=== PATIENT | male | born 1940 | race Caucasian/White ===

== ENCOUNTER → 2018-02-17 09:40 | Outpatient (CLI) | payer OTHER, SELFPAY ==
[2018-02-17 11:25] LABS: Add Manual Diff / Slide Review NO; Basophils Percent Auto 2.3 % (0-2); Eosinophils Percent Auto 3.1 % (2-4); Hematocrit 40.3 % (41-53); Hemoglobin 13.5 g/dL (13.5-17.5); Lymphocytes Percent Auto 21.7 % (25-40); Mean Corpuscular HGB Conc 33.6 % (30-36); Mean Corpuscular Hemoglobin 32.9 PG (26-34); Mean Corpuscular Volume 97.7 fL (80-100); Monocytes Percent Auto 9.9 % (3-14); Neutrophils Absolute Auto 2900 /uL (1500-7000); Platelet Count 160 X10^3/uL (150-400); Red Blood Cell Count 4.12 X10^6/uL (4.5-5.9); Red Cell Distribution Width 14.4 % (11.6-14.8); White Blood Cell Count 4.6 X10^3/uL (4.5-11.0)
[2018-02-17 11:39] LABS: Hemoglobin A1C% w Est Avg Glu 5.2 % (4.0-6.0)
[2018-02-17 11:42] LABS: Alanine Aminotransferase 30 IU/L (21-72); Albumin Globulin Ratio 1.9 (1.0-2.8); Alkaline Phosphatase 49 U/L (38-126); Aspartate Aminotransferase 31 IU/L (17-59); BUN Creatinine Ratio 23.3 (6-22); Bilirubin Total 0.4 mg/dL (0.2-1.3); Blood Urea Nitrogen 21 mg/dL (9-20); Calcium 9.3 mg/dL (8.4-10.2); Carbon Dioxide 28 mmol/L (22-32); Chloride 106 mmol/L (98-107); Cholesterol 151 mg/dL (140-199); Estimated Glomerular Filt Rate > 60.0 mL/min (>60); Globulin 2.1 g/dL (1.7-4.1); Glucose 87 mg/dL (80-110); HDL Cholesterol 72 mg/dL (40-60); HEMOLYSIS < 15 (0-50); LDL Cholesterol Calculated 65 mg/dL (<100); Potassium 4.4 mmol/L (3.4-5.1); Sodium 142 mmol/L (137-145); Total Protein 6.1 g/dL (6.3-8.2); Triglycerides 68 mg/dL (35-150)
[2018-02-17 12:42] LABS: Thyroid Stimulating Hormone 0.31 uIU/mL (0.47-4.68)
== END ==
PROVIDERS: Family Provider Family Medicine; PCP Family Medicine; Visit Provider Family Medicine
DX: E87.1 Hypo-osmolality and hyponatremia (principal); I10 Essential (primary) hypertension; I25.10 Atherosclerotic heart disease of native coronary artery without angina pectoris
CPT/HCPCS: 36415; 80053; 80061; 83036; 84443; 85025

== ENCOUNTER → 2018-02-24 12:45 | Outpatient (CLI) | payer OTHER, SELFPAY ==
--- NOTE | 2018-02-24 12:57 | DI.CT.S_ITS ---
PROCEDURE: CT HEAD/BRAIN WO/W CON INDICATIONS: memory loss TECHNIQUE: 4.5 mm thick angled axial sections acquired from the foramen magnum to the vertex both before and after the administration of intravenous contrast, with coronal and sagittal reformats. For radiation dose reduction, the following was used: automated exposure control, adjustment of mA and/or kV according to patient size. COMPARISON: [facility], CT, HEAD WITHOUT CONTRAST, 03/10/2017, 14:31. FINDINGS: Image quality: Excellent. CSF spaces: Basal cisterns are patent. No extra-axial fluid collections. Ventricles are symmetric in size and shape. Brain: No midline shift. No intracranial bleeds or masses. No abnormal intracranial enhancement. There is moderate cerebral volume loss for age. There is moderate periventricular white matter chronic small vessel ischemic change. There is intracranial internal carotid artery atherosclerosis. Skull and face: Calvarium and visualized facial bones appear intact, without suspicious lesions. Sinuses: Visualized sinuses and mastoids are clear. IMPRESSION: 1. No acute intracranial abnormalities. 2. Cerebral volume loss and chronic microvascular ischemic changes. Dictated by: Hai Cummings M.D. on 02/24/2018 at 13:40 Approved by: Hai Cummings M.D. on 02/24/2018 at 13:43
== END ==
PROVIDERS: PCP Family Medicine; Visit Provider Family Medicine
DX: R41.3 Other amnesia (principal); R09.89 Other specified symptoms and signs involving the circulatory and respiratory systems
CPT/HCPCS: 70470; Q9967

== ENCOUNTER → 2018-03-01 11:24 | Outpatient (CLI) | payer OTHER, SELFPAY ==
[2018-03-01 14:32] LABS: Folate > 20.0 ng/mL (2.76-20.0); Vitamin B12 525 pg/mL (239-931)
[2018-03-03 22:22] LABS: RPR Screen Nonreactive (Nonreactive)
== END ==
PROVIDERS: PCP Family Medicine; Visit Provider Family Medicine
DX: R41.3 Other amnesia (principal)
CPT/HCPCS: 36415; 82607; 82746; 86592

== ENCOUNTER → 2018-03-11 13:52 | Outpatient (CLI) | payer OTHER, SELFPAY ==
--- NOTE | 2018-03-11 13:54 | DI.US.S_ITS ---
PROCEDURE: US KIMBERLY LIMITED SINGLE LEVEL INDICATIONS: MEMORY LOSS TECHNIQUE: Ankle-brachial indices were obtained bilaterally and recorded. COMPARISONS: FINDINGS: Right ankle brachial index (KIMBERLY): 2.2 with leg pressure of 215 Left ankle brachial index (KIMBERLY): 3.3 with leg pressure of 264 IMPRESSION: Elevated pressures within the legs bilaterally which are greater than 200 mm of mercury suggesting medial wall calcification. Dictated by: Raf LESLIE Interpreted: Gt Juarez MD on 03/11/2018 at 15:57 Approved by: Gt Juarez M.D. on 03/11/2018 at 17:18
== END ==
PROVIDERS: PCP Family Medicine; Visit Provider Family Medicine
DX: R09.89 Other specified symptoms and signs involving the circulatory and respiratory systems (principal); R41.3 Other amnesia
CPT/HCPCS: 93922

== ENCOUNTER → 2018-04-13 12:40 | Outpatient (CLI) | payer OTHER, SELFPAY | PROVIDERS: PCP Family Medicine; Visit Provider Family Medicine | DX: M85.80 Other specified disorders of bone density and structure, unspecified site (principal) | CPT/HCPCS: 77080 ==

== ENCOUNTER → 2018-05-19 11:45 | Outpatient (CLI) | payer OTHER, SELFPAY | PROVIDERS: PCP Family Medicine; Visit Provider Family Medicine | DX: M21.372 Foot drop, left foot (principal) | CPT/HCPCS: 95885; 95886; 95909 ==

== ENCOUNTER → 2018-05-25 12:44 | Outpatient (CLI) | payer OTHER, SELFPAY ==
[2018-05-25 13:52] LABS: Add Manual Diff / Slide Review NO; Basophils Absolute Auto 100 /uL (0-100); Basophils Percent Auto 1.3 % (0-2); Eosinophils Absolute Auto 100 /uL (0-450); Hematocrit 37.6 % (41-53); Lymphocytes Absolute Auto 700 /uL (1100-4500); Mean Corpuscular HGB Conc 34.6 % (30-36); Mean Corpuscular Hemoglobin 33.3 PG (26-34); Mean Corpuscular Volume 96.1 fL (80-100); Monocytes Absolute Auto 400 /uL (0-900); Monocytes Percent Auto 9.3 % (3-14); Neutrophils Absolute Auto 3400 /uL (1500-7000); Neutrophils Percent Auto 72.4 % (50-75); Platelet Count 162 X10^3/uL (150-400); Red Blood Cell Count 3.91 X10^6/uL (4.5-5.9); White Blood Cell Count 4.7 X10^3/uL (4.5-11.0)
[2018-05-25 13:53] LABS: BUN Creatinine Ratio 34.3 (6-22); Blood Urea Nitrogen 24 mg/dL (9-20); Calcium 9.2 mg/dL (8.4-10.2); Carbon Dioxide 25 mmol/L (22-32); Chloride 96 mmol/L (98-107); Estimated Glomerular Filt Rate > 60.0 mL/min (>60); Glucose 88 mg/dL (80-110); HEMOLYSIS < 15 (0-50); Potassium 5.1 mmol/L (3.4-5.1); Sodium 130 mmol/L (137-145)
[2018-05-25 14:11] LABS: PTT Partial Thromboplastin Tim 29 SECONDS (26.4-36.2); Prothrombin Time 11.8 SECONDS (10.1-12.7)
== END ==
PROVIDERS: Family Provider Family Medicine; PCP Family Medicine; Visit Provider Dentist Oral and Maxillofacial Surgery
DX: D69.6 Thrombocytopenia, unspecified (principal)
CPT/HCPCS: 36415; 80048; 85025; 85610; 85730

== ENCOUNTER 2018-07-07 16:45 | Outpatient (RCR) | payer OTHER, SELFPAY ==
--- NOTE | 2018-04-07 17:10 | PT.OIE ---
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) Presence of cardiac pacemaker (Chronic 03/23/17) Anxiety (Chronic) Depression (Chronic) Herpes (Chronic) Urinary incontinence (Chronic 2001) Chicken pox (Resolved) Depression (Resolved 08/20/14) Kidney stones (Resolved 1991) Rheumatic fever (Resolved) Past Surgical History (Last Reviewed 10/26/17 @ 11:06 by Shira Carballo LPN) Anesthesia (Resolved) History of angioplasty (Resolved 1997) History of angioplasty (Resolved 2007) History of angioplasty (Resolved 2011) Status post hernia repair (Resolved 1979) Status post transurethral resection of prostate (Resolved 1999) Provider Visit Care Team Role Provider Type Yash Howe MD Attending Provider Physician Primary Care Provider Specialty: [facility] Practice Address: [address] [place] [address] Email: [email or web address] Physical Therapy Initial Evaluation PT-OP-A Visit Information Start: 04/07/18 16:00 Freq: Status: Active Protocol: Document 04/07/18 17:02 EA (Rec: 04/07/18 17:17 EA [id number]) Out-Patient Physical Therapy Visit Information Visit Information Visit Type Initial Evaluation Visit Start Time 13:45 Visit Stop Time 14:30 Total Visit Minutes 45 Visit Number 1 Evaluation Information Evaluation Date 04/07/18 Precautions Precautions Fall risk, Pacemaker. PT-OP-B Current Condition Start: 04/07/18 16:00 Freq: Status: Active Protocol: Document 04/07/18 17:02 EA (Rec: 04/07/18 17:17 EA [id number]) Current Condition History of Current Condition Onset Date 6 months ago Current Complaints Multiple joint pain and weakness to both LE's. History of Current Condition Present condition started 6 months ago when he noticed that both LE's are getting weak and decreased balance. He stated that multiple falls in the past 6 months with no severe injury or required hospitalization. He mentioned that pain to right hip and shoulder continued to bother him when place with pressure since the fall two weeks ago. Pt reports mobility decreased from more than 100 ft to now less than 50 ft since six months ago which also currently required four wheeled walker. Patient reports that he is still mourning for his daughter few years ago. Prior Treatments and Tests Patient had dementia medication removed few weeks ago Future Testing and Treatments Planned None identified Treatment Goals Patient/Caregiver Goals Patient wants to be able to walk more than 100 ft with the use of straight cane. Patient would like to improve his balance. Prior Functional Status Baseline Function- ADL's Independent Baseline Function- Mobility Independent Baseline Function- Gait Ambulates > 100 ft with straight cane/ across the street 6 months ago Baseline Function- Recreation/Hobbies Patient has none active lifestyle due to depression Baseline Function- Other Lives with his who does the driving due to early dementia. Live in a 2 story house with more than 10 stairs at home. Current Functional Impairments (Reported) Functional Limitations- ADL's Indep in all except with feeding due to recent mouth surgery, requires company in all outside mobility due to early onset dementia. 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 Patient Reported Progress Same Patient Questionnaires Lower Extremity Functional Scale LEFS Score 11 LEFS Impairment 80 to 99% Impaired (Score 1-16 ) OP-PT Pain Assessment Pain Assessment Grid Paper Pain Assessment Grid Completed Yes Location Right Upper Lateral Hip Intensity 6 Scale Used Numeric (1 - 10) Description Aching Tender Tightness Pain Alleviating Factors Medication Home Pain Medication Use Pain Medications Used Yes Pain Behaviors Pain Behaviors Wincing PT-OP-D Balance Start: 04/07/18 16:00 Freq: Status: Active Protocol: Document 04/07/18 17:02 MARC (Rec: 04/07/18 17:17 EA [id number]) OP-PT Balance Assessment Sitting Balance Static Sitting Balance Ability Good Dynamic Sitting Balance Ability Good Standing Balance Static Standing Balance Ability Good Dynamic Standing Balance Ability Fair Balance Tests Functional Reach Functional Reach Test < 2 inches Functional Reach Impairment Rating 80 to <100% Impaired (Score 1- 2) Romberg Romberg < 5 seconds Single Limb Standing Single Limb- Right unable Single Limb- Left unable Semi-Tandem Standing Semi-Tandem Standing Balance < 3 second to both L and R Knapp Balance Assessment Evaluation Sitting to Standing Ability Several Tries w/Hands Unsupported Stance Supervision- 2 minutes Sitting Unsupported, Feet on Floor Safely- 2 minutes Standing to Sitting Ability Assist, Control w/Hands Unsupported Stance- Eyes Closed Safely, With Eyes Open Unsupported Stance- Eyes Open Independent, 1 minute Reaching Forward Standing Supervision Needed Pick- Up Object From Floor Requires Supervision Look Behind Shoulder - Standing Turns Sideways Only Turning 360 Degrees Turns slowly, but safely Unsupported Stance, Alternating Feet on 4 Steps w/Supervision Stair Unsupported Tandem Stance Assist to Step-15 seconds Unilateral Leg Stance Unable,assist to not fall Total Score Knapp Total Score (out of 56 points) 26 Tinetti Balance Assessment Sitting Balance Sitting Balance Steady, safe Arising from Chair Ability to Arise Able, uses arms to help Standing Balance Immediate Standing Balance Steady with support Turning Step Pattern Turning 360 Degrees Continuous steps Sitting Down Sitting Down Uses arms or unsteady Gait and Step Initiation of Gait No hesitancy Right Foot Step Length Does pass stance foot Right Foot Step Height Does not clear floor Left Foot Step Length Does pass stance foot Left Foot Step Height Does not clear floor Step Description Step Symmetry Step length appears equal Gait Description Trunk Description Marked sway or uses aide Scoring and Interpretation Tinetti Composite Score (points) 9 Interpretation of Scores High risk for falls(< 19) Carty Fall Scale Copyright Permission Carloz BEGUM, Carloz RM, Arabella SJ. Development of a scale to identify the fall- prone patient. Can J Aging 1989;8;366-7. Esha Carty (2009). Preventing patient falls. (2nd ed). Kings: Abbott. PT-OP-E Functional Tests Start: 04/07/18 16:00 Freq: Status: Active Protocol: Document 04/07/18 17:05 EA (Rec: 04/11/18 09:42 EA [id number]) Functional Tests Timed Up and Go (TUG) Score > 15 secs TUG Impairment Rating 60 to <80% Impaired (Score 16- 17) PT-OP-F Manual Assessment Start: 04/07/18 16:00 Freq: Status: Active Protocol: Document 04/07/18 17:02 EA (Rec: 04/07/18 17:17 EA [id number]) Manual Assessments Soft Tissue Assessment Soft Tissue Mobility Assessment Tight both hamstrings, Quads, hip flexors, PF PT-OP-G Mobility & Gait Start: 04/07/18 16:00 Freq: Status: Active Protocol: Document 04/07/18 17:02 EA (Rec: 04/07/18 17:17 EA [id number]) OP Mobility Evaluation Bed Mobility Rolling Minimal difficulty, indep Supine to and from Sit Minimal difficulty, indep Transfers Sit to Stand Indep but requires hand for support Bed to Chair Transfers indep but requires support/AD OP Gait Assessment Gait Gait Assistance Required: Independent Distance (Feet) 50 Able to Maintain Weight Bearing Status Yes During Gait Assistive Devices Assistive Device 4 Wheeled Walker Gait Deviations General Gait Pattern Decreased Feet Clearance Flexed Trunk Comments Gait Comments Left foot dropped Stair Climbing Evaluation Evaluation Level of Assist On Stairs Standby Assistance Devices Stair Climbing Assistive Devices Straight Cane Technique/Endurance Stair Climbing Direction Ascend and Descend Stair Climbing Technique Step to Step Number of Steps Climbed 4 Comments Stair Climbing Comments With difficulty on stairs descent PT-OP-J Posture/Palpation/Skin Start: 04/07/18 16:00 Freq: Status: Active Protocol: Document 04/07/18 17:02 EA (Rec: 04/07/18 17:17 EA [id number]) Posture Evaluation Position Standing Evaluation View post/lat Head/C-Spine Posture Forward Head T-Spine Posture Increased Kyphosis L-Spine Posture Flattened Shoulder Posture (L) Forward (R) Forward Scapula Posture (L) Protracted (R) Protracted Arm Posture (L) Internally Rotated (R) Internally Rotated Pelvis Posture Posterior Tilted Hip Posture (R) Flexed Comments Posture Comments Supine position reveals no obvious hip deformity to right side Palpation Assessment Location One Palpation Location Right lateral hip, right shoulder Palpation Findings Soft Tissue Tightness Tenderness Palpation Details Grade 3/4 tender over lateral upper hip and right shoulder No noted any signs of crepitus in all hip direction PROM Skin Assessment Other Assessments Skin Assessment Comments Right lateral hip bruise/ discoloratrion ~ 4 square cm. PT-OP-M Strength Start: 04/07/18 16:00 Freq: Status: Active Protocol: Document 04/07/18 17:02 EA (Rec: 04/07/18 17:17 EA [id number]) Hip Strength Hip Manual Muscle Testing Right Flexion (L2) 3+ Fair+ Extension (S1) 4- Good- Abduction 3+ Fair+ Adduction 4- Good- External Rotation 3+ Fair+ Internal Rotation 4- Good- Left Flexion (L2) 3+ Fair+ Extension (S1) 4- Good- Abduction 3 Fair Adduction 4- Good- External Rotation 3+ Fair+ Internal Rotation 4- Good- Ankle/Foot Strength Ankle and Foot Manual Muscle Testing Left Dorsiflexion (L4) 2+ Poor+ Plantarflexion (S1) 4- Good- Inversion 4- Good- Eversion (S1) 4- Good- Right Reason Not Measured WFL PT-OP-T Assessment and Plan Start: 04/07/18 16:00 Freq: Status: Active Protocol: Document 04/07/18 16:01 EA (Rec: 04/07/18 16:02 EA [id number]) Physical Therapy Assessment Rehab Potential Rehabilitation Potential Fair Evaluation Complexity Number of Personal Factors/Comorbidities 3 or More Number of Body Systems Impaired 4 or More Clinical Presentation at Evaluation Unstable Impairments Impairments Activity Tolerance Balance Functional Activities Gait Pain Posture ROM Soft Tissue Mobility Strength Other Concerns Fall Risk Yes Barriers to Rehabilitation Depression, early onset dementia, ability to manage pain with mobility. Goals Four Impairment Impaired distance ambulation Saw Boss Goal (LTG) Patient will ambulate > 100 ft using FWW. LTG Duration 4 wks Three Impairment TINNETI BALANCE score of 9: Very high risk fall Saw Boss Goal (LTG) TINNETI BALANCE score of 19 ( moderately risk fall) LTG Duration 5 wks Two Impairment TUG > 15 seconds with FWW Nursing Home Goal (LTG) TUG of < 13 seconds w/ AD LTG Duration 4 wks One Impairment LEFS of 14/80 Nursing Home Goal (LTG) LEFS score of > 30/80 LTG Duration 4 wks Assessment Summary Assessment 78 y/o M patient with referring diagnosis of both LE 's weakness. Today patient exhibited with difficulty in bed mobility, transfers, and gait due to weakness and multiple joint pains. Functional balance tests reveals high risk of fall. LE' s functional scale reveals 20- 30% impaired. MMT to both LE's reveals weakness to both LE's with significant weakness to left DF muscles. ROM to both LE's reveals near to WFL except with tightness to both hip flexors, hamstrings and lumbar ROM. I was able to assess right hip and shoulder status which 2 weeks post fall with no hospitalization per patient, and noted right lateral hip bruise with no crepitus, extreme pain and hip deformity noted. I have recommended to patient and his to see his physician for further assessment due to last fall. Patient would greatly benefit with skilled PT to improve strength and balance and education about mobility safety. Physical Therapy Plan Frequency and Duration Frequency of Treatment 2x/Week Duration of Treatment 12 wks Plan of Care Start Date 04/07/18 Plan of Care End Date 06/30/18 Therapeutic Interventions Therapeutic Interventions Balance Training Coordination Training Gait Training Home Exercise Program Joint Mobilizations Manual Therapy Patient/Caregiver Education Self-Care/Home Management Soft Tissue Mobilization Therapeutic Exercises Modalities Cold Pack/Ice Massage Electric Stimulation Hot Packs Next Visit Focus/Plan Next Note Type Treatment Note Next Visit Plan Decrease pain; provide HEP, educate.
--- NOTE | 2018-04-07 17:10 | PT.OPPOC ---
Current Diagnoses Other symptoms and signs involving the musculoskeletal system (04/07/18) Provider Visit Care Team Role Provider Type Yash Howe MD Attending Provider Physician Primary Care Provider Specialty: Family Practice Address: [address] [place] [address], [id number] Email: [email or web address] Plan Of Care PT-OP-T Assessment and Plan Start: 04/07/18 16:00 Freq: Status: Active Protocol: Document 04/07/18 16:01 MARC (Rec: 04/07/18 16:02 MARC [id number]) Physical Therapy Assessment Rehab Potential Rehabilitation Potential Fair Evaluation Complexity Number of Personal Factors/Comorbidities 3 or More Number of Body Systems Impaired 4 or More Clinical Presentation at Evaluation Unstable Impairments Impairments Activity Tolerance Balance Functional Activities Gait Pain Posture ROM Soft Tissue Mobility Strength Other Concerns Fall Risk Yes Barriers to Rehabilitation Depression, early onset dementia, ability to manage pain with mobility. Goals Four Impairment Impaired distance ambulation [facility]dc Goal (LTG) Patient will ambulate > 100 ft using FWW. LTG Duration 4 wks Three Impairment TINNETI BALANCE score of 9: Very high risk fall [facility]dc Goal (LTG) TINNETI BALANCE score of 19 ( moderately risk fall) LTG Duration 5 wks Two Impairment TUG > 15 seconds with FWW [facility]dc Goal (LTG) TUG of < 13 seconds w/ AD LTG Duration 4 wks One Impairment LEFS of 14/80 Seed Yeast Operator Goal (LTG) LEFS score of > 30/80 LTG Duration 4 wks Assessment Summary Assessment 78 y/o M patient with referring diagnosis of both LE 's weakness. Today patient exhibited with difficulty in bed mobility, transfers, and gait due to weakness and multiple joint pains. Functional balance tests reveals high risk of fall. LE' s functional scale reveals 20- 30% impaired. MMT to both LE's reveals weakness to both LE's with significant weakness to left DF muscles. ROM to both LE's reveals near to WFL except with tightness to both hip flexors, hamstrings and lumbar ROM. I was able to assess right hip and shoulder status which 2 weeks post fall with no hospitalization per patient, and noted right lateral hip bruise with no crepitus, extreme pain and hip deformity noted. I have recommended to patient and his to see his physician for further assessment due to last fall. Patient would greatly benefit with skilled PT to improve strength and balance and education about mobility safety. Physical Therapy Plan Frequency and Duration Frequency of Treatment 2x/Week Duration of Treatment 12 wks Plan of Care Start Date 04/07/18 Plan of Care End Date 06/30/18 Therapeutic Interventions Therapeutic Interventions Balance Training Coordination Training Gait Training Home Exercise Program Joint Mobilizations Manual Therapy Patient/Caregiver Education Self-Care/Home Management Soft Tissue Mobilization Therapeutic Exercises Modalities Cold Pack/Ice Massage Electric Stimulation Hot Packs Next Visit Focus/Plan Next Note Type Treatment Note Next Visit Plan Decrease pain; provide HEP, educate. Plan of Care Dates Plan of Care Start Date 04/07/18 Plan of Care End Date 06/30/18 Please Sign and Return: I have reviewed this Plan of Care and certify that the skilled therapy services above are required to meet the patient?s needs. Physician Signature Date Printed Name and Credentials Clinical Instructor Signature Printed Name and Credentials
--- NOTE | 2018-04-11 14:51 | PT.OTN ---
Current Diagnoses Other symptoms and signs involving the musculoskeletal system (04/11/18) Physical Therapy Treatment Note PT-OP-A Visit Information Start: 04/07/18 16:00 Freq: Status: Active Protocol: Document 04/11/18 14:38 EA (Rec: 04/11/18 14:51 EA [id number]) Out-Patient Physical Therapy Visit Information Visit Information Visit Type Treatment Note Visit Start Time 13:45 Visit Stop Time 14:30 Total Visit Minutes 50 Visit Number 2 PT-OP-B Current Condition Start: 04/07/18 16:00 Freq: Status: Active Protocol: Document 04/07/18 17:02 EA (Rec: 04/07/18 17:17 EA [id number]) Current Condition History of Current Condition Onset Date 6 months ago Current Complaints Multiple joint pain and weakness to both LE's. History of Current Condition Present condition started 6 months ago when he noticed that both LE's are getting weak and decreased balance. He stated that multiple falls in the past 6 months with no severe injury or required hospitalization. He mentioned that pain to right hip and shoulder continued to bother him when place with pressure since the fall two weeks ago. Pt reports mobility decreased from more than 100 ft to now less than 50 ft since six months ago which also currently required four wheeled walker. Patient reports that he is still mourning for his daughter few years ago. Prior Treatments and Tests Patient had dementia medication removed few weeks ago Future Testing and Treatments Planned None identified Treatment Goals Patient/Caregiver Goals Patient wants to be able to walk more than 100 ft with the use of straight cane. Patient would like to improve his balance. Prior Functional Status Baseline Function- ADL's Independent Baseline Function- Mobility Independent Baseline Function- Gait Ambulates > 100 ft with straight cane/ accross the street 6 months ago Baseline Function- Recreation/Hobbies Patient has none active lifestyle due to deprssion Baseline Function- Other Lives with his who does the driving due to early dementia. Live in a 2 story house with more than 10 stairs at home. Current Functional Impairments (Reported) Functional Limitations- ADL's Indep in all except with feeding due to recent mouth surgery, requires company in all outside mobility due to early onset dementia. Functional Limitations- Mobility/Gait Unable to ambulate outside the house and [employer] pick[employer] the mail (> 100ft) due to fear of falling Functional Limitations- Work/School Retired Functional Limitations- Recreation/ None identified Hobbies Personal Factors Other Personal Factors That May Effect Early onset of dementia, Therapy/Recovery Depression, Pace maker, Anixiety, fear of falling PT-OP-C Subjective Start: 04/07/18 16:00 Freq: Status: Active Protocol: Document 04/11/18 14:38 EA (Rec: 04/11/18 14:51 EA [id number]) OP-PT Subjective Patient Comments Patient Comments Pt reports left ankle pain while sleeping at night and pain disappears when upon walking. Patient Reported Progress Same PT-OP-D Balance Start: 04/07/18 16:00 Freq: Status: Active Protocol: Document 04/07/18 17:02 EA (Rec: 04/07/18 17:17 EA [id number]) OP-PT Balance Assessment Sitting Balance Static Sitting Balance Ability Good Dynamic Sitting Balance Ability Good Standing Balance Static Standing Balance Ability Good Dynamic Standing Balance Ability Fair Balance Tests Functional Reach Functional Reach Test < 2 inches Functional Reach Impairment Rating 80 to <100% Impaired (Score 1- 2) Romberg Romberg < 5 seconds Single Limb Standing Single Limb- Right unable Single Limb- Left unable Semi-Tandem Standing Semi-Tandem Standing Balance < 3 second to both L and R Knapp Balance Assessment Evaluation Sitting to Standing Ability Several Tries w/Hands Unsupported Stance Supervision- 2 minutes Sitting Unsupported, Feet on Floor Safely- 2 minutes Standing to Sitting Ability Assist, Control w/Hands Unsupported Stance- Eyes Closed Safely, With Eyes Open Unsupported Stance- Eyes Open Independent, 1 minute Reaching Forward Standing Supervision Needed Pick- Up Object From Floor Requires Supervision Look Behind Shoulder - Standing Turns Sideways Only Turning 360 Degrees Turns slowly, but safely Unsupported Stance, Alternating Feet on 4 Steps w/Supervision Stair Unsupported Tandem Stance Assist to Step-15 seconds Unilateral Leg Stance Unable,assist to not fall Total Score Knapp Total Score (out of 56 points) 26 Tinetti Balance Assessment Sitting Balance Sitting Balance Steady, safe Arising from Chair Ability to Arise Able, uses arms to help Standing Balance Immediate Standing Balance Steady with support Turning Step Pattern Turning 360 Degrees Continuous steps Sitting Down Sitting Down Uses arms or unsteady Gait and Step Initiation of Gait No hesitancy Right Foot Step Length Does pass stance foot Right Foot Step Height Does not clear floor Left Foot Step Length Does pass stance foot Left Foot Step Height Does not clear floor Step Description Step Symmetry Step length appears equal Gait Description Trunk Description Marked sway or uses aide Scoring and Interpretation Tinetti Composite Score (points) 9 Interpretation of Scores High risk for falls(< 19) Carty Fall Scale Copyright Permission Carloz JM, Carloz RM, Arabella SJ. Development of a scale to identify the fall- prone patient. Can J Aging 1989;8;366-7. Esha Carty (2009). Preventing patient falls. (2nd ed). [place]: [employer]. PT-OP-E Functional Tests Start: 04/07/18 16:00 Freq: Status: Active Protocol: Document 04/07/18 17:05 EA (Rec: 04/11/18 09:42 EA [id number]) Functional Tests Timed Up and Go (TUG) Score > 15 secs TUG Impairment Rating 60 to <80% Impaired (Score 16- 17) PT-OP-F Manual Assessment Start: 04/07/18 16:00 Freq: Status: Active Protocol: Document 04/07/18 17:02 EA (Rec: 04/07/18 17:17 EA [id number]) Manual Assessments Soft Tissue Assessment Soft Tissue Mobility Assessment Tight both hamstrings, Quads, hip flexors, PF PT-OP-G Mobility & Gait Start: 04/07/18 16:00 Freq: Status: Active Protocol: Document 04/07/18 17:02 EA (Rec: 04/07/18 17:17 EA [id number]) OP Mobility Evaluation Bed Mobility Rolling Minimal difficulty, indep Supine to and from Sit Minimal difficulty, indep Transfers Sit to Stand Indep but requires hand for support Bed to Chair Transfers indep but requires support/AD OP Gait Assessment Gait Gait Assistance Required: Independent Distance (Feet) 50 Able to Maintain Weight Bearing Status Yes During Gait Assistive Devices Assistive Device 4 Wheeled Walker Gait Deviations General Gait Pattern Decreased Feet Clearance Flexed Trunk Comments Gait Comments Left foot dropped Stair Climbing Evaluation Evaluation Level of Assist On Stairs Standby Assistance Devices Stair Climbing Assistive Devices Straight Cane Technique/Endurance Stair Climbing Direction Ascend and Descend Stair Climbing Technique Step to Step Number of Steps Climbed 4 Comments Stair Climbing Comments With difficulty on stairs descent PT-OP-J Posture/Palpation/Skin Start: 04/07/18 16:00 Freq: Status: Active Protocol: Document 04/07/18 17:02 EA (Rec: 04/07/18 17:17 EA [id number]) Posture Evaluation Position Standing Evaluation View post/lat Head/C-Spine Posture Forward Head T-Spine Posture Increased Kyphosis L-Spine Posture Flattened Shoulder Posture (L) Forward (R) Forward Scapula Posture (L) Protracted (R) Protracted Arm Posture (L) Internally Rotated (R) Internally Rotated Pelvis Posture Posterior Tilted Hip Posture (R) Flexed Comments Posture Comments Supine position reveals no obvious hip deformity to right side Palpation Assessment Location One Palpation Location Right lateral hip, right shoulder Palpation Findings Soft Tissue Tightness Tenderness Palpation Details Grade 3/4 tender over lateral upper hip and right shoulder No noted any signs of crepitus in all hip direction PROM Skin Assessment Other Assessments Skin Assessment Comments Right lateral hip bruise/ discoloratrion ~ 4 square cm. PT-OP-M Strength Start: 04/07/18 16:00 Freq: Status: Active Protocol: Document 04/07/18 17:02 EA (Rec: 04/07/18 17:17 EA [id number]) Hip Strength Hip Manual Muscle Testing Right Flexion (L2) 3+ Fair+ Extension (S1) 4- Good- Abduction 3+ Fair+ Adduction 4- Good- External Rotation 3+ Fair+ Internal Rotation 4- Good- Left Flexion (L2) 3+ Fair+ Extension (S1) 4- Good- Abduction 3 Fair Adduction 4- Good- External Rotation 3+ Fair+ Internal Rotation 4- Good- Ankle/Foot Strength Ankle and Foot Manual Muscle Testing Left Dorsiflexion (L4) 2+ Poor+ Plantarflexion (S1) 4- Good- Inversion 4- Good- Eversion (S1) 4- Good- Right Reason Not Measured WFL PT-OP-Q Treatments Start: 04/07/18 16:00 Freq: Status: Active Protocol: Document 04/11/18 14:38 EA (Rec: 04/11/18 14:51 EA [id number]) Cardio Equipment Recumbent Stepper (Sci-Fit) Duration (Minutes) 5 Resistance 1 Seat Position 14 Gym Equipment Shuttle Recovery Bilateral Squats Resistance 37# Shuttle Recovery Platform Stable Unilateral Squats Details 25# Shuttle Recovery Platform Stable Reps/Time x 15 reps Therapeutic Exercises Supine Exercises 7 Supine Exercise Name Bridge Side bilateral Reps/Minutes x 10 reps 6 Supine Exercise Name SKTC Side bilateral 5 Supine Exercise Name Lower trunk rotation stretch Side bilateral 4 Supine Exercise Name Piriformis stretch 3 Supine Exercise Name bent ABD/ADD Side bilateral Reps/Minutes x 20 reps 2 Supine Exercise Name Clamshell Side bilateral Reps/Minutes x 15 reps 1 Supine Exercise Name SLR Side bilateral Equipment Used x 15 reps Manual Therapy Treatment Soft Tissue Mobilization 1 Body Location Left SI, gluteals and paralumbars Mobilization Type Myofascial Release Rolling Sustained Pressure Body Position Sidelying PT-OP-R Modalities Start: 04/07/18 16:00 Freq: Status: Active Protocol: Document 04/11/18 14:38 EA (Rec: 04/11/18 14:51 EA [id number]) Hot Pack/Cold Pack Treatment Hot Pack Location left gluteals Patient Position Hooklying Treatment Duration (minutes) 10 Patient Tolerance Good PT-OP-T Assessment and Plan Start: 04/07/18 16:00 Freq: Status: Active Protocol: Document 04/11/18 14:38 EA (Rec: 04/11/18 14:51 EA [id number]) Physical Therapy Assessment Assessment Summary Assessment Assess left ankle and reveals negative to any legamentous injury with no significant swelling noted. SLR to left elicit pain to SI joint at 45- 65 deg hip flexion. Patient requires constant cues during exercises execution as patient to speed it up. HEP was given and shows good understanding. Foot dropped and SI joint seems to be inter-related with possible nerve compression at lumbar level. Physical Therapy Plan Next Visit Focus/Plan Next Note Type Treatment Note Next Visit Plan Strengthen to both CAROLA's.
--- NOTE | 2018-04-14 14:58 | PT.OTN ---
Current Diagnoses Other symptoms and signs involving the musculoskeletal system (04/14/18) Physical Therapy Treatment Note PT-OP-A Visit Information Start: 04/07/18 16:00 Freq: Status: Active Protocol: Document 04/14/18 14:50 EA (Rec: 04/14/18 14:58 EA [id number]) Out-Patient Physical Therapy Visit Information Visit Information Visit Type Treatment Note Visit Start Time 13:45 Visit Stop Time 14:30 Total Visit Minutes 50 Visit Number 3 PT-OP-B Current Condition Start: 04/07/18 16:00 Freq: Status: Active Protocol: Document 04/07/18 17:02 EA (Rec: 04/07/18 17:17 EA [id number]) Current Condition History of Current Condition Onset Date 6 months ago Current Complaints Multiple joint pain and weakness to both LE's. History of Current Condition Present condition started 6 months ago when he noticed that both LE's are getting weak and decreased balance. He stated that multiple falls in the past 6 months with no severe injury or required hospitalization. He mentioned that pain to right hip and shoulder continued to bother him when place with pressure since the fall two weeks ago. Pt reports mobility decreased from more than 100 ft to now less than 50 ft since six months ago which also currently required four wheeled walker. Patient reports that he is still mourning for his daughter few years ago. Prior Treatments and Tests Patient had dementia medication removed few weeks ago Future Testing and Treatments Planned None identified Treatment Goals Patient/Caregiver Goals Patient wants to be able to walk more than 100 ft with the use of straight cane. Patient would like to improve his balance. Prior Functional Status Baseline Function- ADL's Independent Baseline Function- Mobility Independent Baseline Function- Gait Ambulates > 100 ft with straight cane/ accross the street 6 months ago Baseline Function- Recreation/Hobbies Patient has none active lifestyle due to deprssion Baseline Function- Other Lives with his who does the driving due to early dementia. Live in a 2 story house with more than 10 stairs at home. Current Functional Impairments (Reported) Functional Limitations- ADL's Indep in all except with feeding due to recent mouth surgery, requires company in all outside mobility due to early onset dementia. Functional Limitations- Mobility/Gait Unable to ambulate outside the house and picket [employer] the mail (> 100ft) due to fear of falling Functional Limitations- Work/School Retired Functional Limitations- Recreation/ None identified Hobbies Personal Factors Other Personal Factors That May Effect Early onset of dementia, Therapy/Recovery Depression, Pace maker, Anixiety, fear of falling PT-OP-C Subjective Start: 04/07/18 16:00 Freq: Status: Active Protocol: Document 04/14/18 14:50 EA (Rec: 04/14/18 14:58 EA [id number]) OP-PT Subjective Patient Comments Patient Comments Pt's reports patient able to peform most of the exercise except with bridge due to increase back pain. Patient Reported Progress Improving PT-OP-D Balance Start: 04/07/18 16:00 Freq: Status: Active Protocol: Document 04/07/18 17:02 EA (Rec: 04/07/18 17:17 EA [id number]) OP-PT Balance Assessment Sitting Balance Static Sitting Balance Ability Good Dynamic Sitting Balance Ability Good Standing Balance Static Standing Balance Ability Good Dynamic Standing Balance Ability Fair Balance Tests Functional Reach Functional Reach Test < 2 inches Functional Reach Impairment Rating 80 to <100% Impaired (Score 1- 2) Romberg Romberg < 5 seconds Single Limb Standing Single Limb- Right unable Single Limb- Left unable Semi-Tandem Standing Semi-Tandem Standing Balance < 3 second to both L and R Knapp Balance Assessment Evaluation Sitting to Standing Ability Several Tries w/Hands Unsupported Stance Supervision- 2 minutes Sitting Unsupported, Feet on Floor Safely- 2 minutes Standing to Sitting Ability Assist, Control w/Hands Unsupported Stance- Eyes Closed Safely, With Eyes Open Unsupported Stance- Eyes Open Independent, 1 minute Reaching Forward Standing Supervision Needed Pick- Up Object From Floor Requires Supervision Look Behind Shoulder - Standing Turns Sideways Only Turning 360 Degrees Turns slowly, but safely Unsupported Stance, Alternating Feet on 4 Steps w/Supervision Stair Unsupported Tandem Stance Assist to Step-15 seconds Unilateral Leg Stance Unable,assist to not fall Total Score Knapp Total Score (out of 56 points) 26 Tinetti Balance Assessment Sitting Balance Sitting Balance Steady, safe Arising from Chair Ability to Arise Able, uses arms to help Standing Balance Immediate Standing Balance Steady with support Turning Step Pattern Turning 360 Degrees Continuous steps Sitting Down Sitting Down Uses arms or unsteady Gait and Step Initiation of Gait No hesitancy Right Foot Step Length Does pass stance foot Right Foot Step Height Does not clear floor Left Foot Step Length Does pass stance foot Left Foot Step Height Does not clear floor Step Description Step Symmetry Step length appears equal Gait Description Trunk Description Marked sway or uses aide Scoring and Interpretation Tinetti Composite Score (points) 9 Interpretation of Scores High risk for falls(< 19) Carty Fall Scale Copyright Permission Carloz JM, Carloz RM, Arabella SJ. Development of a scale to identify the fall- prone patient. Can J Aging 1989;8;366-7. Esha Carty (2009). Preventing patient falls. (2nd ed). [place]: [employer]. PT-OP-E Functional Tests Start: 04/07/18 16:00 Freq: Status: Active Protocol: Document 04/07/18 17:05 EA (Rec: 04/11/18 09:42 EA [id number]) Functional Tests Timed Up and Go (TUG) Score > 15 secs TUG Impairment Rating 60 to <80% Impaired (Score 16- 17) PT-OP-F Manual Assessment Start: 04/07/18 16:00 Freq: Status: Active Protocol: Document 04/07/18 17:02 EA (Rec: 04/07/18 17:17 EA [id number]) Manual Assessments Soft Tissue Assessment Soft Tissue Mobility Assessment Tight both hamstrings, Quads, hip flexors, PF PT-OP-G Mobility & Gait Start: 04/07/18 16:00 Freq: Status: Active Protocol: Document 04/07/18 17:02 EA (Rec: 04/07/18 17:17 EA [id number]) OP Mobility Evaluation Bed Mobility Rolling Minimal difficulty, indep Supine to and from Sit Minimal difficulty, indep Transfers Sit to Stand Indep but requires hand for support Bed to Chair Transfers indep but requires support/AD OP Gait Assessment Gait Gait Assistance Required: Independent Distance (Feet) 50 Able to Maintain Weight Bearing Status Yes During Gait Assistive Devices Assistive Device 4 Wheeled Walker Gait Deviations General Gait Pattern Decreased Feet Clearance Flexed Trunk Comments Gait Comments Left foot dropped Stair Climbing Evaluation Evaluation Level of Assist On Stairs Standby Assistance Devices Stair Climbing Assistive Devices Straight Cane Technique/Endurance Stair Climbing Direction Ascend and Descend Stair Climbing Technique Step to Step Number of Steps Climbed 4 Comments Stair Climbing Comments With difficulty on stairs descent PT-OP-J Posture/Palpation/Skin Start: 04/07/18 16:00 Freq: Status: Active Protocol: Document 04/07/18 17:02 EA (Rec: 04/07/18 17:17 EA [id number]) Posture Evaluation Position Standing Evaluation View post/lat Head/C-Spine Posture Forward Head T-Spine Posture Increased Kyphosis L-Spine Posture Flattened Shoulder Posture (L) Forward (R) Forward Scapula Posture (L) Protracted (R) Protracted Arm Posture (L) Internally Rotated (R) Internally Rotated Pelvis Posture Posterior Tilted Hip Posture (R) Flexed Comments Posture Comments Supine position reveals no obvious hip deformity to right side Palpation Assessment Location One Palpation Location Right lateral hip, right shoulder Palpation Findings Soft Tissue Tightness Tenderness Palpation Details Grade 3/4 tender over lateral upper hip and right shoulder No noted any signs of crepitus in all hip direction PROM Skin Assessment Other Assessments Skin Assessment Comments Right lateral hip bruise/ discoloratrion ~ 4 square cm. PT-OP-M Strength Start: 04/07/18 16:00 Freq: Status: Active Protocol: Document 04/07/18 17:02 EA (Rec: 04/07/18 17:17 EA [id number]) Hip Strength Hip Manual Muscle Testing Right Flexion (L2) 3+ Fair+ Extension (S1) 4- Good- Abduction 3+ Fair+ Adduction 4- Good- External Rotation 3+ Fair+ Internal Rotation 4- Good- Left Flexion (L2) 3+ Fair+ Extension (S1) 4- Good- Abduction 3 Fair Adduction 4- Good- External Rotation 3+ Fair+ Internal Rotation 4- Good- Ankle/Foot Strength Ankle and Foot Manual Muscle Testing Left Dorsiflexion (L4) 2+ Poor+ Plantarflexion (S1) 4- Good- Inversion 4- Good- Eversion (S1) 4- Good- Right Reason Not Measured WFL PT-OP-Q Treatments Start: 04/07/18 16:00 Freq: Status: Active Protocol: Document 04/14/18 14:50 EA (Rec: 04/14/18 14:58 EA [id number]) Cardio Equipment Recumbent Stepper (Sci-Fit) Duration (Minutes) 7 Resistance 1.2 Seat Position 14 Gym Equipment Cable Column (Body Solid) Rows Resistance 20 lbs x 12 reps Shuttle Recovery Bilateral Squats Resistance 50# Shuttle Recovery Platform Stable Reps/Time 15 x 2 Unilateral Squats Details 25# Shuttle Recovery Platform Stable Reps/Time x 15 reps Therapeutic Exercises Supine Exercises 7 Supine Exercise Name Bridge Side bilateral Reps/Minutes x 10 reps 6 Supine Exercise Name SKTC Side bilateral 5 Supine Exercise Name Lower trunk rotation stretch Side bilateral 4 Supine Exercise Name Piriformis stretch 3 Supine Exercise Name bent ABD/ADD Side bilateral Reps/Minutes x 20 reps 2 Supine Exercise Name Clamshell Side bilateral Reps/Minutes x 15 reps 1 Supine Exercise Name SLR Side bilateral Reps/Minutes 15 reps Sitting Exercises 2 Sitting Exercise Name Hip flexion: arm fwd/balance challnge Reps/Minutes x 12 reps each. 1 Sitting Exercise Name edge of table: Hip ER/IR Side left Resistance YTB Reps/Minutes x 12 reps x 2 Manual Therapy Treatment Soft Tissue Mobilization 1 Body Location Left SI, gluteals and paralumbars Mobilization Type Myofascial Release Rolling Sustained Pressure Body Position Sidelying PT-OP-R Modalities Start: 04/07/18 16:00 Freq: Status: Active Protocol: Document 04/14/18 14:50 EA (Rec: 04/14/18 14:58 EA [id number]) Hot Pack/Cold Pack Treatment Hot Pack Location left gluteals Patient Position Hooklying Treatment Duration (minutes) 10 Patient Tolerance Good PT-OP-T Assessment and Plan Start: 04/07/18 16:00 Freq: Status: Active Protocol: Document 04/14/18 14:50 EA (Rec: 04/14/18 14:58 EA [id number]) Physical Therapy Assessment Assessment Summary Assessment Pt tolerated treatment well with minor discomfort with bridge exercises. Physical Therapy Plan Next Visit Focus/Plan Next Note Type Treatment Note Next Visit Plan Strengthen to hannah Escobedo
--- NOTE | 2018-04-18 16:23 | PT.OTN ---
Current Diagnoses Other symptoms and signs involving the musculoskeletal system (04/18/18) Physical Therapy Treatment Note PT-OP-A Visit Information Start: 04/07/18 16:00 Freq: Status: Active Protocol: Document 04/18/18 14:30 SAK (Rec: 04/18/18 15:16 SAK [id number]) Out-Patient Physical Therapy Visit Information Visit Information Visit Type Treatment Note Visit Start Time 14:30 Visit Stop Time 15:20 Total Visit Minutes 50 Visit Number 4 Precautions Precautions Fall risk, Pacemaker. PT-OP-B Current Condition Start: 04/07/18 16:00 Freq: Status: Active Protocol: Document 04/07/18 17:02 EA (Rec: 04/07/18 17:17 EA [id number]) Current Condition History of Current Condition Onset Date 6 months ago Current Complaints Multiple joint pain and weakness to both LE's. History of Current Condition Present condition started 6 months ago when he noticed that both LE's are getting weak and decreased balance. He stated that multiple falls in the past 6 months with no severe injury or required hospitalization. He mentioned that pain to right hip and shoulder continued to bother him when place with pressure since the fall two weeks ago. Pt reports mobility decreased from more than 100 ft to now less than 50 ft since six months ago which also currently required four wheeled walker. Patient reports that he is still mourning for his daughter few years ago. Prior Treatments and Tests Patient had dementia medication removed few weeks ago Future Testing and Treatments Planned None identified Treatment Goals Patient/Caregiver Goals Patient wants to be able to walk more than 100 ft with the use of straight cane. Patient would like to improve his balance. Prior Functional Status Baseline Function- ADL's Independent Baseline Function- Mobility Independent Baseline Function- Gait Ambulates > 100 ft with straight cane/ accross the street 6 months ago Baseline Function- Recreation/Hobbies Patient has none active lifestyle due to deprssion Baseline Function- Other Lives with his who does the driving due to early dementia. Live in a 2 story house with more than 10 stairs at home. Current Functional Impairments (Reported) Functional Limitations- ADL's Indep in all except with feeding due to recent mouth surgery, requires company in all outside mobility due to early onset dementia. 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 States he leans forward while walking because he is fearful of falling backward. Doesn't like to drink fluids much because it is too difficult to get out of his recliner. PT-OP-D Balance Start: 04/07/18 16:00 Freq: Status: Active Protocol: Document 04/07/18 17:02 EA (Rec: 04/07/18 17:17 EA [id number]) OP-PT Balance Assessment Sitting Balance Static Sitting Balance Ability Good Dynamic Sitting Balance Ability Good Standing Balance Static Standing Balance Ability Good Dynamic Standing Balance Ability Fair Balance Tests Functional Reach Functional Reach Test < 2 inches Functional Reach Impairment Rating 80 to <100% Impaired (Score 1- 2) Romberg Romberg < 5 seconds Single Limb Standing Single Limb- Right unable Single Limb- Left unable Semi-Tandem Standing Semi-Tandem Standing Balance < 3 second to both L and R Knapp Balance Assessment Evaluation Sitting to Standing Ability Several Tries w/Hands Unsupported Stance Supervision- 2 minutes Sitting Unsupported, Feet on Floor Safely- 2 minutes Standing to Sitting Ability Assist, Control w/Hands Unsupported Stance- Eyes Closed Safely, With Eyes Open Unsupported Stance- Eyes Open Independent, 1 minute Reaching Forward Standing Supervision Needed Pick- Up Object From Floor Requires Supervision Look Behind Shoulder - Standing Turns Sideways Only Turning 360 Degrees Turns slowly, but safely Unsupported Stance, Alternating Feet on 4 Steps w/Supervision Stair Unsupported Tandem Stance Assist to Step-15 seconds Unilateral Leg Stance Unable,assist to not fall Total Score Knapp Total Score (out of 56 points) 26 Tinetti Balance Assessment Sitting Balance Sitting Balance Steady, safe Arising from Chair Ability to Arise Able, uses arms to help Standing Balance Immediate Standing Balance Steady with support Turning Step Pattern Turning 360 Degrees Continuous steps Sitting Down Sitting Down Uses arms or unsteady Gait and Step Initiation of Gait No hesitancy Right Foot Step Length Does pass stance foot Right Foot Step Height Does not clear floor Left Foot Step Length Does pass stance foot Left Foot Step Height Does not clear floor Step Description Step Symmetry Step length appears equal Gait Description Trunk Description Marked sway or uses aide Scoring and Interpretation Tinetti Composite Score (points) 9 Interpretation of Scores High risk for falls(< 19) Carty Fall Scale Copyright Permission Carloz JM, Carloz RM, Arabella SJ. Development of a scale to identify the fall- prone patient. Can J Aging 1989;8;366-7. Esha Carty (2009). Preventing patient falls. (2nd ed). [place]: [employer]. PT-OP-E Functional Tests Start: 04/07/18 16:00 Freq: Status: Active Protocol: Document 04/07/18 17:05 EA (Rec: 04/11/18 09:42 EA [id number]) Functional Tests Timed Up and Go (TUG) Score > 15 secs TUG Impairment Rating 60 to <80% Impaired (Score 16- 17) PT-OP-F Manual Assessment Start: 04/07/18 16:00 Freq: Status: Active Protocol: Document 04/07/18 17:02 EA (Rec: 04/07/18 17:17 EA [id number]) Manual Assessments Soft Tissue Assessment Soft Tissue Mobility Assessment Tight both hamstrings, Quads, hip flexors, PF PT-OP-G Mobility & Gait Start: 04/07/18 16:00 Freq: Status: Active Protocol: Document 04/07/18 17:02 EA (Rec: 04/07/18 17:17 EA [id number]) OP Mobility Evaluation Bed Mobility Rolling Minimal difficulty, indep Supine to and from Sit Minimal difficulty, indep Transfers Sit to Stand Indep but requires hand for support Bed to Chair Transfers indep but requires support/AD OP Gait Assessment Gait Gait Assistance Required: Independent Distance (Feet) 50 Able to Maintain Weight Bearing Status Yes During Gait Assistive Devices Assistive Device 4 Wheeled Walker Gait Deviations General Gait Pattern Decreased Feet Clearance Flexed Trunk Comments Gait Comments Left foot dropped Stair Climbing Evaluation Evaluation Level of Assist On Stairs Standby Assistance Devices Stair Climbing Assistive Devices Straight Cane Technique/Endurance Stair Climbing Direction Ascend and Descend Stair Climbing Technique Step to Step Number of Steps Climbed 4 Comments Stair Climbing Comments With difficulty on stairs descent PT-OP-J Posture/Palpation/Skin Start: 04/07/18 16:00 Freq: Status: Active Protocol: Document 04/07/18 17:02 EA (Rec: 04/07/18 17:17 EA [id number]) Posture Evaluation Position Standing Evaluation View post/lat Head/C-Spine Posture Forward Head T-Spine Posture Increased Kyphosis L-Spine Posture Flattened Shoulder Posture (L) Forward (R) Forward Scapula Posture (L) Protracted (R) Protracted Arm Posture (L) Internally Rotated (R) Internally Rotated Pelvis Posture Posterior Tilted Hip Posture (R) Flexed Comments Posture Comments Supine position reveals no obvious hip deformity to right side Palpation Assessment Location One Palpation Location Right lateral hip, right shoulder Palpation Findings Soft Tissue Tightness Tenderness Palpation Details Grade 3/4 tender over lateral upper hip and right shoulder No noted any signs of crepitus in all hip direction PROM Skin Assessment Other Assessments Skin Assessment Comments Right lateral hip bruise/ discoloratrion ~ 4 square cm. PT-OP-M Strength Start: 04/07/18 16:00 Freq: Status: Active Protocol: Document 04/07/18 17:02 EA (Rec: 04/07/18 17:17 EA [id number]) Hip Strength Hip Manual Muscle Testing Right Flexion (L2) 3+ Fair+ Extension (S1) 4- Good- Abduction 3+ Fair+ Adduction 4- Good- External Rotation 3+ Fair+ Internal Rotation 4- Good- Left Flexion (L2) 3+ Fair+ Extension (S1) 4- Good- Abduction 3 Fair Adduction 4- Good- External Rotation 3+ Fair+ Internal Rotation 4- Good- Ankle/Foot Strength Ankle and Foot Manual Muscle Testing Left Dorsiflexion (L4) 2+ Poor+ Plantarflexion (S1) 4- Good- Inversion 4- Good- Eversion (S1) 4- Good- Right Reason Not Measured WFL PT-OP-Q Treatments Start: 04/07/18 16:00 Freq: Status: Active Protocol: Document 04/18/18 14:30 SAK (Rec: 04/18/18 15:16 SAK [id number]) Cardio Equipment Recumbent Stepper (Sci-Fit) Duration (Minutes) 8 Resistance 1.2 Seat Position 15 Gym Equipment Cable Column (Body Solid) Rows Resistance 20 lbs x 15 reps Shuttle Recovery Bilateral Squats Resistance 37# Shuttle Recovery Platform Stable Reps/Time 15 x 2 Unilateral Squats Details 25# Shuttle Recovery Platform Stable Reps/Time x 15 reps Therapeutic Exercises Sitting Exercises sit to stand Reps/Minutes 5x Standing Exercises sidestepping Reps/Minutes min Comments parallel bars walk with min UE support Reps/Minutes 2 min Comments parallel bars tiltboard bal Reps/Minutes 2 min Comments parallel bars toe raise Reps/Minutes 10x right, unable left Comments parallel bars heel raise Reps/Minutes 10x Comments parallel bars standing bal Comments parallel bars, min UE support Manual Therapy Treatment Soft Tissue Mobilization 1 Body Location Left SI, gluteals and paralumbars Mobilization Type Myofascial Release Rolling Sustained Pressure Body Position Sidelying Self-Care/Home Management Treatment Education Patient Education Home Exercise Program Caregiver Education modify bridge at home to gluteal isometric if bridge too painful Other Education use pillow(s) or cushion under patient in his recliner to improve ease of getting out of recliner. PT-OP-R Modalities Start: 04/07/18 16:00 Freq: Status: Active Protocol: Document 04/18/18 14:30 [facility] (Rec: 04/18/18 15:16 [facility] [id number]) Hot Pack/Cold Pack Treatment Hot Pack Location left gluteals Patient Position Hooklying Treatment Duration (minutes) 10 Patient Tolerance Good PT-OP-T Assessment and Plan Start: 04/07/18 16:00 Freq: Status: Active Protocol: Document 04/18/18 14:30 [facility] (Rec: 04/18/18 16:22 [facility] [id number]) Physical Therapy Assessment Goals Four Impairment Impaired distance ambulation Nurse Liaison Goal (LTG) Patient will ambulate > 100 ft using FWW. LTG Duration 4 wks Three Impairment TINNETI BALANCE score of 9: Very high risk fall Nurse Liaison Goal (LTG) TINNETI BALANCE score of 19 ( moderately risk fall) LTG Duration 5 wks Two Impairment TUG > 15 seconds with FWW Correction Goal (LTG) TUG of < 13 seconds w/ AD LTG Duration 4 wks One Impairment LEFS of 14/80 Nurse Liaison Goal (LTG) LEFS score of > 30/80 LTG Duration 4 wks Assessment Summary Assessment Patient activity level very low at home, fearful of falling. Encouraged increased compliance, modification as necessary, and increased time out of recliner. Physical Therapy Plan Frequency and Duration Frequency of Treatment 2x/Week Duration of Treatment 12 wks Plan of Care Start Date 04/07/18 Plan of Care End Date 06/30/18 Therapeutic Interventions Therapeutic Interventions Balance Training Coordination Training Gait Training Home Exercise Program Joint Mobilizations Manual Therapy Patient/Caregiver Education Self-Care/Home Management Soft Tissue Mobilization Therapeutic Exercises Modalities Cold Pack/Ice Massage Electric Stimulation Hot Packs Next Visit Focus/Plan Next Note Type Treatment Note Next Visit Plan Strengthening, balance training. Patient to make appointment with physician to discuss foot drop.
--- NOTE | 2018-04-22 15:54 | PT.OTN ---
Current Diagnoses Other symptoms and signs involving the musculoskeletal system (04/22/18) Physical Therapy Treatment Note PT-OP-A Visit Information Start: 04/07/18 16:00 Freq: Status: Active Protocol: Document 04/22/18 15:41 SA (Rec: 04/22/18 15:54 SA [email or web address]) Out-Patient Physical Therapy Visit Information Visit Information Visit Type Treatment Note Visit Start Time 13:45 Visit Stop Time 14:35 Visit Number 5 Number of SUPERVISOR POULTRY [employer]ATCH[employer] Visits 1 PT-OP-B Current Condition Start: 04/07/18 16:00 Freq: Status: Active Protocol: Document 04/07/18 17:02 EA (Rec: 04/07/18 17:17 EA [id number]) Current Condition History of Current Condition Onset Date 6 months ago Current Complaints Multiple joint pain and weakness to both LE's. History of Current Condition Present condition started 6 months ago when he noticed that both LE's are getting weak and decreased balance. He stated that multiple falls in the past 6 months with no severe injury or required hospitalization. He mentioned that pain to right hip and shoulder continued to bother him when place with pressure since the fall two weeks ago. Pt reports mobility decreased from more than 100 ft to now less than 50 ft since six months ago which also currently required four wheeled walker. Patient reports that he is still mourning for his daughter few years ago. Prior Treatments and Tests Patient had dementia medication removed few weeks ago Future Testing and Treatments Planned None identified Treatment Goals Patient/Caregiver Goals Patient wants to be able to walk more than 100 ft with the use of straight cane. Patient would like to improve his balance. Prior Functional Status Baseline Function- ADL's Independent Baseline Function- Mobility Independent Baseline Function- Gait Ambulates > 100 ft with straight cane/ accross the street 6 months ago Baseline Function- Recreation/Hobbies Patient has none active lifestyle due to deprssion Baseline Function- Other Lives with his who does the driving due to early dementia. Live in a 2 story house with more than 10 stairs at home. Current Functional Impairments (Reported) Functional Limitations- ADL's Indep in all except with feeding due to recent mouth surgery, requires company in all outside mobility due to early onset dementia. 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 Pt notes hip is feeling better tody but does say he has his normal amount of arthritic pain. PT-OP-D Balance Start: 04/07/18 16:00 Freq: Status: Active Protocol: Document 04/07/18 17:02 EA (Rec: 04/07/18 17:17 EA [id number]) OP-PT Balance Assessment Sitting Balance Static Sitting Balance Ability Good Dynamic Sitting Balance Ability Good Standing Balance Static Standing Balance Ability Good Dynamic Standing Balance Ability Fair Balance Tests Functional Reach Functional Reach Test < 2 inches Functional Reach Impairment Rating 80 to <100% Impaired (Score 1- 2) Romberg Romberg < 5 seconds Single Limb Standing Single Limb- Right unable Single Limb- Left unable Semi-Tandem Standing Semi-Tandem Standing Balance < 3 second to both L and R Knapp Balance Assessment Evaluation Sitting to Standing Ability Several Tries w/Hands Unsupported Stance Supervision- 2 minutes Sitting Unsupported, Feet on Floor Safely- 2 minutes Standing to Sitting Ability Assist, Control w/Hands Unsupported Stance- Eyes Closed Safely, With Eyes Open Unsupported Stance- Eyes Open Independent, 1 minute Reaching Forward Standing Supervision Needed Pick- Up Object From Floor Requires Supervision Look Behind Shoulder - Standing Turns Sideways Only Turning 360 Degrees Turns slowly, but safely Unsupported Stance, Alternating Feet on 4 Steps w/Supervision Stair Unsupported Tandem Stance Assist to Step-15 seconds Unilateral Leg Stance Unable,assist to not fall Total Score Knapp Total Score (out of 56 points) 26 Tinetti Balance Assessment Sitting Balance Sitting Balance Steady, safe Arising from Chair Ability to Arise Able, uses arms to help Standing Balance Immediate Standing Balance Steady with support Turning Step Pattern Turning 360 Degrees Continuous steps Sitting Down Sitting Down Uses arms or unsteady Gait and Step Initiation of Gait No hesitancy Right Foot Step Length Does pass stance foot Right Foot Step Height Does not clear floor Left Foot Step Length Does pass stance foot Left Foot Step Height Does not clear floor Step Description Step Symmetry Step length appears equal Gait Description Trunk Description Marked sway or uses aide Scoring and Interpretation Tinetti Composite Score (points) 9 Interpretation of Scores High risk for falls(< 19) Carty Fall Scale Copyright Permission Carloz JM, Carloz RM, Arabella SJ. Development of a scale to identify the fall- prone patient. Can J Aging 1989;8;366-7. Esha Carty (2009). Preventing patient falls. (2nd ed). [place]: [employer]. PT-OP-E Functional Tests Start: 04/07/18 16:00 Freq: Status: Active Protocol: Document 04/07/18 17:05 EA (Rec: 04/11/18 09:42 EA [id number]) Functional Tests Timed Up and Go (TUG) Score > 15 secs TUG Impairment Rating 60 to <80% Impaired (Score 16- 17) PT-OP-F Manual Assessment Start: 04/07/18 16:00 Freq: Status: Active Protocol: Document 04/07/18 17:02 EA (Rec: 04/07/18 17:17 EA [id number]) Manual Assessments Soft Tissue Assessment Soft Tissue Mobility Assessment Tight both hamstrings, Quads, hip flexors, PF PT-OP-G Mobility & Gait Start: 04/07/18 16:00 Freq: Status: Active Protocol: Document 04/07/18 17:02 EA (Rec: 04/07/18 17:17 EA [id number]) OP Mobility Evaluation Bed Mobility Rolling Minimal difficulty, indep Supine to and from Sit Minimal difficulty, indep Transfers Sit to Stand Indep but requires hand for support Bed to Chair Transfers indep but requires support/AD OP Gait Assessment Gait Gait Assistance Required: Independent Distance (Feet) 50 Able to Maintain Weight Bearing Status Yes During Gait Assistive Devices Assistive Device 4 Wheeled Walker Gait Deviations General Gait Pattern Decreased Feet Clearance Flexed Trunk Comments Gait Comments Left foot dropped Stair Climbing Evaluation Evaluation Level of Assist On Stairs Standby Assistance Devices Stair Climbing Assistive Devices Straight Cane Technique/Endurance Stair Climbing Direction Ascend and Descend Stair Climbing Technique Step to Step Number of Steps Climbed 4 Comments Stair Climbing Comments With difficulty on stairs descent PT-OP-J Posture/Palpation/Skin Start: 04/07/18 16:00 Freq: Status: Active Protocol: Document 04/07/18 17:02 EA (Rec: 04/07/18 17:17 EA [id number]) Posture Evaluation Position Standing Evaluation View post/lat Head/C-Spine Posture Forward Head T-Spine Posture Increased Kyphosis L-Spine Posture Flattened Shoulder Posture (L) Forward (R) Forward Scapula Posture (L) Protracted (R) Protracted Arm Posture (L) Internally Rotated (R) Internally Rotated Pelvis Posture Posterior Tilted Hip Posture (R) Flexed Comments Posture Comments Supine position reveals no obvious hip deformity to right side Palpation Assessment Location One Palpation Location Right lateral hip, right shoulder Palpation Findings Soft Tissue Tightness Tenderness Palpation Details Grade 3/4 tender over lateral upper hip and right shoulder No noted any signs of crepitus in all hip direction PROM Skin Assessment Other Assessments Skin Assessment Comments Right lateral hip bruise/ discoloratrion ~ 4 square cm. PT-OP-M Strength Start: 04/07/18 16:00 Freq: Status: Active Protocol: Document 04/07/18 17:02 EA (Rec: 04/07/18 17:17 EA [id number]) Hip Strength Hip Manual Muscle Testing Right Flexion (L2) 3+ Fair+ Extension (S1) 4- Good- Abduction 3+ Fair+ Adduction 4- Good- External Rotation 3+ Fair+ Internal Rotation 4- Good- Left Flexion (L2) 3+ Fair+ Extension (S1) 4- Good- Abduction 3 Fair Adduction 4- Good- External Rotation 3+ Fair+ Internal Rotation 4- Good- Ankle/Foot Strength Ankle and Foot Manual Muscle Testing Left Dorsiflexion (L4) 2+ Poor+ Plantarflexion (S1) 4- Good- Inversion 4- Good- Eversion (S1) 4- Good- Right Reason Not Measured WFL PT-OP-Q Treatments Start: 04/07/18 16:00 Freq: Status: Active Protocol: Document 04/22/18 15:41 SA (Rec: 04/22/18 15:54 SA [email or web address]) Cardio Equipment Recumbent Stepper (Sci-Fit) Duration (Minutes) 8 Resistance 1.3 Seat Position 15 Gym Equipment Shuttle Recovery Bilateral Squats Resistance 37# Shuttle Recovery Platform Stable Reps/Time 15 x 2 Unilateral Squats Details 25# Shuttle Recovery Platform Stable Reps/Time x 15 reps Shuttle Rebound static/dynamic balance Exercise Details NBOS, tandem, attempted limited UE support Reps/Duration 2-3 min Comments Pt found this challenging Therapeutic Exercises Standing Exercises lunge walk Side bilateral Reps/Minutes 6 lengths of bar Comments cues for form/pacing squats Standing Exercise Name cues for form Reps/Minutes 12x Comments at bar sidestepping Side bilateral Comments 4 lengths of bar walk with min UE support Reps/Minutes 2 min Comments at bar tiltboard bal Reps/Minutes 2 min Comments at bar toe raise Reps/Minutes limited ROM/tried in seated Comments at bar heel raise Reps/Minutes 20x Comments parallel bars Neuro Re-Education Treatment Balance Activities tandem stance Reps/Duration 3 min Comments at bar SLS Reps/Duration 5-10 x 4 Comments at bar PT-OP-R Modalities Start: 04/07/18 16:00 Freq: Status: Active Protocol: Document 04/22/18 15:41 SA (Rec: 04/22/18 15:54 SA [email or web address]) Hot Pack/Cold Pack Treatment Hot Pack Location left gluteals Patient Position Hooklying Treatment Duration (minutes) 10 Patient Tolerance Good PT-OP-T Assessment and Plan Start: 04/07/18 16:00 Freq: Status: Active Protocol: Document 04/22/18 15:41 SA (Rec: 04/22/18 15:54 SA [email or web address]) Physical Therapy Assessment Assessment Summary Assessment Encouarged pateint to do HEP with , reviewed ther ex and modified for safety at home. Pt progressing slowly d /t limited activity outside of clinic. Physical Therapy Plan Next Visit Focus/Plan Next Note Type Treatment Note Next Visit Plan Pt still needs to make appointment with physician angela L foot drop. Cont with strengthening and balance training.
--- NOTE | 2018-04-25 15:44 | PT.OTN ---
Current Diagnoses Other symptoms and signs involving the musculoskeletal system (04/25/18) Physical Therapy Treatment Note PT-OP-A Visit Information Start: 04/07/18 16:00 Freq: Status: Active Protocol: Document 04/25/18 15:32 SAK (Rec: 04/25/18 15:42 SAK [id number]) Out-Patient Physical Therapy Visit Information Visit Information Visit Type Treatment Note Visit Start Time 13:45 Visit Stop Time 14:35 Total Visit Minutes 55 Visit Number 6 Number of KNOT TYING OPERATOR Visits 0 Precautions Precautions Fall risk, Pacemaker. PT-OP-B Current Condition Start: 04/07/18 16:00 Freq: Status: Active Protocol: Document 04/07/18 17:02 EA (Rec: 04/07/18 17:17 EA [id number]) Current Condition History of Current Condition Onset Date 6 months ago Current Complaints Multiple joint pain and weakness to both LE's. History of Current Condition Present condition started 6 months ago when he noticed that both LE's are getting weak and decreased balance. He stated that multiple falls in the past 6 months with no severe injury or required hospitalization. He mentioned that pain to right hip and shoulder continued to bother him when place with pressure since the fall two weeks ago. Pt reports mobility decreased from more than 100 ft to now less than 50 ft since six months ago which also currently required four wheeled walker. Patient reports that he is still mourning for his daughter few years ago. Prior Treatments and Tests Patient had dementia medication removed few weeks ago Future Testing and Treatments Planned None identified Treatment Goals Patient/Caregiver Goals Patient wants to be able to walk more than 100 ft with the use of straight cane. Patient would like to improve his balance. Prior Functional Status Baseline Function- ADL's Independent Baseline Function- Mobility Independent Baseline Function- Gait Ambulates > 100 ft with straight cane/ accross the street 6 months ago Baseline Function- Recreation/Hobbies Patient has none active lifestyle due to deprssion Baseline Function- Other Lives with his who does the driving due to early dementia. Live in a 2 story house with more than 10 stairs at home. Current Functional Impairments (Reported) Functional Limitations- ADL's Indep in all except with feeding due to recent mouth surgery, requires company in all outside mobility due to early onset dementia. 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 Reports doesn't like doing exercises on his soft bed. Will be moving to [facility] whenever there is an opening. PT-OP-D Balance Start: 04/07/18 16:00 Freq: Status: Active Protocol: Document 04/07/18 17:02 EA (Rec: 04/07/18 17:17 EA [id number]) OP-PT Balance Assessment Sitting Balance Static Sitting Balance Ability Good Dynamic Sitting Balance Ability Good Standing Balance Static Standing Balance Ability Good Dynamic Standing Balance Ability Fair Balance Tests Functional Reach Functional Reach Test < 2 inches Functional Reach Impairment Rating 80 to <100% Impaired (Score 1- 2) Romberg Romberg < 5 seconds Single Limb Standing Single Limb- Right unable Single Limb- Left unable Semi-Tandem Standing Semi-Tandem Standing Balance < 3 second to both L and R Knapp Balance Assessment Evaluation Sitting to Standing Ability Several Tries w/Hands Unsupported Stance Supervision- 2 minutes Sitting Unsupported, Feet on Floor Safely- 2 minutes Standing to Sitting Ability Assist, Control w/Hands Unsupported Stance- Eyes Closed Safely, With Eyes Open Unsupported Stance- Eyes Open Independent, 1 minute Reaching Forward Standing Supervision Needed Pick- Up Object From Floor Requires Supervision Look Behind Shoulder - Standing Turns Sideways Only Turning 360 Degrees Turns slowly, but safely Unsupported Stance, Alternating Feet on 4 Steps w/Supervision Stair Unsupported Tandem Stance Assist to Step-15 seconds Unilateral Leg Stance Unable,assist to not fall Total Score Knapp Total Score (out of 56 points) 26 Tinetti Balance Assessment Sitting Balance Sitting Balance Steady, safe Arising from Chair Ability to Arise Able, uses arms to help Standing Balance Immediate Standing Balance Steady with support Turning Step Pattern Turning 360 Degrees Continuous steps Sitting Down Sitting Down Uses arms or unsteady Gait and Step Initiation of Gait No hesitancy Right Foot Step Length Does pass stance foot Right Foot Step Height Does not clear floor Left Foot Step Length Does pass stance foot Left Foot Step Height Does not clear floor Step Description Step Symmetry Step length appears equal Gait Description Trunk Description Marked sway or uses aide Scoring and Interpretation Tinetti Composite Score (points) 9 Interpretation of Scores High risk for falls(< 19) Carty Fall Scale Copyright Permission Carloz JM, Carloz RM, Arabella SJ. Development of a scale to identify the fall- prone patient. Can J Aging 1989;8;366-7. Esha Carty (2009). Preventing patient falls. (2nd ed). [place]: [employer]. PT-OP-E Functional Tests Start: 04/07/18 16:00 Freq: Status: Active Protocol: Document 04/07/18 17:05 EA (Rec: 04/11/18 09:42 EA [id number]) Functional Tests Timed Up and Go (TUG) Score > 15 secs TUG Impairment Rating 60 to <80% Impaired (Score 16- 17) PT-OP-F Manual Assessment Start: 04/07/18 16:00 Freq: Status: Active Protocol: Document 04/07/18 17:02 EA (Rec: 04/07/18 17:17 EA [id number]) Manual Assessments Soft Tissue Assessment Soft Tissue Mobility Assessment Tight both hamstrings, Quads, hip flexors, PF PT-OP-G Mobility & Gait Start: 04/07/18 16:00 Freq: Status: Active Protocol: Document 04/07/18 17:02 EA (Rec: 04/07/18 17:17 EA [id number]) OP Mobility Evaluation Bed Mobility Rolling Minimal difficulty, indep Supine to and from Sit Minimal difficulty, indep Transfers Sit to Stand Indep but requires hand for support Bed to Chair Transfers indep but requires support/AD OP Gait Assessment Gait Gait Assistance Required: Independent Distance (Feet) 50 Able to Maintain Weight Bearing Status Yes During Gait Assistive Devices Assistive Device 4 Wheeled Walker Gait Deviations General Gait Pattern Decreased Feet Clearance Flexed Trunk Comments Gait Comments Left foot dropped Stair Climbing Evaluation Evaluation Level of Assist On Stairs Standby Assistance Devices Stair Climbing Assistive Devices Straight Cane Technique/Endurance Stair Climbing Direction Ascend and Descend Stair Climbing Technique Step to Step Number of Steps Climbed 4 Comments Stair Climbing Comments With difficulty on stairs descent PT-OP-J Posture/Palpation/Skin Start: 04/07/18 16:00 Freq: Status: Active Protocol: Document 04/07/18 17:02 EA (Rec: 04/07/18 17:17 EA [id number]) Posture Evaluation Position Standing Evaluation View post/lat Head/C-Spine Posture Forward Head T-Spine Posture Increased Kyphosis L-Spine Posture Flattened Shoulder Posture (L) Forward (R) Forward Scapula Posture (L) Protracted (R) Protracted Arm Posture (L) Internally Rotated (R) Internally Rotated Pelvis Posture Posterior Tilted Hip Posture (R) Flexed Comments Posture Comments Supine position reveals no obvious hip deformity to right side Palpation Assessment Location One Palpation Location Right lateral hip, right shoulder Palpation Findings Soft Tissue Tightness Tenderness Palpation Details Grade 3/4 tender over lateral upper hip and right shoulder No noted any signs of crepitus in all hip direction PROM Skin Assessment Other Assessments Skin Assessment Comments Right lateral hip bruise/ discoloratrion ~ 4 square cm. PT-OP-M Strength Start: 04/07/18 16:00 Freq: Status: Active Protocol: Document 04/07/18 17:02 EA (Rec: 04/07/18 17:17 EA [id number]) Hip Strength Hip Manual Muscle Testing Right Flexion (L2) 3+ Fair+ Extension (S1) 4- Good- Abduction 3+ Fair+ Adduction 4- Good- External Rotation 3+ Fair+ Internal Rotation 4- Good- Left Flexion (L2) 3+ Fair+ Extension (S1) 4- Good- Abduction 3 Fair Adduction 4- Good- External Rotation 3+ Fair+ Internal Rotation 4- Good- Ankle/Foot Strength Ankle and Foot Manual Muscle Testing Left Dorsiflexion (L4) 2+ Poor+ Plantarflexion (S1) 4- Good- Inversion 4- Good- Eversion (S1) 4- Good- Right Reason Not Measured WFL PT-OP-Q Treatments Start: 04/07/18 16:00 Freq: Status: Active Protocol: Document 04/25/18 15:32 SAK (Rec: 04/25/18 15:42 SAK [id number]) Cardio Equipment Recumbent Stepper (Sci-Fit) Duration (Minutes) 5 Resistance 2.0 Seat Position 14 Gym Equipment Sport Cord 1 Exercise Details fwd,bck,side Cord/Resistance green Reps/Duration 5,3,3 ea side Comments CG to min assist for balance Therapeutic Exercises Sitting Exercises sit to stand Reps/Minutes 5x2 Comments no UE's Standing Exercises march Reps/Minutes 10x hip ext Reps/Minutes 10x hip ab Reps/Minutes 10x squats Standing Exercise Name cues for form Reps/Minutes 5x Comments at bar toe raise Reps/Minutes 10x right, unable left heel raise Reps/Minutes 10x Comments parallel bars Gait Training Gait Activity gait with cane Device Used SPC Level of Assistance CGA Distance/Duration 200' Treatment Focus cues for safety, upright posture Comments Plus gait throughout gym transitioning between activities. Neuro Re-Education Treatment Balance Activities tandem stance Reps/Duration 3 min Comments at bar SLS Reps/Duration 5-10 x 4 Comments at bar Self-Care/Home Management Treatment Education Patient Education Home Exercise Program Other Education updated written HEP PT-OP-R Modalities Start: 04/07/18 16:00 Freq: Status: Active Protocol: Document 04/25/18 15:32 SAK (Rec: 04/25/18 15:44 [facility] [id number]) Hot Pack/Cold Pack Treatment Hot Pack Location christina hips Patient Position Hooklying Treatment Duration (minutes) 10 Patient Tolerance Good Comments 2 small; strap to hold PT-OP-T Assessment and Plan Start: 04/07/18 16:00 Freq: Status: Active Protocol: Document 04/25/18 15:32 SAK (Rec: 04/25/18 15:42 [facility] [id number]) Physical Therapy Assessment Goals Four Impairment Impaired distance ambulation Fpc Goal (LTG) Patient will ambulate > 100 ft using FWW. LTG Duration 4 wks Three Impairment TINNETI BALANCE score of 9: Very high risk fall Fpc Goal (LTG) TINNETI BALANCE score of 19 ( moderately risk fall) LTG Duration 5 wks Two Impairment TUG > 15 seconds with FWW Hand I Cutter Goal (LTG) TUG of < 13 seconds w/ AD LTG Duration 4 wks One Impairment LEFS of 14/80 Fpc Goal (LTG) LEFS score of > 30/80 LTG Duration 4 wks Physical Therapy Plan Frequency and Duration Frequency of Treatment 2x/Week Duration of Treatment 12 wks Plan of Care Start Date 04/07/18 Plan of Care End Date 06/30/18 Therapeutic Interventions Therapeutic Interventions Balance Training Coordination Training Gait Training Home Exercise Program Joint Mobilizations Manual Therapy Patient/Caregiver Education Self-Care/Home Management Soft Tissue Mobilization Therapeutic Exercises Modalities Cold Pack/Ice Massage Electric Stimulation Hot Packs Next Visit Focus/Plan Next Note Type Treatment Note Next Visit Plan Continue strengthening, balance , gait training. Encourage HEP compliance
--- NOTE | 2018-04-29 15:20 | PT.OTN ---
Current Diagnoses Other symptoms and signs involving the musculoskeletal system (04/29/18) Physical Therapy Treatment Note PT-OP-A Visit Information Start: 04/07/18 16:00 Freq: Status: Active Protocol: Document 04/29/18 15:09 SA (Rec: 04/29/18 15:20 SA [email or web address]) Out-Patient Physical Therapy Visit Information Visit Information Visit Type Treatment Note Visit Start Time 13:45 Visit Stop Time 14:33 Total Visit Minutes 48 Visit Number 7 Number of SEGREGATOR Visits 1 PT-OP-B Current Condition Start: 04/07/18 16:00 Freq: Status: Active Protocol: Document 04/07/18 17:02 EA (Rec: 04/07/18 17:17 EA [id number]) Current Condition History of Current Condition Onset Date 6 months ago Current Complaints Multiple joint pain and weakness to both LE's. History of Current Condition Present condition started 6 months ago when he noticed that both LE's are getting weak and decreased balance. He stated that multiple falls in the past 6 months with no severe injury or required hospitalization. He mentioned that pain to right hip and shoulder continued to bother him when place with pressure since the fall two weeks ago. Pt reports mobility decreased from more than 100 ft to now less than 50 ft since six months ago which also currently required four wheeled walker. Patient reports that he is still mourning for his daughter few years ago. Prior Treatments and Tests Patient had dementia medication removed few weeks ago Future Testing and Treatments Planned None identified Treatment Goals Patient/Caregiver Goals Patient wants to be able to walk more than 100 ft with the use of straight cane. Patient would like to improve his balance. Prior Functional Status Baseline Function- ADL's Independent Baseline Function- Mobility Independent Baseline Function- Gait Ambulates > 100 ft with straight cane/ accross the street 6 months ago Baseline Function- Recreation/Hobbies Patient has none active lifestyle due to deprssion Baseline Function- Other Lives with his who does the driving due to early dementia. Live in a 2 story house with more than 10 stairs at home. Current Functional Impairments (Reported) Functional Limitations- ADL's Indep in all except with feeding due to recent mouth surgery, requires company in all outside mobility due to early onset dementia. 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 PT-OP-D Balance Start: 04/07/18 16:00 Freq: Status: Active Protocol: Document 04/07/18 17:02 EA (Rec: 04/07/18 17:17 EA [id number]) OP-PT Balance Assessment Sitting Balance Static Sitting Balance Ability Good Dynamic Sitting Balance Ability Good Standing Balance Static Standing Balance Ability Good Dynamic Standing Balance Ability Fair Balance Tests Functional Reach Functional Reach Test < 2 inches Functional Reach Impairment Rating 80 to <100% Impaired (Score 1- 2) Romberg Romberg < 5 seconds Single Limb Standing Single Limb- Right unable Single Limb- Left unable Semi-Tandem Standing Semi-Tandem Standing Balance < 3 second to both L and R Knapp Balance Assessment Evaluation Sitting to Standing Ability Several Tries w/Hands Unsupported Stance Supervision- 2 minutes Sitting Unsupported, Feet on Floor Safely- 2 minutes Standing to Sitting Ability Assist, Control w/Hands Unsupported Stance- Eyes Closed Safely, With Eyes Open Unsupported Stance- Eyes Open Independent, 1 minute Reaching Forward Standing Supervision Needed Pick- Up Object From Floor Requires Supervision Look Behind Shoulder - Standing Turns Sideways Only Turning 360 Degrees Turns slowly, but safely Unsupported Stance, Alternating Feet on 4 Steps w/Supervision Stair Unsupported Tandem Stance Assist to Step-15 seconds Unilateral Leg Stance Unable,assist to not fall Total Score Knapp Total Score (out of 56 points) 26 Tinetti Balance Assessment Sitting Balance Sitting Balance Steady, safe Arising from Chair Ability to Arise Able, uses arms to help Standing Balance Immediate Standing Balance Steady with support Turning Step Pattern Turning 360 Degrees Continuous steps Sitting Down Sitting Down Uses arms or unsteady Gait and Step Initiation of Gait No hesitancy Right Foot Step Length Does pass stance foot Right Foot Step Height Does not clear floor Left Foot Step Length Does pass stance foot Left Foot Step Height Does not clear floor Step Description Step Symmetry Step length appears equal Gait Description Trunk Description Marked sway or uses aide Scoring and Interpretation Tinetti Composite Score (points) 9 Interpretation of Scores High risk for falls(< 19) Carty Fall Scale Copyright Permission Carloz JM, Carloz RM, Arabella SJ. Development of a scale to identify the fall- prone patient. Can J Aging 1989;8;366-7. Esha Carty (2009). Preventing patient falls. (2nd ed). [place]: [employer]. PT-OP-E Functional Tests Start: 04/07/18 16:00 Freq: Status: Active Protocol: Document 04/07/18 17:05 EA (Rec: 04/11/18 09:42 EA [id number]) Functional Tests Timed Up and Go (TUG) Score > 15 secs TUG Impairment Rating 60 to <80% Impaired (Score 16- 17) PT-OP-F Manual Assessment Start: 04/07/18 16:00 Freq: Status: Active Protocol: Document 04/07/18 17:02 EA (Rec: 04/07/18 17:17 EA [id number]) Manual Assessments Soft Tissue Assessment Soft Tissue Mobility Assessment Tight both hamstrings, Quads, hip flexors, PF PT-OP-G Mobility & Gait Start: 04/07/18 16:00 Freq: Status: Active Protocol: Document 04/07/18 17:02 EA (Rec: 04/07/18 17:17 EA [id number]) OP Mobility Evaluation Bed Mobility Rolling Minimal difficulty, indep Supine to and from Sit Minimal difficulty, indep Transfers Sit to Stand Indep but requires hand for support Bed to Chair Transfers indep but requires support/AD OP Gait Assessment Gait Gait Assistance Required: Independent Distance (Feet) 50 Able to Maintain Weight Bearing Status Yes During Gait Assistive Devices Assistive Device 4 Wheeled Walker Gait Deviations General Gait Pattern Decreased Feet Clearance Flexed Trunk Comments Gait Comments Left foot dropped Stair Climbing Evaluation Evaluation Level of Assist On Stairs Standby Assistance Devices Stair Climbing Assistive Devices Straight Cane Technique/Endurance Stair Climbing Direction Ascend and Descend Stair Climbing Technique Step to Step Number of Steps Climbed 4 Comments Stair Climbing Comments With difficulty on stairs descent PT-OP-J Posture/Palpation/Skin Start: 04/07/18 16:00 Freq: Status: Active Protocol: Document 04/07/18 17:02 EA (Rec: 04/07/18 17:17 EA [id number]) Posture Evaluation Position Standing Evaluation View post/lat Head/C-Spine Posture Forward Head T-Spine Posture Increased Kyphosis L-Spine Posture Flattened Shoulder Posture (L) Forward (R) Forward Scapula Posture (L) Protracted (R) Protracted Arm Posture (L) Internally Rotated (R) Internally Rotated Pelvis Posture Posterior Tilted Hip Posture (R) Flexed Comments Posture Comments Supine position reveals no obvious hip deformity to right side Palpation Assessment Location One Palpation Location Right lateral hip, right shoulder Palpation Findings Soft Tissue Tightness Tenderness Palpation Details Grade 3/4 tender over lateral upper hip and right shoulder No noted any signs of crepitus in all hip direction PROM Skin Assessment Other Assessments Skin Assessment Comments Right lateral hip bruise/ discoloratrion ~ 4 square cm. PT-OP-M Strength Start: 04/07/18 16:00 Freq: Status: Active Protocol: Document 04/07/18 17:02 EA (Rec: 04/07/18 17:17 EA [id number]) Hip Strength Hip Manual Muscle Testing Right Flexion (L2) 3+ Fair+ Extension (S1) 4- Good- Abduction 3+ Fair+ Adduction 4- Good- External Rotation 3+ Fair+ Internal Rotation 4- Good- Left Flexion (L2) 3+ Fair+ Extension (S1) 4- Good- Abduction 3 Fair Adduction 4- Good- External Rotation 3+ Fair+ Internal Rotation 4- Good- Ankle/Foot Strength Ankle and Foot Manual Muscle Testing Left Dorsiflexion (L4) 2+ Poor+ Plantarflexion (S1) 4- Good- Inversion 4- Good- Eversion (S1) 4- Good- Right Reason Not Measured WFL PT-OP-Q Treatments Start: 04/07/18 16:00 Freq: Status: Active Protocol: Document 04/29/18 15:09 SA (Rec: 04/29/18 15:20 SA [email or web address]) Cardio Equipment Recumbent Stepper (Sci-Fit) Duration (Minutes) 7 Resistance 2.0 Seat Position 14 Gym Equipment Shuttle Recovery Bilateral Squats Resistance 50# Shuttle Recovery Platform Stable Reps/Time 15 x 2 Unilateral Squats Details 25# Shuttle Recovery Platform Stable Reps/Time x 15 reps Shuttle Rebound static/dynamic balance Exercise Details NBOS, tandem, attempted limited UE support Reps/Duration 3 min Comments Pt found this challenging Therapeutic Exercises Sitting Exercises sit to stand Reps/Minutes 10x Comments no UE's Standing Exercises march Reps/Minutes 15x hip ext Side bilateral Equipment Used yellow TB Reps/Minutes 15x each hip ab Side bilateral Equipment Used Yellow TB Reps/Minutes 15 x each lunge walk Side bilateral Reps/Minutes 6 lengths of bar Comments cues for form/pacing toe raise Reps/Minutes 10x right, unable left Comments at bar heel raise Reps/Minutes 20x Comments at bar Neuro Re-Education Treatment Balance Activities lateral stepping Equipment yellow TB Reps/Duration 4 lenths of bar Comments cues for posture tandem stance Details tandem walk Reps/Duration 3 min Comments at bar SLS Reps/Duration 5-10 x 4 Comments at bar PT-OP-R Modalities Start: 04/07/18 16:00 Freq: Status: Active Protocol: Document 04/29/18 15:09 SA (Rec: 04/29/18 15:20 SA [email or web address]) Hot Pack/Cold Pack Treatment Hot Pack Location christina hips Patient Position Hooklying Treatment Duration (minutes) 10 Patient Tolerance Good Comments 2 small; strap to hold PT-OP-T Assessment and Plan Start: 04/07/18 16:00 Freq: Status: Active Protocol: Document 04/29/18 15:09 SA (Rec: 04/29/18 15:20 SA [email or web address]) Physical Therapy Assessment Assessment Summary Assessment Printed HEP for pt and encouraged to do daily. Pt still demonstrates LE weakness L>R. Needs cues for use of 4WW safely. Physical Therapy Plan Next Visit Focus/Plan Next Note Type Treatment Note Next Visit Plan Continue strengthening, balance , gait training. Encourage HEP compliance
--- NOTE | 2018-05-03 16:00 | PT.OTN ---
Current Diagnoses Other symptoms and signs involving the musculoskeletal system (05/03/18) Physical Therapy Treatment Note PT-OP-A Visit Information Start: 04/07/18 16:00 Freq: Status: Active Protocol: Document 05/03/18 15:49 EA (Rec: 05/03/18 16:00 EA [id number]) Out-Patient Physical Therapy Visit Information Visit Information Visit Type Treatment Note Visit Start Time 13:45 Visit Stop Time 14:33 Total Visit Minutes 50 Visit Number 8 Number of HOT TAR ROOFER Visits 1 PT-OP-B Current Condition Start: 04/07/18 16:00 Freq: Status: Active Protocol: Document 04/07/18 17:02 EA (Rec: 04/07/18 17:17 EA [id number]) Current Condition History of Current Condition Onset Date 6 months ago Current Complaints Multiple joint pain and weakness to both LE's. History of Current Condition Present condition started 6 months ago when he noticed that both LE's are getting weak and decreased balance. He stated that multiple falls in the past 6 months with no severe injury or required hospitalization. He mentioned that pain to right hip and shoulder continued to bother him when place with pressure since the fall two weeks ago. Pt reports mobility decreased from more than 100 ft to now less than 50 ft since six months ago which also currently required four wheeled walker. Patient reports that he is still mourning for his daughter few years ago. Prior Treatments and Tests Patient had dementia medication removed few weeks ago Future Testing and Treatments Planned None identified Treatment Goals Patient/Caregiver Goals Patient wants to be able to walk more than 100 ft with the use of straight cane. Patient would like to improve his balance. Prior Functional Status Baseline Function- ADL's Independent Baseline Function- Mobility Independent Baseline Function- Gait Ambulates > 100 ft with straight cane/ accross the street 6 months ago Baseline Function- Recreation/Hobbies Patient has none active lifestyle due to deprssion Baseline Function- Other Lives with his who does the driving due to early dementia. Live in a 2 story house with more than 10 stairs at home. Current Functional Impairments (Reported) Functional Limitations- ADL's Indep in all except with feeding due to recent mouth surgery, requires company in all outside mobility due to early onset dementia. 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 PT-OP-D Balance Start: 04/07/18 16:00 Freq: Status: Active Protocol: Document 04/07/18 17:02 EA (Rec: 04/07/18 17:17 EA [id number]) OP-PT Balance Assessment Sitting Balance Static Sitting Balance Ability Good Dynamic Sitting Balance Ability Good Standing Balance Static Standing Balance Ability Good Dynamic Standing Balance Ability Fair Balance Tests Functional Reach Functional Reach Test < 2 inches Functional Reach Impairment Rating 80 to <100% Impaired (Score 1- 2) Romberg Romberg < 5 seconds Single Limb Standing Single Limb- Right unable Single Limb- Left unable Semi-Tandem Standing Semi-Tandem Standing Balance < 3 second to both L and R Knapp Balance Assessment Evaluation Sitting to Standing Ability Several Tries w/Hands Unsupported Stance Supervision- 2 minutes Sitting Unsupported, Feet on Floor Safely- 2 minutes Standing to Sitting Ability Assist, Control w/Hands Unsupported Stance- Eyes Closed Safely, With Eyes Open Unsupported Stance- Eyes Open Independent, 1 minute Reaching Forward Standing Supervision Needed Pick- Up Object From Floor Requires Supervision Look Behind Shoulder - Standing Turns Sideways Only Turning 360 Degrees Turns slowly, but safely Unsupported Stance, Alternating Feet on 4 Steps w/Supervision Stair Unsupported Tandem Stance Assist to Step-15 seconds Unilateral Leg Stance Unable,assist to not fall Total Score Knapp Total Score (out of 56 points) 26 Tinetti Balance Assessment Sitting Balance Sitting Balance Steady, safe Arising from Chair Ability to Arise Able, uses arms to help Standing Balance Immediate Standing Balance Steady with support Turning Step Pattern Turning 360 Degrees Continuous steps Sitting Down Sitting Down Uses arms or unsteady Gait and Step Initiation of Gait No hesitancy Right Foot Step Length Does pass stance foot Right Foot Step Height Does not clear floor Left Foot Step Length Does pass stance foot Left Foot Step Height Does not clear floor Step Description Step Symmetry Step length appears equal Gait Description Trunk Description Marked sway or uses aide Scoring and Interpretation Tinetti Composite Score (points) 9 Interpretation of Scores High risk for falls(< 19) Carty Fall Scale Copyright Permission Carloz JM, Carloz RM, Arabella SJ. Development of a scale to identify the fall- prone patient. Can J Aging 1989;8;366-7. Esha Carty (2009). Preventing patient falls. (2nd ed). [place]: [employer]. PT-OP-E Functional Tests Start: 04/07/18 16:00 Freq: Status: Active Protocol: Document 04/07/18 17:05 EA (Rec: 04/11/18 09:42 EA [id number]) Functional Tests Timed Up and Go (TUG) Score > 15 secs TUG Impairment Rating 60 to <80% Impaired (Score 16- 17) PT-OP-F Manual Assessment Start: 04/07/18 16:00 Freq: Status: Active Protocol: Document 04/07/18 17:02 EA (Rec: 04/07/18 17:17 EA [id number]) Manual Assessments Soft Tissue Assessment Soft Tissue Mobility Assessment Tight both hamstrings, Quads, hip flexors, PF PT-OP-G Mobility & Gait Start: 04/07/18 16:00 Freq: Status: Active Protocol: Document 04/07/18 17:02 EA (Rec: 04/07/18 17:17 EA [id number]) OP Mobility Evaluation Bed Mobility Rolling Minimal difficulty, indep Supine to and from Sit Minimal difficulty, indep Transfers Sit to Stand Indep but requires hand for support Bed to Chair Transfers indep but requires support/AD OP Gait Assessment Gait Gait Assistance Required: Independent Distance (Feet) 50 Able to Maintain Weight Bearing Status Yes During Gait Assistive Devices Assistive Device 4 Wheeled Walker Gait Deviations General Gait Pattern Decreased Feet Clearance Flexed Trunk Comments Gait Comments Left foot dropped Stair Climbing Evaluation Evaluation Level of Assist On Stairs Standby Assistance Devices Stair Climbing Assistive Devices Straight Cane Technique/Endurance Stair Climbing Direction Ascend and Descend Stair Climbing Technique Step to Step Number of Steps Climbed 4 Comments Stair Climbing Comments With difficulty on stairs descent PT-OP-J Posture/Palpation/Skin Start: 04/07/18 16:00 Freq: Status: Active Protocol: Document 04/07/18 17:02 EA (Rec: 04/07/18 17:17 EA [id number]) Posture Evaluation Position Standing Evaluation View post/lat Head/C-Spine Posture Forward Head T-Spine Posture Increased Kyphosis L-Spine Posture Flattened Shoulder Posture (L) Forward (R) Forward Scapula Posture (L) Protracted (R) Protracted Arm Posture (L) Internally Rotated (R) Internally Rotated Pelvis Posture Posterior Tilted Hip Posture (R) Flexed Comments Posture Comments Supine position reveals no obvious hip deformity to right side Palpation Assessment Location One Palpation Location Right lateral hip, right shoulder Palpation Findings Soft Tissue Tightness Tenderness Palpation Details Grade 3/4 tender over lateral upper hip and right shoulder No noted any signs of crepitus in all hip direction PROM Skin Assessment Other Assessments Skin Assessment Comments Right lateral hip bruise/ discoloratrion ~ 4 square cm. PT-OP-M Strength Start: 04/07/18 16:00 Freq: Status: Active Protocol: Document 04/07/18 17:02 EA (Rec: 04/07/18 17:17 EA [id number]) Hip Strength Hip Manual Muscle Testing Right Flexion (L2) 3+ Fair+ Extension (S1) 4- Good- Abduction 3+ Fair+ Adduction 4- Good- External Rotation 3+ Fair+ Internal Rotation 4- Good- Left Flexion (L2) 3+ Fair+ Extension (S1) 4- Good- Abduction 3 Fair Adduction 4- Good- External Rotation 3+ Fair+ Internal Rotation 4- Good- Ankle/Foot Strength Ankle and Foot Manual Muscle Testing Left Dorsiflexion (L4) 2+ Poor+ Plantarflexion (S1) 4- Good- Inversion 4- Good- Eversion (S1) 4- Good- Right Reason Not Measured WFL PT-OP-Q Treatments Start: 04/07/18 16:00 Freq: Status: Active Protocol: Document 05/03/18 15:49 EA (Rec: 05/03/18 16:00 EA [id number]) Cardio Equipment Recumbent Stepper (Sci-Fit) Duration (Minutes) 7 Resistance 2.0 Seat Position 14 Gym Equipment Shuttle Recovery Bilateral Squats Resistance 50# Shuttle Recovery Platform Stable Reps/Time 15 x 2 Unilateral Squats Details 25# Shuttle Recovery Platform Stable Reps/Time x 15 reps Therapeutic Exercises Supine Exercises 1 Supine Exercise Name Bridge Reps/Minutes x 5reps x 5SH Sitting Exercises sit to stand Sitting Exercise Name with head turning Reps/Minutes 10x Comments no UE's Standing Exercises 1 Standing Exercise Name Wall posture Reps/Minutes x 3 mins Comments hip/glutes, back and shoulder on the wall march Reps/Minutes 15x hip ext Side bilateral Equipment Used yellow TB Reps/Minutes 15x each hip ab Side bilateral Equipment Used Yellow TB Reps/Minutes 15 x each sidestepping Side bilateral Resistance YTB Comments 4 lengths of bar tiltboard bal Reps/Minutes 2 min Comments at bar Neuro Re-Education Treatment Balance Activities lateral stepping Equipment yellow TB Reps/Duration 4 lenths of bar Comments cues for posture tandem stance Details tandem walk Reps/Duration 3 min Comments at bar SLS Reps/Duration 5-10 x 4 Comments at bar PT-OP-R Modalities Start: 04/07/18 16:00 Freq: Status: Active Protocol: Document 05/03/18 15:49 EA (Rec: 05/03/18 16:00 EA [id number]) Hot Pack/Cold Pack Treatment Hot Pack Location christina hips Patient Position Hooklying Treatment Duration (minutes) 10 Patient Tolerance Good Comments 2 small; strap to hold PT-OP-T Assessment and Plan Start: 04/07/18 16:00 Freq: Status: Active Protocol: Document 05/03/18 15:49 EA (Rec: 05/03/18 16:00 EA [id number]) Physical Therapy Assessment Assessment Summary Assessment Pt tolerated treatment. I have encouraged patient to perform daily regular HEP. Physical Therapy Plan Next Visit Focus/Plan Next Note Type Treatment Note Next Visit Plan Continue strengthening, balance , gait training. Encourage HEP compliance
--- NOTE | 2018-05-06 15:46 | PT.OTN ---
Current Diagnoses Other symptoms and signs involving the musculoskeletal system (05/06/18) Physical Therapy Treatment Note PT-OP-A Visit Information Start: 04/07/18 16:00 Freq: Status: Active Protocol: Document 05/06/18 15:37 SA (Rec: 05/06/18 15:46 SA [email or web address]) Out-Patient Physical Therapy Visit Information Visit Information Visit Type Treatment Note Visit Start Time 13:45 Visit Stop Time 14:35 Total Visit Minutes 50 Visit Number 9 Number of BUILDING MAINTENANCE SUPERVISOR Visits 1 PT-OP-B Current Condition Start: 04/07/18 16:00 Freq: Status: Active Protocol: Document 04/07/18 17:02 EA (Rec: 04/07/18 17:17 EA [id number]) Current Condition History of Current Condition Onset Date 6 months ago Current Complaints Multiple joint pain and weakness to both LE's. History of Current Condition Present condition started 6 months ago when he noticed that both LE's are getting weak and decreased balance. He stated that multiple falls in the past 6 months with no severe injury or required hospitalization. He mentioned that pain to right hip and shoulder continued to bother him when place with pressure since the fall two weeks ago. Pt reports mobility decreased from more than 100 ft to now less than 50 ft since six months ago which also currently required four wheeled walker. Patient reports that he is still mourning for his daughter few years ago. Prior Treatments and Tests Patient had dementia medication removed few weeks ago Future Testing and Treatments Planned None identified Treatment Goals Patient/Caregiver Goals Patient wants to be able to walk more than 100 ft with the use of straight cane. Patient would like to improve his balance. Prior Functional Status Baseline Function- ADL's Independent Baseline Function- Mobility Independent Baseline Function- Gait Ambulates > 100 ft with straight cane/ accross the street 6 months ago Baseline Function- Recreation/Hobbies Patient has none active lifestyle due to deprssion Baseline Function- Other Lives with his who does the driving due to early dementia. Live in a 2 story house with more than 10 stairs at home. Current Functional Impairments (Reported) Functional Limitations- ADL's Indep in all except with feeding due to recent mouth surgery, requires company in all outside mobility due to early onset dementia. 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 Feeling ablout the same PT-OP-D Balance Start: 04/07/18 16:00 Freq: Status: Active Protocol: Document 04/07/18 17:02 EA (Rec: 04/07/18 17:17 EA [id number]) OP-PT Balance Assessment Sitting Balance Static Sitting Balance Ability Good Dynamic Sitting Balance Ability Good Standing Balance Static Standing Balance Ability Good Dynamic Standing Balance Ability Fair Balance Tests Functional Reach Functional Reach Test < 2 inches Functional Reach Impairment Rating 80 to <100% Impaired (Score 1- 2) Romberg Romberg < 5 seconds Single Limb Standing Single Limb- Right unable Single Limb- Left unable Semi-Tandem Standing Semi-Tandem Standing Balance < 3 second to both L and R Knapp Balance Assessment Evaluation Sitting to Standing Ability Several Tries w/Hands Unsupported Stance Supervision- 2 minutes Sitting Unsupported, Feet on Floor Safely- 2 minutes Standing to Sitting Ability Assist, Control w/Hands Unsupported Stance- Eyes Closed Safely, With Eyes Open Unsupported Stance- Eyes Open Independent, 1 minute Reaching Forward Standing Supervision Needed Pick- Up Object From Floor Requires Supervision Look Behind Shoulder - Standing Turns Sideways Only Turning 360 Degrees Turns slowly, but safely Unsupported Stance, Alternating Feet on 4 Steps w/Supervision Stair Unsupported Tandem Stance Assist to Step-15 seconds Unilateral Leg Stance Unable,assist to not fall Total Score Knapp Total Score (out of 56 points) 26 Tinetti Balance Assessment Sitting Balance Sitting Balance Steady, safe Arising from Chair Ability to Arise Able, uses arms to help Standing Balance Immediate Standing Balance Steady with support Turning Step Pattern Turning 360 Degrees Continuous steps Sitting Down Sitting Down Uses arms or unsteady Gait and Step Initiation of Gait No hesitancy Right Foot Step Length Does pass stance foot Right Foot Step Height Does not clear floor Left Foot Step Length Does pass stance foot Left Foot Step Height Does not clear floor Step Description Step Symmetry Step length appears equal Gait Description Trunk Description Marked sway or uses aide Scoring and Interpretation Tinetti Composite Score (points) 9 Interpretation of Scores High risk for falls(< 19) Carty Fall Scale Copyright Permission Carloz JM, Carloz RM, Arabella SJ. Development of a scale to identify the fall- prone patient. Can J Aging 1989;8;366-7. Esha Carty (2009). Preventing patient falls. (2nd ed). [place]: [employer]. PT-OP-E Functional Tests Start: 04/07/18 16:00 Freq: Status: Active Protocol: Document 04/07/18 17:05 EA (Rec: 04/11/18 09:42 EA [id number]) Functional Tests Timed Up and Go (TUG) Score > 15 secs TUG Impairment Rating 60 to <80% Impaired (Score 16- 17) PT-OP-F Manual Assessment Start: 04/07/18 16:00 Freq: Status: Active Protocol: Document 04/07/18 17:02 EA (Rec: 04/07/18 17:17 EA [id number]) Manual Assessments Soft Tissue Assessment Soft Tissue Mobility Assessment Tight both hamstrings, Quads, hip flexors, PF PT-OP-G Mobility & Gait Start: 04/07/18 16:00 Freq: Status: Active Protocol: Document 04/07/18 17:02 EA (Rec: 04/07/18 17:17 EA [id number]) OP Mobility Evaluation Bed Mobility Rolling Minimal difficulty, indep Supine to and from Sit Minimal difficulty, indep Transfers Sit to Stand Indep but requires hand for support Bed to Chair Transfers indep but requires support/AD OP Gait Assessment Gait Gait Assistance Required: Independent Distance (Feet) 50 Able to Maintain Weight Bearing Status Yes During Gait Assistive Devices Assistive Device 4 Wheeled Walker Gait Deviations General Gait Pattern Decreased Feet Clearance Flexed Trunk Comments Gait Comments Left foot dropped Stair Climbing Evaluation Evaluation Level of Assist On Stairs Standby Assistance Devices Stair Climbing Assistive Devices Straight Cane Technique/Endurance Stair Climbing Direction Ascend and Descend Stair Climbing Technique Step to Step Number of Steps Climbed 4 Comments Stair Climbing Comments With difficulty on stairs descent PT-OP-J Posture/Palpation/Skin Start: 04/07/18 16:00 Freq: Status: Active Protocol: Document 04/07/18 17:02 EA (Rec: 04/07/18 17:17 EA [id number]) Posture Evaluation Position Standing Evaluation View post/lat Head/C-Spine Posture Forward Head T-Spine Posture Increased Kyphosis L-Spine Posture Flattened Shoulder Posture (L) Forward (R) Forward Scapula Posture (L) Protracted (R) Protracted Arm Posture (L) Internally Rotated (R) Internally Rotated Pelvis Posture Posterior Tilted Hip Posture (R) Flexed Comments Posture Comments Supine position reveals no obvious hip deformity to right side Palpation Assessment Location One Palpation Location Right lateral hip, right shoulder Palpation Findings Soft Tissue Tightness Tenderness Palpation Details Grade 3/4 tender over lateral upper hip and right shoulder No noted any signs of crepitus in all hip direction PROM Skin Assessment Other Assessments Skin Assessment Comments Right lateral hip bruise/ discoloratrion ~ 4 square cm. PT-OP-M Strength Start: 04/07/18 16:00 Freq: Status: Active Protocol: Document 04/07/18 17:02 EA (Rec: 04/07/18 17:17 EA [id number]) Hip Strength Hip Manual Muscle Testing Right Flexion (L2) 3+ Fair+ Extension (S1) 4- Good- Abduction 3+ Fair+ Adduction 4- Good- External Rotation 3+ Fair+ Internal Rotation 4- Good- Left Flexion (L2) 3+ Fair+ Extension (S1) 4- Good- Abduction 3 Fair Adduction 4- Good- External Rotation 3+ Fair+ Internal Rotation 4- Good- Ankle/Foot Strength Ankle and Foot Manual Muscle Testing Left Dorsiflexion (L4) 2+ Poor+ Plantarflexion (S1) 4- Good- Inversion 4- Good- Eversion (S1) 4- Good- Right Reason Not Measured WFL PT-OP-Q Treatments Start: 04/07/18 16:00 Freq: Status: Active Protocol: Document 05/06/18 15:37 SA (Rec: 05/06/18 15:46 SA [email or web address]) Cardio Equipment Recumbent Stepper (Sci-Fit) Duration (Minutes) 7 Resistance 2.4 Seat Position 14 Gym Equipment Shuttle Recovery Bilateral Squats Resistance 50# Shuttle Recovery Platform Stable Reps/Time 15 x 2 Unilateral Squats Details 25# Shuttle Recovery Platform Stable Reps/Time x 15 reps Shuttle Rebound static/dynamic balance Exercise Details NBOS, tandem, attempted limited UE support Reps/Duration 4 min Comments Pt found this challenging Therapeutic Exercises Standing Exercises hip ext Side bilateral Equipment Used yellow TB Reps/Minutes 15x each hip ab Side bilateral Equipment Used Yellow TB Reps/Minutes 15 x each lunge walk Side bilateral Reps/Minutes 6 lengths of bar Comments cues for form/pacing squats Standing Exercise Name cues for form Reps/Minutes 5x Comments at bar heel raise Reps/Minutes 20x Comments at bar Neuro Re-Education Treatment Balance Activities Lissett step overs Reps/Duration 2 lengths Comments Focus on hip/knee flexion, avoiding cicumduction lateral stepping Equipment yellow TB Reps/Duration 4 lenths of bar Comments cues for posture tandem stance Details tandem walk Reps/Duration 3 min Comments at bar SLS Reps/Duration 5-10 x 4 Comments at bar PT-OP-R Modalities Start: 04/07/18 16:00 Freq: Status: Active Protocol: Document 05/06/18 15:37 SA (Rec: 05/06/18 15:46 SA [email or web address]) Hot Pack/Cold Pack Treatment Hot Pack Location christina hips Patient Position Hooklying Treatment Duration (minutes) 10 Patient Tolerance Good Comments 2 small; strap to hold PT-OP-T Assessment and Plan Start: 04/07/18 16:00 Freq: Status: Active Protocol: Document 05/06/18 15:37 SA (Rec: 05/06/18 15:46 SA [email or web address]) Physical Therapy Assessment Assessment Summary Assessment Pt tolerated balance/LE strengthening well, cont encouragement to walk daily and perform HEP. Pt still needs several seated rest breaks during session and fatigues quickly. Physical Therapy Plan Next Visit Focus/Plan Next Note Type Treatment Note Next Visit Plan Continue strengthening, balance , gait training. Encourage HEP compliance
--- NOTE | 2018-05-10 16:53 | PT.OTN ---
Current Diagnoses Other symptoms and signs involving the musculoskeletal system (05/10/18) Physical Therapy Treatment Note PT-OP-A Visit Information Start: 04/07/18 16:00 Freq: Status: Active Protocol: Document 05/10/18 15:15 GGD (Rec: 05/10/18 16:52 GGD [id number]) Out-Patient Physical Therapy Visit Information Visit Information Visit Type Treatment Note Visit Start Time 15:15 Visit Stop Time 16:10 Total Visit Minutes 50 Visit Number 10 Number of PHOTOLITHOGRAPHIC STRIPPER Visits 2 PT-OP-B Current Condition Start: 04/07/18 16:00 Freq: Status: Active Protocol: Document 04/07/18 17:02 EA (Rec: 04/07/18 17:17 EA [id number]) Current Condition History of Current Condition Onset Date 6 months ago Current Complaints Multiple joint pain and weakness to both LE's. History of Current Condition Present condition started 6 months ago when he noticed that both LE's are getting weak and decreased balance. He stated that multiple falls in the past 6 months with no severe injury or required hospitalization. He mentioned that pain to right hip and shoulder continued to bother him when place with pressure since the fall two weeks ago. Pt reports mobility decreased from more than 100 ft to now less than 50 ft since six months ago which also currently required four wheeled walker. Patient reports that he is still mourning for his daughter few years ago. Prior Treatments and Tests Patient had dementia medication removed few weeks ago Future Testing and Treatments Planned None identified Treatment Goals Patient/Caregiver Goals Patient wants to be able to walk more than 100 ft with the use of straight cane. Patient would like to improve his balance. Prior Functional Status Baseline Function- ADL's Independent Baseline Function- Mobility Independent Baseline Function- Gait Ambulates > 100 ft with straight cane/ accross the street 6 months ago Baseline Function- Recreation/Hobbies Patient has none active lifestyle due to deprssion Baseline Function- Other Lives with his who does the driving due to early dementia. Live in a 2 story house with more than 10 stairs at home. Current Functional Impairments (Reported) Functional Limitations- ADL's Indep in all except with feeding due to recent mouth surgery, requires company in all outside mobility due to early onset dementia. Functional Limitations- Mobility/Gait Unable to ambulate outside the house and picket [employer] the mail (> 100ft) due to fear of falling Functional Limitations- Work/School Retired Functional Limitations- Recreation/ None identified Hobbies Personal Factors Other Personal Factors That May Effect Early onset of dementia, Therapy/Recovery Depression, Pace maker, Anixiety, fear of falling PT-OP-C Subjective Start: 04/07/18 16:00 Freq: Status: Active Protocol: Document 05/10/18 15:15 GGD (Rec: 05/10/18 16:52 GGD [id number]) OP-PT Subjective Patient Comments Patient Comments Pt states he not doing much at home, but his balance is improving. PT-OP-D Balance Start: 04/07/18 16:00 Freq: Status: Active Protocol: Document 04/07/18 17:02 EA (Rec: 04/07/18 17:17 EA [id number]) OP-PT Balance Assessment Sitting Balance Static Sitting Balance Ability Good Dynamic Sitting Balance Ability Good Standing Balance Static Standing Balance Ability Good Dynamic Standing Balance Ability Fair Balance Tests Functional Reach Functional Reach Test < 2 inches Functional Reach Impairment Rating 80 to <100% Impaired (Score 1- 2) Romberg Romberg < 5 seconds Single Limb Standing Single Limb- Right unable Single Limb- Left unable Semi-Tandem Standing Semi-Tandem Standing Balance < 3 second to both L and R Knapp Balance Assessment Evaluation Sitting to Standing Ability Several Tries w/Hands Unsupported Stance Supervision- 2 minutes Sitting Unsupported, Feet on Floor Safely- 2 minutes Standing to Sitting Ability Assist, Control w/Hands Unsupported Stance- Eyes Closed Safely, With Eyes Open Unsupported Stance- Eyes Open Independent, 1 minute Reaching Forward Standing Supervision Needed Pick- Up Object From Floor Requires Supervision Look Behind Shoulder - Standing Turns Sideways Only Turning 360 Degrees Turns slowly, but safely Unsupported Stance, Alternating Feet on 4 Steps w/Supervision Stair Unsupported Tandem Stance Assist to Step-15 seconds Unilateral Leg Stance Unable,assist to not fall Total Score Knapp Total Score (out of 56 points) 26 Tinetti Balance Assessment Sitting Balance Sitting Balance Steady, safe Arising from Chair Ability to Arise Able, uses arms to help Standing Balance Immediate Standing Balance Steady with support Turning Step Pattern Turning 360 Degrees Continuous steps Sitting Down Sitting Down Uses arms or unsteady Gait and Step Initiation of Gait No hesitancy Right Foot Step Length Does pass stance foot Right Foot Step Height Does not clear floor Left Foot Step Length Does pass stance foot Left Foot Step Height Does not clear floor Step Description Step Symmetry Step length appears equal Gait Description Trunk Description Marked sway or uses aide Scoring and Interpretation Tinetti Composite Score (points) 9 Interpretation of Scores High risk for falls(< 19) Carty Fall Scale Copyright Permission Carloz JM, Carloz RM, Arabella SJ. Development of a scale to identify the fall- prone patient. Can J Aging 1989;8;366-7. Esha Carty (2009). Preventing patient falls. (2nd ed). [place]: [employer]. PT-OP-E Functional Tests Start: 04/07/18 16:00 Freq: Status: Active Protocol: Document 04/07/18 17:05 EA (Rec: 04/11/18 09:42 EA [id number]) Functional Tests Timed Up and Go (TUG) Score > 15 secs TUG Impairment Rating 60 to <80% Impaired (Score 16- 17) PT-OP-F Manual Assessment Start: 04/07/18 16:00 Freq: Status: Active Protocol: Document 04/07/18 17:02 EA (Rec: 04/07/18 17:17 EA [id number]) Manual Assessments Soft Tissue Assessment Soft Tissue Mobility Assessment Tight both hamstrings, Quads, hip flexors, PF PT-OP-G Mobility & Gait Start: 04/07/18 16:00 Freq: Status: Active Protocol: Document 04/07/18 17:02 EA (Rec: 04/07/18 17:17 EA [id number]) OP Mobility Evaluation Bed Mobility Rolling Minimal difficulty, indep Supine to and from Sit Minimal difficulty, indep Transfers Sit to Stand Indep but requires hand for support Bed to Chair Transfers indep but requires support/AD OP Gait Assessment Gait Gait Assistance Required: Independent Distance (Feet) 50 Able to Maintain Weight Bearing Status Yes During Gait Assistive Devices Assistive Device 4 Wheeled Walker Gait Deviations General Gait Pattern Decreased Feet Clearance Flexed Trunk Comments Gait Comments Left foot dropped Stair Climbing Evaluation Evaluation Level of Assist On Stairs Standby Assistance Devices Stair Climbing Assistive Devices Straight Cane Technique/Endurance Stair Climbing Direction Ascend and Descend Stair Climbing Technique Step to Step Number of Steps Climbed 4 Comments Stair Climbing Comments With difficulty on stairs descent PT-OP-J Posture/Palpation/Skin Start: 04/07/18 16:00 Freq: Status: Active Protocol: Document 04/07/18 17:02 EA (Rec: 04/07/18 17:17 EA [id number]) Posture Evaluation Position Standing Evaluation View post/lat Head/C-Spine Posture Forward Head T-Spine Posture Increased Kyphosis L-Spine Posture Flattened Shoulder Posture (L) Forward (R) Forward Scapula Posture (L) Protracted (R) Protracted Arm Posture (L) Internally Rotated (R) Internally Rotated Pelvis Posture Posterior Tilted Hip Posture (R) Flexed Comments Posture Comments Supine position reveals no obvious hip deformity to right side Palpation Assessment Location One Palpation Location Right lateral hip, right shoulder Palpation Findings Soft Tissue Tightness Tenderness Palpation Details Grade 3/4 tender over lateral upper hip and right shoulder No noted any signs of crepitus in all hip direction PROM Skin Assessment Other Assessments Skin Assessment Comments Right lateral hip bruise/ discoloratrion ~ 4 square cm. PT-OP-M Strength Start: 04/07/18 16:00 Freq: Status: Active Protocol: Document 04/07/18 17:02 EA (Rec: 04/07/18 17:17 EA [id number]) Hip Strength Hip Manual Muscle Testing Right Flexion (L2) 3+ Fair+ Extension (S1) 4- Good- Abduction 3+ Fair+ Adduction 4- Good- External Rotation 3+ Fair+ Internal Rotation 4- Good- Left Flexion (L2) 3+ Fair+ Extension (S1) 4- Good- Abduction 3 Fair Adduction 4- Good- External Rotation 3+ Fair+ Internal Rotation 4- Good- Ankle/Foot Strength Ankle and Foot Manual Muscle Testing Left Dorsiflexion (L4) 2+ Poor+ Plantarflexion (S1) 4- Good- Inversion 4- Good- Eversion (S1) 4- Good- Right Reason Not Measured WFL PT-OP-Q Treatments Start: 04/07/18 16:00 Freq: Status: Active Protocol: Document 05/10/18 15:15 GGD (Rec: 05/10/18 16:52 GGD [email or web address]) Cardio Equipment Recumbent Stepper (Sci-Fit) Duration (Minutes) 7 Resistance 2.4 Seat Position 14 Gym Equipment Shuttle Recovery Bilateral Squats Resistance 50# Shuttle Recovery Platform Stable Reps/Time 15 x 2 Unilateral Squats Details 25# Shuttle Recovery Platform Stable Reps/Time x 15 reps Therapeutic Exercises Supine Exercises 1 Supine Exercise Name Bridge Reps/Minutes x 5reps x 5SH Sitting Exercises sit to stand Reps/Minutes 10x Comments no UE's Standing Exercises hip ext Side bilateral Equipment Used yellow TB Reps/Minutes 15x each hip ab Side bilateral Equipment Used Yellow TB Reps/Minutes 15 x each squats Standing Exercise Name cues for form Reps/Minutes 5x Comments at bar sidestepping Side bilateral Resistance YTB Comments 4 lengths of bar heel raise Reps/Minutes 20x Comments at bar Neuro Re-Education Treatment Balance Activities lateral stepping Equipment yellow TB Reps/Duration 4 lenths of bar Comments cues for posture tandem stance Details tandem walk Reps/Duration 3 min Comments at bar SLS Reps/Duration 5-10 x 4 Comments at bar PT-OP-R Modalities Start: 04/07/18 16:00 Freq: Status: Active Protocol: Document 05/10/18 15:15 GGD (Rec: 05/10/18 16:52 GGD [id number]) Hot Pack/Cold Pack Treatment Hot Pack Location christina hips Patient Position Hooklying Treatment Duration (minutes) 10 Patient Tolerance Good Comments 2 small; strap to hold PT-OP-T Assessment and Plan Start: 04/07/18 16:00 Freq: Status: Active Protocol: Document 05/10/18 15:15 GGD (Rec: 05/10/18 16:52 GGD [email or web address]) Physical Therapy Assessment Goals Four Impairment Impaired distance ambulation Residential Goal (LTG) Patient will ambulate > 100 ft using FWW. LTG Duration 4 wks Three Impairment TINNETI BALANCE score of 9: Very high risk fall Residential Goal (LTG) TINNETI BALANCE score of 19 ( moderately risk fall) LTG Duration 5 wks Two Impairment TUG > 15 seconds with FWW [employer] Developer Goal (LTG) TUG of < 13 seconds w/ AD LTG Duration 4 wks One Impairment LEFS of 14/80 Residential Goal (LTG) LEFS score of > 30/80 LTG Duration 4 wks Assessment Summary Assessment Pt needs multiple rest breaks during treatment. He needs encouragement for strengthening and HEP. Physical Therapy Plan Frequency and Duration Frequency of Treatment 2x/Week Duration of Treatment 12 wks Plan of Care Start Date 04/07/18 Plan of Care End Date 06/30/18 Next Visit Focus/Plan Next Note Type Treatment Note Next Visit Plan Continue strengthening, balance , gait training. Encourage HEP compliance
--- NOTE | 2018-05-12 16:51 | PT.OTN ---
Current Diagnoses Other symptoms and signs involving the musculoskeletal system (05/12/18) Physical Therapy Treatment Note PT-OP-A Visit Information Start: 04/07/18 16:00 Freq: Status: Active Protocol: Document 05/12/18 14:34 SAK (Rec: 05/12/18 15:16 SAK [id number]) Out-Patient Physical Therapy Visit Information Visit Information Visit Type Treatment Note Visit Start Time 14:30 Visit Stop Time 15:24 Total Visit Minutes 54 Visit Number 11 Number of ACROBATIC RIGGER Visits 2 PT-OP-B Current Condition Start: 04/07/18 16:00 Freq: Status: Active Protocol: Document 04/07/18 17:02 EA (Rec: 04/07/18 17:17 EA [id number]) Current Condition History of Current Condition Onset Date 6 months ago Current Complaints Multiple joint pain and weakness to both LE's. History of Current Condition Present condition started 6 months ago when he noticed that both LE's are getting weak and decreased balance. He stated that multiple falls in the past 6 months with no severe injury or required hospitalization. He mentioned that pain to right hip and shoulder continued to bother him when place with pressure since the fall two weeks ago. Pt reports mobility decreased from more than 100 ft to now less than 50 ft since six months ago which also currently required four wheeled walker. Patient reports that he is still mourning for his daughter few years ago. Prior Treatments and Tests Patient had dementia medication removed few weeks ago Future Testing and Treatments Planned None identified Treatment Goals Patient/Caregiver Goals Patient wants to be able to walk more than 100 ft with the use of straight cane. Patient would like to improve his balance. Prior Functional Status Baseline Function- ADL's Independent Baseline Function- Mobility Independent Baseline Function- Gait Ambulates > 100 ft with straight cane/ accross the street 6 months ago Baseline Function- Recreation/Hobbies Patient has none active lifestyle due to deprssion Baseline Function- Other Lives with his who does the driving due to early dementia. Live in a 2 story house with more than 10 stairs at home. Current Functional Impairments (Reported) Functional Limitations- ADL's Indep in all except with feeding due to recent mouth surgery, requires company in all outside mobility due to early onset dementia. Functional Limitations- Mobility/Gait Unable to ambulate outside the house and fruit picker the mail (> 100ft) due to fear of falling Functional Limitations- Work/School Retired Functional Limitations- Recreation/ None identified Hobbies Personal Factors Other Personal Factors That May Effect Early onset of dementia, Therapy/Recovery Depression, Pace maker, Anixiety, fear of falling PT-OP-C Subjective Start: 04/07/18 16:00 Freq: Status: Active Protocol: Document 05/12/18 14:34 SAK (Rec: 05/12/18 15:16 SAK [id number]) OP-PT Subjective Patient Comments Patient Comments reports she feels like her 's cognition improving, patient and report patient's balance a little better. Patient continues to be resistant to performing HEP: I like my recliner and my cat. PT-OP-D Balance Start: 04/07/18 16:00 Freq: Status: Active Protocol: Document 04/07/18 17:02 EA (Rec: 04/07/18 17:17 EA [id number]) OP-PT Balance Assessment Sitting Balance Static Sitting Balance Ability Good Dynamic Sitting Balance Ability Good Standing Balance Static Standing Balance Ability Good Dynamic Standing Balance Ability Fair Balance Tests Functional Reach Functional Reach Test < 2 inches Functional Reach Impairment Rating 80 to <100% Impaired (Score 1- 2) Romberg Romberg < 5 seconds Single Limb Standing Single Limb- Right unable Single Limb- Left unable Semi-Tandem Standing Semi-Tandem Standing Balance < 3 second to both L and R Knapp Balance Assessment Evaluation Sitting to Standing Ability Several Tries w/Hands Unsupported Stance Supervision- 2 minutes Sitting Unsupported, Feet on Floor Safely- 2 minutes Standing to Sitting Ability Assist, Control w/Hands Unsupported Stance- Eyes Closed Safely, With Eyes Open Unsupported Stance- Eyes Open Independent, 1 minute Reaching Forward Standing Supervision Needed Pick- Up Object From Floor Requires Supervision Look Behind Shoulder - Standing Turns Sideways Only Turning 360 Degrees Turns slowly, but safely Unsupported Stance, Alternating Feet on 4 Steps w/Supervision Stair Unsupported Tandem Stance Assist to Step-15 seconds Unilateral Leg Stance Unable,assist to not fall Total Score Knapp Total Score (out of 56 points) 26 Tinetti Balance Assessment Sitting Balance Sitting Balance Steady, safe Arising from Chair Ability to Arise Able, uses arms to help Standing Balance Immediate Standing Balance Steady with support Turning Step Pattern Turning 360 Degrees Continuous steps Sitting Down Sitting Down Uses arms or unsteady Gait and Step Initiation of Gait No hesitancy Right Foot Step Length Does pass stance foot Right Foot Step Height Does not clear floor Left Foot Step Length Does pass stance foot Left Foot Step Height Does not clear floor Step Description Step Symmetry Step length appears equal Gait Description Trunk Description Marked sway or uses aide Scoring and Interpretation Tinetti Composite Score (points) 9 Interpretation of Scores High risk for falls(< 19) Carty Fall Scale Copyright Permission Carloz JM, Carloz RM, Arabella SJ. Development of a scale to identify the fall- prone patient. Can J Aging 1989;8;366-7. Esha Carty (2009). Preventing patient falls. (2nd ed). [place]: [employer]. PT-OP-E Functional Tests Start: 04/07/18 16:00 Freq: Status: Active Protocol: Document 04/07/18 17:05 EA (Rec: 04/11/18 09:42 EA [id number]) Functional Tests Timed Up and Go (TUG) Score > 15 secs TUG Impairment Rating 60 to <80% Impaired (Score 16- 17) PT-OP-F Manual Assessment Start: 04/07/18 16:00 Freq: Status: Active Protocol: Document 04/07/18 17:02 EA (Rec: 04/07/18 17:17 EA [id number]) Manual Assessments Soft Tissue Assessment Soft Tissue Mobility Assessment Tight both hamstrings, Quads, hip flexors, PF PT-OP-G Mobility & Gait Start: 04/07/18 16:00 Freq: Status: Active Protocol: Document 04/07/18 17:02 EA (Rec: 04/07/18 17:17 EA [id number]) OP Mobility Evaluation Bed Mobility Rolling Minimal difficulty, indep Supine to and from Sit Minimal difficulty, indep Transfers Sit to Stand Indep but requires hand for support Bed to Chair Transfers indep but requires support/AD OP Gait Assessment Gait Gait Assistance Required: Independent Distance (Feet) 50 Able to Maintain Weight Bearing Status Yes During Gait Assistive Devices Assistive Device 4 Wheeled Walker Gait Deviations General Gait Pattern Decreased Feet Clearance Flexed Trunk Comments Gait Comments Left foot dropped Stair Climbing Evaluation Evaluation Level of Assist On Stairs Standby Assistance Devices Stair Climbing Assistive Devices Straight Cane Technique/Endurance Stair Climbing Direction Ascend and Descend Stair Climbing Technique Step to Step Number of Steps Climbed 4 Comments Stair Climbing Comments With difficulty on stairs descent PT-OP-J Posture/Palpation/Skin Start: 04/07/18 16:00 Freq: Status: Active Protocol: Document 04/07/18 17:02 EA (Rec: 04/07/18 17:17 EA [id number]) Posture Evaluation Position Standing Evaluation View post/lat Head/C-Spine Posture Forward Head T-Spine Posture Increased Kyphosis L-Spine Posture Flattened Shoulder Posture (L) Forward (R) Forward Scapula Posture (L) Protracted (R) Protracted Arm Posture (L) Internally Rotated (R) Internally Rotated Pelvis Posture Posterior Tilted Hip Posture (R) Flexed Comments Posture Comments Supine position reveals no obvious hip deformity to right side Palpation Assessment Location One Palpation Location Right lateral hip, right shoulder Palpation Findings Soft Tissue Tightness Tenderness Palpation Details Grade 3/4 tender over lateral upper hip and right shoulder No noted any signs of crepitus in all hip direction PROM Skin Assessment Other Assessments Skin Assessment Comments Right lateral hip bruise/ discoloratrion ~ 4 square cm. PT-OP-M Strength Start: 04/07/18 16:00 Freq: Status: Active Protocol: Document 04/07/18 17:02 EA (Rec: 04/07/18 17:17 EA [id number]) Hip Strength Hip Manual Muscle Testing Right Flexion (L2) 3+ Fair+ Extension (S1) 4- Good- Abduction 3+ Fair+ Adduction 4- Good- External Rotation 3+ Fair+ Internal Rotation 4- Good- Left Flexion (L2) 3+ Fair+ Extension (S1) 4- Good- Abduction 3 Fair Adduction 4- Good- External Rotation 3+ Fair+ Internal Rotation 4- Good- Ankle/Foot Strength Ankle and Foot Manual Muscle Testing Left Dorsiflexion (L4) 2+ Poor+ Plantarflexion (S1) 4- Good- Inversion 4- Good- Eversion (S1) 4- Good- Right Reason Not Measured WFL PT-OP-Q Treatments Start: 04/07/18 16:00 Freq: Status: Active Protocol: Document 05/12/18 14:34 SAK (Rec: 05/12/18 15:16 SAK [id number]) Cardio Equipment Recumbent Stepper (Sci-Fit) Duration (Minutes) 9 Resistance 2.5 Seat Position 14 Other last 2 min with legs only Gym Equipment Shuttle Recovery Bilateral Squats Resistance 62# Shuttle Recovery Platform Stable Reps/Time 10, 17 Unilateral Squats Details 37# Shuttle Recovery Platform Stable Reps/Time x 15 reps Shuttle Balance chains green Details WBOS bal, head turns, UE elevation, trunk rotation, mini-squats, balloon vb Comments chains green, cords loose Therapeutic Exercises Sitting Exercises sit to stand Reps/Minutes 10x Comments no UE's Standing Exercises resisted walk Standing Exercise Name forward, backward Equipment Used yellow TB Reps/Minutes 2 lengths of bar sidestepping Side bilateral Resistance YTB Comments 4 lengths of bar Gait Training Gait Activity gait with cane Device Used SPC Level of Assistance CGA Distance/Duration 400' Treatment Focus cues for safety, upright posture Comments Plus gait throughout gym transitioning between activities. PT-OP-R Modalities Start: 04/07/18 16:00 Freq: Status: Active Protocol: Document 05/12/18 14:34 [facility] (Rec: 05/12/18 16:51 [facility] [id number]) Hot Pack/Cold Pack Treatment Hot Pack Location [facility] Patient Position Hooklying Treatment Duration (minutes) 10 Patient Tolerance Good Comments 2 small; strap to hold PT-OP-T Assessment and Plan Start: 04/07/18 16:00 Freq: Status: Active Protocol: Document 05/12/18 14:34 [facility] (Rec: 05/12/18 16:51 [facility] [id number]) Physical Therapy Assessment Goals Four Impairment Impaired distance ambulation Shelter Goal (LTG) Patient will ambulate > 100 ft using FWW. LTG Duration 4 wks Three Impairment TINNETI BALANCE score of 9: Very high risk fall Research Kennel Supervisor Goal (LTG) TINNETI BALANCE score of 19 ( moderately risk fall) LTG Duration 5 wks Two Impairment TUG > 15 seconds with FWW Shelter Goal (LTG) TUG of < 13 seconds w/ AD LTG Duration 4 wks One Impairment LEFS of 14/80 Research Kennel Supervisor Goal (LTG) LEFS score of > 30/80 LTG Duration 4 wks Assessment Summary Assessment Patient was able to tolerate increased resistance on shuttle leg press, and increased his tolerance for gait training; needs much encouragement to exercise but is noticing improvements. Physical Therapy Plan Frequency and Duration Frequency of Treatment 2x/Week Duration of Treatment 12 wks Plan of Care Start Date 04/07/18 Plan of Care End Date 06/30/18 Therapeutic Interventions Therapeutic Interventions Balance Training Coordination Training Gait Training Home Exercise Program Joint Mobilizations Manual Therapy Patient/Caregiver Education Self-Care/Home Management Soft Tissue Mobilization Therapeutic Exercises Modalities Cold Pack/Ice Massage Electric Stimulation Hot Packs Next Visit Focus/Plan Next Note Type Treatment Note Next Visit Plan Further gait training with cane, progression of ther ex for balance and strengthening. Consider outdoor gait training.
--- NOTE | 2018-05-16 16:49 | PT.OTN ---
Current Diagnoses Other symptoms and signs involving the musculoskeletal system (05/16/18) Physical Therapy Treatment Note PT-OP-A Visit Information Start: 04/07/18 16:00 Freq: Status: Active Protocol: Document 05/16/18 16:48 EA (Rec: 05/16/18 16:48 EA [id number]) Out-Patient Physical Therapy Visit Information Visit Information Visit Type Treatment Note Visit Start Time 15:15 Visit Stop Time 16:00 Total Visit Minutes 45 Visit Number 12 PT-OP-B Current Condition Start: 04/07/18 16:00 Freq: Status: Active Protocol: Document 04/07/18 17:02 EA (Rec: 04/07/18 17:17 EA [id number]) Current Condition History of Current Condition Onset Date 6 months ago Current Complaints Multiple joint pain and weakness to both LE's. History of Current Condition Present condition started 6 months ago when he noticed that both LE's are getting weak and decreased balance. He stated that multiple falls in the past 6 months with no severe injury or required hospitalization. He mentioned that pain to right hip and shoulder continued to bother him when place with pressure since the fall two weeks ago. Pt reports mobility decreased from more than 100 ft to now less than 50 ft since six months ago which also currently required four wheeled walker. Patient reports that he is still mourning for his daughter few years ago. Prior Treatments and Tests Patient had dementia medication removed few weeks ago Future Testing and Treatments Planned None identified Treatment Goals Patient/Caregiver Goals Patient wants to be able to walk more than 100 ft with the use of straight cane. Patient would like to improve his balance. Prior Functional Status Baseline Function- ADL's Independent Baseline Function- Mobility Independent Baseline Function- Gait Ambulates > 100 ft with straight cane/ accross the street 6 months ago Baseline Function- Recreation/Hobbies Patient has none active lifestyle due to deprssion Baseline Function- Other Lives with his who does the driving due to early dementia. Live in a 2 story house with more than 10 stairs at home. Current Functional Impairments (Reported) Functional Limitations- ADL's Indep in all except with feeding due to recent mouth surgery, requires company in all outside mobility due to early onset dementia. 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 Pt also reports unable to practice cane as he forgot cane at home. PT-OP-D Balance Start: 04/07/18 16:00 Freq: Status: Active Protocol: Document 04/07/18 17:02 EA (Rec: 04/07/18 17:17 EA [id number]) OP-PT Balance Assessment Sitting Balance Static Sitting Balance Ability Good Dynamic Sitting Balance Ability Good Standing Balance Static Standing Balance Ability Good Dynamic Standing Balance Ability Fair Balance Tests Functional Reach Functional Reach Test < 2 inches Functional Reach Impairment Rating 80 to <100% Impaired (Score 1- 2) Romberg Romberg < 5 seconds Single Limb Standing Single Limb- Right unable Single Limb- Left unable Semi-Tandem Standing Semi-Tandem Standing Balance < 3 second to both L and R Knapp Balance Assessment Evaluation Sitting to Standing Ability Several Tries w/Hands Unsupported Stance Supervision- 2 minutes Sitting Unsupported, Feet on Floor Safely- 2 minutes Standing to Sitting Ability Assist, Control w/Hands Unsupported Stance- Eyes Closed Safely, With Eyes Open Unsupported Stance- Eyes Open Independent, 1 minute Reaching Forward Standing Supervision Needed Pick- Up Object From Floor Requires Supervision Look Behind Shoulder - Standing Turns Sideways Only Turning 360 Degrees Turns slowly, but safely Unsupported Stance, Alternating Feet on 4 Steps w/Supervision Stair Unsupported Tandem Stance Assist to Step-15 seconds Unilateral Leg Stance Unable,assist to not fall Total Score Knapp Total Score (out of 56 points) 26 Tinetti Balance Assessment Sitting Balance Sitting Balance Steady, safe Arising from Chair Ability to Arise Able, uses arms to help Standing Balance Immediate Standing Balance Steady with support Turning Step Pattern Turning 360 Degrees Continuous steps Sitting Down Sitting Down Uses arms or unsteady Gait and Step Initiation of Gait No hesitancy Right Foot Step Length Does pass stance foot Right Foot Step Height Does not clear floor Left Foot Step Length Does pass stance foot Left Foot Step Height Does not clear floor Step Description Step Symmetry Step length appears equal Gait Description Trunk Description Marked sway or uses aide Scoring and Interpretation Tinetti Composite Score (points) 9 Interpretation of Scores High risk for falls(< 19) Carty Fall Scale Copyright Permission Carloz JM, Carloz RM, Arabella SJ. Development of a scale to identify the fall- prone patient. Can J Aging 1989;8;366-7. Esha Carty (2009). Preventing patient falls. (2nd ed). [place]: [employer]. PT-OP-E Functional Tests Start: 04/07/18 16:00 Freq: Status: Active Protocol: Document 04/07/18 17:05 EA (Rec: 04/11/18 09:42 EA [id number]) Functional Tests Timed Up and Go (TUG) Score > 15 secs TUG Impairment Rating 60 to <80% Impaired (Score 16- 17) PT-OP-F Manual Assessment Start: 04/07/18 16:00 Freq: Status: Active Protocol: Document 04/07/18 17:02 EA (Rec: 04/07/18 17:17 EA [id number]) Manual Assessments Soft Tissue Assessment Soft Tissue Mobility Assessment Tight both hamstrings, Quads, hip flexors, PF PT-OP-G Mobility & Gait Start: 04/07/18 16:00 Freq: Status: Active Protocol: Document 04/07/18 17:02 EA (Rec: 04/07/18 17:17 EA [id number]) OP Mobility Evaluation Bed Mobility Rolling Minimal difficulty, indep Supine to and from Sit Minimal difficulty, indep Transfers Sit to Stand Indep but requires hand for support Bed to Chair Transfers indep but requires support/AD OP Gait Assessment Gait Gait Assistance Required: Independent Distance (Feet) 50 Able to Maintain Weight Bearing Status Yes During Gait Assistive Devices Assistive Device 4 Wheeled Walker Gait Deviations General Gait Pattern Decreased Feet Clearance Flexed Trunk Comments Gait Comments Left foot dropped Stair Climbing Evaluation Evaluation Level of Assist On Stairs Standby Assistance Devices Stair Climbing Assistive Devices Straight Cane Technique/Endurance Stair Climbing Direction Ascend and Descend Stair Climbing Technique Step to Step Number of Steps Climbed 4 Comments Stair Climbing Comments With difficulty on stairs descent PT-OP-J Posture/Palpation/Skin Start: 04/07/18 16:00 Freq: Status: Active Protocol: Document 04/07/18 17:02 EA (Rec: 04/07/18 17:17 EA [id number]) Posture Evaluation Position Standing Evaluation View post/lat Head/C-Spine Posture Forward Head T-Spine Posture Increased Kyphosis L-Spine Posture Flattened Shoulder Posture (L) Forward (R) Forward Scapula Posture (L) Protracted (R) Protracted Arm Posture (L) Internally Rotated (R) Internally Rotated Pelvis Posture Posterior Tilted Hip Posture (R) Flexed Comments Posture Comments Supine position reveals no obvious hip deformity to right side Palpation Assessment Location One Palpation Location Right lateral hip, right shoulder Palpation Findings Soft Tissue Tightness Tenderness Palpation Details Grade 3/4 tender over lateral upper hip and right shoulder No noted any signs of crepitus in all hip direction PROM Skin Assessment Other Assessments Skin Assessment Comments Right lateral hip bruise/ discoloratrion ~ 4 square cm. PT-OP-M Strength Start: 04/07/18 16:00 Freq: Status: Active Protocol: Document 04/07/18 17:02 EA (Rec: 04/07/18 17:17 EA [id number]) Hip Strength Hip Manual Muscle Testing Right Flexion (L2) 3+ Fair+ Extension (S1) 4- Good- Abduction 3+ Fair+ Adduction 4- Good- External Rotation 3+ Fair+ Internal Rotation 4- Good- Left Flexion (L2) 3+ Fair+ Extension (S1) 4- Good- Abduction 3 Fair Adduction 4- Good- External Rotation 3+ Fair+ Internal Rotation 4- Good- Ankle/Foot Strength Ankle and Foot Manual Muscle Testing Left Dorsiflexion (L4) 2+ Poor+ Plantarflexion (S1) 4- Good- Inversion 4- Good- Eversion (S1) 4- Good- Right Reason Not Measured WFL PT-OP-Q Treatments Start: 04/07/18 16:00 Freq: Status: Active Protocol: Document 05/16/18 15:58 EA (Rec: 05/16/18 16:47 EA [id number]) Gym Equipment Shuttle Recovery Bilateral Squats Resistance 75# Shuttle Recovery Platform Stable Reps/Time 10, 17 Unilateral Squats Details 37# Shuttle Recovery Platform Stable Reps/Time x 15 reps Shuttle Balance chains green Details WBOS bal, head turns, UE elevation, trunk rotation, mini-squats, balloon vb Comments chains green, cords loose Therapeutic Exercises Supine Exercises 1 Supine Exercise Name Bridge Reps/Minutes x 5reps x 5SH Sitting Exercises sit to stand Reps/Minutes 10x Comments no UE's Standing Exercises resisted walk Standing Exercise Name forward, backward Equipment Used yellow TB Reps/Minutes 2 lengths of bar 1 Standing Exercise Name Wall posture Reps/Minutes x 3 mins Comments hip/glutes, back and shoulder on the wall hip ext Side bilateral Equipment Used yellow TB Reps/Minutes 15x each sidestepping Side bilateral Resistance YTB Comments 4 lengths of bar PT-OP-R Modalities Start: 04/07/18 16:00 Freq: Status: Active Protocol: Document 05/16/18 16:47 EA (Rec: 05/16/18 16:47 EA [id number]) Hot Pack/Cold Pack Treatment Hot Pack Location christina hips Patient Position Hooklying Treatment Duration (minutes) 10 Patient Tolerance Good Comments 2 small; strap to hold PT-OP-T Assessment and Plan Start: 04/07/18 16:00 Freq: Status: Active Protocol: Document 05/16/18 15:58 EA (Rec: 05/16/18 16:47 EA [id number]) Physical Therapy Assessment Assessment Summary Assessment Tolerated treatment well; patient exhibit high energy with few rests during therex. Physical Therapy Plan Next Visit Focus/Plan Next Note Type Treatment Note Next Visit Plan Further gait training with cane, progression of therex for balance and strengthening. Consider outdoor gait training.
--- NOTE | 2018-05-19 15:54 | PT.OTN ---
Current Diagnoses Other symptoms and signs involving the musculoskeletal system (05/19/18) Physical Therapy Treatment Note PT-OP-A Visit Information Start: 04/07/18 16:00 Freq: Status: Active Protocol: Document 05/19/18 15:44 EA (Rec: 05/19/18 15:54 EA [id number]) Out-Patient Physical Therapy Visit Information Visit Information Visit Type Treatment Note Visit Start Time 14:30 Visit Stop Time 15:18 Total Visit Minutes 48 Visit Number 13 PT-OP-B Current Condition Start: 04/07/18 16:00 Freq: Status: Active Protocol: Document 04/07/18 17:02 EA (Rec: 04/07/18 17:17 EA [id number]) Current Condition History of Current Condition Onset Date 6 months ago Current Complaints Multiple joint pain and weakness to both LE's. History of Current Condition Present condition started 6 months ago when he noticed that both LE's are getting weak and decreased balance. He stated that multiple falls in the past 6 months with no severe injury or required hospitalization. He mentioned that pain to right hip and shoulder continued to bother him when place with pressure since the fall two weeks ago. Pt reports mobility decreased from more than 100 ft to now less than 50 ft since six months ago which also currently required four wheeled walker. Patient reports that he is still mourning for his daughter few years ago. Prior Treatments and Tests Patient had dementia medication removed few weeks ago Future Testing and Treatments Planned None identified Treatment Goals Patient/Caregiver Goals Patient wants to be able to walk more than 100 ft with the use of straight cane. Patient would like to improve his balance. Prior Functional Status Baseline Function- ADL's Independent Baseline Function- Mobility Independent Baseline Function- Gait Ambulates > 100 ft with straight cane/ accross the street 6 months ago Baseline Function- Recreation/Hobbies Patient has none active lifestyle due to deprssion Baseline Function- Other Lives with his who does the driving due to early dementia. Live in a 2 story house with more than 10 stairs at home. Current Functional Impairments (Reported) Functional Limitations- ADL's Indep in all except with feeding due to recent mouth surgery, requires company in all outside mobility due to early onset dementia. 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 Pt reports also that there is no cure for his nerve problem as per specialist. Pt admitted he is not doing his HEP and states I just dont like it. PT-OP-D Balance Start: 04/07/18 16:00 Freq: Status: Active Protocol: Document 04/07/18 17:02 EA (Rec: 04/07/18 17:17 EA [id number]) OP-PT Balance Assessment Sitting Balance Static Sitting Balance Ability Good Dynamic Sitting Balance Ability Good Standing Balance Static Standing Balance Ability Good Dynamic Standing Balance Ability Fair Balance Tests Functional Reach Functional Reach Test < 2 inches Functional Reach Impairment Rating 80 to <100% Impaired (Score 1- 2) Romberg Romberg < 5 seconds Single Limb Standing Single Limb- Right unable Single Limb- Left unable Semi-Tandem Standing Semi-Tandem Standing Balance < 3 second to both L and R Knapp Balance Assessment Evaluation Sitting to Standing Ability Several Tries w/Hands Unsupported Stance Supervision- 2 minutes Sitting Unsupported, Feet on Floor Safely- 2 minutes Standing to Sitting Ability Assist, Control w/Hands Unsupported Stance- Eyes Closed Safely, With Eyes Open Unsupported Stance- Eyes Open Independent, 1 minute Reaching Forward Standing Supervision Needed Pick- Up Object From Floor Requires Supervision Look Behind Shoulder - Standing Turns Sideways Only Turning 360 Degrees Turns slowly, but safely Unsupported Stance, Alternating Feet on 4 Steps w/Supervision Stair Unsupported Tandem Stance Assist to Step-15 seconds Unilateral Leg Stance Unable,assist to not fall Total Score Knapp Total Score (out of 56 points) 26 Tinetti Balance Assessment Sitting Balance Sitting Balance Steady, safe Arising from Chair Ability to Arise Able, uses arms to help Standing Balance Immediate Standing Balance Steady with support Turning Step Pattern Turning 360 Degrees Continuous steps Sitting Down Sitting Down Uses arms or unsteady Gait and Step Initiation of Gait No hesitancy Right Foot Step Length Does pass stance foot Right Foot Step Height Does not clear floor Left Foot Step Length Does pass stance foot Left Foot Step Height Does not clear floor Step Description Step Symmetry Step length appears equal Gait Description Trunk Description Marked sway or uses aide Scoring and Interpretation Tinetti Composite Score (points) 9 Interpretation of Scores High risk for falls(< 19) Carty Fall Scale Copyright Permission Carloz JM, Carloz RM, Arabella SJ. Development of a scale to identify the fall- prone patient. Can J Aging 1989;8;366-7. Esha Carty (2009). Preventing patient falls. (2nd ed). [place]: [employer]. PT-OP-E Functional Tests Start: 04/07/18 16:00 Freq: Status: Active Protocol: Document 04/07/18 17:05 EA (Rec: 04/11/18 09:42 EA [id number]) Functional Tests Timed Up and Go (TUG) Score > 15 secs TUG Impairment Rating 60 to <80% Impaired (Score 16- 17) PT-OP-F Manual Assessment Start: 04/07/18 16:00 Freq: Status: Active Protocol: Document 04/07/18 17:02 EA (Rec: 04/07/18 17:17 EA [id number]) Manual Assessments Soft Tissue Assessment Soft Tissue Mobility Assessment Tight both hamstrings, Quads, hip flexors, PF PT-OP-G Mobility & Gait Start: 04/07/18 16:00 Freq: Status: Active Protocol: Document 04/07/18 17:02 EA (Rec: 04/07/18 17:17 EA [id number]) OP Mobility Evaluation Bed Mobility Rolling Minimal difficulty, indep Supine to and from Sit Minimal difficulty, indep Transfers Sit to Stand Indep but requires hand for support Bed to Chair Transfers indep but requires support/AD OP Gait Assessment Gait Gait Assistance Required: Independent Distance (Feet) 50 Able to Maintain Weight Bearing Status Yes During Gait Assistive Devices Assistive Device 4 Wheeled Walker Gait Deviations General Gait Pattern Decreased Feet Clearance Flexed Trunk Comments Gait Comments Left foot dropped Stair Climbing Evaluation Evaluation Level of Assist On Stairs Standby Assistance Devices Stair Climbing Assistive Devices Straight Cane Technique/Endurance Stair Climbing Direction Ascend and Descend Stair Climbing Technique Step to Step Number of Steps Climbed 4 Comments Stair Climbing Comments With difficulty on stairs descent PT-OP-J Posture/Palpation/Skin Start: 04/07/18 16:00 Freq: Status: Active Protocol: Document 04/07/18 17:02 EA (Rec: 04/07/18 17:17 EA [id number]) Posture Evaluation Position Standing Evaluation View post/lat Head/C-Spine Posture Forward Head T-Spine Posture Increased Kyphosis L-Spine Posture Flattened Shoulder Posture (L) Forward (R) Forward Scapula Posture (L) Protracted (R) Protracted Arm Posture (L) Internally Rotated (R) Internally Rotated Pelvis Posture Posterior Tilted Hip Posture (R) Flexed Comments Posture Comments Supine position reveals no obvious hip deformity to right side Palpation Assessment Location One Palpation Location Right lateral hip, right shoulder Palpation Findings Soft Tissue Tightness Tenderness Palpation Details Grade 3/4 tender over lateral upper hip and right shoulder No noted any signs of crepitus in all hip direction PROM Skin Assessment Other Assessments Skin Assessment Comments Right lateral hip bruise/ discoloratrion ~ 4 square cm. PT-OP-M Strength Start: 04/07/18 16:00 Freq: Status: Active Protocol: Document 04/07/18 17:02 EA (Rec: 04/07/18 17:17 EA [id number]) Hip Strength Hip Manual Muscle Testing Right Flexion (L2) 3+ Fair+ Extension (S1) 4- Good- Abduction 3+ Fair+ Adduction 4- Good- External Rotation 3+ Fair+ Internal Rotation 4- Good- Left Flexion (L2) 3+ Fair+ Extension (S1) 4- Good- Abduction 3 Fair Adduction 4- Good- External Rotation 3+ Fair+ Internal Rotation 4- Good- Ankle/Foot Strength Ankle and Foot Manual Muscle Testing Left Dorsiflexion (L4) 2+ Poor+ Plantarflexion (S1) 4- Good- Inversion 4- Good- Eversion (S1) 4- Good- Right Reason Not Measured WFL PT-OP-Q Treatments Start: 04/07/18 16:00 Freq: Status: Active Protocol: Document 05/19/18 15:44 EA (Rec: 05/19/18 15:54 EA [id number]) Cardio Equipment Recumbent Elliptical (Biodex) Duration (Minutes) 5 Resistance 3 Gym Equipment Shuttle Recovery Bilateral Squats Resistance 75# Shuttle Recovery Platform Stable Reps/Time 10, 17 Unilateral Squats Details 37# Shuttle Recovery Platform Stable Reps/Time x 15 reps Shuttle Balance chains green Details WBOS bal, head turns, UE elevation, trunk rotation, mini-squats, balloon vb Comments chains green, cords loose Sport Cord 1 Exercise Details Ba boyd only Cord/Resistance green Reps/Duration 5,3,3 ea side Comments CG to min assist for balance; refused other direction Therapeutic Exercises Supine Exercises 7 Supine Exercise Name Bridge Side bilateral Reps/Minutes x 10 reps Comments not tolerated 6 Supine Exercise Name SKTC Side bilateral 5 Supine Exercise Name Lower trunk rotation stretch Side bilateral 4 Supine Exercise Name Piriformis stretch 3 Supine Exercise Name bent ABD/ADD Side bilateral Reps/Minutes x 20 reps Standing Exercises 1 Standing Exercise Name Wall posture Reps/Minutes x 3 mins Comments hip/glutes, back and shoulder on the wall sidestepping Side bilateral Resistance YTB Comments 4 lengths of bar PT-OP-R Modalities Start: 04/07/18 16:00 Freq: Status: Active Protocol: Document 05/19/18 15:44 EA (Rec: 05/19/18 15:54 EA [id number]) Hot Pack/Cold Pack Treatment Hot Pack Location christina hips Patient Position Hooklying Treatment Duration (minutes) 10 Patient Tolerance Good Comments 2 small; strap to hold PT-OP-T Assessment and Plan Start: 04/07/18 16:00 Freq: Status: Active Protocol: Document 05/19/18 15:44 EA (Rec: 05/19/18 15:54 EA [id number]) Physical Therapy Assessment Progress Towards Goals Progress Towards Goals Slow Progress due to Activity Tolerance Slow Progress due to Noncompliance Assessment Summary Assessment Pt is no showing good progress at this time due to lack motivation/cooperation with HEP and refusal with other exercises. Explained the benefit but lost of refusal. I recommended to see his physician for AFO's referral. Physical Therapy Plan Next Visit Focus/Plan Next Note Type Treatment Note Next Visit Plan Cont current plan or progress as tolerated.
--- NOTE | 2018-05-23 16:44 | PT.OTN ---
Current Diagnoses Other symptoms and signs involving the musculoskeletal system (05/23/18) Physical Therapy Treatment Note PT-OP-A Visit Information Start: 04/07/18 16:00 Freq: Status: Active Protocol: Document 05/23/18 16:37 EA (Rec: 05/23/18 16:44 EA [id number]) Out-Patient Physical Therapy Visit Information Visit Information Visit Type Treatment Note Visit Start Time 15:15 Visit Stop Time 15:53 Total Visit Minutes 38 Visit Number 14 PT-OP-B Current Condition Start: 04/07/18 16:00 Freq: Status: Active Protocol: Document 04/07/18 17:02 EA (Rec: 04/07/18 17:17 EA [id number]) Current Condition History of Current Condition Onset Date 6 months ago Current Complaints Multiple joint pain and weakness to both LE's. History of Current Condition Present condition started 6 months ago when he noticed that both LE's are getting weak and decreased balance. He stated that multiple falls in the past 6 months with no severe injury or required hospitalization. He mentioned that pain to right hip and shoulder continued to bother him when place with pressure since the fall two weeks ago. Pt reports mobility decreased from more than 100 ft to now less than 50 ft since six months ago which also currently required four wheeled walker. Patient reports that he is still mourning for his daughter few years ago. Prior Treatments and Tests Patient had dementia medication removed few weeks ago Future Testing and Treatments Planned None identified Treatment Goals Patient/Caregiver Goals Patient wants to be able to walk more than 100 ft with the use of straight cane. Patient would like to improve his balance. Prior Functional Status Baseline Function- ADL's Independent Baseline Function- Mobility Independent Baseline Function- Gait Ambulates > 100 ft with straight cane/ accross the street 6 months ago Baseline Function- Recreation/Hobbies Patient has none active lifestyle due to deprssion Baseline Function- Other Lives with his who does the driving due to early dementia. Live in a 2 story house with more than 10 stairs at home. Current Functional Impairments (Reported) Functional Limitations- ADL's Indep in all except with feeding due to recent mouth surgery, requires company in all outside mobility due to early onset dementia. 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 he also states toady that he does not like beeing lecture today. PT-OP-D Balance Start: 04/07/18 16:00 Freq: Status: Active Protocol: Document 04/07/18 17:02 EA (Rec: 04/07/18 17:17 EA [id number]) OP-PT Balance Assessment Sitting Balance Static Sitting Balance Ability Good Dynamic Sitting Balance Ability Good Standing Balance Static Standing Balance Ability Good Dynamic Standing Balance Ability Fair Balance Tests Functional Reach Functional Reach Test < 2 inches Functional Reach Impairment Rating 80 to <100% Impaired (Score 1- 2) Romberg Romberg < 5 seconds Single Limb Standing Single Limb- Right unable Single Limb- Left unable Semi-Tandem Standing Semi-Tandem Standing Balance < 3 second to both L and R Knapp Balance Assessment Evaluation Sitting to Standing Ability Several Tries w/Hands Unsupported Stance Supervision- 2 minutes Sitting Unsupported, Feet on Floor Safely- 2 minutes Standing to Sitting Ability Assist, Control w/Hands Unsupported Stance- Eyes Closed Safely, With Eyes Open Unsupported Stance- Eyes Open Independent, 1 minute Reaching Forward Standing Supervision Needed Pick- Up Object From Floor Requires Supervision Look Behind Shoulder - Standing Turns Sideways Only Turning 360 Degrees Turns slowly, but safely Unsupported Stance, Alternating Feet on 4 Steps w/Supervision Stair Unsupported Tandem Stance Assist to Step-15 seconds Unilateral Leg Stance Unable,assist to not fall Total Score Knapp Total Score (out of 56 points) 26 Tinetti Balance Assessment Sitting Balance Sitting Balance Steady, safe Arising from Chair Ability to Arise Able, uses arms to help Standing Balance Immediate Standing Balance Steady with support Turning Step Pattern Turning 360 Degrees Continuous steps Sitting Down Sitting Down Uses arms or unsteady Gait and Step Initiation of Gait No hesitancy Right Foot Step Length Does pass stance foot Right Foot Step Height Does not clear floor Left Foot Step Length Does pass stance foot Left Foot Step Height Does not clear floor Step Description Step Symmetry Step length appears equal Gait Description Trunk Description Marked sway or uses aide Scoring and Interpretation Tinetti Composite Score (points) 9 Interpretation of Scores High risk for falls(< 19) Carty Fall Scale Copyright Permission Carloz BEGUM, Carloz RM, Arabella SJ. Development of a scale to identify the fall- prone patient. Can J Aging 1989;8;366-7. Esha Carty (2009). Preventing patient falls. (2nd ed). [place]: [employer]. PT-OP-E Functional Tests Start: 04/07/18 16:00 Freq: Status: Active Protocol: Document 04/07/18 17:05 EA (Rec: 04/11/18 09:42 EA [id number]) Functional Tests Timed Up and Go (TUG) Score > 15 secs TUG Impairment Rating 60 to <80% Impaired (Score 16- 17) PT-OP-F Manual Assessment Start: 04/07/18 16:00 Freq: Status: Active Protocol: Document 04/07/18 17:02 EA (Rec: 04/07/18 17:17 EA [id number]) Manual Assessments Soft Tissue Assessment Soft Tissue Mobility Assessment Tight both hamstrings, Quads, hip flexors, PF PT-OP-G Mobility & Gait Start: 04/07/18 16:00 Freq: Status: Active Protocol: Document 04/07/18 17:02 EA (Rec: 04/07/18 17:17 EA [id number]) OP Mobility Evaluation Bed Mobility Rolling Minimal difficulty, indep Supine to and from Sit Minimal difficulty, indep Transfers Sit to Stand Indep but requires hand for support Bed to Chair Transfers indep but requires support/AD OP Gait Assessment Gait Gait Assistance Required: Independent Distance (Feet) 50 Able to Maintain Weight Bearing Status Yes During Gait Assistive Devices Assistive Device 4 Wheeled Walker Gait Deviations General Gait Pattern Decreased Feet Clearance Flexed Trunk Comments Gait Comments Left foot dropped Stair Climbing Evaluation Evaluation Level of Assist On Stairs Standby Assistance Devices Stair Climbing Assistive Devices Straight Cane Technique/Endurance Stair Climbing Direction Ascend and Descend Stair Climbing Technique Step to Step Number of Steps Climbed 4 Comments Stair Climbing Comments With difficulty on stairs descent PT-OP-J Posture/Palpation/Skin Start: 04/07/18 16:00 Freq: Status: Active Protocol: Document 04/07/18 17:02 EA (Rec: 04/07/18 17:17 EA [id number]) Posture Evaluation Position Standing Evaluation View post/lat Head/C-Spine Posture Forward Head T-Spine Posture Increased Kyphosis L-Spine Posture Flattened Shoulder Posture (L) Forward (R) Forward Scapula Posture (L) Protracted (R) Protracted Arm Posture (L) Internally Rotated (R) Internally Rotated Pelvis Posture Posterior Tilted Hip Posture (R) Flexed Comments Posture Comments Supine position reveals no obvious hip deformity to right side Palpation Assessment Location One Palpation Location Right lateral hip, right shoulder Palpation Findings Soft Tissue Tightness Tenderness Palpation Details Grade 3/4 tender over lateral upper hip and right shoulder No noted any signs of crepitus in all hip direction PROM Skin Assessment Other Assessments Skin Assessment Comments Right lateral hip bruise/ discoloratrion ~ 4 square cm. PT-OP-M Strength Start: 04/07/18 16:00 Freq: Status: Active Protocol: Document 04/07/18 17:02 EA (Rec: 04/07/18 17:17 EA [id number]) Hip Strength Hip Manual Muscle Testing Right Flexion (L2) 3+ Fair+ Extension (S1) 4- Good- Abduction 3+ Fair+ Adduction 4- Good- External Rotation 3+ Fair+ Internal Rotation 4- Good- Left Flexion (L2) 3+ Fair+ Extension (S1) 4- Good- Abduction 3 Fair Adduction 4- Good- External Rotation 3+ Fair+ Internal Rotation 4- Good- Ankle/Foot Strength Ankle and Foot Manual Muscle Testing Left Dorsiflexion (L4) 2+ Poor+ Plantarflexion (S1) 4- Good- Inversion 4- Good- Eversion (S1) 4- Good- Right Reason Not Measured WFL PT-OP-Q Treatments Start: 04/07/18 16:00 Freq: Status: Active Protocol: Document 05/23/18 16:37 EA (Rec: 05/23/18 16:44 EA [id number]) Cardio Equipment Recumbent Elliptical (Biodex) Duration (Minutes) 7 Resistance 3 Gym Equipment Shuttle Recovery Bilateral Squats Resistance 75# Shuttle Recovery Platform Stable Reps/Time 10, 17 Unilateral Squats Details 37# Shuttle Recovery Platform Stable Reps/Time x 15 repsx 2 Therapeutic Exercises Supine Exercises 7 Supine Exercise Name Bridge Side bilateral Reps/Minutes x 10 reps 6 Supine Exercise Name SKTC Side bilateral 5 Supine Exercise Name Lower trunk rotation stretch Side bilateral 4 Supine Exercise Name Piriformis stretch 3 Supine Exercise Name bent ABD/ADD Side bilateral Reps/Minutes x 20 reps 1 Supine Exercise Name Left ankle DF Reps/Minutes x 15 reps x2 Comments manual resistance Sitting Exercises sit to stand Reps/Minutes 10x Comments no UE's 2 Sitting Exercise Name Hip flexion: arm fwd/balance challnge Reps/Minutes x 12 reps each. 1 Sitting Exercise Name edge of table: Hip ER/IR Side left Resistance YTB Reps/Minutes x 12 reps x 2 Standing Exercises 1 Standing Exercise Name Wall posture Reps/Minutes x 3 mins Comments hip/glutes, back and shoulder on the wall hip ext Side bilateral Equipment Used yellow TB Reps/Minutes 15x each hip ab Side bilateral Equipment Used Yellow TB Reps/Minutes 15 x each standing bal Standing Exercise Name Foam tandem balance Comments arm challenge PT-OP-R Modalities Start: 04/07/18 16:00 Freq: Status: Active Protocol: Document 05/19/18 15:44 EA (Rec: 05/19/18 15:54 EA [id number]) Hot Pack/Cold Pack Treatment Hot Pack Location christina hips Patient Position Hooklying Treatment Duration (minutes) 10 Patient Tolerance Good Comments 2 small; strap to hold PT-OP-T Assessment and Plan Start: 04/07/18 16:00 Freq: Status: Active Protocol: Document 05/23/18 16:37 EA (Rec: 05/23/18 16:44 EA [id number]) Physical Therapy Assessment Assessment Summary Assessment Pt tolerated treatment but requires few rest due to low energy. Physical Therapy Plan Next Visit Focus/Plan Next Note Type Treatment Note Next Visit Plan Continue current plan or progress as tolerated.
--- NOTE | 2018-06-10 15:43 | PT.OTN ---
Current Diagnoses Other symptoms and signs involving the musculoskeletal system (06/10/18) Physical Therapy Treatment Note PT-OP-A Visit Information Start: 04/07/18 16:00 Freq: Status: Active Protocol: Document 06/10/18 14:30 BS (Rec: 06/10/18 15:34 BS [email or web address]) Out-Patient Physical Therapy Visit Information Visit Information Visit Type Treatment Note Visit Start Time 13:50 Visit Stop Time 14:30 Total Visit Minutes 45 Visit Number 15 PT-OP-B Current Condition Start: 04/07/18 16:00 Freq: Status: Active Protocol: Document 04/07/18 17:02 EA (Rec: 04/07/18 17:17 EA [id number]) Current Condition History of Current Condition Onset Date 6 months ago Current Complaints Multiple joint pain and weakness to both LE's. History of Current Condition Present condition started 6 months ago when he noticed that both LE's are getting weak and decreased balance. He stated that multiple falls in the past 6 months with no severe injury or required hospitalization. He mentioned that pain to right hip and shoulder continued to bother him when place with pressure since the fall two weeks ago. Pt reports mobility decreased from more than 100 ft to now less than 50 ft since six months ago which also currently required four wheeled walker. Patient reports that he is still mourning for his daughter few years ago. Prior Treatments and Tests Patient had dementia medication removed few weeks ago Future Testing and Treatments Planned None identified Treatment Goals Patient/Caregiver Goals Patient wants to be able to walk more than 100 ft with the use of straight cane. Patient would like to improve his balance. Prior Functional Status Baseline Function- ADL's Independent Baseline Function- Mobility Independent Baseline Function- Gait Ambulates > 100 ft with straight cane/ accross the street 6 months ago Baseline Function- Recreation/Hobbies Patient has none active lifestyle due to deprssion Baseline Function- Other Lives with his who does the driving due to early dementia. Live in a 2 story house with more than 10 stairs at home. Current Functional Impairments (Reported) Functional Limitations- ADL's Indep in all except with feeding due to recent mouth surgery, requires company in all outside mobility due to early onset dementia. 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 Admits he is not doing HEP. PT-OP-D Balance Start: 04/07/18 16:00 Freq: Status: Active Protocol: Document 04/07/18 17:02 EA (Rec: 04/07/18 17:17 EA [id number]) OP-PT Balance Assessment Sitting Balance Static Sitting Balance Ability Good Dynamic Sitting Balance Ability Good Standing Balance Static Standing Balance Ability Good Dynamic Standing Balance Ability Fair Balance Tests Functional Reach Functional Reach Test < 2 inches Functional Reach Impairment Rating 80 to <100% Impaired (Score 1- 2) Romberg Romberg < 5 seconds Single Limb Standing Single Limb- Right unable Single Limb- Left unable Semi-Tandem Standing Semi-Tandem Standing Balance < 3 second to both L and R Knapp Balance Assessment Evaluation Sitting to Standing Ability Several Tries w/Hands Unsupported Stance Supervision- 2 minutes Sitting Unsupported, Feet on Floor Safely- 2 minutes Standing to Sitting Ability Assist, Control w/Hands Unsupported Stance- Eyes Closed Safely, With Eyes Open Unsupported Stance- Eyes Open Independent, 1 minute Reaching Forward Standing Supervision Needed Pick- Up Object From Floor Requires Supervision Look Behind Shoulder - Standing Turns Sideways Only Turning 360 Degrees Turns slowly, but safely Unsupported Stance, Alternating Feet on 4 Steps w/Supervision Stair Unsupported Tandem Stance Assist to Step-15 seconds Unilateral Leg Stance Unable,assist to not fall Total Score Knapp Total Score (out of 56 points) 26 Tinetti Balance Assessment Sitting Balance Sitting Balance Steady, safe Arising from Chair Ability to Arise Able, uses arms to help Standing Balance Immediate Standing Balance Steady with support Turning Step Pattern Turning 360 Degrees Continuous steps Sitting Down Sitting Down Uses arms or unsteady Gait and Step Initiation of Gait No hesitancy Right Foot Step Length Does pass stance foot Right Foot Step Height Does not clear floor Left Foot Step Length Does pass stance foot Left Foot Step Height Does not clear floor Step Description Step Symmetry Step length appears equal Gait Description Trunk Description Marked sway or uses aide Scoring and Interpretation Tinetti Composite Score (points) 9 Interpretation of Scores High risk for falls(< 19) Carty Fall Scale Copyright Permission Carloz JM, Carloz RM, Arabella SJ. Development of a scale to identify the fall- prone patient. Can J Aging 1989;8;366-7. Esha Carty (2009). Preventing patient falls. (2nd ed). [place]: [employer]. PT-OP-E Functional Tests Start: 04/07/18 16:00 Freq: Status: Active Protocol: Document 04/07/18 17:05 EA (Rec: 04/11/18 09:42 EA [id number]) Functional Tests Timed Up and Go (TUG) Score > 15 secs TUG Impairment Rating 60 to <80% Impaired (Score 16- 17) PT-OP-F Manual Assessment Start: 04/07/18 16:00 Freq: Status: Active Protocol: Document 04/07/18 17:02 EA (Rec: 04/07/18 17:17 EA [id number]) Manual Assessments Soft Tissue Assessment Soft Tissue Mobility Assessment Tight both hamstrings, Quads, hip flexors, PF PT-OP-G Mobility & Gait Start: 04/07/18 16:00 Freq: Status: Active Protocol: Document 04/07/18 17:02 EA (Rec: 04/07/18 17:17 EA [id number]) OP Mobility Evaluation Bed Mobility Rolling Minimal difficulty, indep Supine to and from Sit Minimal difficulty, indep Transfers Sit to Stand Indep but requires hand for support Bed to Chair Transfers indep but requires support/AD OP Gait Assessment Gait Gait Assistance Required: Independent Distance (Feet) 50 Able to Maintain Weight Bearing Status Yes During Gait Assistive Devices Assistive Device 4 Wheeled Walker Gait Deviations General Gait Pattern Decreased Feet Clearance Flexed Trunk Comments Gait Comments Left foot dropped Stair Climbing Evaluation Evaluation Level of Assist On Stairs Standby Assistance Devices Stair Climbing Assistive Devices Straight Cane Technique/Endurance Stair Climbing Direction Ascend and Descend Stair Climbing Technique Step to Step Number of Steps Climbed 4 Comments Stair Climbing Comments With difficulty on stairs descent PT-OP-J Posture/Palpation/Skin Start: 04/07/18 16:00 Freq: Status: Active Protocol: Document 04/07/18 17:02 EA (Rec: 04/07/18 17:17 EA [id number]) Posture Evaluation Position Standing Evaluation View post/lat Head/C-Spine Posture Forward Head T-Spine Posture Increased Kyphosis L-Spine Posture Flattened Shoulder Posture (L) Forward (R) Forward Scapula Posture (L) Protracted (R) Protracted Arm Posture (L) Internally Rotated (R) Internally Rotated Pelvis Posture Posterior Tilted Hip Posture (R) Flexed Comments Posture Comments Supine position reveals no obvious hip deformity to right side Palpation Assessment Location One Palpation Location Right lateral hip, right shoulder Palpation Findings Soft Tissue Tightness Tenderness Palpation Details Grade 3/4 tender over lateral upper hip and right shoulder No noted any signs of crepitus in all hip direction PROM Skin Assessment Other Assessments Skin Assessment Comments Right lateral hip bruise/ discoloratrion ~ 4 square cm. PT-OP-M Strength Start: 04/07/18 16:00 Freq: Status: Active Protocol: Document 04/07/18 17:02 EA (Rec: 04/07/18 17:17 EA [id number]) Hip Strength Hip Manual Muscle Testing Right Flexion (L2) 3+ Fair+ Extension (S1) 4- Good- Abduction 3+ Fair+ Adduction 4- Good- External Rotation 3+ Fair+ Internal Rotation 4- Good- Left Flexion (L2) 3+ Fair+ Extension (S1) 4- Good- Abduction 3 Fair Adduction 4- Good- External Rotation 3+ Fair+ Internal Rotation 4- Good- Ankle/Foot Strength Ankle and Foot Manual Muscle Testing Left Dorsiflexion (L4) 2+ Poor+ Plantarflexion (S1) 4- Good- Inversion 4- Good- Eversion (S1) 4- Good- Right Reason Not Measured WFL PT-OP-Q Treatments Start: 04/07/18 16:00 Freq: Status: Active Protocol: Document 06/10/18 14:30 BS (Rec: 06/10/18 15:34 BS [email or web address]) Cardio Equipment Recumbent Elliptical (Biodex) Duration (Minutes) 6 Resistance 3 Gym Equipment Shuttle Recovery Bilateral Squats Resistance 75# Shuttle Recovery Platform Stable Reps/Time 2x20 Unilateral Squats Details 37# Shuttle Recovery Platform Stable Reps/Time 2x15 Therapeutic Exercises Supine Exercises 7 Supine Exercise Name Bridge Side bilateral Reps/Minutes x 10 reps Comments difficult for pt 5 Supine Exercise Name Lower trunk rotation stretch Side bilateral Comments pain-free range Prone Exercises 1 Prone Exercise Name quadruped wt shifts Comments ant/post/lat in prep for floor transfer Sitting Exercises sit to stand Reps/Minutes 10x Comments No UEs, VCs for trunk flexion Standing Exercises hip ab Equipment Used no resistance Reps/Minutes x15 each Comments VCs for upright posture Therapeutic Activity Therapeutic Activity 2 Name Floor Transfer Comments quadruped to high kneeling, use of 4WW to push into standing. Min A with gait belt . VCs for weightshifting. 1 Name Stairs, 6 Reps/Minutes 4 cycles Comments with L AFO. VCs for ascent/ descent pattern. Pt prefers to ascend leading with LLE and descend with RLE. Gait belt, CGA. PT-OP-R Modalities Start: 04/07/18 16:00 Freq: Status: Active Protocol: Document 05/19/18 15:44 EA (Rec: 05/19/18 15:54 EA [id number]) Hot Pack/Cold Pack Treatment Hot Pack Location [facility] Patient Position Hooklying Treatment Duration (minutes) 10 Patient Tolerance Good Comments 2 small; strap to hold PT-OP-T Assessment and Plan Start: 04/07/18 16:00 Freq: Status: Active Protocol: Document 06/10/18 14:30 BS (Rec: 06/10/18 15:34 BS [email or web address]) Physical Therapy Assessment Assessment Summary Assessment Pt to PT today with and new L AFO. They report that it seems to be helping with his gait and that it is rubbing on his skin like the previous one they trialed. Performed stair training and floor transfer today per request. Physical Therapy Plan Next Visit Focus/Plan Next Note Type Treatment Note Next Visit Plan Continue with B LE strengthening and balance. Next visit is the last one scheduled.
--- NOTE | 2018-06-13 16:45 | PT.OTN ---
Current Diagnoses Other symptoms and signs involving the musculoskeletal system (06/13/18) Physical Therapy Treatment Note PT-OP-A Visit Information Start: 04/07/18 16:00 Freq: Status: Active Protocol: Document 06/13/18 16:37 EA (Rec: 06/13/18 16:45 EA [id number]) Out-Patient Physical Therapy Visit Information Visit Information Visit Type Treatment Note Visit Start Time 15:15 Visit Stop Time 15:53 Total Visit Minutes 38 Visit Number 16 PT-OP-B Current Condition Start: 04/07/18 16:00 Freq: Status: Active Protocol: Document 04/07/18 17:02 EA (Rec: 04/07/18 17:17 EA [id number]) Current Condition History of Current Condition Onset Date 6 months ago Current Complaints Multiple joint pain and weakness to both LE's. History of Current Condition Present condition started 6 months ago when he noticed that both LE's are getting weak and decreased balance. He stated that multiple falls in the past 6 months with no severe injury or required hospitalization. He mentioned that pain to right hip and shoulder continued to bother him when place with pressure since the fall two weeks ago. Pt reports mobility decreased from more than 100 ft to now less than 50 ft since six months ago which also currently required four wheeled walker. Patient reports that he is still mourning for his daughter few years ago. Prior Treatments and Tests Patient had dementia medication removed few weeks ago Future Testing and Treatments Planned None identified Treatment Goals Patient/Caregiver Goals Patient wants to be able to walk more than 100 ft with the use of straight cane. Patient would like to improve his balance. Prior Functional Status Baseline Function- ADL's Independent Baseline Function- Mobility Independent Baseline Function- Gait Ambulates > 100 ft with straight cane/ accross the street 6 months ago Baseline Function- Recreation/Hobbies Patient has none active lifestyle due to deprssion Baseline Function- Other Lives with his who does the driving due to early dementia. Live in a 2 story house with more than 10 stairs at home. Current Functional Impairments (Reported) Functional Limitations- ADL's Indep in all except with feeding due to recent mouth surgery, requires company in all outside mobility due to early onset dementia. 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 He also reports that he likes his foot drop support. PT-OP-D Balance Start: 04/07/18 16:00 Freq: Status: Active Protocol: Document 04/07/18 17:02 EA (Rec: 04/07/18 17:17 EA [id number]) OP-PT Balance Assessment Sitting Balance Static Sitting Balance Ability Good Dynamic Sitting Balance Ability Good Standing Balance Static Standing Balance Ability Good Dynamic Standing Balance Ability Fair Balance Tests Functional Reach Functional Reach Test < 2 inches Functional Reach Impairment Rating 80 to <100% Impaired (Score 1- 2) Romberg Romberg < 5 seconds Single Limb Standing Single Limb- Right unable Single Limb- Left unable Semi-Tandem Standing Semi-Tandem Standing Balance < 3 second to both L and R Knapp Balance Assessment Evaluation Sitting to Standing Ability Several Tries w/Hands Unsupported Stance Supervision- 2 minutes Sitting Unsupported, Feet on Floor Safely- 2 minutes Standing to Sitting Ability Assist, Control w/Hands Unsupported Stance- Eyes Closed Safely, With Eyes Open Unsupported Stance- Eyes Open Independent, 1 minute Reaching Forward Standing Supervision Needed Pick- Up Object From Floor Requires Supervision Look Behind Shoulder - Standing Turns Sideways Only Turning 360 Degrees Turns slowly, but safely Unsupported Stance, Alternating Feet on 4 Steps w/Supervision Stair Unsupported Tandem Stance Assist to Step-15 seconds Unilateral Leg Stance Unable,assist to not fall Total Score Knapp Total Score (out of 56 points) 26 Tinetti Balance Assessment Sitting Balance Sitting Balance Steady, safe Arising from Chair Ability to Arise Able, uses arms to help Standing Balance Immediate Standing Balance Steady with support Turning Step Pattern Turning 360 Degrees Continuous steps Sitting Down Sitting Down Uses arms or unsteady Gait and Step Initiation of Gait No hesitancy Right Foot Step Length Does pass stance foot Right Foot Step Height Does not clear floor Left Foot Step Length Does pass stance foot Left Foot Step Height Does not clear floor Step Description Step Symmetry Step length appears equal Gait Description Trunk Description Marked sway or uses aide Scoring and Interpretation Tinetti Composite Score (points) 9 Interpretation of Scores High risk for falls(< 19) Carty Fall Scale Copyright Permission Carloz JM, Carloz RM, Arabella SJ. Development of a scale to identify the fall- prone patient. Can J Aging 1989;8;366-7. Esha Carty (2009). Preventing patient falls. (2nd ed). [place]: [employer]. PT-OP-E Functional Tests Start: 04/07/18 16:00 Freq: Status: Active Protocol: Document 04/07/18 17:05 EA (Rec: 04/11/18 09:42 EA [id number]) Functional Tests Timed Up and Go (TUG) Score > 15 secs TUG Impairment Rating 60 to <80% Impaired (Score 16- 17) PT-OP-F Manual Assessment Start: 04/07/18 16:00 Freq: Status: Active Protocol: Document 04/07/18 17:02 EA (Rec: 04/07/18 17:17 EA [id number]) Manual Assessments Soft Tissue Assessment Soft Tissue Mobility Assessment Tight both hamstrings, Quads, hip flexors, PF PT-OP-G Mobility & Gait Start: 04/07/18 16:00 Freq: Status: Active Protocol: Document 04/07/18 17:02 EA (Rec: 04/07/18 17:17 EA [id number]) OP Mobility Evaluation Bed Mobility Rolling Minimal difficulty, indep Supine to and from Sit Minimal difficulty, indep Transfers Sit to Stand Indep but requires hand for support Bed to Chair Transfers indep but requires support/AD OP Gait Assessment Gait Gait Assistance Required: Independent Distance (Feet) 50 Able to Maintain Weight Bearing Status Yes During Gait Assistive Devices Assistive Device 4 Wheeled Walker Gait Deviations General Gait Pattern Decreased Feet Clearance Flexed Trunk Comments Gait Comments Left foot dropped Stair Climbing Evaluation Evaluation Level of Assist On Stairs Standby Assistance Devices Stair Climbing Assistive Devices Straight Cane Technique/Endurance Stair Climbing Direction Ascend and Descend Stair Climbing Technique Step to Step Number of Steps Climbed 4 Comments Stair Climbing Comments With difficulty on stairs descent PT-OP-J Posture/Palpation/Skin Start: 04/07/18 16:00 Freq: Status: Active Protocol: Document 04/07/18 17:02 EA (Rec: 04/07/18 17:17 EA [id number]) Posture Evaluation Position Standing Evaluation View post/lat Head/C-Spine Posture Forward Head T-Spine Posture Increased Kyphosis L-Spine Posture Flattened Shoulder Posture (L) Forward (R) Forward Scapula Posture (L) Protracted (R) Protracted Arm Posture (L) Internally Rotated (R) Internally Rotated Pelvis Posture Posterior Tilted Hip Posture (R) Flexed Comments Posture Comments Supine position reveals no obvious hip deformity to right side Palpation Assessment Location One Palpation Location Right lateral hip, right shoulder Palpation Findings Soft Tissue Tightness Tenderness Palpation Details Grade 3/4 tender over lateral upper hip and right shoulder No noted any signs of crepitus in all hip direction PROM Skin Assessment Other Assessments Skin Assessment Comments Right lateral hip bruise/ discoloratrion ~ 4 square cm. PT-OP-M Strength Start: 04/07/18 16:00 Freq: Status: Active Protocol: Document 04/07/18 17:02 EA (Rec: 04/07/18 17:17 EA [id number]) Hip Strength Hip Manual Muscle Testing Right Flexion (L2) 3+ Fair+ Extension (S1) 4- Good- Abduction 3+ Fair+ Adduction 4- Good- External Rotation 3+ Fair+ Internal Rotation 4- Good- Left Flexion (L2) 3+ Fair+ Extension (S1) 4- Good- Abduction 3 Fair Adduction 4- Good- External Rotation 3+ Fair+ Internal Rotation 4- Good- Ankle/Foot Strength Ankle and Foot Manual Muscle Testing Left Dorsiflexion (L4) 2+ Poor+ Plantarflexion (S1) 4- Good- Inversion 4- Good- Eversion (S1) 4- Good- Right Reason Not Measured WFL PT-OP-Q Treatments Start: 04/07/18 16:00 Freq: Status: Active Protocol: Document 06/13/18 16:37 EA (Rec: 06/13/18 16:45 EA [id number]) Cardio Equipment Recumbent Stepper (Sci-Fit) Duration (Minutes) 10 Resistance 2.5 Seat Position 14 Gym Equipment Shuttle Recovery Bilateral Squats Resistance 75# Shuttle Recovery Platform Stable Reps/Time 2x20 Unilateral Squats Details 37# Shuttle Recovery Platform Stable Reps/Time 2x15 Therapeutic Exercises Supine Exercises 7 Supine Exercise Name Bridge Side bilateral Reps/Minutes x 10 reps x 2 Comments tolerated with the use bolster on both feet 5 Supine Exercise Name Lower trunk rotation stretch Side bilateral Comments pain-free range 3 Supine Exercise Name bent ABD/ADD Side bilateral Reps/Minutes x 20 reps Sitting Exercises 1 Sitting Exercise Name edge of table: Hip ER/IR Side left Resistance YTB Reps/Minutes x 12 reps x 2 Standing Exercises resisted walk Standing Exercise Name Backward Equipment Used yellow TB Reps/Minutes 2 lengths of bar hip ext Side bilateral hip ab Equipment Used 2# AW Reps/Minutes 10 reps Comments VCs for upright posture sidestepping Side bilateral Resistance YTB Comments 4 lengths of bar standing bal Standing Exercise Name Foam tandem balance Comments arm challenge PT-OP-R Modalities Start: 04/07/18 16:00 Freq: Status: Active Protocol: Document 05/19/18 15:44 EA (Rec: 05/19/18 15:54 EA [id number]) Hot Pack/Cold Pack Treatment Hot Pack Location christina hips Patient Position Hooklying Treatment Duration (minutes) 10 Patient Tolerance Good Comments 2 small; strap to hold PT-OP-T Assessment and Plan Start: 04/07/18 16:00 Freq: Status: Active Protocol: Document 06/13/18 16:37 EA (Rec: 06/13/18 16:45 EA [id number]) Physical Therapy Assessment Assessment Summary Assessment Tolerated treatment with no discomfort noted during therex ; improved tolerance to exercises noted at this time; however still requires cues for upright posture in standing exercises. Physical Therapy Plan Next Visit Focus/Plan Next Note Type Treatment Note Next Visit Plan Continue with B LE strengthening and balance. Next visit is the last one scheduled.
--- NOTE | 2018-06-16 17:20 | PT.OTN ---
Current Diagnoses Other symptoms and signs involving the musculoskeletal system (06/16/18) Physical Therapy Treatment Note PT-OP-A Visit Information Start: 04/07/18 16:00 Freq: Status: Active Protocol: Document 06/16/18 14:00 GGD (Rec: 06/16/18 17:18 GGD [id number]) Out-Patient Physical Therapy Visit Information Visit Information Visit Type Treatment Note Visit Start Time 16:00 Visit Stop Time 16:40 Total Visit Minutes 40 Visit Number 17 Number of FLYER REPAIRER Visits 1 PT-OP-B Current Condition Start: 04/07/18 16:00 Freq: Status: Active Protocol: Document 04/07/18 17:02 EA (Rec: 04/07/18 17:17 EA [id number]) Current Condition History of Current Condition Onset Date 6 months ago Current Complaints Multiple joint pain and weakness to both LE's. History of Current Condition Present condition started 6 months ago when he noticed that both LE's are getting weak and decreased balance. He stated that multiple falls in the past 6 months with no severe injury or required hospitalization. He mentioned that pain to right hip and shoulder continued to bother him when place with pressure since the fall two weeks ago. Pt reports mobility decreased from more than 100 ft to now less than 50 ft since six months ago which also currently required four wheeled walker. Patient reports that he is still mourning for his daughter few years ago. Prior Treatments and Tests Patient had dementia medication removed few weeks ago Future Testing and Treatments Planned None identified Treatment Goals Patient/Caregiver Goals Patient wants to be able to walk more than 100 ft with the use of straight cane. Patient would like to improve his balance. Prior Functional Status Baseline Function- ADL's Independent Baseline Function- Mobility Independent Baseline Function- Gait Ambulates > 100 ft with straight cane/ accross the street 6 months ago Baseline Function- Recreation/Hobbies Patient has none active lifestyle due to deprssion Baseline Function- Other Lives with his who does the driving due to early dementia. Live in a 2 story house with more than 10 stairs at home. Current Functional Impairments (Reported) Functional Limitations- ADL's Indep in all except with feeding due to recent mouth surgery, requires company in all outside mobility due to early onset dementia. 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 PT-OP-D Balance Start: 04/07/18 16:00 Freq: Status: Active Protocol: Document 04/07/18 17:02 EA (Rec: 04/07/18 17:17 EA [id number]) OP-PT Balance Assessment Sitting Balance Static Sitting Balance Ability Good Dynamic Sitting Balance Ability Good Standing Balance Static Standing Balance Ability Good Dynamic Standing Balance Ability Fair Balance Tests Functional Reach Functional Reach Test < 2 inches Functional Reach Impairment Rating 80 to <100% Impaired (Score 1- 2) Romberg Romberg < 5 seconds Single Limb Standing Single Limb- Right unable Single Limb- Left unable Semi-Tandem Standing Semi-Tandem Standing Balance < 3 second to both L and R Knapp Balance Assessment Evaluation Sitting to Standing Ability Several Tries w/Hands Unsupported Stance Supervision- 2 minutes Sitting Unsupported, Feet on Floor Safely- 2 minutes Standing to Sitting Ability Assist, Control w/Hands Unsupported Stance- Eyes Closed Safely, With Eyes Open Unsupported Stance- Eyes Open Independent, 1 minute Reaching Forward Standing Supervision Needed Pick- Up Object From Floor Requires Supervision Look Behind Shoulder - Standing Turns Sideways Only Turning 360 Degrees Turns slowly, but safely Unsupported Stance, Alternating Feet on 4 Steps w/Supervision Stair Unsupported Tandem Stance Assist to Step-15 seconds Unilateral Leg Stance Unable,assist to not fall Total Score Knapp Total Score (out of 56 points) 26 Tinetti Balance Assessment Sitting Balance Sitting Balance Steady, safe Arising from Chair Ability to Arise Able, uses arms to help Standing Balance Immediate Standing Balance Steady with support Turning Step Pattern Turning 360 Degrees Continuous steps Sitting Down Sitting Down Uses arms or unsteady Gait and Step Initiation of Gait No hesitancy Right Foot Step Length Does pass stance foot Right Foot Step Height Does not clear floor Left Foot Step Length Does pass stance foot Left Foot Step Height Does not clear floor Step Description Step Symmetry Step length appears equal Gait Description Trunk Description Marked sway or uses aide Scoring and Interpretation Tinetti Composite Score (points) 9 Interpretation of Scores High risk for falls(< 19) Carty Fall Scale Copyright Permission Carloz JM, Carloz RM, Arabella SJ. Development of a scale to identify the fall- prone patient. Can J Aging 1989;8;366-7. Esha Carty (2009). Preventing patient falls. (2nd ed). [place]: [employer]. PT-OP-E Functional Tests Start: 04/07/18 16:00 Freq: Status: Active Protocol: Document 04/07/18 17:05 EA (Rec: 04/11/18 09:42 EA [id number]) Functional Tests Timed Up and Go (TUG) Score > 15 secs TUG Impairment Rating 60 to <80% Impaired (Score 16- 17) PT-OP-F Manual Assessment Start: 04/07/18 16:00 Freq: Status: Active Protocol: Document 04/07/18 17:02 EA (Rec: 04/07/18 17:17 EA [id number]) Manual Assessments Soft Tissue Assessment Soft Tissue Mobility Assessment Tight both hamstrings, Quads, hip flexors, PF PT-OP-G Mobility & Gait Start: 04/07/18 16:00 Freq: Status: Active Protocol: Document 04/07/18 17:02 EA (Rec: 04/07/18 17:17 EA [id number]) OP Mobility Evaluation Bed Mobility Rolling Minimal difficulty, indep Supine to and from Sit Minimal difficulty, indep Transfers Sit to Stand Indep but requires hand for support Bed to Chair Transfers indep but requires support/AD OP Gait Assessment Gait Gait Assistance Required: Independent Distance (Feet) 50 Able to Maintain Weight Bearing Status Yes During Gait Assistive Devices Assistive Device 4 Wheeled Walker Gait Deviations General Gait Pattern Decreased Feet Clearance Flexed Trunk Comments Gait Comments Left foot dropped Stair Climbing Evaluation Evaluation Level of Assist On Stairs Standby Assistance Devices Stair Climbing Assistive Devices Straight Cane Technique/Endurance Stair Climbing Direction Ascend and Descend Stair Climbing Technique Step to Step Number of Steps Climbed 4 Comments Stair Climbing Comments With difficulty on stairs descent PT-OP-J Posture/Palpation/Skin Start: 04/07/18 16:00 Freq: Status: Active Protocol: Document 04/07/18 17:02 EA (Rec: 04/07/18 17:17 EA [id number]) Posture Evaluation Position Standing Evaluation View post/lat Head/C-Spine Posture Forward Head T-Spine Posture Increased Kyphosis L-Spine Posture Flattened Shoulder Posture (L) Forward (R) Forward Scapula Posture (L) Protracted (R) Protracted Arm Posture (L) Internally Rotated (R) Internally Rotated Pelvis Posture Posterior Tilted Hip Posture (R) Flexed Comments Posture Comments Supine position reveals no obvious hip deformity to right side Palpation Assessment Location One Palpation Location Right lateral hip, right shoulder Palpation Findings Soft Tissue Tightness Tenderness Palpation Details Grade 3/4 tender over lateral upper hip and right shoulder No noted any signs of crepitus in all hip direction PROM Skin Assessment Other Assessments Skin Assessment Comments Right lateral hip bruise/ discoloratrion ~ 4 square cm. PT-OP-M Strength Start: 04/07/18 16:00 Freq: Status: Active Protocol: Document 04/07/18 17:02 EA (Rec: 04/07/18 17:17 EA [id number]) Hip Strength Hip Manual Muscle Testing Right Flexion (L2) 3+ Fair+ Extension (S1) 4- Good- Abduction 3+ Fair+ Adduction 4- Good- External Rotation 3+ Fair+ Internal Rotation 4- Good- Left Flexion (L2) 3+ Fair+ Extension (S1) 4- Good- Abduction 3 Fair Adduction 4- Good- External Rotation 3+ Fair+ Internal Rotation 4- Good- Ankle/Foot Strength Ankle and Foot Manual Muscle Testing Left Dorsiflexion (L4) 2+ Poor+ Plantarflexion (S1) 4- Good- Inversion 4- Good- Eversion (S1) 4- Good- Right Reason Not Measured WFL PT-OP-Q Treatments Start: 04/07/18 16:00 Freq: Status: Active Protocol: Document 06/16/18 14:00 GGD (Rec: 06/16/18 17:18 GGD [email or web address]) Cardio Equipment Recumbent Elliptical (Biodex) Duration (Minutes) 6 Resistance 3 Gym Equipment Shuttle Balance chains green Details WBOS bal, head turns, UE elevation, trunk rotation Comments chains green, cords loose Therapeutic Exercises Supine Exercises 7 Supine Exercise Name Bridge Side bilateral Reps/Minutes x 10 reps x 2 Comments tolerated with small ROM 6 Supine Exercise Name SKTC Side bilateral 5 Supine Exercise Name Lower trunk rotation stretch Side bilateral Comments pain-free range 3 Supine Exercise Name bent ABD/ADD Side bilateral Reps/Minutes x 20 reps Standing Exercises hurdles Standing Exercise Name Hurdles with rail Reps/Minutes 4 laps resisted walk Standing Exercise Name Backward Equipment Used yellow TB Reps/Minutes 2 lengths of bar sidestepping Side bilateral Resistance YTB Comments 4 lengths of bar tiltboard bal Reps/Minutes 2 min Comments at bar standing bal Standing Exercise Name Foam tandem balance Comments arm challenge Neuro Re-Education Treatment Balance Activities NBOS Details balance with NBOS Surface blue foam Lissett step overs Reps/Duration 2 lengths Comments Focus on hip/knee flexion, avoiding cicumduction PT-OP-R Modalities Start: 04/07/18 16:00 Freq: Status: Active Protocol: Document 05/19/18 15:44 EA (Rec: 05/19/18 15:54 EA [id number]) Hot Pack/Cold Pack Treatment Hot Pack Location christina hips Patient Position Hooklying Treatment Duration (minutes) 10 Patient Tolerance Good Comments 2 small; strap to hold PT-OP-T Assessment and Plan Start: 04/07/18 16:00 Freq: Status: Active Protocol: Document 06/16/18 14:00 GGD (Rec: 06/16/18 17:18 GGD [email or web address]) Physical Therapy Assessment Assessment Summary Assessment Pt need rest breaks during treatment. He need UE support with shuttle balance due to fear of falling, but no LOB. Physical Therapy Plan Frequency and Duration Frequency of Treatment 2x/Week Duration of Treatment 12 wks Plan of Care Start Date 04/07/18 Plan of Care End Date 06/30/18 Next Visit Focus/Plan Next Note Type Treatment Note Next Visit Plan Continue with B LE strengthening and balance.
--- NOTE | 2018-06-21 15:33 | PT.OTN ---
Current Diagnoses Other symptoms and signs involving the musculoskeletal system (06/21/18) Physical Therapy Treatment Note PT-OP-A Visit Information Start: 04/07/18 16:00 Freq: Status: Active Protocol: Document 06/21/18 15:25 SA (Rec: 06/21/18 15:33 SA [email or web address]) Out-Patient Physical Therapy Visit Information Visit Information Visit Type Treatment Note Visit Start Time 13:45 Visit Stop Time 14:15 Total Visit Minutes 45 Visit Number 18 Number of TINNER AUTOMATIC Visits 2 PT-OP-B Current Condition Start: 04/07/18 16:00 Freq: Status: Active Protocol: Document 04/07/18 17:02 EA (Rec: 04/07/18 17:17 EA [id number]) Current Condition History of Current Condition Onset Date 6 months ago Current Complaints Multiple joint pain and weakness to both LE's. History of Current Condition Present condition started 6 months ago when he noticed that both LE's are getting weak and decreased balance. He stated that multiple falls in the past 6 months with no severe injury or required hospitalization. He mentioned that pain to right hip and shoulder continued to bother him when place with pressure since the fall two weeks ago. Pt reports mobility decreased from more than 100 ft to now less than 50 ft since six months ago which also currently required four wheeled walker. Patient reports that he is still mourning for his daughter few years ago. Prior Treatments and Tests Patient had dementia medication removed few weeks ago Future Testing and Treatments Planned None identified Treatment Goals Patient/Caregiver Goals Patient wants to be able to walk more than 100 ft with the use of straight cane. Patient would like to improve his balance. Prior Functional Status Baseline Function- ADL's Independent Baseline Function- Mobility Independent Baseline Function- Gait Ambulates > 100 ft with straight cane/ accross the street 6 months ago Baseline Function- Recreation/Hobbies Patient has none active lifestyle due to deprssion Baseline Function- Other Lives with his who does the driving due to early dementia. Live in a 2 story house with more than 10 stairs at home. Current Functional Impairments (Reported) Functional Limitations- ADL's Indep in all except with feeding due to recent mouth surgery, requires company in all outside mobility due to early onset dementia. 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 PT-OP-D Balance Start: 04/07/18 16:00 Freq: Status: Active Protocol: Document 04/07/18 17:02 EA (Rec: 04/07/18 17:17 EA [id number]) OP-PT Balance Assessment Sitting Balance Static Sitting Balance Ability Good Dynamic Sitting Balance Ability Good Standing Balance Static Standing Balance Ability Good Dynamic Standing Balance Ability Fair Balance Tests Functional Reach Functional Reach Test < 2 inches Functional Reach Impairment Rating 80 to <100% Impaired (Score 1- 2) Romberg Romberg < 5 seconds Single Limb Standing Single Limb- Right unable Single Limb- Left unable Semi-Tandem Standing Semi-Tandem Standing Balance < 3 second to both L and R Knapp Balance Assessment Evaluation Sitting to Standing Ability Several Tries w/Hands Unsupported Stance Supervision- 2 minutes Sitting Unsupported, Feet on Floor Safely- 2 minutes Standing to Sitting Ability Assist, Control w/Hands Unsupported Stance- Eyes Closed Safely, With Eyes Open Unsupported Stance- Eyes Open Independent, 1 minute Reaching Forward Standing Supervision Needed Pick- Up Object From Floor Requires Supervision Look Behind Shoulder - Standing Turns Sideways Only Turning 360 Degrees Turns slowly, but safely Unsupported Stance, Alternating Feet on 4 Steps w/Supervision Stair Unsupported Tandem Stance Assist to Step-15 seconds Unilateral Leg Stance Unable,assist to not fall Total Score Knapp Total Score (out of 56 points) 26 Tinetti Balance Assessment Sitting Balance Sitting Balance Steady, safe Arising from Chair Ability to Arise Able, uses arms to help Standing Balance Immediate Standing Balance Steady with support Turning Step Pattern Turning 360 Degrees Continuous steps Sitting Down Sitting Down Uses arms or unsteady Gait and Step Initiation of Gait No hesitancy Right Foot Step Length Does pass stance foot Right Foot Step Height Does not clear floor Left Foot Step Length Does pass stance foot Left Foot Step Height Does not clear floor Step Description Step Symmetry Step length appears equal Gait Description Trunk Description Marked sway or uses aide Scoring and Interpretation Tinetti Composite Score (points) 9 Interpretation of Scores High risk for falls(< 19) Carty Fall Scale Copyright Permission Carloz JM, Carloz RM, Arabella SJ. Development of a scale to identify the fall- prone patient. Can J Aging 1989;8;366-7. Esha Carty (2009). Preventing patient falls. (2nd ed). [place]: [employer]. PT-OP-E Functional Tests Start: 04/07/18 16:00 Freq: Status: Active Protocol: Document 04/07/18 17:05 EA (Rec: 04/11/18 09:42 EA [id number]) Functional Tests Timed Up and Go (TUG) Score > 15 secs TUG Impairment Rating 60 to <80% Impaired (Score 16- 17) PT-OP-F Manual Assessment Start: 04/07/18 16:00 Freq: Status: Active Protocol: Document 04/07/18 17:02 EA (Rec: 04/07/18 17:17 EA [id number]) Manual Assessments Soft Tissue Assessment Soft Tissue Mobility Assessment Tight both hamstrings, Quads, hip flexors, PF PT-OP-G Mobility & Gait Start: 04/07/18 16:00 Freq: Status: Active Protocol: Document 04/07/18 17:02 EA (Rec: 04/07/18 17:17 EA [id number]) OP Mobility Evaluation Bed Mobility Rolling Minimal difficulty, indep Supine to and from Sit Minimal difficulty, indep Transfers Sit to Stand Indep but requires hand for support Bed to Chair Transfers indep but requires support/AD OP Gait Assessment Gait Gait Assistance Required: Independent Distance (Feet) 50 Able to Maintain Weight Bearing Status Yes During Gait Assistive Devices Assistive Device 4 Wheeled Walker Gait Deviations General Gait Pattern Decreased Feet Clearance Flexed Trunk Comments Gait Comments Left foot dropped Stair Climbing Evaluation Evaluation Level of Assist On Stairs Standby Assistance Devices Stair Climbing Assistive Devices Straight Cane Technique/Endurance Stair Climbing Direction Ascend and Descend Stair Climbing Technique Step to Step Number of Steps Climbed 4 Comments Stair Climbing Comments With difficulty on stairs descent PT-OP-J Posture/Palpation/Skin Start: 04/07/18 16:00 Freq: Status: Active Protocol: Document 04/07/18 17:02 EA (Rec: 04/07/18 17:17 EA [id number]) Posture Evaluation Position Standing Evaluation View post/lat Head/C-Spine Posture Forward Head T-Spine Posture Increased Kyphosis L-Spine Posture Flattened Shoulder Posture (L) Forward (R) Forward Scapula Posture (L) Protracted (R) Protracted Arm Posture (L) Internally Rotated (R) Internally Rotated Pelvis Posture Posterior Tilted Hip Posture (R) Flexed Comments Posture Comments Supine position reveals no obvious hip deformity to right side Palpation Assessment Location One Palpation Location Right lateral hip, right shoulder Palpation Findings Soft Tissue Tightness Tenderness Palpation Details Grade 3/4 tender over lateral upper hip and right shoulder No noted any signs of crepitus in all hip direction PROM Skin Assessment Other Assessments Skin Assessment Comments Right lateral hip bruise/ discoloratrion ~ 4 square cm. PT-OP-M Strength Start: 04/07/18 16:00 Freq: Status: Active Protocol: Document 04/07/18 17:02 MARC (Rec: 04/07/18 17:17 EA [id number]) Hip Strength Hip Manual Muscle Testing Right Flexion (L2) 3+ Fair+ Extension (S1) 4- Good- Abduction 3+ Fair+ Adduction 4- Good- External Rotation 3+ Fair+ Internal Rotation 4- Good- Left Flexion (L2) 3+ Fair+ Extension (S1) 4- Good- Abduction 3 Fair Adduction 4- Good- External Rotation 3+ Fair+ Internal Rotation 4- Good- Ankle/Foot Strength Ankle and Foot Manual Muscle Testing Left Dorsiflexion (L4) 2+ Poor+ Plantarflexion (S1) 4- Good- Inversion 4- Good- Eversion (S1) 4- Good- Right Reason Not Measured WFL PT-OP-Q Treatments Start: 04/07/18 16:00 Freq: Status: Active Protocol: Document 06/21/18 15:25 SA (Rec: 06/21/18 15:33 SA [email or web address]) Cardio Equipment Recumbent Stepper (Sci-Fit) Duration (Minutes) 10 Resistance 2.2 Seat Position 14 Gym Equipment Shuttle Recovery Bilateral Squats Resistance 75# Reps/Time 2x20 Unilateral Squats Details 37# Shuttle Recovery Platform Stable Reps/Time 2x15 Shuttle Balance chains green Details WBOS bal, head turns, UE elevation, trunk rotation Comments chains green, cords loose Therapeutic Exercises Supine Exercises 7 Supine Exercise Name Bridge Side bilateral Reps/Minutes x 10 reps x 2 Comments tolerated with small ROM 6 Supine Exercise Name SKTC Side bilateral 5 Supine Exercise Name Lower trunk rotation stretch Side bilateral Comments pain-free range Sitting Exercises sit to stand Reps/Minutes 10x Comments No UEs, VCs for trunk flexion Standing Exercises hurdles Standing Exercise Name Hurdles with rail Reps/Minutes 4 laps resisted walk Standing Exercise Name Backward Equipment Used yellow TB Reps/Minutes 2 lengths of bar hip ab Equipment Used 2# AW Reps/Minutes 10 reps Comments VCs for upright posture sidestepping Side bilateral Reps/Minutes with squats Comments 4 lengths of bar Neuro Re-Education Treatment Balance Activities NBOS Details balance with NBOS Surface blue foam Lissett step overs Reps/Duration 2 lengths Comments Focus on hip/knee flexion, avoiding cicumduction tandem stance Details tandem walk Surface level Reps/Duration 4 lengths of bar PT-OP-R Modalities Start: 04/07/18 16:00 Freq: Status: Active Protocol: Document 05/19/18 15:44 EA (Rec: 05/19/18 15:54 EA [id number]) Hot Pack/Cold Pack Treatment Hot Pack Location christina hips Patient Position Hooklying Treatment Duration (minutes) 10 Patient Tolerance Good Comments 2 small; strap to hold PT-OP-T Assessment and Plan Start: 04/07/18 16:00 Freq: Status: Active Protocol: Document 06/21/18 15:25 SA (Rec: 06/21/18 15:33 SA [email or web address]) Physical Therapy Assessment Assessment Summary Assessment Pt with gradual strength and endurance improvements requiring less seated rest breaks, improved gait/foot clearance with gait using AFO. Physical Therapy Plan Next Visit Focus/Plan Next Note Type Treatment Note Next Visit Plan Continue with B LE strengthening and balance.
--- NOTE | 2018-06-28 12:46 | PT.OTN ---
Current Diagnoses Other symptoms and signs involving the musculoskeletal system (06/28/18) Physical Therapy Treatment Note PT-OP-A Visit Information Start: 04/07/18 16:00 Freq: Status: Active Protocol: Document 06/28/18 12:00 DCW (Rec: 06/28/18 12:45 DCW [id number]) Out-Patient Physical Therapy Visit Information Visit Information Visit Type Treatment Note Visit Start Time 12:00 Visit Stop Time 12:45 Total Visit Minutes 45 Visit Number 19 Number of HAM TRIMMER Visits 0 PT-OP-B Current Condition Start: 04/07/18 16:00 Freq: Status: Active Protocol: Document 04/07/18 17:02 EA (Rec: 04/07/18 17:17 EA [id number]) Current Condition History of Current Condition Onset Date 6 months ago Current Complaints Multiple joint pain and weakness to both LE's. History of Current Condition Present condition started 6 months ago when he noticed that both LE's are getting weak and decreased balance. He stated that multiple falls in the past 6 months with no severe injury or required hospitalization. He mentioned that pain to right hip and shoulder continued to bother him when place with pressure since the fall two weeks ago. Pt reports mobility decreased from more than 100 ft to now less than 50 ft since six months ago which also currently required four wheeled walker. Patient reports that he is still mourning for his daughter few years ago. Prior Treatments and Tests Patient had dementia medication removed few weeks ago Future Testing and Treatments Planned None identified Treatment Goals Patient/Caregiver Goals Patient wants to be able to walk more than 100 ft with the use of straight cane. Patient would like to improve his balance. Prior Functional Status Baseline Function- ADL's Independent Baseline Function- Mobility Independent Baseline Function- Gait Ambulates > 100 ft with straight cane/ accross the street 6 months ago Baseline Function- Recreation/Hobbies Patient has none active lifestyle due to deprssion Baseline Function- Other Lives with his who does the driving due to early dementia. Live in a 2 story house with more than 10 stairs at home. Current Functional Impairments (Reported) Functional Limitations- ADL's Indep in all except with feeding due to recent mouth surgery, requires company in all outside mobility due to early onset dementia. 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 PT-OP-D Balance Start: 04/07/18 16:00 Freq: Status: Active Protocol: Document 04/07/18 17:02 EA (Rec: 04/07/18 17:17 EA [id number]) OP-PT Balance Assessment Sitting Balance Static Sitting Balance Ability Good Dynamic Sitting Balance Ability Good Standing Balance Static Standing Balance Ability Good Dynamic Standing Balance Ability Fair Balance Tests Functional Reach Functional Reach Test < 2 inches Functional Reach Impairment Rating 80 to <100% Impaired (Score 1- 2) Romberg Romberg < 5 seconds Single Limb Standing Single Limb- Right unable Single Limb- Left unable Semi-Tandem Standing Semi-Tandem Standing Balance < 3 second to both L and R Knapp Balance Assessment Evaluation Sitting to Standing Ability Several Tries w/Hands Unsupported Stance Supervision- 2 minutes Sitting Unsupported, Feet on Floor Safely- 2 minutes Standing to Sitting Ability Assist, Control w/Hands Unsupported Stance- Eyes Closed Safely, With Eyes Open Unsupported Stance- Eyes Open Independent, 1 minute Reaching Forward Standing Supervision Needed Pick- Up Object From Floor Requires Supervision Look Behind Shoulder - Standing Turns Sideways Only Turning 360 Degrees Turns slowly, but safely Unsupported Stance, Alternating Feet on 4 Steps w/Supervision Stair Unsupported Tandem Stance Assist to Step-15 seconds Unilateral Leg Stance Unable,assist to not fall Total Score Knapp Total Score (out of 56 points) 26 Tinetti Balance Assessment Sitting Balance Sitting Balance Steady, safe Arising from Chair Ability to Arise Able, uses arms to help Standing Balance Immediate Standing Balance Steady with support Turning Step Pattern Turning 360 Degrees Continuous steps Sitting Down Sitting Down Uses arms or unsteady Gait and Step Initiation of Gait No hesitancy Right Foot Step Length Does pass stance foot Right Foot Step Height Does not clear floor Left Foot Step Length Does pass stance foot Left Foot Step Height Does not clear floor Step Description Step Symmetry Step length appears equal Gait Description Trunk Description Marked sway or uses aide Scoring and Interpretation Tinetti Composite Score (points) 9 Interpretation of Scores High risk for falls(< 19) Carty Fall Scale Copyright Permission Carloz JM, Carloz RM, Arabella SJ. Development of a scale to identify the fall- prone patient. Can J Aging 1989;8;366-7. Esha Carty (2009). Preventing patient falls. (2nd ed). [place]: [employer]. PT-OP-E Functional Tests Start: 04/07/18 16:00 Freq: Status: Active Protocol: Document 04/07/18 17:05 EA (Rec: 04/11/18 09:42 EA [id number]) Functional Tests Timed Up and Go (TUG) Score > 15 secs TUG Impairment Rating 60 to <80% Impaired (Score 16- 17) PT-OP-F Manual Assessment Start: 04/07/18 16:00 Freq: Status: Active Protocol: Document 04/07/18 17:02 EA (Rec: 04/07/18 17:17 EA [id number]) Manual Assessments Soft Tissue Assessment Soft Tissue Mobility Assessment Tight both hamstrings, Quads, hip flexors, PF PT-OP-G Mobility & Gait Start: 04/07/18 16:00 Freq: Status: Active Protocol: Document 04/07/18 17:02 EA (Rec: 04/07/18 17:17 EA [id number]) OP Mobility Evaluation Bed Mobility Rolling Minimal difficulty, indep Supine to and from Sit Minimal difficulty, indep Transfers Sit to Stand Indep but requires hand for support Bed to Chair Transfers indep but requires support/AD OP Gait Assessment Gait Gait Assistance Required: Independent Distance (Feet) 50 Able to Maintain Weight Bearing Status Yes During Gait Assistive Devices Assistive Device 4 Wheeled Walker Gait Deviations General Gait Pattern Decreased Feet Clearance Flexed Trunk Comments Gait Comments Left foot dropped Stair Climbing Evaluation Evaluation Level of Assist On Stairs Standby Assistance Devices Stair Climbing Assistive Devices Straight Cane Technique/Endurance Stair Climbing Direction Ascend and Descend Stair Climbing Technique Step to Step Number of Steps Climbed 4 Comments Stair Climbing Comments With difficulty on stairs descent PT-OP-J Posture/Palpation/Skin Start: 04/07/18 16:00 Freq: Status: Active Protocol: Document 04/07/18 17:02 EA (Rec: 04/07/18 17:17 EA [id number]) Posture Evaluation Position Standing Evaluation View post/lat Head/C-Spine Posture Forward Head T-Spine Posture Increased Kyphosis L-Spine Posture Flattened Shoulder Posture (L) Forward (R) Forward Scapula Posture (L) Protracted (R) Protracted Arm Posture (L) Internally Rotated (R) Internally Rotated Pelvis Posture Posterior Tilted Hip Posture (R) Flexed Comments Posture Comments Supine position reveals no obvious hip deformity to right side Palpation Assessment Location One Palpation Location Right lateral hip, right shoulder Palpation Findings Soft Tissue Tightness Tenderness Palpation Details Grade 3/4 tender over lateral upper hip and right shoulder No noted any signs of crepitus in all hip direction PROM Skin Assessment Other Assessments Skin Assessment Comments Right lateral hip bruise/ discoloratrion ~ 4 square cm. PT-OP-M Strength Start: 04/07/18 16:00 Freq: Status: Active Protocol: Document 04/07/18 17:02 EA (Rec: 04/07/18 17:17 EA [id number]) Hip Strength Hip Manual Muscle Testing Right Flexion (L2) 3+ Fair+ Extension (S1) 4- Good- Abduction 3+ Fair+ Adduction 4- Good- External Rotation 3+ Fair+ Internal Rotation 4- Good- Left Flexion (L2) 3+ Fair+ Extension (S1) 4- Good- Abduction 3 Fair Adduction 4- Good- External Rotation 3+ Fair+ Internal Rotation 4- Good- Ankle/Foot Strength Ankle and Foot Manual Muscle Testing Left Dorsiflexion (L4) 2+ Poor+ Plantarflexion (S1) 4- Good- Inversion 4- Good- Eversion (S1) 4- Good- Right Reason Not Measured WFL PT-OP-Q Treatments Start: 04/07/18 16:00 Freq: Status: Active Protocol: Document 06/28/18 12:00 DCW (Rec: 06/28/18 12:45 DCW [id number]) Cardio Equipment Recumbent Stepper (Sci-Fit) Duration (Minutes) 7 Resistance 3 Seat Position 14 Gym Equipment Shuttle Recovery Bilateral Squats Resistance 75# Reps/Time 2x20 Unilateral Squats Details 37# Shuttle Recovery Platform Stable Reps/Time 2x15 Shuttle Balance chains green Details WBOS bal, head turns, UE elevation, trunk rotation, eyes closed Comments chains green, cords loose Therapeutic Exercises Supine Exercises 7 Supine Exercise Name Bridge Side bilateral Reps/Minutes x 10 reps x 2 Comments tolerated with small ROM 6 Supine Exercise Name SKTC Side bilateral 5 Supine Exercise Name Lower trunk rotation stretch Side bilateral Comments pain-free range 4 Supine Exercise Name Hamstring Stretch Side bilateral Comments manual 3 Supine Exercise Name bent ABD/ADD Side bilateral Reps/Minutes x 20 reps 2 Supine Exercise Name Adductor Ball Squeeze Resistance small ball Reps/Minutes 5 hold x10 Standing Exercises hurdles Standing Exercise Name Hurdles with // bars Reps/Minutes 4 laps Comments Fwd/Side-stepping resisted walk Standing Exercise Name Backward/Forward Equipment Used yellow TB Reps/Minutes 2 lengths of bar sidestepping Side bilateral Resistance Yellow T-band Reps/Minutes with squats Comments 4 lengths of bar PT-OP-R Modalities Start: 04/07/18 16:00 Freq: Status: Active Protocol: Document 05/19/18 15:44 EA (Rec: 05/19/18 15:54 EA [id number]) Hot Pack/Cold Pack Treatment Hot Pack Location christina hips Patient Position Hooklying Treatment Duration (minutes) 10 Patient Tolerance Good Comments 2 small; strap to hold PT-OP-T Assessment and Plan Start: 04/07/18 16:00 Freq: Status: Active Protocol: Document 06/28/18 12:00 DCW (Rec: 06/28/18 12:45 DCW [id number]) Physical Therapy Assessment Assessment Summary Assessment Pt occasionally decided he was done with an exercise, stating that's enough, and then took a break, however he appears to be tolerating more exercises during his PT sessions. Physical Therapy Plan Frequency and Duration Frequency of Treatment 2x/Week Duration of Treatment 12 wks Plan of Care Start Date 04/07/18 Plan of Care End Date 06/30/18 Next Visit Focus/Plan Next Note Type Treatment Note Next Visit Plan Continue with B LE strengthening and balance.
--- NOTE | 2018-06-30 11:27 | PT.OTN ---
Current Diagnoses Other symptoms and signs involving the musculoskeletal system (06/30/18) Physical Therapy Treatment Note PT-OP-A Visit Information Start: 04/07/18 16:00 Freq: Status: Active Protocol: Document 06/30/18 10:37 LR (Rec: 06/30/18 11:27 [facility] [id number]) Out-Patient Physical Therapy Visit Information Visit Information Visit Type Treatment Note Visit Start Time 10:30 Visit Stop Time 11:15 Total Visit Minutes 45 Visit Number 20 Number of VENDER Visits 0 PT-OP-B Current Condition Start: 04/07/18 16:00 Freq: Status: Active Protocol: Document 04/07/18 17:02 EA (Rec: 04/07/18 17:17 EA [id number]) Current Condition History of Current Condition Onset Date 6 months ago Current Complaints Multiple joint pain and weakness to both LE's. History of Current Condition Present condition started 6 months ago when he noticed that both LE's are getting weak and decreased balance. He stated that multiple falls in the past 6 months with no severe injury or required hospitalization. He mentioned that pain to right hip and shoulder continued to bother him when place with pressure since the fall two weeks ago. Pt reports mobility decreased from more than 100 ft to now less than 50 ft since six months ago which also currently required four wheeled walker. Patient reports that he is still mourning for his daughter few years ago. Prior Treatments and Tests Patient had dementia medication removed few weeks ago Future Testing and Treatments Planned None identified Treatment Goals Patient/Caregiver Goals Patient wants to be able to walk more than 100 ft with the use of straight cane. Patient would like to improve his balance. Prior Functional Status Baseline Function- ADL's Independent Baseline Function- Mobility Independent Baseline Function- Gait Ambulates > 100 ft with straight cane/ accross the street 6 months ago Baseline Function- Recreation/Hobbies Patient has none active lifestyle due to deprssion Baseline Function- Other Lives with his who does the driving due to early dementia. Live in a 2 story house with more than 10 stairs at home. Current Functional Impairments (Reported) Functional Limitations- ADL's Indep in all except with feeding due to recent mouth surgery, requires company in all outside mobility due to early onset dementia. Functional Limitations- Mobility/Gait Unable to ambulate outside the house and vegetable picker the mail (> 100ft) due to fear of falling Functional Limitations- Work/School Retired Functional Limitations- Recreation/ None identified Hobbies Personal Factors Other Personal Factors That May Effect Early onset of dementia, Therapy/Recovery Depression, Pace maker, Anixiety, fear of falling PT-OP-C Subjective Start: 04/07/18 16:00 Freq: Status: Active Protocol: Document 06/30/18 10:37 [facility] (Rec: 06/30/18 11:27 [facility] [id number]) OP-PT Subjective Patient Comments Patient Comments Pt reports he still feels limited with activity, but he feels like he has improved a lot with therapy. Pt reports he is scared of falling backwards & reports he feels unsteady on stairs. Patient Reported Progress Improving PT-OP-D Balance Start: 04/07/18 16:00 Freq: Status: Active Protocol: Document 06/30/18 10:37 [facility] (Rec: 06/30/18 11:27 [facility] [id number]) Balance Tests Sparks Balance Test Sparks Balance Test Score 34 Sparks Impairment Rating 20 to 39% Impaired (Score 34- 44) Other Other Balance Tests Performed Tinneti: PT-OP-E Functional Tests Start: 04/07/18 16:00 Freq: Status: Active Protocol: Document 04/07/18 17:05 EA (Rec: 04/11/18 09:42 EA [id number]) Functional Tests Timed Up and Go (TUG) Score > 15 secs TUG Impairment Rating 60 to <80% Impaired (Score 16- 17) PT-OP-F Manual Assessment Start: 04/07/18 16:00 Freq: Status: Active Protocol: Document 04/07/18 17:02 EA (Rec: 04/07/18 17:17 EA [id number]) Manual Assessments Soft Tissue Assessment Soft Tissue Mobility Assessment Tight both hamstrings, Quads, hip flexors, PF PT-OP-G Mobility & Gait Start: 04/07/18 16:00 Freq: Status: Active Protocol: Document 06/30/18 10:37 [facility] (Rec: 06/30/18 11:27 [facility] [id number]) OP Gait Assessment Comments Gait Comments Amb 260 ft without LOB without fatigue PT-OP-J Posture/Palpation/Skin Start: 04/07/18 16:00 Freq: Status: Active Protocol: Document 04/07/18 17:02 EA (Rec: 04/07/18 17:17 EA [id number]) Posture Evaluation Position Standing Evaluation View post/lat Head/C-Spine Posture Forward Head T-Spine Posture Increased Kyphosis L-Spine Posture Flattened Shoulder Posture (L) Forward (R) Forward Scapula Posture (L) Protracted (R) Protracted Arm Posture (L) Internally Rotated (R) Internally Rotated Pelvis Posture Posterior Tilted Hip Posture (R) Flexed Comments Posture Comments Supine position reveals no obvious hip deformity to right side Palpation Assessment Location One Palpation Location Right lateral hip, right shoulder Palpation Findings Soft Tissue Tightness Tenderness Palpation Details Grade 3/4 tender over lateral upper hip and right shoulder No noted any signs of crepitus in all hip direction PROM Skin Assessment Other Assessments Skin Assessment Comments Right lateral hip bruise/ discoloratrion ~ 4 square cm. PT-OP-M Strength Start: 04/07/18 16:00 Freq: Status: Active Protocol: Document 06/30/18 10:37 [facility] (Rec: 06/30/18 11:27 [facility] [id number]) Hip Strength Hip Manual Muscle Testing Right Flexion (L2) 4 Good External Rotation 4 Good Internal Rotation 4- Good- Left Flexion (L2) 4 Good External Rotation 4- Good- Internal Rotation 4- Good- Knee Strength Knee Manual Muscle Testing Left Flexion (S2) 4- Good- Extension (L3) 4- Good- Right Flexion (S2) 4 Good Extension (L3) 4 Good Ankle/Foot Strength Ankle and Foot Manual Muscle Testing Right Dorsiflexion (L4) 5 Normal Plantarflexion (S1) 5 Normal Comments seated testing PT-OP-Q Treatments Start: 04/07/18 16:00 Freq: Status: Active Protocol: Document 06/30/18 10:37 [facility] (Rec: 06/30/18 11:27 [facility] [id number]) Cardio Equipment Recumbent Stepper (Sci-Fit) Duration (Minutes) 7 Resistance 3 Seat Position 14 Gym Equipment Shuttle Recovery Bilateral Squats Resistance 75# Reps/Time 2x20 Unilateral Squats Details 50# Shuttle Recovery Platform Stable Reps/Time 2x15 PT-OP-R Modalities Start: 04/07/18 16:00 Freq: Status: Active Protocol: Document 05/19/18 15:44 EA (Rec: 05/19/18 15:54 EA [id number]) Hot Pack/Cold Pack Treatment Hot Pack Location christina hips Patient Position Hooklying Treatment Duration (minutes) 10 Patient Tolerance Good Comments 2 small; strap to hold PT-OP-T Assessment and Plan Start: 04/07/18 16:00 Freq: Status: Active Protocol: Document 06/30/18 10:37 [facility] (Rec: 06/30/18 11:27 [facility] [id number]) Physical Therapy Assessment Goals balance Impairment balance [facility] Goal (LTG) SPARKS to 40 dec fall risk LTG Duration 8 weeks Four Impairment Impaired distance ambulation Restaurant Maintenance Technician Goal (LTG) Patient will ambulate > 100 ft using FWW. LTG Duration achieved Three Impairment TINNETI BALANCE score of 9: Very high risk fall [facility] Goal (LTG) TINNETI BALANCE score of 19 ( moderately risk fall) LTG Duration achieved 23/28 Two Impairment TUG > 15 seconds with FWW Restaurant Maintenance Technician Goal (LTG) TUG of < 13 seconds w/ AD 5/16-17 sec LTG Duration 4 wks One Impairment LEFS of 14/80 Restaurant Maintenance Technician Goal (LTG) LEFS score of > 30/80 LTG Duration 4 wks Assessment Summary Assessment Pt has made good strength and balance improvements. He is ambulating further safer and has sginificantly dec risk for falls. Physical Therapy Plan Frequency and Duration Frequency of Treatment 2x/Week Duration of Treatment 2 months Plan of Care Start Date 06/30/18 Plan of Care End Date 08/30/18 Therapeutic Interventions Therapeutic Interventions Aquatic Therapy Balance Training Coordination Training Gait Training Home Exercise Program Neuromuscular Re-education Patient/Caregiver Education Self-Care/Home Management Taping Therapeutic Activities Therapeutic Exercises Modalities Cold Pack/Ice Massage Electric Stimulation Hot Packs Next Visit Focus/Plan Next Note Type Treatment Note Next Visit Plan Continue with B LE strengthening and balance.
--- NOTE | 2018-06-30 11:27 | PT.OPPOC ---
Current Diagnoses Other symptoms and signs involving the musculoskeletal system (06/30/18) Provider Visit Care Team Role Provider Type Yash Howe MD Attending Provider Physician Primary Care Provider Specialty: Family Practice Address: [address] [place] [address], [id number] Email: [email or web address] Plan Of Care PT-OP-T Assessment and Plan Start: 04/07/18 16:00 Freq: Status: Active Protocol: Document 06/30/18 10:37 [facility] (Rec: 06/30/18 11:27 [facility] [id number]) Physical Therapy Assessment Goals balance Impairment balance Nursing Home Goal (LTG) SPARKS to 40 dec fall risk LTG Duration 8 weeks Four Impairment Impaired distance ambulation Transportation Program Director Goal (LTG) Patient will ambulate > 100 ft using FWW. LTG Duration achieved Three Impairment TINNETI BALANCE score of 9: Very high risk fall Transportation Program Director Goal (LTG) TINNETI BALANCE score of 19 ( moderately risk fall) LTG Duration achieved 23/28 Two Impairment TUG > 15 seconds with FWW Nursing Home Goal (LTG) TUG of < 13 seconds w/ AD 5/16-17 sec LTG Duration 4 wks One Impairment LEFS of 14/80 Nursing Home Goal (LTG) LEFS score of > 30/80 LTG Duration 4 wks Assessment Summary Assessment Pt has made good strength and balance improvements. He is ambulating further safer and has sginificantly dec risk for falls. Physical Therapy Plan Frequency and Duration Frequency of Treatment 2x/Week Duration of Treatment 2 months Plan of Care Start Date 06/30/18 Plan of Care End Date 08/30/18 Therapeutic Interventions Therapeutic Interventions Aquatic Therapy Balance Training Coordination Training Gait Training Home Exercise Program Neuromuscular Re-education Patient/Caregiver Education Self-Care/Home Management Taping Therapeutic Activities Therapeutic Exercises Modalities Cold Pack/Ice Massage Electric Stimulation Hot Packs Next Visit Focus/Plan Next Note Type Treatment Note Next Visit Plan Continue with Octavio SRIVASTAVA strengthening and balance. Plan of Care Dates Plan of Care Start Date 06/30/18 Plan of Care End Date 08/30/18 Please Sign and Return: I have reviewed this Plan of Care and certify that the skilled therapy services above are required to meet the patient?s needs. Physician Signature Date Printed Name and Credentials Clinical Instructor Signature Printed Name and Credentials
--- NOTE | 2018-07-07 17:34 | PT.OTN ---
Current Diagnoses Other symptoms and signs involving the musculoskeletal system (07/07/18) Physical Therapy Treatment Note PT-OP-A Visit Information Start: 04/07/18 16:00 Freq: Status: Active Protocol: Document 07/07/18 16:45 [facility] (Rec: 07/07/18 17:34 [facility] [id number]) Out-Patient Physical Therapy Visit Information Visit Information Visit Type Treatment Note Visit Start Time 16:45 Visit Stop Time 17:30 Total Visit Minutes 45 Visit Number 21 Number of DECK SUPERVISOR Visits 0 PT-OP-B Current Condition Start: 04/07/18 16:00 Freq: Status: Active Protocol: Document 04/07/18 17:02 EA (Rec: 04/07/18 17:17 EA [id number]) Current Condition History of Current Condition Onset Date 6 months ago Current Complaints Multiple joint pain and weakness to both LE's. History of Current Condition Present condition started 6 months ago when he noticed that both LE's are getting weak and decreased balance. He stated that multiple falls in the past 6 months with no severe injury or required hospitalization. He mentioned that pain to right hip and shoulder continued to bother him when place with pressure since the fall two weeks ago. Pt reports mobility decreased from more than 100 ft to now less than 50 ft since six months ago which also currently required four wheeled walker. Patient reports that he is still mourning for his daughter few years ago. Prior Treatments and Tests Patient had dementia medication removed few weeks ago Future Testing and Treatments Planned None identified Treatment Goals Patient/Caregiver Goals Patient wants to be able to walk more than 100 ft with the use of straight cane. Patient would like to improve his balance. Prior Functional Status Baseline Function- ADL's Independent Baseline Function- Mobility Independent Baseline Function- Gait Ambulates > 100 ft with straight cane/ accross the street 6 months ago Baseline Function- Recreation/Hobbies Patient has none active lifestyle due to deprssion Baseline Function- Other Lives with his who does the driving due to early dementia. Live in a 2 story house with more than 10 stairs at home. Current Functional Impairments (Reported) Functional Limitations- ADL's Indep in all except with feeding due to recent mouth surgery, requires company in all outside mobility due to early onset dementia. Functional Limitations- Mobility/Gait Unable to ambulate outside the house and case picker the mail (> 100ft) due to fear of falling Functional Limitations- Work/School Retired Functional Limitations- Recreation/ None identified Hobbies Personal Factors Other Personal Factors That May Effect Early onset of dementia, Therapy/Recovery Depression, Pace maker, Anixiety, fear of falling PT-OP-C Subjective Start: 04/07/18 16:00 Freq: Status: Active Protocol: Document 07/07/18 16:45 [facility] (Rec: 07/07/18 17:34 [facility] [id number]) OP-PT Subjective Patient Comments Patient Comments Pt reports that he was working on his HEP earlier in the week. PT-OP-D Balance Start: 04/07/18 16:00 Freq: Status: Active Protocol: Document 06/30/18 10:37 LR (Rec: 06/30/18 11:27 LR [id number]) Balance Tests Sparks Balance Test Sparks Balance Test Score 34 Sparks Impairment Rating 20 to 39% Impaired (Score 34- 44) Other Other Balance Tests Performed Tinneti: PT-OP-E Functional Tests Start: 04/07/18 16:00 Freq: Status: Active Protocol: Document 04/07/18 17:05 EA (Rec: 04/11/18 09:42 EA [id number]) Functional Tests Timed Up and Go (TUG) Score > 15 secs TUG Impairment Rating 60 to <80% Impaired (Score 16- 17) PT-OP-F Manual Assessment Start: 04/07/18 16:00 Freq: Status: Active Protocol: Document 04/07/18 17:02 EA (Rec: 04/07/18 17:17 EA [id number]) Manual Assessments Soft Tissue Assessment Soft Tissue Mobility Assessment Tight both hamstrings, Quads, hip flexors, PF PT-OP-G Mobility & Gait Start: 04/07/18 16:00 Freq: Status: Active Protocol: Document 06/30/18 10:37 LR (Rec: 06/30/18 11:27 LR [id number]) OP Gait Assessment Comments Gait Comments Amb 260 ft without LOB without fatigue PT-OP-J Posture/Palpation/Skin Start: 04/07/18 16:00 Freq: Status: Active Protocol: Document 04/07/18 17:02 EA (Rec: 04/07/18 17:17 EA [id number]) Posture Evaluation Position Standing Evaluation View post/lat Head/C-Spine Posture Forward Head T-Spine Posture Increased Kyphosis L-Spine Posture Flattened Shoulder Posture (L) Forward (R) Forward Scapula Posture (L) Protracted (R) Protracted Arm Posture (L) Internally Rotated (R) Internally Rotated Pelvis Posture Posterior Tilted Hip Posture (R) Flexed Comments Posture Comments Supine position reveals no obvious hip deformity to right side Palpation Assessment Location One Palpation Location Right lateral hip, right shoulder Palpation Findings Soft Tissue Tightness Tenderness Palpation Details Grade 3/4 tender over lateral upper hip and right shoulder No noted any signs of crepitus in all hip direction PROM Skin Assessment Other Assessments Skin Assessment Comments Right lateral hip bruise/ discoloratrion ~ 4 square cm. PT-OP-M Strength Start: 04/07/18 16:00 Freq: Status: Active Protocol: Document 06/30/18 10:37 [facility] (Rec: 06/30/18 11:27 [facility] [id number]) Hip Strength Hip Manual Muscle Testing Right Flexion (L2) 4 Good External Rotation 4 Good Internal Rotation 4- Good- Left Flexion (L2) 4 Good External Rotation 4- Good- Internal Rotation 4- Good- Knee Strength Knee Manual Muscle Testing Left Flexion (S2) 4- Good- Extension (L3) 4- Good- Right Flexion (S2) 4 Good Extension (L3) 4 Good Ankle/Foot Strength Ankle and Foot Manual Muscle Testing Right Dorsiflexion (L4) 5 Normal Plantarflexion (S1) 5 Normal Comments seated testing PT-OP-Q Treatments Start: 04/07/18 16:00 Freq: Status: Active Protocol: Document 07/07/18 16:45 [facility] (Rec: 07/07/18 17:34 [facility] [id number]) Cardio Equipment Recumbent Stepper (Sci-Fit) Duration (Minutes) 7 Resistance 3 Seat Position 13 Gym Equipment Shuttle Recovery Bilateral Squats Resistance 75# Reps/Time 2x20 Unilateral Squats Details 50# Shuttle Recovery Platform Stable Reps/Time 2x15 Shuttle Balance chains green Details WBOS bal, head turns, UE elevation, trunk rotation, eyes closed, ball toss Comments chains green, cords loose Therapeutic Exercises Supine Exercises 7 Supine Exercise Name Bridge Side bilateral Reps/Minutes x 10 reps x 2 Comments tolerated with small ROM 6 Supine Exercise Name SKTC Side bilateral 5 Supine Exercise Name Lower trunk rotation stretch Side bilateral Comments pain-free range 4 Supine Exercise Name Hamstring Stretch Side bilateral Comments manual 2 Supine Exercise Name Adductor Ball Squeeze Resistance small ball Reps/Minutes 5 hold x10 Sidelying Exercises Reverse Clamshell Sidelying Exercise Name Reverse Clamshell Side bilateral Clamshell Sidelying Exercise Name Clamshell Side bilateral Standing Exercises hurdles Standing Exercise Name Hurdles with // bars Reps/Minutes 4 laps Comments Fwd/Side-stepping resisted walk Standing Exercise Name Backward/Forward Equipment Used Green TB Reps/Minutes 2 lengths of bar sidestepping Side bilateral Resistance Green T-band Comments 4 lengths of bar PT-OP-R Modalities Start: 04/07/18 16:00 Freq: Status: Active Protocol: Document 05/19/18 15:44 EA (Rec: 05/19/18 15:54 EA [id number]) Hot Pack/Cold Pack Treatment Hot Pack Location christina hips Patient Position Hooklying Treatment Duration (minutes) 10 Patient Tolerance Good Comments 2 small; strap to hold PT-OP-T Assessment and Plan Start: 04/07/18 16:00 Freq: Status: Active Protocol: Document 07/07/18 16:45 [facility] (Rec: 07/07/18 17:34 [facility] [id number]) Physical Therapy Assessment Goals balance Impairment balance Acupuncturist Goal (LTG) SPARKS to 40 dec fall risk LTG Duration 8 weeks Four Impairment Impaired distance ambulation Acupuncturist Goal (LTG) Patient will ambulate > 100 ft using FWW. LTG Duration achieved Three Impairment TINNETI BALANCE score of 9: Very high risk fall [facility] Goal (LTG) TINNETI BALANCE score of 19 ( moderately risk fall) LTG Duration achieved 23/28 Two Impairment TUG > 15 seconds with FWW [facility] Goal (LTG) TUG of < 13 seconds w/ AD 5/16-17 sec LTG Duration 4 wks One Impairment LEFS of 14/80 [facility] Goal (LTG) LEFS score of > 30/80 LTG Duration 4 wks Assessment Summary Assessment Pt did well today tolerating more activity, willing to work harder during his TherEx, showing improved technique with many of his exercises. Physical Therapy Plan Frequency and Duration Frequency of Treatment 2x/Week Duration of Treatment 2 months Plan of Care Start Date 06/30/18 Plan of Care End Date 08/30/18 Therapeutic Interventions Therapeutic Interventions Aquatic Therapy Balance Training Coordination Training Gait Training Home Exercise Program Neuromuscular Re-education Patient/Caregiver Education Self-Care/Home Management Taping Therapeutic Activities Therapeutic Exercises Modalities Cold Pack/Ice Massage Electric Stimulation Hot Packs Next Visit Focus/Plan Next Note Type Treatment Note Next Visit Plan Continue with B LE strengthening and balance.
--- NOTE | 2018-09-06 12:37 | PT.OPDS ---
Current Diagnoses Other symptoms and signs involving the musculoskeletal system (07/07/18) Provider Visit Care Team Role Provider Type Yash Howe MD Attending Provider Physician Primary Care Provider Specialty: Family Practice Address: [address] [place] [address], [facility] Email: [email or web address] Visit Number Visit Number 21 Discharge Summary PT-OP-B Current Condition Start: 04/07/18 16:00 Freq: Status: Active Protocol: Document 04/07/18 17:02 EA (Rec: 04/07/18 17:17 EA [id number]) Current Condition History of Current Condition Onset Date 6 months ago Current Complaints Multiple joint pain and weakness to both LE's. History of Current Condition Present condition started 6 months ago when he noticed that both LE's are getting weak and decreased balance. He stated that multiple falls in the past 6 months with no severe injury or required hospitalization. He mentioned that pain to right hip and shoulder continued to bother him when place with pressure since the fall two weeks ago. Pt reports mobility decreased from more than 100 ft to now less than 50 ft since six months ago which also currently required four wheeled walker. Patient reports that he is still mourning for his daughter few years ago. Prior Treatments and Tests Patient had dementia medication removed few weeks ago Future Testing and Treatments Planned None identified Treatment Goals Patient/Caregiver Goals Patient wants to be able to walk more than 100 ft with the use of straight cane. Patient would like to improve his balance. Prior Functional Status Baseline Function- ADL's Independent Baseline Function- Mobility Independent Baseline Function- Gait Ambulates > 100 ft with straight cane/ accross the street 6 months ago Baseline Function- Recreation/Hobbies Patient has none active lifestyle due to deprssion Baseline Function- Other Lives with his who does the driving due to early dementia. Live in a 2 story house with more than 10 stairs at home. Current Functional Impairments (Reported) Functional Limitations- ADL's Indep in all except with feeding due to recent mouth surgery, requires company in all outside mobility due to early onset dementia. 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 (> 100ft) due to fear of falling Functional Limitations- Work/School Retired Functional Limitations- Recreation/ None identified Hobbies Personal Factors Other Personal Factors That May Effect Early onset of dementia, Therapy/Recovery Depression, Pace maker, Anixiety, fear of falling PT-OP-C Subjective Start: 04/07/18 16:00 Freq: Status: Active Protocol: Document 09/06/18 12:36 EA (Rec: 09/06/18 12:37 EA [id number]) OP-PT Subjective Patient Comments Patient Comments I spoke to patient today by phone and reports that he is not willing to comback to PT as her is continuing his HEP and feels he is doing pretty well. Patient Reported Progress Improving PT-OP-D Balance Start: 04/07/18 16:00 Freq: Status: Active Protocol: Document 06/30/18 10:37 LR (Rec: 06/30/18 11:27 [facility] [id number]) Balance Tests Knapp Balance Test Knapp Balance Test Score 34 Knapp Impairment Rating 20 to 39% Impaired (Score 34- 44) Other Other Balance Tests Performed Tinneti: PT-OP-E Functional Tests Start: 04/07/18 16:00 Freq: Status: Active Protocol: Document 04/07/18 17:05 EA (Rec: 04/11/18 09:42 EA [id number]) Functional Tests Timed Up and Go (TUG) Score > 15 secs TUG Impairment Rating 60 to <80% Impaired (Score 16- 17) PT-OP-F Manual Assessment Start: 04/07/18 16:00 Freq: Status: Active Protocol: Document 04/07/18 17:02 EA (Rec: 04/07/18 17:17 EA [id number]) Manual Assessments Soft Tissue Assessment Soft Tissue Mobility Assessment Tight both hamstrings, Quads, hip flexors, PF PT-OP-G Mobility & Gait Start: 04/07/18 16:00 Freq: Status: Active Protocol: Document 06/30/18 10:37 LR (Rec: 06/30/18 11:27 [facility] [id number]) OP Gait Assessment Comments Gait Comments Amb 260 ft without LOB without fatigue PT-OP-J Posture/Palpation/Skin Start: 04/07/18 16:00 Freq: Status: Active Protocol: Document 04/07/18 17:02 EA (Rec: 04/07/18 17:17 EA [id number]) Posture Evaluation Position Standing Evaluation View post/lat Head/C-Spine Posture Forward Head T-Spine Posture Increased Kyphosis L-Spine Posture Flattened Shoulder Posture (L) Forward (R) Forward Scapula Posture (L) Protracted (R) Protracted Arm Posture (L) Internally Rotated (R) Internally Rotated Pelvis Posture Posterior Tilted Hip Posture (R) Flexed Comments Posture Comments Supine position reveals no obvious hip deformity to right side Palpation Assessment Location One Palpation Location Right lateral hip, right shoulder Palpation Findings Soft Tissue Tightness Tenderness Palpation Details Grade 3/4 tender over lateral upper hip and right shoulder No noted any signs of crepitus in all hip direction PROM Skin Assessment Other Assessments Skin Assessment Comments Right lateral hip bruise/ discoloratrion ~ 4 square cm. PT-OP-M Strength Start: 04/07/18 16:00 Freq: Status: Active Protocol: Document 06/30/18 10:37 [facility] (Rec: 06/30/18 11:27 [facility] [id number]) Hip Strength Hip Manual Muscle Testing Right Flexion (L2) 4 Good External Rotation 4 Good Internal Rotation 4- Good- Left Flexion (L2) 4 Good External Rotation 4- Good- Internal Rotation 4- Good- Knee Strength Knee Manual Muscle Testing Left Flexion (S2) 4- Good- Extension (L3) 4- Good- Right Flexion (S2) 4 Good Extension (L3) 4 Good Ankle/Foot Strength Ankle and Foot Manual Muscle Testing Right Dorsiflexion (L4) 5 Normal Plantarflexion (S1) 5 Normal Comments seated testing PT-OP-T Assessment and Plan Start: 04/07/18 16:00 Freq: Status: Active Protocol: Document 09/06/18 12:36 EA (Rec: 09/06/18 12:37 EA [id number]) Physical Therapy Assessment Assessment Summary Assessment Discharge to PT as agreed during conversation today. Physical Therapy Plan Discharge Physical Therapy Discharge Reasons Patient Request Discharge Comments Patient is continuing his HEP with 's help
== END 2018-09-08 13:39 | disposition home or self-care (01) ==
LOC: PHYS 16:45
PROVIDERS: PCP Family Medicine; Visit Provider Family Medicine
DX: R29.898 Other symptoms and signs involving the musculoskeletal system (principal)
CPT/HCPCS: 97110; 97112; 97116; 97140; 97163; 97530; 97535

== ENCOUNTER → 2018-07-12 15:28 | Outpatient (CLI) | payer OTHER, SELFPAY ==
[2018-07-12 17:06] LABS: BUN Creatinine Ratio 45.7 (6-22); Blood Urea Nitrogen 32 mg/dL (9-20); Calcium 9.5 mg/dL (8.4-10.2); Carbon Dioxide 27 mmol/L (22-32); Chloride 99 mmol/L (98-107); Estimated Glomerular Filt Rate > 60.0 mL/min (>60); Glucose 100 mg/dL (80-110); HEMOLYSIS < 15 (0-50); Potassium 4.6 mmol/L (3.4-5.1); Sodium 133 mmol/L (137-145)
[2018-07-12 17:38] LABS: TSH w/ Reflex to FT4 0.39 uIU/mL (0.47-4.68)
[2018-07-12 18:05] LABS: Free T4, Direct Thyroxine 0.99 ng/dL (0.78-2.19)
== END ==
PROVIDERS: Family Provider Family Medicine; PCP Family Medicine; Visit Provider Family Medicine
DX: E87.1 Hypo-osmolality and hyponatremia (principal)
CPT/HCPCS: 36415; 80048; 84439; 84443

== ENCOUNTER → 2018-08-25 13:32 | Outpatient (CLI) | payer OTHER, SELFPAY ==
[2018-08-25 15:04] LABS: Add Manual Diff / Slide Review NO; Basophils Absolute Auto 100 /uL (0-100); Basophils Percent Auto 1.2 % (0-2); Eosinophils Absolute Auto 100 /uL (0-450); Eosinophils Percent Auto 1.5 % (2-4); Hematocrit 35.8 % (41-53); Hemoglobin 12.3 g/dL (13.5-17.5); Lymphocytes Absolute Auto 800 /uL (1100-4500); Lymphocytes Percent Auto 18.4 % (25-40); Mean Corpuscular HGB Conc 34.4 % (30-36); Mean Corpuscular Hemoglobin 32.1 PG (26-34); Mean Corpuscular Volume 93.2 fL (80-100); Monocytes Absolute Auto 400 /uL (0-900); Monocytes Percent Auto 8.7 % (3-14); Neutrophils Absolute Auto 3200 /uL (1500-7000); Neutrophils Percent Auto 70.2 % (50-75); Platelet Count 174 X10^3/uL (150-400); Red Blood Cell Count 3.83 X10^6/uL (4.5-5.9); Red Cell Distribution Width 14.3 % (11.6-14.8); White Blood Cell Count 4.5 X10^3/uL (4.5-11.0)
[2018-08-25 15:12] LABS: Alanine Aminotransferase 15 IU/L (21-72); Albumin 3.8 g/dL (3.5-5.0); Albumin Globulin Ratio 1.6 (1.0-2.8); Alkaline Phosphatase 50 U/L (38-126); Aspartate Aminotransferase 25 IU/L (17-59); BUN Creatinine Ratio 41.4 (6-22); Bilirubin Total 0.4 mg/dL (0.2-1.3); Blood Urea Nitrogen 29 mg/dL (9-20); Calcium 9.2 mg/dL (8.4-10.2); Carbon Dioxide 26 mmol/L (22-32); Chloride 99 mmol/L (98-107); Cholesterol 147 mg/dL (140-199); Estimated Glomerular Filt Rate > 60.0 mL/min (>60); Globulin 2.4 g/dL (1.7-4.1); Glucose 93 mg/dL (80-110); HDL Cholesterol 71 mg/dL (40-60); HEMOLYSIS 20 (0-50); LDL Cholesterol Calculated 63 mg/dL (<100); Magnesium 1.9 mg/dL (1.6-2.3); Potassium 4.8 mmol/L (3.4-5.1); Sodium 133 mmol/L (137-145); Total Protein 6.2 g/dL (6.3-8.2); Triglycerides 64 mg/dL (35-150)
[2018-08-25 15:24] LABS: T4 Total Thyroxine 5.23 ug/dL (5.5-11.0)
[2018-08-25 15:27] LABS: Free T4, Direct Thyroxine 0.87 ng/dL (0.78-2.19)
[2018-08-25 15:37] LABS: Thyroid Stimulating Hormone 0.23 uIU/mL (0.47-4.68)
[2018-08-29 13:34] LABS: Triiodothyronine T3 Reverse 17 ng/dL (8-25)
== END ==
PROVIDERS: PCP Family Medicine; Visit Provider Internal Medicine Cardiovascular Disease
DX: R79.89 Other specified abnormal findings of blood chemistry (principal); E78.5 Hyperlipidemia, unspecified; I10 Essential (primary) hypertension; R01.1 Cardiac murmur, unspecified
CPT/HCPCS: 36415; 80053; 80061; 83735; 84436; 84439; 84443; 84481; 84482; 85025

== ENCOUNTER → 2018-09-02 16:07 | Outpatient (CLI) | payer OTHER, SELFPAY ==
--- NOTE | 2018-09-02 | DI.ECHO.S_ITS ---
[facility]---------+ [facility] +---------+ : : [address] : : [place] : : : : [id number] : : : : Phone: [phone]---------+ Echocardiogram Report + + :Name: OZIEL FLORES V Study Date: 09/02/2018 Height: 70 in : :[facility] Exam Location: [facility] Weight: 150 lb : : Gender: Male BSA: 1.8 m2 : :: 1940 Age: 78 yrs BP: 108/62 mmHg: :Reason For Study: Murmur : :Ordering Physician: Saud : :Lina Performed By: Ludmila Page : + + Interpretation Summary The left ventricle is mild-moderately dilated. The ejection fraction is estimated to be 40-45%. Compared to the prior exam, the left ventricular function is reduced. There appears to be severe hypokinesis to akinesis of inferior wall, inferoseptum and the apex which appears to be new. The right ventricular systolic function is normal. There is a pacemaker lead in the right ventricle. There is severe mitral annular calcification. There is mild to moderate mitral stenosis. There is mild to moderate tricuspid regurgitation. The right ventricular systolic pressure is estimated to be at least 33 mmHg based on an estimated right atrial pressure of 8 mm Hg. The aortic root is moderately dilated. 4.5 cm in diameter. In 02/2017, it was 3.9 cm. The ascending aorta is mildly enlarged. Procedure: A two-dimensional transthoracic echocardiogram with color flow and Doppler was performed. The study quality was technically adequate. Comparison is made with the echocardiogram of 03/11/2017. The patient has a paced rhythm. The patient had frequent PVCs during the exam. Left Ventricle: The left ventricle is mild-moderately dilated. There is normal left ventricular wall thickness. There is no thrombus. The ejection fraction is estimated to be 40-45%. Compared to the prior exam, the left ventricular function is reduced. There appears to be severe hypokinesis to akinesis of inferior wall, inferoseptum and the apex which appears to be new. Diastolic function could not be accurately assessed due to paced rhythm. Right Ventricle: The right ventricle is mildly dilated. There is a pacemaker lead in the right ventricle. The right ventricular systolic function is normal. Atria: Both atria are severely dilated. The left atrium has remained unchanged in size since the prior echo exam. The right atrium has significantly increased in size since the prior echo exam. There is no Doppler evidence for an interatrial shunt. Mitral Valve: There is severe mitral annular calcification. The mitral valve chordae are thickened and/or calcified. Redundant elongated chordae are noted. The mitral valve mean gradient is 3.8 mmHg. There is mild to moderate mitral stenosis. MVA(P1/2t): 1.9 cm2. There is trace mitral regurgitation. Aortic Valve: The aortic valve is trileaflet. There is mild aortic valve sclerosis. There is no aortic valve stenosis. There is trace aortic regurgitation. Tricuspid Valve: Tricuspid leaflets are thickened. There is mild to moderate tricuspid regurgitation. The right ventricular systolic pressure is estimated to be at least 33 mmHg based on an estimated right atrial pressure of 8 mm Hg. Compared to the prior echo exam, there has been an increase in TR severity. Pulmonic Valve: The pulmonic valve is not well visualized. There is trace pulmonic regurgitation. Great Vessels: The aortic root is moderately dilated. The ascending aorta is mildly enlarged. There has been no significant change since the previous study. The pulmonary artery is normal size. The IVC is of normal diameter and collapses less than 50% with a sniff. This suggests a right atrial pressure of 8 mm Hg. Pericardium/ Pleura There is no pericardial effusion. There is no pleural effusion. MMode/2D Measurements & Calculations LVIDd: 6.4 cm LVOT diam: 2.3 cm LVIDs: 4.1 cm Ao root diam: 4.5 cm FS: 35.9 % asc Aorta Diam: 3.7 cm EPSS: 2.0 cm IVSd: 0.86 cm LVPWd: 0.97 cm LV stanley. diameter/BSA (cm/m^2): 3.5 LV sys. diameter/BSA (cm/m^2): 2.2 LA A2 area: 47.2 cm2 RA long axis: 6.7 cm LA A4 area: 34.4 cm2 RA area: 30.5 cm2 LA length (vol): 6.2 cm RA vol: 118.1 ml LA vol: 222.3 ml RA : 63.9 ml/m2 LA vol index: 120.3 ml/m2 IVC diam: 2.0 cm RVD1 (basal): 4.6 cm RVD2 (mid): 5.0 cm TAPSE: 2.8 cm Doppler Measurements & Calculations Ao V2 max: 118.2 cm/sec LVOT Max Tiburcio: 53.1 cm/sec Ao V2 mean: 87.7 cm/sec LV V1 max P.1 mmHg Ao max P.6 mmHg LV V1 VTI: 10.2 cm Ao mean P.4 mmHg GISSELLE(I,D): 1.6 cm2 Ao V2 VTI: 26.3 cm GISSELLE(V,D): 1.8 cm2 sev ratio: 0.39 GISSELLE indexed to BSA (cm^2/m^2): 0.86 MV E max tiburcio: 135.6 cm/sec TR max tiburcio: 250.0 cm/sec MV A max tiburcio: 108.2 cm/sec TR max P.0 mmHg MV E/A: 1.3 PA V2 max: 50.3 cm/sec Med Peak E' Tiburcio: 3.3 cm/sec PA V2 mean: 37.9 cm/sec E/E' med: 41.1 PA mean P.61 mmHg Lat Peak E' Tiburcio: 6.9 cm/sec PA Accel Time: 0.06 sec E/E' lat: 19.6 E/e' average: 30.3 MV dec time: 0.40 sec MV P1/2t: 118.7 msec MVA(VTI): 0.76 cm2 MV V2 mean: 91.9 cm/sec MV P1/2t max tiburcio: 137.2 cm/sec MV mean P.8 mmHg MVA(P1/2t): 1.9 cm2 MV V2 VTI: 54.5 cm SV(LVOT): 41.6 ml Reading Physician:PM
== END ==
PROVIDERS: PCP Family Medicine; Visit Provider Internal Medicine Cardiovascular Disease
DX: R01.1 Cardiac murmur, unspecified (principal)
CPT/HCPCS: 93306

== ENCOUNTER → 2018-09-22 13:48 | Outpatient (CLI) | payer OTHER, SELFPAY ==
--- NOTE | 2018-09-22 14:44 | PM.TREADMILL ---
Cardiac Stress Test Report Referral & Results Date Patient Seen: 09/22/18 Requesting provider: Saud Mills Indication: Coronary artery disease Rest ECG: Ventricular Paced rhythm Procedure Note: After both written and verbal informed consent the patient had an IV started by the diagnostic imaging RN, and then was hooked up to the treadmill monitoring system. The Lexiscan material, and then the Cardiolite tracer, were administered sequentially. An additional 3 min was spent monitoring the patient while supine on the gurney. The patient had a normal response to all infused materials. Impression: Please see perfusion imaging report for details regarding possible ischemia Please note: Actual ECG tracings can be found in the PACS system.
--- NOTE | 2018-09-23 17:19 | DI.NM.S_ITS ---
DATE OF SERVICE: 09/22/2018 PROCEDURE: Exercise perfusion study. INDICATIONS: Nonsustained ventricular tachycardia; PVCs; multivessel CAD; previous PCI; complete heart block, status post permanent pacemaker. RADIOPHARMACEUTICAL: 26.1 mCi technetium-99m Myoview IV was injected at stress and 25.5 mCi technetium-99m Myoview IV was injected at rest. CARDIAC STRESS: Patient underwent pharmacological perfusion study using standard IV Lexiscan as per protocol. Patient remained hemodynamically stable. Baseline EKG revealed A-sensed and ventricular paced rhythm. Stress EKG did not reveal any obvious inducible ischemic changes. There were no significant arrhythmias. RAW DATA: There was increased subdiaphragmatic activity. GATED STUDY: Resting stress LV ejection fraction at 51 and stress LV ejection fraction 57% without any obvious significant wall motion abnormalities. Resting LV end-diastolic volume is 167 ml. TID ratio 1.08, which is within normal limits. Lung/heart ratio is 0.39, which is within normal limits. MYOCARDIAL PERFUSION SCAN: Please note, this patient does not have any prone images. Stress supine and resting supine were compared to each other. It appears to be that patient has predominantly fixed, moderate-sized severe perfusion defect of base-to-mid inferolateral wall consistent with infarction without any reversible ischemia. CONCLUSION: This is an abnormal perfusion study consistent with moderate sized infarction of base-to-mid inferolateral wall without any reversible ischemia. Maikol Higginbotham - EUGENIE/irineo/ab doc#: [id number]/job#: [id number] dd: 09/23/2018 17:04:00 dt: 09/23/2018 17:09:00 DICTATING MD/COPIES TO: Saud Mills MD COPIES MNE: SCOTT
== END ==
PROVIDERS: PCP Family Medicine; Visit Provider Internal Medicine Cardiovascular Disease
DX: I25.10 Atherosclerotic heart disease of native coronary artery without angina pectoris (principal); R94.39 Abnormal result of other cardiovascular function study; I47.2 Ventricular tachycardia; R01.1 Cardiac murmur, unspecified; I44.2 Atrioventricular block, complete; I49.3 Ventricular premature depolarization; Z95.0 Presence of cardiac pacemaker
CPT/HCPCS: 78452; 93016; 93017; 93018; A9502; J2785

== ENCOUNTER → 2018-10-13 15:08 | Outpatient (CLI) | payer OTHER, SELFPAY ==
--- NOTE | 2018-10-13 15:09 | DI.US.S_ITS ---
PROCEDURE: US THYROID INDICATIONS: HYPERTHYROID TECHNIQUE: Real-time scanning was performed of the thyroid gland, with image documentation. COMPARISON: None. FINDINGS: Right: Thyroid lobe measures 5.1 x 1.8 x 1.3 cm, and is homogeneous in echotexture. Left: Thyroid lobe measures 4.6 x 1.7 x 1.3 cm, and is homogenous in echotexture. Isthmus: 4.0 mm thick. Nodule number: 1 Location: Right mid Size: 0.8 x 0.6 x 0.5 cm. Composition: Predominantly solid Echogenicity: Hypoechoic Shape: wider than tall. Margins: Smooth Echogenic foci: None Total points: 4 ACR TI-RADS category: Moderately suspicious Nodule number: 2 Location: Left superior Size: 0.4 x 0.3 x 0.3 cm. Composition: Predominantly solid Echogenicity: Isoechoic Shape: wider than tall. Margins: Smooth Echogenic foci: Internal echogenic punctate foci Total points: 6 ACR TI-RADS category: Moderately suspicious IMPRESSION: Small bilateral thyroid nodules. Recommend continued followup ultrasound as detailed below. ACR TI-RADS definitions and recommendations: TI-RADS 1 (benign): 0 points. FNA not needed. TI-RADS 2 (not suspicious): 2 points. FNA not needed. TI-RADS 3 (mildly suspicious): 3 points. * FNA if 2.5 cm or larger, follow up if 1.5 cm or larger (at 1, 3, and 5 years). TI-RADS 4 (moderately suspicious): 4-6 points. * FNA if 1.5 cm or larger, follow up if 1 cm or larger (at 1, 2, 3, and 5 years). TI-RADS 5 (highly suspicious): 7 points or more. * FNA if 1 cm or larger, follow up if 0.5 cm or larger (every year for 5 years). Dictated by: Raf LESLIE Interpreted: Ana Laura Carmen MD on 10/13/2018 at 16:06 Approved by: Ana Laura Carmen M.D. on 10/13/2018 at 16:13
[2018-10-13 16:16] LABS: Hematocrit 37.6 % (41-53); Hemoglobin 13.1 g/dL (13.5-17.5); Mean Corpuscular HGB Conc 34.8 % (30-36); Mean Corpuscular Hemoglobin 32.4 PG (26-34); Mean Corpuscular Volume 93.1 fL (80-100); Platelet Count 168 X10^3/uL (150-400); Red Blood Cell Count 4.04 X10^6/uL (4.5-5.9); Red Cell Distribution Width 13.5 % (11.6-14.8)
[2018-10-13 17:24] LABS: HEMOLYSIS < 15 (0-50); Iron 114 ug/dL (49-181)
[2018-10-13 17:34] LABS: Percent Iron Saturation 31 % (20-50); Total Iron Binding Capacity 373 ug/dL (261-462); Transferrin 322 mg/dL (206-381)
[2018-10-13 17:41] LABS: Free T3, Triiodothyronine Free 3.63 pg/mL (2.77-5.27); Free T4, Direct Thyroxine 0.79 ng/dL (0.78-2.19); T4 Total Thyroxine 5.38 ug/dL (5.5-11.0)
[2018-10-13 17:54] LABS: Thyroid Stimulating Hormone 0.29 uIU/mL (0.47-4.68)
[2018-10-13 17:59] LABS: Ferritin 17.5 ng/mL (17.9-464)
[2018-10-15 16:40] LABS: Triiodothyronine T3 Total 61 ng/dL (76-181)
== END ==
PROVIDERS: PCP Family Medicine; Visit Provider Family Medicine
DX: E05.90 Thyrotoxicosis, unspecified without thyrotoxic crisis or storm (principal); D64.9 Anemia, unspecified
CPT/HCPCS: 36415; 76536; 82728; 83540; 83550; 84436; 84439; 84443; 84480; 84481; 85027

== ENCOUNTER → 2019-01-26 14:30 | Outpatient (CLI) | payer OTHER, SELFPAY ==
[2019-01-26 16:07] LABS: TSH w/ Reflex to FT4 0.57 uIU/mL (0.47-4.68)
== END ==
PROVIDERS: PCP Family Medicine; Visit Provider Family Medicine
DX: E05.90 Thyrotoxicosis, unspecified without thyrotoxic crisis or storm (principal)
CPT/HCPCS: 36415; 84443

== ENCOUNTER → 2019-03-24 12:18 | Outpatient (CLI) | payer MEDICARE, SELFPAY ==
[2019-03-24 13:27] LABS: Hematocrit 39.2 % (41-53); Hemoglobin 13.5 g/dL (13.5-17.5)
--- NOTE | 2019-03-31 16:23 | PM.PFT.1 ---
Pulmonary Function Test Referral & Results Date Patient Seen: 03/24/19 Requesting provider: Yash Howe Results: The spirometry demonstrates an FVC of 3.02 L which is 78% of predicted. The FEV1 was measured at 2.33 L which is 85% of predicted. The FEV1/FVC ratio was 77 which is 107% of predicted. Following the administration of bronchodilator there was a 60% improvement in FEV1 and a 50% improvement in FEF 25-75%. Lung volumes show an SVC of 3.48 L which is 81% of predicted. The diffusing capacity was measured at 17.37 which is 56% of predicted. The maximum voluntary ventilation was reduced Interpretation: This study demonstrates mild obstructive lung disease based on reduction FEV1 and shape a flow volume loop. There is evidence of benefit following bronchodilator administration as above There may also be mild restrictive lung disease based on slight reduction in lung volumes There is more significant reduction in diffusing capacity suggesting more significant disease at the capillary alveolar level Compared to PFTs performed in November 2011, current study shows improvement in lung volumes and spirometry and decline in diffusing capacity
== END ==
PROVIDERS: PCP Family Medicine; Referring Provider Family Medicine; Visit Provider Family Medicine
DX: I25.10 Atherosclerotic heart disease of native coronary artery without angina pectoris (principal); J44.9 Chronic obstructive pulmonary disease, unspecified
CPT/HCPCS: 36415; 85014; 85018; 94060; 94726; 94729

== ENCOUNTER → 2019-10-10 14:27 | Outpatient (CLI) | payer MEDICARE, SELFPAY ==
[2019-10-11 09:46] LABS: COVID19 Sendout Not Detected (Not Detect)
== END ==
PROVIDERS: PCP Family Medicine; Visit Provider Physician Assistant
DX: Z11.59 Encounter for screening for other viral diseases (principal)
CPT/HCPCS: 87635

== ENCOUNTER → 2020-06-11 12:02 | Outpatient (CLI) | payer MEDICARE, SELFPAY ==
[2020-06-11 13:36] LABS: Add Manual Diff / Slide Review NO; Basophils Absolute Auto 100 /uL (0-100); Basophils Percent Auto 1.8 % (0-2); Eosinophils Absolute Auto 300 /uL (0-450); Eosinophils Percent Auto 6.3 % (2-4); Hematocrit 33.7 % (41-53); Hemoglobin 11.3 g/dL (13.5-17.5); Lymphocytes Absolute Auto 900 /uL (1100-4500); Lymphocytes Percent Auto 21.9 % (25-40); Mean Corpuscular HGB Conc 33.5 % (30-36); Mean Corpuscular Hemoglobin 32.3 PG (26-34); Mean Corpuscular Volume 96.4 fL (80-100); Monocytes Absolute Auto 400 /uL (0-900); Monocytes Percent Auto 9.8 % (3-14); Neutrophils Absolute Auto 2600 /uL (1500-7000); Neutrophils Percent Auto 60.2 % (50-75); Platelet Count 186 X10^3/uL (150-400); Red Blood Cell Count 3.49 X10^6/uL (4.5-5.9); Red Cell Distribution Width 13.4 % (11.6-14.8); White Blood Cell Count 4.2 X10^3/uL (4.5-11.0)
[2020-06-11 17:44] LABS: TSH w/ Reflex to FT4 0.53 uIU/mL (0.47-4.68)
[2020-06-11 17:45] LABS: Prostate Specific Antigen Scrn 0.147 ng/mL (0.1-4.0)
== END ==
PROVIDERS: PCP Family Medicine; Referring Provider Family Medicine; Visit Provider Family Medicine
DX: E05.90 Thyrotoxicosis, unspecified without thyrotoxic crisis or storm (principal); Z12.5 Encounter for screening for malignant neoplasm of prostate; I10 Essential (primary) hypertension
CPT/HCPCS: 36415; 84443; 85025; G0103

== ENCOUNTER → 2020-07-18 13:26 | Outpatient (CLI) | payer MEDICARE, SELFPAY ==
[2020-07-18 15:25] LABS: Alanine Aminotransferase 18 IU/L (<50); Albumin Globulin Ratio 1.9 (1.0-2.8); Alkaline Phosphatase 71 U/L (38-126); Aspartate Aminotransferase 29 IU/L (17-59); BUN Creatinine Ratio 19.1 (6-22); Bilirubin Total 0.2 mg/dL (0.2-1.3); Blood Urea Nitrogen 17 mg/dL (9-20); Calcium 9.3 mg/dL (8.4-10.2); Carbon Dioxide 28 mmol/L (22-32); Chloride 93 mmol/L (98-107); Estimated Glomerular Filt Rate > 60.0 mL/min (>60); Globulin 2.1 g/dL (1.7-4.1); Glucose 67 mg/dL (80-110); HEMOLYSIS < 15 (0-50); Potassium 4.8 mmol/L (3.4-5.1); Sodium 129 mmol/L (137-145); Total Protein 6.1 g/dL (6.3-8.2)
[2020-07-18 15:56] LABS: Prostate Specific Antigen Scrn 0.129 ng/mL (0.1-4.0)
== END ==
PROVIDERS: PCP Family Medicine; Referring Provider Family Medicine; Visit Provider Family Medicine
DX: Z12.5 Encounter for screening for malignant neoplasm of prostate (principal); E05.90 Thyrotoxicosis, unspecified without thyrotoxic crisis or storm; E11.69 Type 2 diabetes mellitus with other specified complication; E78.5 Hyperlipidemia, unspecified; I25.10 Atherosclerotic heart disease of native coronary artery without angina pectoris
CPT/HCPCS: 36415; 80053; G0103

== ENCOUNTER → 2020-10-02 08:01 | Outpatient (CLI) | payer MEDICARE, SELFPAY ==
--- NOTE | 2020-10-02 | DI.ECHO.S_ITS ---
[facility]---------+ [facility] +---------+ : : [address] : : [place] : : : : [id number] : : : : Phone: [phone]---------+ Echocardiogram Report + + :Name: OZIEL FLORES V Study Date: 10/02/2020 Height: 70.5 in: :[facility] ReadingLocation: Weight: 166 lb : : Gender: Male BSA: 1.9 m2 : :: 1940 Age: 80 yrs BP: 150/89 mmHg: :Reason For Study: VENTRICULAR TACHYCARDIA : :Ordering Physician: HECTOR, : :APRYL Performed By: Katt Morales : :Referring: APRYL YOUNG : + + Interpretation Summary The left ventricle is mild-moderately dilated. The ejection fraction is estimated to be 40-45%. No significant change in LVEF. The right ventricle is mildly dilated. The right ventricular systolic function is normal. There is a pacemaker lead in the right ventricle. There is severe mitral annular calcification. The mitral valve chordae are thickened and/or calcified. The mitral valve mean gradient is 6.2 mmHg. There is significant restriction of mitral leaflets. Overall moderate to severe mitral stenosis. Mitral stenosis appears to be worse from the previous study. There is moderate mitral regurgitation. There is mild to moderate tricuspid regurgitation. The IVC is of normal diameter and collapses greater than 50% with a sniff. This suggests a low right atrial pressure of 3 mm Hg. The aortic root is moderately dilated. 4.7 cm in diameter. Previously it was 4.5 cm. The ascending aorta is mildly enlarged. 3.6 cm in diameter. Previously it was 3.7 cm. Procedure: A two-dimensional transthoracic echocardiogram with color flow and Doppler was performed. The study quality was technically adequate. Comparison is made with the echocardiogram of 09/02/2018. The heart rate ranged between 60-65 bpm during the study. The patient has a paced rhythm. Left Ventricle: The left ventricle is mild-moderately dilated. There is mild concentric left ventricular hypertrophy. There is no thrombus. The ejection fraction is estimated to be 40-45%. There is basal inferior wall akinesis. There is mild global hypokinesis of the left ventricle. Rest of the inferior wall and apex wall motion abnormalities improved. Diastolic function could not be accurately assessed due to confounding valvular disease. Right Ventricle: The right ventricle is mildly dilated. There is a pacemaker lead in the right ventricle. The right ventricular systolic function is normal. Atria: The left atrium is severely dilated. The left atrium has remained unchanged in size since the prior echo exam. The right atrium is moderately dilated. There is no Doppler evidence for an interatrial shunt. Mitral Valve: The mitral valve leaflets are moderately calcified. There is severe mitral annular calcification. The mitral valve chordae are thickened and/or calcified. There is moderate mitral stenosis. The mitral valve mean gradient is 6.2 mmHg. The mitral regurgitant jet is eccentrically directed. There is moderate mitral regurgitation. Aortic Valve: The aortic valve is trileaflet. The aortic valve is mildly calcified. There is no aortic valve stenosis. There is mild aortic regurgitation. Tricuspid Valve: Tricuspid leaflets are thickened. There is mild to moderate tricuspid regurgitation. Pulmonary artery pressures cannot be estimated because of the lack of a measurable TR jet velocity but the IVC suggests a CVP of around 3 mmHg. Pulmonic Valve: The pulmonic valve leaflets are thin and pliable; valve motion is normal. There is mild to moderate pulmonic regurgitation. Great Vessels: The aortic root is moderately dilated. The ascending aorta is mildly enlarged. The IVC is of normal diameter and collapses greater than 50% with a sniff. This suggests a low right atrial pressure of 3 mm Hg. Pericardium/ Pleura There is no pericardial effusion. There is no pleural effusion. MMode/2D Measurements & Calculations LVIDd: 6.3 cm LVOT diam: 2.2 cm LVIDs: 4.9 cm Ao root diam: 4.7 cm FS: 21.6 % asc Aorta Diam: 3.6 cm IVSd: 1.2 cm Ao Arch Diam (Prox Trans): 2.2 cm LVPWd: 1.3 cm LV stanley. diameter/BSA (cm/m^2): 3.3 LV sys. diameter/BSA (cm/m^2): 2.6 LA A2 area: 41.7 cm2 RA long axis: 6.0 cm LA A4 area: 33.6 cm2 RA area: 23.7 cm2 LA length (vol): 6.5 cm RA vol: 80.0 ml LA vol: 183.5 ml RA : 41.3 ml/m2 LA vol index: 94.7 ml/m2 IVC diam: 0.73 cm RVD1 (basal): 4.5 cm TAPSE: 2.3 cm Doppler Measurements & Calculations Ao V2 max: 100.2 cm/sec LVOT Max Tiburcio: 60.4 cm/sec Ao V2 mean: 75.4 cm/sec LV V1 max P.5 mmHg Ao max P.0 mmHg LV V1 VTI: 11.6 cm Ao mean P.4 mmHg GISSELLE(I,D): 2.0 cm2 Ao V2 VTI: 21.8 cm GISSELLE(V,D): 2.3 cm2 sev ratio: 0.53 GISSELLE indexed to BSA (cm^2/m^2): 1.1 MV E max tiburcio: 136.5 cm/sec TR max tiburcio: 274.5 cm/sec MV A max tiburcio: 139.6 cm/sec TR max P.1 mmHg MV E/A: 0.98 PA V2 max: 57.0 cm/sec Med Peak E' Tiburcio: 3.2 cm/sec PA V2 mean: 38.9 cm/sec E/E' med: 42.8 PA mean P.69 mmHg Lat Peak E' Tiburcio: 7.9 cm/sec PA pr(Accel): 36.2 mmHg E/E' lat: 17.2 E/e' average: 30.0 MV dec time: 0.68 sec MVA(VTI): 0.74 cm2 MV V2 mean: 117.0 cm/sec SV(LVOT): 44.5 ml MV mean P.2 mmHg MV V2 VTI: 59.8 cm Reading Physician:03:46 PM
[2020-10-02 11:19] LABS: COVID19 -Nasal RAPID Negative (Negative)
--- NOTE | 2020-10-02 18:19 | DI.NM.S_ITS ---
DATE OF SERVICE: 10/02/2020 PROCEDURE: Pharmacological perfusion study. INDICATIONS: Known coronary artery disease with ischemic cardiomyopathy, ventricular tachycardia. RADIOPHARMACEUTICAL: 25.2 millicurie technetium-99m Myoview IV was injected at stress and 11.7 millicurie technetium-99m Myoview IV was injected at rest. CARDIAC STRESS: The patient underwent IV Lexiscan perfusion study under the supervision of an attending staff using standard intravenous Lexiscan protocol. The patient remained hemodynamically stable. [place] shortness of breath and headache during Lexiscan injection. Baseline rhythm was sinus with first-degree AV block and right bundle branch block and occasional PVCs. During Lexiscan, there were no significant ischemic changes or worsening arrhythmias. RAW DATA: There is increased subdiaphragmatic activity. GATED STUDY: Stress LV ejection fraction 43 percent with basal inferior wall hypokinesis. Dilated left ventricle with a resting end-diastolic volume 208 mL. TID ratio 0.99 which is within normal limits. Lung/heart ratio 0.33, which is within normal limits. MYOCARDIAL PERFUSION SCAN: Stress supine and stress prone stress supine and resting supine images were compared to each other. Please note that there are no stress prone images. There appears to be predominantly fixed, small to moderate size, moderate to severely decreased perfusion of basal inferior wall extending into the basal inferolateral wall and very small, minimally decreased perfusion of distal inferolateral wall. No obvious reversible ischemia. CONCLUSION: This is an abnormal myocardial perfusion study consistent with small to moderate size infarction of basal inferior wall extending into the basal inferolateral wall and very minimal infarction of distal inferolateral wall without any significant reversible ischemia. The stress left ventricular ejection fraction 43 percent. Left ventricle is dilated. Maikol Higginbotham - [facility]/irineo/beena doc#: [id number]/job#: [id number] dd: 10/02/2020 16:56:00 dt: 10/02/2020 17:34:00 DICTATING MD/COPIES TO: Saud Mills MD COPIES MNE: SCOTT;
== END ==
PROVIDERS: PCP Family Medicine; Referring Provider Internal Medicine Cardiovascular Disease; Visit Provider Internal Medicine Cardiovascular Disease
DX: I08.3 Combined rheumatic disorders of mitral, aortic and tricuspid valves (principal); R94.39 Abnormal result of other cardiovascular function study; I47.2 Ventricular tachycardia; I77.810 Thoracic aortic ectasia; I25.10 Atherosclerotic heart disease of native coronary artery without angina pectoris; I25.5 Ischemic cardiomyopathy; Z20.822 Contact with and (suspected) exposure to COVID-19; Z95.0 Presence of cardiac pacemaker
CPT/HCPCS: 78452; 87635; 93017; 93306; A9502; J2785

== ENCOUNTER → 2020-10-22 12:14 | Outpatient (CLI) | payer MEDICARE, SELFPAY ==
[2020-10-22 14:13] LABS: Cholesterol 172 mg/dL (140-199); HDL Cholesterol 73 mg/dL (40-60); LDL Cholesterol Calculated 62 mg/dL (<100); Magnesium 1.8 mg/dL (1.6-2.3); Triglycerides 184 mg/dL (35-150)
== END ==
PROVIDERS: PCP Family Medicine; Referring Provider Internal Medicine Cardiovascular Disease; Visit Provider Internal Medicine Cardiovascular Disease
DX: I48.92 Unspecified atrial flutter (principal); I47.2 Ventricular tachycardia; E78.5 Hyperlipidemia, unspecified; I10 Essential (primary) hypertension
CPT/HCPCS: 36415; 80061; 83735; 84443

== ENCOUNTER 2020-12-01 11:55 | Observation (INO) | payer MEDICARE, SELFPAY ==
[2020-12-01] VITALS (14 sets, daily range): BP systolic 122–139; BP diastolic 59–79; PULSE 61–82; RESP 16–38; TEMP 36.5–36.8; O2SAT 93–98; BMI 23.5
--- NOTE | 2020-12-01 12:27 | ED.SKABFB ---
HPI - Skin/Abscess/Foreign Bdy General Chief complaint: Extremity Injury, Upper Stated complaint: infection in left arm Time Seen by Provider: 12/01/20 12:10 Source: patient and family Mode of arrival: Wheelchair Limitations: no limitations History of Present Illness HPI narrative: Patient is an 80-year-old male with history of pacemaker defibrillator, coronary artery disease, cognitive decline presenting today with left arm erythema. He says it has been there for a week or more but just found out about it yesterday. She said he was quite diaphoretic last night and shaky. He has erythema that extends from his wrist all the way up to his axilla. He feels like his left arm is slightly weak. He has no chest pain no cough no nausea, no vomiting. Related Data Home Medications Medication Instructions Recorded Confirmed Lactobacills gasseri-Bifidobac cap PO cap 07/08/18 11/29/20 bifidum,longum 1.5 billion cell capsule ([employer]) cholecalciferol (vitamin D3) 125 5,000 unit PO DAILY 07/08/18 12/01/20 mcg (5,000 unit) capsule docusate sodium 100 mg capsule 100 mg PO DAILY PRN 07/08/18 12/01/20 (Dulcolax Stool Softener (docusate)) glucosam 750 mg-chondroi 100 1 tab PO DAILY tab 07/08/18 12/01/20 mg-hyalur 1.65 mg-CF borate 108 mg tablet ([employer]) methylcellulose (laxative) 2 gram PO DAILY 07/08/18 11/29/20 (Citrucel Sugar Free) multivitamin 1 cap PO DAILY 07/08/18 11/29/20 omega-3 fatty acids 1,000 mg 1,000 mg PO DAILY 07/08/18 11/29/20 capsule (Fish Oil Concentrate) turmeric 400 mg capsule mg PO cap 07/08/18 11/29/20 vitamin E (dl, acetate) 450 mg 2,000 unit PO DAILY cap 09/07/18 11/29/20 (1,000 unit) capsule acetaminophen 650 mg 1,300 mg PO Q8H PRN 10/05/18 12/01/20 tablet,extended release metoprolol succinate 25 mg capsule 25 mg PO BID each 11/02/18 11/29/20 sprinkle, ext. release 24 hr melatonin 10 mg capsule 10 mg PO BEDTIME PRN 01/24/20 12/01/20 Previous Rx's Medication Instructions Recorded DISABLED PARKING PERMIT #1 ea 07/08/18 atorvastatin 40 mg tablet 40 mg PO HS #90 tab 07/13/18 enalapril maleate 10 mg tablet 10 mg PO BID #60 tab 10/03/18 (Vasotec) clopidogrel 75 mg tablet (Plavix) 75 mg PO QDAY #90 tab 02/23/20 duloxetine 20 mg capsule,delayed 40 mg PO DAILY #60 cap 05/22/20 release fluticasone 250 mcg-salmeterol 50 See Rx Instructions .ROUTE 06/18/20 mcg/dose blistr powdr for .COMPLEX #60 blister inhalation ([employer] Inhub) carbamazepine 200 mg tablet 200 mg PO BID #180 tab 09/30/20 Allergies Allergy/AdvReac Type Severity Reaction Status Date / Time No Known Drug Allergies Allergy Verified 11/29/20 15:52 Review of Systems Review of Systems Narrative: GENERAL: Denies chills, fatigue, malaise, fever, sweats, travel HEENT: Denies sinus pain, ear pain, sore throat, difficulty swallowing, neck pain RESPIRATORY: Denies dyspnea, cough, wheezing, hemoptysis, sputum. CARDIOVASCULAR: Denies chest pain, palpitations, orthopnea, edema GASTROINTESTINAL: Denies nausea, vomiting, abdominal pain, diarrhea, constipation, melena. : Denies dysuria, frequency, incontinence, hematuria, urinary retention, flank pain. MUSCULOSKELETAL: Denies weakness, joint pain, or bony pain SKIN: See HPI NEUROLOGIC: Denies weakness, dizziness, headache, numbness, change in speech, confusion PSYCHIATRIC: No concerning psychosocial issues. 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) Coronary artery disease (1997) Coronary artery disease Depression (08/20/14) Depression Herpes Hyperlipidemia associated with type 2 diabetes mellitus Hypertension (1997) Hyperthyroidism Hypogonadism (2000) Hyponatremia (08/20/14) Kidney stones (1991) Memory loss 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 Father Heart attack Mother No problems noted. Social History marital status: household members: spouse Smoking Status: Former smoker alcohol intake: never substance use type: does not use Smoking Status: Former smoker Exam Initial Vital Signs Initial Vital Signs: Vital Signs Pulse Rate 78 12/01/20 12:00 Pulse Oximetry 95 12/01/20 12:00 GENERAL: Alert 80-year-old male and in no acute distress. HEENT: Head atraumatic,EOMI, pupils reactive, face symmetric, moist mucous membranes CARDIOVASCULAR: Regular rate and rhythm without murmurs, rubs or gallops. RESPIRATORY: Breath sounds equal bilaterally, no wheezes rales or rhonchi. ABDOMEN: Soft, nontender. Normoactive bowel sounds all 4 quadrants. No guarding or rebound. EXTREMITIES: Normal range of motion, no clubbing or edema. Neurovascularly intact NEUROLOGICAL: Alert and oriented x3.Normal gait and speech. Banana Room Cutter strength is equal by laterally lower extremity strength equal. SKIN: Significant erythema on the left forearm with streaking extends into the axilla it is non circumferential blanchable. He has senile purpura along old healed skin tear Course Orders Ordered: ED Orders 12/01/20 12:15 Complete Blood Count AUTO DIFF Stat Comprehensive Metabolic Panel Stat Lactate (Lactic Acid) Stat Procalcitonin Stat 12/01/20 12:24 Blood Culture Stat 12/01/20 13:41 COVID19 - ADMIT ([employer] swab/PCR) Stat 12/01/20 13:49 EKG-12 Lead Stat Acetaminophen (Acetaminophen 325 Mg Tablet) 650 mg PO Q6HR PRN PRN Reason: Fever/Mild Pain (1-3) Hydrocodone Bitart/Acetaminophen (Hydrocodone/Acet 5/325 Tablet) 1 tab PO Q4HR PRN PRN Reason: Pain, Moderate (4-6) Albuterol (Albuterol 2.5 Mg/3 Ml Neb (Adult)) 2.5 mg INH Q4HRWA KELVIN Albuterol (Albuterol 2.5 Mg/3 Ml Neb (Adult)) 2.5 mg INH Q2H PRN PRN Reason: Shortness Of Breath Atorvastatin Calcium (Atorvastatin 20 Mg Tablet) 40 mg PO BEDTIME KELVIN Budesonide (Budesonide 0.5 Mg/2 Ml Neb) 0.5 mg INH RTBID [facility] Carbamazepine (Carbamazepine 200 Mg Tablet) 200 mg PO BID [facility] Clopidogrel Bisulfate (Clopidogrel 75 Mg Tablet) 75 mg PO DAILY [facility] Docusate Sodium (Docusate 100 Mg Capsule) 100 mg PO DAILY [facility] Duloxetine HCl (Duloxetine 20 Mg Capsule) 40 mg PO DAILY [facility] Enalapril Maleate (Enalapril 5 Mg Tablet) 10 mg PO BID [facility] Enoxaparin Sodium (Enoxaparin 40 Mg/0.4 Ml Syringe) 40 mg SUBCUT DAILY [facility] Ceftriaxone Sodium 2,000 mg/ (Sodium Chloride) 100 mls @ 200 mls/hr IV Q24H [facility] Melatonin (Melatonin 3 Mg Tablet) 9 mg PO BEDTIME PRN PRN Reason: insomnia Metoprolol Succinate (Metoprolol Er 25 Mg Tablet) 25 mg PO BID [facility] Naloxone HCl (Naloxone 0.4 Mg/Ml Vial) 0.2 mg IV Q2MIN PRN PRN Reason: Opiate Reversal Methylcellulose ( Laxative) [Citrucel Sugar Free] Powder 2 gram PO DAILY [facility] Vitamin D (Cholecalciferol (Vitamin D3) 5,000 Unit Tablet) 5,000 unit PO DAILY [facility] Discontinued Medications Ceftriaxone Sodium 2,000 mg/ (Sodium Chloride) 100 mls @ 200 mls/hr IV NOW ONE Stop: 12/01/20 12:27 Last Infusion: 12/01/20 13:20 Dose: 0 mls/hr Documented by: Admin: 12/01/20 12:45 Dose: 200 mls/hr Documented by: AMANDA Fluticasone Propion- Salmeterol [Wixela Inhub] 250-50 Mcg/Dose 1 puff INH DAILY [facility] Ondansetron HCl (Ondansetron 4 Mg/2 Ml Inj) 4 mg IV NOW ONE Stop: 12/01/20 13:50 Last Admin: 12/01/20 14:01 Dose: 4 mg Documented by: AMANDA Pantoprazole Sodium (Pantoprazole 40 Mg Vial) 40 mg IV NOW ONE Stop: 12/01/20 13:50 Last Admin: 12/01/20 14:01 Dose: 40 mg Documented by: AMANDA Vital Signs Vital signs: Vital Signs - 8 hr 12/01/20 12:00 12/01/20 12:02 12/01/20 12:07 Temperature 98.1 F Pulse Rate 78 64 82 Respiratory Rate 18 Blood Pressure 125/60 125/60 Pulse Oximetry 95 97 95 12/01/20 12:30 12/01/20 12:31 12/01/20 13:00 Temperature Pulse Rate 65 64 65 Respiratory Rate 22 27 H 30 H Blood Pressure 123/71 139/68 Pulse Oximetry 96 96 95 12/01/20 13:30 Temperature Pulse Rate 65 Respiratory Rate 34 H Blood Pressure 135/70 Pulse Oximetry 98 MDM - Skin/Abscess/Foreign Bdy Lab Data Result diagrams: 12/01/20 12:15 12/01/20 12:15 Labs: Lab Results 12/01/20 12/01/20 12/01/20 Range/Units 12:15 12:15 12:15 WBC 10.5 (4.5-11.0) X10^3/uL RBC 4.36 L (4.5-5.9) X10^6/uL Hgb 13.7 (13.5-17.5) g/dL Hct 41.3 (41-53) % MCV 94.8 (80-100) fL MCH 31.5 (26-34) PG MCHC 33.2 (30-36) % RDW 14.4 (11.6-14.8) % Plt Count 149 L (150-400) X10^3/uL Neut % (Auto) 84.8 H (50-75) % Lymph % (Auto) 6.3 L (25-40) % Greene % (Auto) 8.2 (3-14) % Eos % (Auto) 0.4 L (2-4) % Baso % (Auto) 0.3 (0-2) % Neut # (Auto) 8900 H (2517-9357) /uL Lymph # (Auto) 700 L (5765-8927) /uL Greene # (Auto) 900 (0-900) /uL Eos # (Auto) 0 (0-450) /uL Baso # (Auto) 0 (0-100) /uL Sodium 137 (137-145) mmol/L Potassium 4.1 (3.4-5.1) mmol/L Chloride 101 (98-107) mmol/L Carbon Dioxide 28 (22-32) mmol/L BUN 23 H (9-20) mg/dL Creatinine 0.85 (0.66-1.25) mg/dL Estimated GFR > 60.0 (>60) mL/min BUN/Creatinine Ratio 27.1 H (6-22) Glucose 78 L (80-110) mg/dL Lactate 1.5 (0.7-2.1) mmol/L Calcium 9.6 (8.4-10.2) mg/dL Total Bilirubin 0.8 (0.2-1.3) mg/dL AST 29 (17-59) IU/L ALT 19 (<50) IU/L Alkaline Phosphatase 76 (38-126) U/L Total Protein 6.8 (6.3-8.2) g/dL Albumin 4.3 (3.5-5.0) g/dL Globulin 2.5 (1.7-4.1) g/dL Albumin/Globulin Ratio 1.7 (1.0-2.8) Procalcitonin (<0.5) ng/mL SARS-CoV-2 (PCR) (Negative) 12/01/20 12/01/20 Range/Units 12:15 13:41 WBC (4.5-11.0) X10^3/uL RBC (4.5-5.9) X10^6/uL Hgb (13.5-17.5) g/dL Hct (41-53) % MCV (80-100) fL MCH (26-34) PG MCHC (30-36) % RDW (11.6-14.8) % Plt Count (150-400) X10^3/uL Neut % (Auto) (50-75) % Lymph % (Auto) (25-40) % Greene % (Auto) (3-14) % Eos % (Auto) (2-4) % Baso % (Auto) (0-2) % Neut # (Auto) (7008-4931) /uL Lymph # (Auto) (7581-0100) /uL Greene # (Auto) (0-900) /uL Eos # (Auto) (0-450) /uL Baso # (Auto) (0-100) /uL Sodium (137-145) mmol/L Potassium (3.4-5.1) mmol/L Chloride (98-107) mmol/L Carbon Dioxide (22-32) mmol/L BUN (9-20) mg/dL Creatinine (0.66-1.25) mg/dL Estimated GFR (>60) mL/min BUN/Creatinine Ratio (6-22) Glucose (80-110) mg/dL Lactate (0.7-2.1) mmol/L Calcium (8.4-10.2) mg/dL Total Bilirubin (0.2-1.3) mg/dL AST (17-59) IU/L ALT (<50) IU/L Alkaline Phosphatase (38-126) U/L Total Protein (6.3-8.2) g/dL Albumin (3.5-5.0) g/dL Globulin (1.7-4.1) g/dL Albumin/Globulin Ratio (1.0-2.8) Procalcitonin 0.25 (<0.5) ng/mL SARS-CoV-2 (PCR) Negative (Negative) ECG Data Interpretation: Normal sinus rhythm rate 70 CT interval 290 QRS 128 QTC [address] changes MDM Narrative Medical decision making narrative: Patient has quite extensive erythema and cellulitis of his left arm that extends into his axilla. Surprisingly lab work is overall reassuring no significant leukocytosis or elevated lactic acid. He is hemodynamically stable. He is given 1 dose of Rocephin here in the emergency department. Dr. Mejia updated patient's symptoms test results and have completely accepts patient. Discharge Plan Departure Patient Disposition: Admitted As Inpatient Clinical Impression: Cellulitis of arm, left Admit Date/Time: 12/01/20 13:57 Admit Provider: Zaynab Mejia
[2020-12-01 12:40] LABS: Lactate (Lactic Acid) 1.5 mmol/L (0.7-2.1)
[2020-12-01 12:41] LABS: Alanine Aminotransferase 19 IU/L (<50); Albumin 4.3 g/dL (3.5-5.0); Albumin Globulin Ratio 1.7 (1.0-2.8); Alkaline Phosphatase 76 U/L (38-126); Aspartate Aminotransferase 29 IU/L (17-59); BUN Creatinine Ratio 27.1 (6-22); Bilirubin Total 0.8 mg/dL (0.2-1.3); Blood Urea Nitrogen 23 mg/dL (9-20); Calcium 9.6 mg/dL (8.4-10.2); Carbon Dioxide 28 mmol/L (22-32); Chloride 101 mmol/L (98-107); Estimated Glomerular Filt Rate > 60.0 mL/min (>60); Globulin 2.5 g/dL (1.7-4.1); Glucose 78 mg/dL (80-110); HEMOLYSIS 15 (0-50); Potassium 4.1 mmol/L (3.4-5.1); Sodium 137 mmol/L (137-145); Total Protein 6.8 g/dL (6.3-8.2)
[2020-12-01] MEDS: cefTRIAXone 2,000 MG in SODIUM CHLORIDE 0.9% 100 ML 200 ML IV (12:45)
[2020-12-01 12:49] LABS: Add Manual Diff / Slide Review NO; Basophils Absolute Auto 0 /uL (0-100); Basophils Percent Auto 0.3 % (0-2); Eosinophils Absolute Auto 0 /uL (0-450); Eosinophils Percent Auto 0.4 % (2-4); Hematocrit 41.3 % (41-53); Hemoglobin 13.7 g/dL (13.5-17.5); Lymphocytes Absolute Auto 700 /uL (1100-4500); Lymphocytes Percent Auto 6.3 % (25-40); Mean Corpuscular HGB Conc 33.2 % (30-36); Mean Corpuscular Hemoglobin 31.5 PG (26-34); Mean Corpuscular Volume 94.8 fL (80-100); Monocytes Absolute Auto 900 /uL (0-900); Monocytes Percent Auto 8.2 % (3-14); Neutrophils Absolute Auto 8900 /uL (1500-7000); Neutrophils Percent Auto 84.8 % (50-75); Platelet Count 149 X10^3/uL (150-400); Red Blood Cell Count 4.36 X10^6/uL (4.5-5.9); Red Cell Distribution Width 14.4 % (11.6-14.8); White Blood Cell Count 10.5 X10^3/uL (4.5-11.0)
[2020-12-01 12:57] LABS: Procalcitonin 0.25 ng/mL (<0.5)
[2020-12-01] MEDS: ONDANSETRON 4 MG/2 ML INJ IV (14:01)
[2020-12-01] MEDS: PANTOPRAZOLE 40 MG VIAL IV (14:01)
--- NOTE | 2020-12-01 14:49 | PC.NURSE ---
Patient to room 221 with dx of cellulitis to l.arm that extends up to armpit. Patient is alert and oriented x3, he does have some periods of confusion. He also has some redness that is blanchable to his r. bottom foot. He takes a blood thinner and patient has bumped his arms, he does has some reddish colored bruises to forearms. Patient also has some scratches to his tops of bilateral feet. He is pleasant, is in room. He is tucked into bed and vss have been taken. Resting and talking with .
[2020-12-01 14:53] LABS: COVID19 - ADMIT (NP swab/PCR) Negative (Negative)
--- NOTE | 2020-12-01 14:57 | PM.HP.1 ---
History of Present Illness History of Present Illness Date Patient Seen: 12/01/20 Time Patient Seen: 14:57 Chief complaint: infection in left arm Narrative: Pt is an 80yo man with CAD, COPD, HTN, aortic valve stenosis, JACKSON, trigeminal neuralgia, and pacemaker who presented with left arm erythema. The pt reports that he had a bruise on his left wrist that scabbed over around 10 days ago. He then developed redness and warmth around the area, that gradually spread. Two days ago it was at its worst, with redness extending past the elbow and towards his armpit. He did not tell his about it until last night, when he felt very shaky and weak, and was unable to rise unassisted from a seated position. The pt denies any fevers or angelica chills. He has felt slightly nauseous at times in the past week. He denies any diarrhea or constipation. He denies any chest pain. He states that he was slightly short of breath earlier in the week, but this is now back to baseline. The pt denies any history of cellulitis in the past. He feels that he is now able to ambulate and rise with normal strength. 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) Coronary artery disease (1997) Coronary artery disease Depression (08/20/14) Depression Herpes Hyperlipidemia associated with type 2 diabetes mellitus Hypertension (1997) Hyperthyroidism Hypogonadism (2000) Hyponatremia (08/20/14) Kidney stones (1991) Memory loss Presence of cardiac pacemaker (03/23/17) Rheumatic fever Sleep apnea (08/24/13) Thyroid nodule Trigeminal neuralgia (~1995) Urinary incontinence (2001) Surgical History Anesthesia History of angioplasty (1997) History of angioplasty (2007) History of angioplasty (2011) Status post hernia repair (1979) Status post transurethral resection of prostate (1999) Family & Social History Family History Brother Stroke Brother Stroke Brother Age: 87 Diabetes mellitus Hypertension Daughter Age: 57 Immune disorder Sister Age: 77 Heart disease Hypertension Stroke Son No problems noted. Father Heart attack Mother No problems noted. Safety & Behavioral: Feels Safe in Current Yes Environment Been Physically Hurt or No Threatened By a Person Tobacco & Substance use: Smoking Status Former smoker alcohol intake never Meds Home Medications and Allergies Home Medications Medication Instructions Recorded Confirmed Type DISABLED PARKING PERMIT #1 ea 07/08/18 11/29/20 Rx Lactobacills gasseri-Bifidobac cap PO cap 07/08/18 11/29/20 History bifidum,longum 1.5 billion cell capsule ([employer]) cholecalciferol (vitamin D3) 125 5,000 unit PO DAILY 07/08/18 11/29/20 History mcg (5,000 unit) capsule docusate sodium 100 mg capsule 100 mg PO DAILY 07/08/18 11/29/20 History (Dulcolax Stool Softener (docusate)) glucosam 750 mg-chondroi 100 tab PO tab 07/08/18 11/29/20 History mg-hyalur 1.65 mg-CF borate 108 mg tablet ([employer] methylcellulose (laxative) 2 gram PO DAILY 07/08/18 11/29/20 History (Citrucel Sugar Free) multivitamin 1 cap PO DAILY 07/08/18 11/29/20 History omega-3 fatty acids 1,000 mg 1,000 mg PO DAILY 07/08/18 11/29/20 History capsule (Fish Oil Concentrate) turmeric 400 mg capsule mg PO cap 07/08/18 11/29/20 History atorvastatin 40 mg tablet 40 mg PO HS #90 tab 07/13/18 11/29/20 Rx vitamin E (dl, acetate) 450 mg 2,000 unit PO DAILY cap 09/07/18 11/29/20 History (1,000 unit) capsule enalapril maleate 10 mg tablet 10 mg PO BID #60 tab 10/03/18 11/29/20 Rx (Vasotec) acetaminophen 650 mg 1,300 mg PO Q8H PRN 10/05/18 11/29/20 History tablet,extended release metoprolol succinate 25 mg capsule 25 mg PO BID each 11/02/18 11/29/20 History sprinkle, ext. release 24 hr melatonin 10 mg capsule 10 mg PO BEDTIME PRN 01/24/20 11/29/20 History clopidogrel 75 mg tablet (Plavix) 75 mg PO QDAY #90 tab 02/23/20 11/29/20 Rx duloxetine 20 mg capsule,delayed 40 mg PO DAILY #60 cap 05/22/20 11/29/20 Rx release fluticasone 250 mcg-salmeterol 50 See Rx Instructions .ROUTE 06/18/20 11/29/20 Rx mcg/dose blistr powdr for .COMPLEX #60 blister inhalation ([employer]) carbamazepine 200 mg tablet 200 mg PO BID #180 tab 09/30/20 11/29/20 Rx Allergies Allergy/AdvReac Type Severity Reaction Status Date / Time No Known Drug Allergies Allergy Verified 11/29/20 15:52 Exam Vital Signs (past 8 hours): - 12/01/20 12:00 12/01/20 12:02 12/01/20 12:07 Temperature 98.1 F Pulse Rate 78 64 82 Respiratory Rate 18 Blood Pressure 125/60 125/60 Pulse Oximetry 95 97 95 12/01/20 12:30 12/01/20 12:31 12/01/20 13:00 Temperature Pulse Rate 65 64 65 Respiratory Rate 22 27 H 30 H Blood Pressure 123/71 139/68 Pulse Oximetry 96 96 95 12/01/20 13:30 12/01/20 14:00 12/01/20 14:01 Temperature Pulse Rate 65 68 72 Respiratory Rate 34 H 28 H 38 H Blood Pressure 135/70 127/65 Pulse Oximetry 98 Oxygen Delivery Method Room Air Narrative Exam Narrative: GEN - alert, cooperative and no distress, speaking easily in complete sentences HEENT - normocephalic and atraumatic, sclera white, moist mucus membranes NECK - FROM, no adenopathy, no JVD HEART - RRR, S1, S2 normal, no S3 or S4, grade 3/6 systolic murmur LUNGS - symmetric chest rise, no accessory muscles, clear to auscultation bilaterally ABD - flat, nondistended, normal bowel sounds, soft, nontender and no hepatomegaly, splenomegaly or masses EXT - no cyanosis, clubbing or edema SKIN - left arm with significant erythema and warmth over forearm, with streaking up medial portion of arm into axilla, no purulence or exudate NEURO - alert and and oriented to person, place and situation, no gross deficits Objective Labs Result Diagrams: 12/01/20 12:15 12/01/20 12:15 Labs: Laboratory Results - last 24 hr 12/01/20 12/01/20 12/01/20 12:15 12:15 12:15 WBC 10.5 RBC 4.36 L Hgb 13.7 Hct 41.3 MCV 94.8 MCH 31.5 MCHC 33.2 RDW 14.4 Plt Count 149 L Neut % (Auto) 84.8 H Lymph % (Auto) 6.3 L [place] % (Auto) 8.2 Eos % (Auto) 0.4 L Baso % (Auto) 0.3 Neut # (Auto) 8900 H Lymph # (Auto) 700 L [place] # (Auto) 900 Eos # (Auto) 0 Baso # (Auto) 0 Sodium 137 Potassium 4.1 Chloride 101 Carbon Dioxide 28 BUN 23 H Creatinine 0.85 Estimated GFR > 60.0 BUN/Creatinine Ratio 27.1 H Glucose 78 L Lactate 1.5 Calcium 9.6 Total Bilirubin 0.8 AST 29 ALT 19 Alkaline Phosphatase 76 Total Protein 6.8 Albumin 4.3 Globulin 2.5 Albumin/Globulin Ratio 1.7 Procalcitonin SARS-CoV-2 (PCR) 12/01/20 12/01/20 12:15 13:41 WBC RBC Hgb Hct MCV MCH MCHC RDW Plt Count Neut % (Auto) Lymph % (Auto) [place] % (Auto) Eos % (Auto) Baso % (Auto) Neut # (Auto) Lymph # (Auto) [place] # (Auto) Eos # (Auto) Baso # (Auto) Sodium Potassium Chloride Carbon Dioxide BUN Creatinine Estimated GFR BUN/Creatinine Ratio Glucose Lactate Calcium Total Bilirubin AST ALT Alkaline Phosphatase Total Protein Albumin Globulin Albumin/Globulin Ratio Procalcitonin 0.25 SARS-CoV-2 (PCR) Negative Assessment & Plan Assessment & Plan narrative: Pt is an 80yo man with CAD, COPD, HTN, aortic valve stenosis, JACKSON, trigeminal neuralgia, and pacemaker who presented with left arm erythema. Most consistent with non-purulent cellulitis. 1) Cellulitis: Interestingly, no elevation of WBC count or procalcitonin, however exam very consistent with cellulitis. - Blood cultures pending - Continue IV Ceftriaxone pending cultures - Monitor for fever - Trend CBC in the morning - Tylenol for pain, Vicodin for break-through pain 2) CAD, HTN, pacemaker: Stable - Continue home Metoprolol, Plavix, Atorvastatin, Enalapril, Metoprolol 3) COPD: Stable - Continue home Fluticasone-Salmeterol 4) Trigeminal neuralgia: Stable - Continue home Carbamazepine, Duloxetine 5) Constipation: - Continue home Docusate, Methylcellulose Code: Full Diet: Cardiac DVT ppx: Lovenox Dispo: Continue IV antibiotics for at least 24hrs. Pending improvement in erythema. Possibly ready for d/c tomorrow, although likely one additional midnight pending blood cultures. COVID-19 COVID-19 status: Negative Result date/Date tested (Pos, Neg/Pending): 12/01/20 Time Spent With Patient Critical Care time: I spent a total of [] minutes of critical care time on this patient's care today; this time is exclusive of procedural time.
[2020-12-01] MEDS: ALBUTEROL 2.5 MG/3 ML NEB (ADULT) INH (19:36)
[2020-12-01] MEDS: BUDESONIDE 0.5 MG/2 ML NEB INH (19:36)
--- NOTE | 2020-12-01 20:03 | PC.NURSE ---
Received call from spouse regarding medications stating patient takes Eliquis 2.5mg BID. Patient also takes Plavix. Contacted Dr. Mejia and she reviewed notes from Dr. Mills stating patient does take both medications and gave order for Eliquis 2.5mg BID.
[2020-12-01] MEDS: APIXABAN 5 MG TABLET 2.5 MG PO (22:05)
[2020-12-01] MEDS: ATORVASTATIN 20 MG TABLET 40 MG PO (22:05)
[2020-12-01] MEDS: METOPROLOL ER 25 MG TABLET PO (22:06)
[2020-12-01] MEDS: ENALAPRIL 5 MG TABLET 10 MG PO (22:06)
[2020-12-01] MEDS: carBAMazepine 200 MG TABLET PO (22:07)
[2020-12-01] MEDS: diphenhydrAMINE 25 MG TABLET PO (22:13)
[2020-12-02] VITALS (14 sets, daily range): BP systolic 109–138; BP diastolic 56–77; PULSE 61–110; RESP 12–18; TEMP 36.2–36.9; O2SAT 93–96
[2020-12-02 05:18] LABS: Add Manual Diff / Slide Review NO; Basophils Absolute Auto 100 /uL (0-100); Basophils Percent Auto 0.9 % (0-2); Eosinophils Absolute Auto 100 /uL (0-450); Eosinophils Percent Auto 1.8 % (2-4); Hematocrit 36.7 % (41-53); Hemoglobin 12.2 g/dL (13.5-17.5); Lymphocytes Absolute Auto 900 /uL (1100-4500); Lymphocytes Percent Auto 12.1 % (25-40); Mean Corpuscular HGB Conc 33.2 % (30-36); Mean Corpuscular Hemoglobin 31.5 PG (26-34); Mean Corpuscular Volume 94.9 fL (80-100); Monocytes Absolute Auto 700 /uL (0-900); Monocytes Percent Auto 9.1 % (3-14); Neutrophils Absolute Auto 5800 /uL (1500-7000); Neutrophils Percent Auto 76.1 % (50-75); Platelet Count 133 X10^3/uL (150-400); Red Blood Cell Count 3.87 X10^6/uL (4.5-5.9); Red Cell Distribution Width 14.1 % (11.6-14.8); White Blood Cell Count 7.6 X10^3/uL (4.5-11.0)
--- NOTE | 2020-12-02 06:29 | PC.NURSE ---
Pt unable to urinate despite 2 attempts throughout noc shift (at around 0300 and 0600). RN recommended bladder scan which revealed approximately 700mL of fluid. RN informed.
--- NOTE | 2020-12-02 06:55 | PC.NURSE ---
Dr. Mejia called at 0630, the patient was unable to void and bladder scan volume was 700ml. Order to straight cath one time. Bladder scan every shift if patient is unable to void. Straight catheterization done at 0650, removed 900ml of urine.
--- NOTE | 2020-12-02 07:27 | P.PN_ITS ---
Subjective Subjective Date Patient Seen: 12/02/20 Time Patient Seen: 07:27 Interval history: Patient did well overnight. Reviewed care with nursing staff. Had some urinary retention of 900 mL had an in and out catheter. Says his arm is looking and feeling a little bit better today. Eating well. Has some complaints of mild sciatica. Walks with a cane. Good appetite. Vital signs have been stable and he is afebrile. Exam Vital Signs (past 8 hours): - 12/02/20 00:28 12/02/20 00:44 12/02/20 03:34 Temperature 98.5 F 97.5 F L Pulse Rate 68 68 63 Respiratory Rate 14 12 Blood Pressure 122/66 122/63 125/77 Pulse Oximetry 96 96 12/02/20 03:59 Temperature Pulse Rate 63 Respiratory Rate Blood Pressure 125/77 Pulse Oximetry Oxygen Delivery Method Room Air Oxygen Flow Rate 0 Narrative Exam Narrative: Gen.: Alert recognizes me knows he is at [facility] complaining of difficulty with urination and did not like the Griffith catheter HEENT: pupils equal round and oral mucosa is moist Cardio: S1-S2 irrregular rate and rhythm systolic murmur appreciated. Respiratory: Lungs are clear to auscultation no wheezes or crackles normal respiratory effort. Abdomen: Soft nontender no rebound or guarding no liver spleen enlargement no appreciable hernias Extremities: no significant edema. Left arm so some bruising some redness and swelling compared to the right arm. There is some warmth to it. Has a black outlined over previous area of redness which is improved significantly. Objective Labs Result Diagrams: 12/02/20 05:02 12/01/20 12:15 Labs: Laboratory Results - last 24 hr 12/01/20 12/01/20 12/01/20 12:15 12:15 12:15 WBC 10.5 RBC 4.36 L Hgb 13.7 Hct 41.3 MCV 94.8 MCH 31.5 MCHC 33.2 RDW 14.4 Plt Count 149 L Neut % (Auto) 84.8 H Lymph % (Auto) 6.3 L [place] % (Auto) 8.2 Eos % (Auto) 0.4 L Baso % (Auto) 0.3 Neut # (Auto) 8900 H Lymph # (Auto) 700 L [place] # (Auto) 900 Eos # (Auto) 0 Baso # (Auto) 0 Sodium 137 Potassium 4.1 Chloride 101 Carbon Dioxide 28 BUN 23 H Creatinine 0.85 Estimated GFR > 60.0 BUN/Creatinine Ratio 27.1 H Glucose 78 L Lactate 1.5 Calcium 9.6 Total Bilirubin 0.8 AST 29 ALT 19 Alkaline Phosphatase 76 Total Protein 6.8 Albumin 4.3 Globulin 2.5 Albumin/Globulin Ratio 1.7 Procalcitonin SARS-CoV-2 (PCR) 12/01/20 12/01/20 12/02/20 12:15 13:41 05:02 WBC 7.6 RBC 3.87 L Hgb 12.2 L Hct 36.7 L MCV 94.9 MCH 31.5 MCHC 33.2 RDW 14.1 Plt Count 133 L Neut % (Auto) 76.1 H Lymph % (Auto) 12.1 L [place] % (Auto) 9.1 Eos % (Auto) 1.8 L Baso % (Auto) 0.9 Neut # (Auto) 5800 Lymph # (Auto) 900 L [place] # (Auto) 700 Eos # (Auto) 100 Baso # (Auto) 100 Sodium Potassium Chloride Carbon Dioxide BUN Creatinine Estimated GFR BUN/Creatinine Ratio Glucose Lactate Calcium Total Bilirubin AST ALT Alkaline Phosphatase Total Protein Albumin Globulin Albumin/Globulin Ratio Procalcitonin 0.25 SARS-CoV-2 (PCR) Negative [facility] Medical History Anxiety Aortic valve stenosis (1997) Chicken pox Chronic obstructive pulmonary disease (2007) 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) Coronary artery disease (1997) Coronary artery disease Depression (08/20/14) Depression Herpes Hyperlipidemia associated with type 2 diabetes mellitus Hypertension (1997) Hyperthyroidism Hypogonadism (2000) Hyponatremia (08/20/14) Kidney stones (1991) Memory loss 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 Father Heart attack Mother No problems noted. Social History marital status: household members: spouse Smoking Status: Former smoker alcohol intake: never substance use type: does not use Assessment & Plan Assessment and plan (1) Cellulitis of arm, left: Status: Acute Plan: Cellulitis of left upper extremity; patient's redness swelling is improved although still red and a little bit swollen. IV antibiotics seem to be working. Blood counts normal afebrile. Tylenol for pain. Recheck CBC CMP tomorrow. Acute urinary retention: 900 mL. In and out catheterization done this morning. Start patient on Flomax 0.4 mg a day. Monitor for urinary obstruction. Cardiac: Patient with hypertension pacemaker coronary artery disease valvular heart disease on chronic anticoagulation continue with metoprolol Plavix atorvastatin enalapril and metoprolol. COPD: Patient without acute exacerbation chronic stable state continue with Pulmicort and albuterol as needed. Trigeminal neuralgia: Stable continue with carbamazepine and duloxetine. Constipation: Continue with stool softeners Disposition and plan: Continue IV antibiotics 24 hours work with PT OT. Start Flomax. Work on discharge and home health at the time of discharge. Anticipate 24 hours Time Spent With Patient Critical Care time: I spent a total of [] minutes of critical care time on this patient's care today; this time is exclusive of procedural time. Quality VTE Deep Vein Thrombosis/Pulmonary Embolism Present on Admission: No
--- NOTE | 2020-12-02 07:50 | PC.NURSE ---
Addendum entered by Bre Anderson R.N. 12/02/20 15:19: Patient had yet to void on this shift, bladder scanned twice, 21cc and 41cc. Patient denies abdominal pain, abd is not distended or tender to touch. Patient has not been drinking water, only two cups of coffee this morning. Encouraged to drink water to which he replies he does not drink water. Call light in reach. Original Note: Patient resting in bed A/O x 2, denies pain. LUE erythema decreasing from previously drawn outline. Pulses equal bilaterally, patient does endorse weakness in the LUE. Denies chest pain, SOB, n/v dizziness or lightheadedness. Lungs CTA, on RA, HR regularly irregular, patient remains afebrile. BT active x 4. IV intact in RUE, saline locked. Patient reports no fall in the last 3 months. Bed alarm on, patient seems slightly forgetful. Call light in reach. Patient denies further needs.
[2020-12-02] MEDS: APIXABAN 5 MG TABLET 2.5 MG PO ×2 (08:17→20:36)
[2020-12-02] MEDS: CLOPIDOGREL 75 MG TABLET PO (08:19)
[2020-12-02] MEDS: DULOXETINE 20 MG CAPSULE 40 MG PO (08:19)
[2020-12-02] MEDS: carBAMazepine 200 MG TABLET PO ×2 (08:19→20:36)
[2020-12-02] MEDS: DOCUSATE 100 MG CAPSULE PO (08:19)
[2020-12-02] MEDS: CHOLECALCIFEROL (VITAMIN D3) 5,000 UNIT TABLET 5000 UNIT PO (08:19)
[2020-12-02] MEDS: ENALAPRIL 5 MG TABLET 10 MG PO ×2 (08:19→20:37)
[2020-12-02] MEDS: METOPROLOL ER 25 MG TABLET PO ×2 (08:21→20:36)
[2020-12-02] MEDS: TAMSULOSIN 0.4 MG CAPSULE PO (08:21)
[2020-12-02] MEDS: BUDESONIDE 0.5 MG/2 ML NEB INH ×2 (08:43→19:56)
[2020-12-02] MEDS: ALBUTEROL 2.5 MG/3 ML NEB (ADULT) INH ×4 (08:43→19:56)
--- NOTE | 2020-12-02 10:17 | PT.IIE ---
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) Coronary artery disease (1997) Coronary artery disease Depression (08/20/14) Depression Herpes Hyperlipidemia associated with type 2 diabetes mellitus Hypertension (1997) Hyperthyroidism Hypogonadism (2000) Hyponatremia (08/20/14) Kidney stones (1991) Memory loss Presence of 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 He 3/3 for A&O questions. He was able to accurately answer questions and engage in conversation. Mobility and Gait Art states he has SPC and 4WW at home. He states he prefers 4WW, but finds putting FWW into car challenging. He states he uses either SPC or 4WW for all ambulation. He states he has a high fear of falling and his last fall was 3 weeks ago when he was attempting to walk backwards from the sink. He denies other falls in the last year. Activities of Daily Living and IADL's Art states that he is indep for dressing, feeding, toileting, and other ADLs except for showering. He is afraid of falling in the shower, so he only uses a few times a week. Social History Household Members spouse Living Arrangements [facility] Facility Number of Floors (Floors) 3 or More Floors Home Environment Standard Height Toilet Home Equipment Four Wheel Walker,Straight Cane,Grab Bars Near Toilet, Grab Bars In Shower Employment Status Retired Additional Social History Comment Bed: flat, rolls to R side towards door. Floors: uses elevator, lives on second floor. 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 Social: lived in [place] since 1970s. Preferred name: Art. 's name: Sulema. Living: [facility]. M2 PT-IP Current Condition Start: 12/02/20 08:47 Freq: NEEDED Status: Active Protocol: Document 12/02/20 10:17 AW (Rec: 12/02/20 10:54 AW [id number]) Physical Therapy Current Condition Current Condition Evaluation Date 12/02/20 Treatment Diagnosis LUE cellulitis; impaired balance and gait Onset Date 11/26/20 M3 PT-IP Subjective Start: 12/02/20 08:47 Freq: NEEDED Status: Active Protocol: Document 12/02/20 10:17 AW (Rec: 12/02/20 10:54 AW [id number]) Subjective Physical Therapy Visit Type Type Initial Evaluation Visit Start Time 09:47 Visit Stop Time 10:17 Total Visit Minutes 30 Notes SPT Lucero was present and assisted with mobility. Number of PROGRAMS DIRECTOR Visits 0 Physical Therapy Visit Comments Patient Comments Pt is willing to participate with PT Patient Goals Return to [facility]. Therapy Pain Assessment Pain When Pain Assessed During Mobility Pain Present Pain Present Pain Reported Location Left Upper Arm Scale Used not quantified Pain Management Techniques Distraction,Modification of Treatment M4 PT-IP Mobility and Gait Start: 12/02/20 08:47 Freq: NEEDED Status: Active Protocol: Document 12/02/20 10:17 AW (Rec: 12/02/20 10:54 AW [id number]) PT-Bed Mobility Assessment Supine to Sit Supine to Sit Standby Assistance Sit to Supine Sit to Supine Standby Assistance Scooting Scooting to Edge of Bed Standby Assistance PT-Transfer Assessment Sit to and From Stand Sit to and from Stand Standby Assistance,Contact Guard Assistance,Use of Upper Extremities Equipment Transfer Assistive Device Gait Belt,Straight Cane,Front Wheeled Walker,4 Wheeled Walker Orthotic/Prosthetic Devices or Brace: No Transfers Transfer Destination Bed,Chair Transfer Technique Stand Step Pivot Transfer Ability Level of Assist Standby Assistance,Contact Guard Assistance Comments Mobility Comments Pt was sitting up in bed as PT and SPT arrived. He agreed to get up. Supine BP was 135/70 HR 62. He completed supine to sit SBA going to his right side as he does at home. He complained of LUE pain while scooting toward EOB. He stood from the bed and used SPC to steady himself CGA due to initial unsteadiness. He stood with wide CASSIE. He stepped away from the bed and was able to stand with WBOS ~20 seconds. He used support to achieve NBOS but could not maintain position without holding on to cane and/or chair arm. He transferred to the chair SBA. He did walking trials in the room with SPC, FWW, and 4WW - transferring back to the chair each time SBA. He then stood and used 4WW to ambulate in the halls a total of 100 feet SBA. He tended to walk with walker pushed too far forward and stated that's just how I walk in response to cues to bring the walker closer. On return to the room, pt sat on the chair. He then transferred back to the bed without AD SBA and back to supine SBA. VS were stable. Pt was left with call light and tray table in reach. Bed alarm was on. Gait Assessment Gait Gait Assistance Required: Standby Assistance,Contact Guard Assist Distance (Feet) 100 Assistive Devices Assistive Device Gait Belt,Straight Cane,Front Wheeled Walker,4 Wheeled Walker Orthotic/Prosthetic Devices or Brace: No Gait Deviations General Gait Pattern Decreased Stride Length, Decreased Feet Clearance, Flexed Trunk,Wide Based Gait Factors Limiting Gait Function Factors Limiting Gait Function Decreased Activity Tolerance, Decreased Strength,Pain,Poor Balance,Poor Safety Awareness Comments Gait Comments See mobility comments for details Stair Climbing Assessment Comments Stair Climbing Comments Not assessed. Pt uses elevator at [place] PT-Balance Assessment Sitting Balance and Reactions Static Sitting Balance Ability Normal Dynamic Sitting Balance Ability Good Standing Balance and Reactions Static Standing Balance Ability Fair Dynamic Standing Balance Ability Fair Device Used SPC, FWW, 4WW Balance Tests Romberg unable to maintain NBOS M5 PT-IP Objective Assessments Start: 12/02/20 08:47 Freq: NEEDED Status: Active Protocol: Document 12/02/20 10:17 AW (Rec: 12/02/20 10:54 AW [id number]) Orientation Orientation/Cognition Level of Alertness Alert Orientation Name,Year,Place,Situation Safety Awareness Decreased Safety Awareness Memory Description Short Term Impaired Gross Range of Motion Upper Extremity ROM Assessment Left Impaired Impairments Pt lacks full elbow flexion Lower Extremity ROM Assessment Within Functional Limits Strength Upper Extremity Strength Assessment Bilaterally Impaired Shoulder 4+/5 Elbow 4/5 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 Pt is in agreement. M7 PT-IP Assessment and Plan Start: 12/02/20 08:47 Freq: NEEDED Status: Active Protocol: Document 12/02/20 10:17 AW (Rec: 12/02/20 10:54 AW [id number]) PT Summary Assessment and Plan Potential Rehabilitation Potential Good Status of Condition at Evaluation Evolving Summary Impairments Pain,ROM,Strength,Balance,Gait ,Activity Tolerance Assessment Summary Maikol is an 80 yo man seen for PT evaluation with admitting diagnosis of LUE cellulitis. He lives at [facility] with his , Beth, and is modified independent at baseline with use of SPC or 4WW. He avoids showers due to fear of falling but denies more than one fall in the past one year. On evaluation, pt is limited by BLE weakness and impaired balance affecting his gait. He would benefit from continued acute PT to address gait and balance. He would also benefit from outpatient PT for same. Goals Bed Mobility Goal Independent Transfer Goal Independent,Four Wheeled Walker Gait Goal Independent,Four Wheel Walker Gait Distance 150 Days to Meet Goals 3 Frequency of Treatment Frequency Of Treatment Once a Day Treatment Plan Physical Therapy Treatment Plan Bed Mobility Training,Transfer Training,Gait Training, Therapeutic Exercise,Balance Retraining,Discharge Planning Precautions Other Precautions falls Recommendations To Nursing Amount of Assist Needed Standby Assistance,1 Person Assist Discharge Recommendations PT Discharge Recommendations Home with Assistance,Home Health,Outpatient PT Other Discharge Recommendations Home with outpt vs PT Transportation Needs at Discharge Private Vehicle
[2020-12-02] MEDS: cefTRIAXone 2,000 MG in SODIUM CHLORIDE 0.9% 100 ML 200 ML IV (11:36)
--- NOTE | 2020-12-02 14:46 | CM.DPC ---
DCP/Assessment: Reviewed chart. Patient is a 80yr old male [facility] with infected left arm. PCP is Dr. Howe. Primary payor is 1)[employer]. Reviewed chart. Met with patient this afternoon and explained CM/SW role. Patient seen by therapy and current recommendation is return home with outpatient follow up. Patient reports that he resides with his spouse at [facility] in [facility]. Patient does not anticipate any issue with returning home when medically stable. P: Home when stable. KJS Discharge Planning/Care Management CM Discharge Assessment Start: 12/02/20 14:32 Freq: Status: Active Protocol: Document 12/02/20 14:33 KJS (Rec: 12/02/20 14:46 KJS [id number]) Discharge Planning Assessment Assigned Cnc Supervisor BETTY Greco DPOA/Assigned Designee Name Sulema Higginbotham (spouse) # [phone] Advance Directives? Yes: POLST Advance Directives on File Yes History Provided By Patient,Medical Record Prior Living Arrangements [facility] Facility Household Members spouse Type of transporation used prior to Relies on Others admit Facility Name Admitted From: [facility] Willing to Return to Facility? Yes Independent with ADL's Yes Is patient alert and oriented? Yes DME Already Rented / Owned Cane Barriers to Discharge No Discharge Plan Home Transportation Arrangement Family to provide transport. Whiteboard Updated in Patient Room with Yes name and ext. # of Cnc Supervisor Review Status In Process Next Review Type Continued Stay Review
[2020-12-02] MEDS: ATORVASTATIN 20 MG TABLET 40 MG PO (20:36)
[2020-12-03 00:22] VITALS: BP 121/73; PULSE 66; RESP 24; TEMP 35.9; O2SAT 96
[2020-12-03 00:54] VITALS: BP 121/73; PULSE 66
[2020-12-03 01:35] VITALS: BP 121/73; PULSE 66
[2020-12-03] MEDS: LIDOCAINE 2% (GLYDO) 6 ML GEL TOP (02:36)
[2020-12-03 05:32] LABS: Add Manual Diff / Slide Review NO; Basophils Absolute Auto 0 /uL (0-100); Basophils Percent Auto 0.9 % (0-2); Eosinophils Absolute Auto 200 /uL (0-450); Eosinophils Percent Auto 3.8 % (2-4); Hemoglobin 12.2 g/dL (13.5-17.5); Lymphocytes Absolute Auto 800 /uL (1100-4500); Lymphocytes Percent Auto 14.3 % (25-40); Mean Corpuscular HGB Conc 34.1 % (30-36); Mean Corpuscular Hemoglobin 31.9 PG (26-34); Mean Corpuscular Volume 93.8 fL (80-100); Monocytes Absolute Auto 500 /uL (0-900); Monocytes Percent Auto 9.5 % (3-14); Neutrophils Absolute Auto 3900 /uL (1500-7000); Neutrophils Percent Auto 71.5 % (50-75); Platelet Count 131 X10^3/uL (150-400); Red Blood Cell Count 3.83 X10^6/uL (4.5-5.9); Red Cell Distribution Width 14.3 % (11.6-14.8); White Blood Cell Count 5.4 X10^3/uL (4.5-11.0)
[2020-12-03 05:38] LABS: BUN Creatinine Ratio 23.6 (6-22); Blood Urea Nitrogen 17 mg/dL (9-20); Calcium 8.8 mg/dL (8.4-10.2); Carbon Dioxide 26 mmol/L (22-32); Chloride 99 mmol/L (98-107); Estimated Glomerular Filt Rate > 60.0 mL/min (>60); Glucose 122 mg/dL (80-110); HEMOLYSIS < 15 (0-50); Potassium 4.1 mmol/L (3.4-5.1); Sodium 131 mmol/L (137-145)
--- NOTE | 2020-12-03 07:20 | PM.DS.1 ---
History of Present Illness History of Present Illness Chief complaint: infection in left arm Discharge Providers Provider Date of admission: 12/01/20 13:57 Discharge Date: 12/03/20 Primary care physician: Yash Howe MD Consults: 12/02/20 07:37 Consult to Physical Therapy Evaluate & Treat Comment: Physician Instructions: Evaluate and Treat Discharge provider: Yash Howe MD Summary Hospital Course Discharge Diagnosis: Left upper extremity cellulitis improved significantly during his hospital stay Chronic hyponatremia Coronary artery disease Chronic anticoagulation Hypertension Trigeminal neuralgia Hospital Course: Patient was admitted the hospital with a diagnosis left upper extremity cellulitis patient was admitted the hospital for treatment with IV antibiotics. During his hospital stay he received Rocephin 2 g IV Q 24 hours. Over the ensuing 3 days patient had improvement of his cellulitis significantly. During his hospital stay as course was complicated by acute urinary obstruction. Patient was treated with in and out Griffith catheter and started on Flomax. The time of discharge he was urinating freely without complication. His hospital stay vital signs were stable he was afebrile he is eating well. He is a little unsteady on his feet because of some arthritis and spinal stenosis which is not unusual he worked with Physical therapy during the hospital and he has a chronic baseline. He has a diagnosis of mild chronic hyponatremia. His sodium was a little bit low on discharge which is his normal range for him. Exam Vital Signs (past 8 hours): - 12/03/20 00:22 12/03/20 00:54 12/03/20 01:35 Temperature 96.7 F L Pulse Rate 66 66 66 Respiratory Rate 24 Blood Pressure 121/73 121/73 121/73 Pulse Oximetry 96 Oxygen Delivery Method Room Air Oxygen Flow Rate 0 Narrative Exam Narrative: Gen.: Alert good historian HEENT: NCAT PERRLA tympanic membranes are clear nares are patent oral mucosa is moist no tonsillar hypertrophy neck is supple without lymphadenopathy no thyroid enlargement. Cardio: S1-S2 regular rate and rhythm no murmurs appreciated. Respiratory: Lungs are clear to auscultation no wheezes or crackles normal respiratory effort. Abdomen: Soft nontender no rebound or guarding no liver spleen enlargement no appreciable hernias Extremities: Left extremity cellulitis improved some mild redness and swelling Neurologic: Grossly intact. Objective Labs Result Diagrams: 12/03/20 05:08 12/03/20 05:08 Labs: Laboratory Results - last 24 hr 10/19/21 10/19/21 05:08 05:08 WBC 5.4 RBC 3.83 L Hgb 12.2 L Hct 36.0 L MCV 93.8 MCH 31.9 MCHC 34.1 RDW 14.3 Plt Count 131 L Neut % (Auto) 71.5 Lymph % (Auto) 14.3 L [place] % (Auto) 9.5 Eos % (Auto) 3.8 Baso % (Auto) 0.9 Neut # (Auto) 3900 Lymph # (Auto) 800 L [place] # (Auto) 500 Eos # (Auto) 200 Baso # (Auto) 0 Sodium 131 L Potassium 4.1 Chloride 99 Carbon Dioxide 26 BUN 17 Creatinine 0.72 Estimated GFR > 60.0 BUN/Creatinine Ratio 23.6 H Glucose 122 H Calcium 8.8 PFSH Medical History Anxiety Aortic valve stenosis (1997) Chicken pox Chronic obstructive pulmonary disease (2007) 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) Coronary artery disease (1997) Coronary artery disease Depression (08/20/14) Depression Herpes Hyperlipidemia associated with type 2 diabetes mellitus Hypertension (1997) Hyperthyroidism Hypogonadism (2000) Hyponatremia (08/20/14) Kidney stones (1991) Memory loss 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 Father Heart attack Mother No problems noted. Social History marital status: household members: spouse Smoking Status: Former smoker alcohol intake: never substance use type: does not use Discharge Plan Discharge Plan Patient Disposition: Home Discharge orders & Medications Prescriptions: New cefdinir 300 mg capsule 300 mg PO BID Qty: 14 RF: 0 tamsulosin [Flomax] 0.4 mg capsule 0.4 mg PO BEDTIME Qty: 90 RF: 1 Continued acetaminophen 650 mg tablet extended release 1,300 mg PO Q8H PRN (Reason: Pain, Moderate) RF: 0 vitamin E (dl, acetate) 1,000 unit capsule 2,000 unit PO DAILY RF: 0 metoprolol succinate 25 mg cap,sprinkle,ER 24hr dose pack 25 mg PO BID RF: 0 melatonin 10 mg capsule 10 mg PO BEDTIME PRN (Reason: Insomnia) RF: 0 (DME) DISABLED PARKING PERMIT Qty: 1 RF: 0 cholecalciferol (vitamin D3) 5,000 unit capsule 5,000 unit PO DAILY RF: 0 Move [employer] Health 750 mg-100 mg- 1.65 mg-108 mg tablet 1 tab PO DAILY RF: 0 multivitamin capsule 1 cap PO DAILY RF: 0 omega-3 fatty acids [Fish Oil Concentrate] 1,000 mg capsule 1,000 mg PO DAILY RF: 0 [employer] 1.5 billion cell capsule PO RF: 0 turmeric 400 mg capsule 400 mg PO DAILY RF: 0 Citrucel Sugar Free powder 2 gram PO PRN PRN (Reason: Constipation) RF: 0 docusate sodium [Dulcolax Stool Softener (dss)] 100 mg capsule 100 mg PO DAILY PRN (Reason: Constipation) RF: 0 fluticasone propion-salmeterol [Wixela Inhub] 250-50 mcg/dose blister with device See Rx Instructions .ROUTE .COMPLEX Qty: 60 RF: 11 atorvastatin 40 mg tablet 40 mg PO HS Qty: 90 RF: 3 enalapril maleate [Vasotec] 10 mg tablet 10 mg PO BID Qty: 60 RF: 11 clopidogrel [Plavix] 75 mg tablet 75 mg PO QDAY Qty: 90 RF: 3 duloxetine 20 mg capsule,delayed release(DR/EC) 40 mg PO DAILY Qty: 60 RF: 11 carbamazepine 200 mg tablet 200 mg PO BID Qty: 180 RF: 1 Follow up/Referrals: Yash Howe MD [Primary Care Provider] - Visit Report/Discharge Packet Visit Report Forms: Patient Portal/API, Stroke Signs & Symptoms Discharge Data Primary Care Provider: Yash Howe Attending Provider: Yash Howe Admit Date/Time: 12/01/20 13:57 Quality VTE Deep Vein Thrombosis/Pulmonary Embolism Present on Admission: No
[2020-12-03 07:25] VITALS: BP 147/83; PULSE 65; RESP 16; TEMP 36.2; O2SAT 98
--- NOTE | 2020-12-03 07:59 | PC.NURSE ---
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
[2020-12-03] MEDS: ALBUTEROL 2.5 MG/3 ML NEB (ADULT) INH (08:37)
[2020-12-03] MEDS: BUDESONIDE 0.5 MG/2 ML NEB INH (08:38)
[2020-12-03 08:40] VITALS: PULSE 90; RESP 14; O2SAT 98
[2020-12-03] MEDS: TAMSULOSIN 0.4 MG CAPSULE PO (09:03)
[2020-12-03] MEDS: APIXABAN 5 MG TABLET 2.5 MG PO (09:03)
[2020-12-03] MEDS: CLOPIDOGREL 75 MG TABLET PO (09:04)
[2020-12-03] MEDS: CHOLECALCIFEROL (VITAMIN D3) 5,000 UNIT TABLET 5000 UNIT PO (09:04)
[2020-12-03] MEDS: METOPROLOL ER 25 MG TABLET PO (09:04)
[2020-12-03] MEDS: DOCUSATE 100 MG CAPSULE PO (09:04)
[2020-12-03] MEDS: DULOXETINE 20 MG CAPSULE 40 MG PO (09:04)
[2020-12-03] MEDS: ENALAPRIL 5 MG TABLET 10 MG PO (09:04)
[2020-12-03] MEDS: carBAMazepine 200 MG TABLET PO (09:04)
--- NOTE | 2020-12-03 09:19 | CM.DPC ---
DCP/continued: Reviewed chart. Per provider patient medically stable to d/c home with po abx. Met with patient whom is up independently in room. Patient reports that he is happy to go home and that his spouse will pick him up. Spoke with RN/Lisbet and she will call spouse when ready. In addition, placed courtesy call to Brii at [facility] notifying her of patient's return. P: Return home today. [facility] in [facility] living. RODRI
--- NOTE | 2020-12-03 10:09 | PT.IPTN ---
Current Diagnoses Cellulitis of left upper limb (12/01/20) Physical Therapy Treatment Note M2 PT-IP Current Condition Start: 12/02/20 08:47 Freq: NEEDED Status: Discharge Protocol: Document 12/02/20 10:17 AW (Rec: 12/02/20 10:54 AW [id number]) Physical Therapy Current Condition Current Condition Evaluation Date 12/02/20 Treatment Diagnosis LUE cellulitis; impaired balance and gait Onset Date 11/26/20 M3 PT-IP Subjective Start: 12/02/20 08:47 Freq: NEEDED Status: Discharge Protocol: Document 12/03/20 10:00 KS (Rec: 12/03/20 11:44 KS [id number]) Subjective Physical Therapy Visit Type Type Treatment Note Visit Start Time 10:00 Visit Stop Time 10:09 Total Visit Minutes 9 Number of LEGAL SUPPORT ANALYST Visits 1 Physical Therapy Visit Comments Patient Comments Pt is willing to participate with PT, but not agreeable to ambulate Patient Goals Return to [facility]. M4 PT-IP Mobility and Gait Start: 12/02/20 08:47 Freq: NEEDED Status: Discharge Protocol: Document 12/03/20 10:00 KS (Rec: 12/03/20 11:44 KS [id number]) PT-Transfer Assessment Comments Mobility Comments Pt in bed upon arrival from therapy, pt not agreeable to partcipating in bed mobility, transfers, or ambulation, but agreeable to LE strengthening exercises in bed. Pt completed 1x10 bilateral ankle pumps, quad sets, glute sets, ad SLR to increased strength and stability. Encouraged pt to seek outpatient therapy to improve balance. Gait Assessment Comments Gait Comments Not agreeable to ambulation this AM M5 PT-IP Objective Assessments Start: 12/02/20 08:47 Freq: NEEDED Status: Discharge Protocol: Document 12/02/20 10:17 AW (Rec: 12/02/20 10:54 AW [id number]) Orientation Orientation/Cognition Level of Alertness Alert Orientation Name,Year,Place,Situation Safety Awareness Decreased Safety Awareness Memory Description Short Term Impaired Gross Range of Motion Upper Extremity ROM Assessment Left Impaired Impairments Pt lacks full elbow flexion Lower Extremity ROM Assessment Within Functional Limits Strength Upper Extremity Strength Assessment Bilaterally Impaired Shoulder 4+/5 Elbow 4/5 Hand weak transmission superintendent bilaterally Lower Extremity Strength Assessment Bilaterally Impaired Hip 4/5 Knee 4+/5 extension; 4/5 flexion Ankle R 4+/5; L 4-/5 Sensation Assessment Sensation Gross Sensation WNL Muscle Tone Muscle Tone WNL Yes M6 PT-IP Treatment Start: 12/02/20 08:47 Freq: NEEDED Status: Discharge Protocol: Document 12/03/20 10:00 KS (Rec: 12/03/20 11:44 KS [id number]) Physical Therapy Treatment Exercises Exercises Ankle Pumps,Gluteal Sets,Quad Sets,Straight Leg Raises Education Education Provided Safety Other Treatments Other Treatment Performed Educated pt on PT plan of care , recommendation for continued use of assistive device. Pt is in agreement. M7 PT-IP Assessment and Plan Start: 12/02/20 08:47 Freq: NEEDED Status: Discharge Protocol: Document 12/03/20 10:00 KS (Rec: 12/03/20 11:44 KS [id number]) PT Summary Assessment and Plan Potential Rehabilitation Potential Good Status of Condition at Evaluation Evolving Summary Impairments Pain,ROM,Strength,Balance,Gait ,Activity Tolerance Assessment Summary Pt anticipating d/c and noyl agreeable to exercises in bed this AM. Pt tolerated 1x10 bilateral ankle pumps, quad sets, glute sets, and SLR. Explained importance and strength, stability, and balance exercises to pt and encouraged pt to seek outpatient therapy to improve balance and gait. Discussed safety and us eof AD at home fr patient, pt agrees to use 4WW and SPC depending on distance. Goals Bed Mobility Goal Independent Transfer Goal Independent,Four Wheeled Walker Gait Goal Independent,Four Wheel Walker Gait Distance 150 Days to Meet Goals 3 Frequency of Treatment Frequency Of Treatment Once a Day Treatment Plan Physical Therapy Treatment Plan Bed Mobility Training,Transfer Training,Gait Training, Therapeutic Exercise,Balance Retraining,Discharge Planning Precautions Other Precautions falls Recommendations To Nursing Amount of Assist Needed Standby Assistance,1 Person Assist Discharge Recommendations PT Discharge Recommendations Home with Assistance,Home Health,Outpatient PT Other Discharge Recommendations Home with outpt vs PT Transportation Needs at Discharge Private Vehicle
--- NOTE | 2020-12-03 11:30 | PC.NURSE ---
Went over dc instructions and medications with patient and patients spouse. Questions answered. Patient will call to schedule follow up appt. Patient taken via wc to vehicle driven by spouse. Patient had all belongings.
== END 2020-12-03 11:31 | disposition home or self-care (01) ==
LOC: ED 13:56 → AC 16:26
PROVIDERS: Admitting Provider Family Medicine; Emergency Provider Emergency Medicine; PCP Family Medicine; Referring Provider Emergency Medicine; Visit Provider Family Medicine
DX: L03.114 Cellulitis of left upper limb (principal); G50.0 Trigeminal neuralgia; Z95.0 Presence of cardiac pacemaker; I25.10 Atherosclerotic heart disease of native coronary artery without angina pectoris; R41.81 Age-related cognitive decline; G47.33 Obstructive sleep apnea (adult) (pediatric); I10 Essential (primary) hypertension; K59.00 Constipation, unspecified; Z79.01 Long term (current) use of anticoagulants; E87.1 Hypo-osmolality and hyponatremia; Z20.822 Contact with and (suspected) exposure to COVID-19
CPT/HCPCS: 36415; 80048; 80053; 83605; 84145; 85025; 87040; 87635; 93005; 93010; 94640; 96365; 96366; 96375; 97110; 97116; 97162; 99217; 99219; 99224; 99284; C9803; G0378; C9113; J0696; J2405; J7613

== ENCOUNTER 2020-12-27 15:57 | Emergency (ER) | payer MEDICARE, SELFPAY ==
[2020-12-01 17:23] VITALS: BMI 23.5
--- NOTE | 2020-12-27 | DI.CT.S_ITS ---
PROCEDURE: CT STROKE INDICATIONS: code stroke TECHNIQUE: Noncontrast 4.5 mm thick angled axial sections acquired from the foramen magnum to the vertex, with coronal reformats. For radiation dose reduction, the following was used: automated exposure control, adjustment of mA and/or kV according to patient size. COMPARISON: None. FINDINGS: Image quality: Excellent. CSF spaces: Basal cisterns are patent. No extra-axial fluid collections. The ventricles are symmetric in size and shape. Brain: No intracranial bleeds or masses. There is cerebral volume loss for age, with resultant ventricular and sulcal prominence. There are periventricular and deep white matter chronic small vessel ischemic changes. There is intracranial internal carotid artery atherosclerosis. Skull and face: Calvarium and visualized facial bones appear intact, without suspicious lesions. Sinuses: Visualized sinuses and mastoids are clear. IMPRESSION: 1. No acute intracranial abnormality. 2. 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 Findings were discussed with Dr. Worthy at 4:14 p.m. On 12/27/2020. This study fulfills neurological imaging criteria for inclusion or exclusion of acute stroke therapies based on available published neurological guidelines. Dictated by: Isaac Richard M.D. on 12/27/2020 at 16:08 Approved by: Isaac Richard M.D. on 12/30/2020 at 12:36
[2020-12-27 16:00] VITALS: BP 149/96; PULSE 90; RESP 19; TEMP 36.8; O2SAT 97; BMI 25.2
[2020-12-27 16:08] VITALS: BP 149/96; PULSE 78; RESP 22; O2SAT 97
[2020-12-27 16:12] VITALS: PULSE 78; RESP 14; O2SAT 95
--- NOTE | 2020-12-27 16:21 | DI.CT.S_ITS ---
PROCEDURE: CT ANGIO HEAD AND NECK INDICATIONS: Acute stroke. Possible CVA. TECHNIQUE: After the administration of intravenous contrast, 1 mm thick sections acquired from the aortic arch through the [place] of Alanis. Post-contrast 4.5 mm thick sections then re-acquired from the foramen magnum to the vertex. 3-dimensional aqlhjxd-[id number]-uxrzgzznrr (MIP) and/or volume rendering reformats were acquired of the central intracranial vasculature and neck separately. COMPARISON: [facility], CT, CT STROKE, 12/27/2020, 16:01. FINDINGS: Image quality: Excellent. BRAIN: CSF spaces: Ventricles are normal in size and shape. Basal cisterns are patent. No extra-axial fluid collections. Brain: No midline shift. No intracranial bleeds or masses. Diffuse cerebral and cerebellar cortical atrophy and moderate periventricular and deep white matter chronic small vessel ischemic changes are again seen. Horn-white matter interface appears intact. No area of abnormal contrast enhancement is noted. Skull and face: Calvarium and facial bones appear intact, without suspicious lesions. Orbits appear normal. Sinuses: Sinuses and mastoids are clear. HEAD CT ANGIOGRAPHY: Anterior circulation: Moderate amount of atherosclerotic calcifications seen in bilateral distal intracranial portion of internal carotid arteries with less than 50 percent stenosis slightly worse on the right side. The flow within the paired anterior cerebral arteries is normal and symmetric. The flow within the middle cerebral arteries is normal and symmetric. The anterior communicating artery is seen. No aneurysms are seen. Posterior circulation: Visualized portions of the vertebral arteries demonstrate normal caliber, and join to form a normal appearing basilar artery. Flow within the posterior cerebral arteries is normal and symmetric. No aneurysms are seen. NECK CT ANGIOGRAPHY: Carotid system: The great vessels demonstrate a conventional anatomy as they arise from the aortic arch. The origins of the common carotid arteries appear patent. The common carotid arteries demonstrate normal caliber and courses. Moderate amount of atherosclerotic calcifications are seen in distal right common carotid artery and proximal right internal and external carotid arteries with less than 50 percent stenosis. More distal bilateral internal carotid arteries demonstrate normal calibers and courses. Posterior circulation: The origins of the vertebral arteries both appear widely patent. The more superior extracranial portions of both vertebral arteries also demonstrate normal courses and calibers. They join to form a normal appearing basilar artery. Soft tissues: Visualized neck soft tissues demonstrate no suspicious abnormalities. Bones: No suspicious bony lesions. Visualized cervical spine appears normally aligned. IMPRESSION: 1. No CT evidence of acute intracranial pathology. No area of abnormal intracranial enhancement. 2. Moderate amount of atherosclerotic disease involving distal intracranial portion of bilateral internal carotid arteries with less than 50 percent stenosis. No hemodynamically significant stenosis is seen in rest of the intracranial circulation. 3. Moderate atherosclerotic disease involving distal right common carotid artery and proximal right internal and external carotid arteries with less than 50 percent stenosis. No significant stenosis is seen in left neck arteries. Any quantitative measurements of stenosis were performed using NASCET criteria. Dictated by: Antonio Harrell M.D. on 12/27/2020 at 17:07 Approved by: Antonio Harrell M.D. on 12/27/2020 at 17:13
--- NOTE | 2020-12-27 16:23 | ED_ITS ---
HPI - Neuro Symptoms/Deficit General Chief Complaint: Neuro Symptoms/Deficit Stated Complaint: Stroke Time Seen by Provider: 12/27/20 16:20 Source: patient Mode of arrival: EMS History of Present Illness HPI Narrative: The patient lives in [facility] [place]. While eating dinner he apparently became acutely confused. Paramedics report confusion, possible dysarthria. He has no visual changes, no focal weakness or numbness. His baseline is he is not confused. There is no obviously, apparent illness. He has no chest pain, dyspnea, or difficulty moving about. He has mild cognitive dysfunction. He stumbles on date questions, he tells me he does he would not routinely be able to identify the date. He answers all other orientation questions appropriately. The patient has a pacemaker. He is anticoagulated. He has no palpitations or chest discomfort. On Anticoagulants: Yes (Eliquis) Related Data Home Medications Medication Instructions Recorded Confirmed Lactobacills gasseri-Bifidobac cap PO cap 07/08/18 11/29/20 bifidum,longum 1.5 billion cell capsule (Southern [employer]) cholecalciferol (vitamin D3) 125 5,000 unit PO DAILY 07/08/18 12/01/20 mcg (5,000 unit) capsule docusate sodium 100 mg capsule 100 mg PO DAILY PRN 07/08/18 12/01/20 (Dulcolax Stool Softener (docusate)) glucosam 750 mg-chondroi 100 1 tab PO DAILY tab 07/08/18 12/01/20 mg-hyalur 1.65 mg-CF borate 108 mg tablet (Cyan Optics) methylcellulose (laxative) 2 gram PO PRN PRN 07/08/18 12/01/20 (Citrucel Sugar Free) multivitamin 1 cap PO DAILY 07/08/18 12/01/20 omega-3 fatty acids 1,000 mg 1,000 mg PO DAILY 07/08/18 12/01/20 capsule (Fish Oil Concentrate) turmeric 400 mg capsule 400 mg PO DAILY cap 07/08/18 12/01/20 vitamin E (dl, acetate) 450 mg 2,000 unit PO DAILY cap 09/07/18 12/01/20 (1,000 unit) capsule acetaminophen 650 mg 1,300 mg PO Q8H PRN 10/05/18 12/01/20 tablet,extended release metoprolol succinate 25 mg capsule 25 mg PO BID each 11/02/18 12/01/20 sprinkle, ext. release 24 hr melatonin 10 mg capsule 10 mg PO BEDTIME PRN 01/24/20 12/01/20 apixaban 2.5 mg tablet (Eliquis) 2.5 mg PO BID 12/09/20 12/09/20 saw palm 160 mg-vit E 100 1 tab PO .BID tab 12/09/20 12/09/20 unit-selen 100 azv-wyjp-dznxst-pygeum tablet (Prostate Health) Previous Rx's Medication Instructions Recorded DISABLED PARKING PERMIT #1 ea 07/08/18 atorvastatin 40 mg tablet 40 mg PO HS #90 tab 07/13/18 enalapril maleate 10 mg tablet 10 mg PO BID #60 tab 10/03/18 (Vasotec) clopidogrel 75 mg tablet (Plavix) 75 mg PO QDAY #90 tab 02/23/20 duloxetine 20 mg capsule,delayed 40 mg PO DAILY #60 cap 05/22/20 release fluticasone 250 mcg-salmeterol 50 See Rx Instructions .ROUTE 06/18/20 mcg/dose blistr powdr for .COMPLEX #60 blister inhalation (Wixela Inhub) carbamazepine 200 mg tablet 200 mg PO BID #180 tab 09/30/20 cefdinir 300 mg capsule 300 mg PO BID #14 cap 12/03/20 tamsulosin 0.4 mg capsule (Flomax) 0.4 mg PO BEDTIME #90 cap 12/03/20 Allergies Allergy/AdvReac Type Severity Reaction Status Date / Time No Known Drug Allergies Allergy Verified 12/27/20 16:16 Review of Systems Hematologic/Lymphatic On Anticoagulants: Yes (Eliquis) 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) Coronary artery disease (1997) Coronary artery disease Depression (08/20/14) Depression Herpes Hyperlipidemia associated with type 2 diabetes mellitus Hypertension (1997) Hyperthyroidism Hypogonadism (2000) Hyponatremia (08/20/14) Kidney stones (1991) Memory loss 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 Father Heart attack Mother No problems noted. Social History marital status: household members: spouse Smoking Status: Former smoker alcohol intake: never substance use type: does not use Smoking Status: Former smoker Substance Use Type: does not use Exam Initial Vital Signs Initial Vital Signs: Vital Signs Temperature 98.2 F 12/27/20 16:00 Pulse Rate 90 12/27/20 16:00 Respiratory Rate 19 12/27/20 16:00 Blood Pressure 149/96 H 12/27/20 16:00 Pulse Oximetry 97 12/27/20 16:00 Scores NIH Stroke Scale Level of Conciousness: Alert, keenly responsive Ask month/age: Answers one question correctly, intubated follow commands Open/close eyes, close hand: Performs both tasks correctly Best gaze horizontal: Normal Visual up: Partial hemianopia Facial palsy: Minor paralysis, flattened nasolabial fold, asymmetry on smiling Left arm drift: No drift for full 10 sec Right arm drift: No drift for full 10 sec Left leg drift: No drift for full 5 sec Right leg drift: No drift for full 5 sec Limb ataxia: Absent Sensory on face/arms/legs: Normal, no sensory loss Best language: No aphasia, normal Dysarthria: Mild to mod,some slurring Extinction or inattention: No abnormality Total NIH Stroke scale score: 4 Course Course Course Narrative: The patient has improved since arrival to the ER. It is noted he is anticoagulated with apixaban, and Plavix. A single dose of aspirin was given after a cleared from the initial CT. The patient still has issues with the date, but he is clearly oriented. We discussed admission. He declines. I informed him of the risk of a 2nd stroke or large stroke. Still declines admission. He is oriented and capable of decision making. Dr. Howe is his PCM. Dr. Howe was informed of the patient's decision. The patient should contact Dr. Howe Wednesday to arrange follow-up. Orders Ordered: ED Orders 12/27/20 16:00 Basic Metabolic Panel Stat Complete Blood Count AUTO DIFF Stat Prothrombin Time INR Stat 12/27/20 16:21 CT angio head and neck Stat EKG-12 Lead Stat 12/27/20 17:24 COVID19 - ADMIT ([employer] swab/PCR) Stat 12/27/20 17:30 Urine Drug Screen, Rapid Stat Sodium Chloride (Normal Saline 0.9%) 1,000 mls @ 150 mls/hr IV CONT KELVIN Last Admin: 12/27/20 16:31 Dose: 150 mls/hr Documented by: JR Discontinued Medications Aspirin (Aspirin 81 Mg Chew Tab) 324 mg PO NOW ONE Stop: 12/27/20 16:23 Last Admin: 12/27/20 16:32 Dose: 324 mg Documented by: JR Aspirin (Aspirin 81 Mg Chew Tab) 324 mg PO NOW ONE Stop: 12/27/20 16:21 Last Admin: 12/27/20 16:24 Dose: Not Given Documented by: JR Vital Signs Vital signs: Vital Signs - 8 hr 12/27/20 16:00 12/27/20 16:08 12/27/20 16:12 Temperature 98.2 F Pulse Rate 90 78 78 Respiratory Rate 19 22 14 Blood Pressure 149/96 H 149/96 H Pulse Oximetry 97 97 12/27/20 16:31 12/27/20 17:08 12/27/20 17:31 Temperature Pulse Rate 74 76 74 Respiratory Rate 20 18 18 Blood Pressure 138/65 157/65 H 144/72 H Pulse Oximetry 95 97 96 MDM - Neuro Symptoms/Deficit Lab Data Result diagrams: 12/27/20 16:00 12/27/20 16:00 Labs: Lab Results 12/27/20 12/27/20 12/27/20 Range/Units 16:00 16:00 16:00 WBC 5.2 (4.5-11.0) X10^3/uL RBC 4.35 L (4.5-5.9) X10^6/uL Hgb 13.9 (13.5-17.5) g/dL Hct 41.5 (41-53) % MCV 95.2 (80-100) fL MCH 31.9 (26-34) PG MCHC 33.5 (30-36) % RDW 14.3 (11.6-14.8) % Plt Count 121 L (150-400) X10^3/uL Neut % (Auto) 63.2 (50-75) % Lymph % (Auto) 21.5 L (25-40) % [place] % (Auto) 10.7 (3-14) % Eos % (Auto) 3.5 (2-4) % Baso % (Auto) 1.1 (0-2) % Neut # (Auto) 3300 (8361-5042) /uL Lymph # (Auto) 1100 (9543-8300) /uL [place] # (Auto) 600 (0-900) /uL Eos # (Auto) 200 (0-450) /uL Baso # (Auto) 100 (0-100) /uL PT 14.0 H (10.1-12.7) SECONDS INR 1.3 (0.9-1.3) Sodium 133 L (137-145) mmol/L Potassium 4.1 (3.4-5.1) mmol/L Chloride 100 (98-107) mmol/L Carbon Dioxide 25 (22-32) mmol/L BUN 13 (9-20) mg/dL Creatinine 0.88 (0.66-1.25) mg/dL Estimated GFR > 60.0 (>60) mL/min BUN/Creatinine Ratio 14.8 (6-22) Glucose 108 (80-110) mg/dL Calcium 9.2 (8.4-10.2) mg/dL U Opiates 300ng/mL cut (Negative) Ur Oxycodone Screen (Negative) Urine Methadone Screen (Negative) Ur Barbiturates Screen (Negative) U Tricyclic Antidepress (Negative) Ur Phencyclidine Scrn (Negative) Ur Amphetamines Screen (Negative) U Methamphetamines Scrn (Negative) Ur MDMA Scrn (Ecstasy) (Negative) U Benzodiazepines Scrn (Negative) Urine Cocaine Screen (Negative) U Marijuana (THC) Screen (Negative) 12/27/20 Range/Units 17:30 WBC (4.5-11.0) X10^3/uL RBC (4.5-5.9) X10^6/uL Hgb (13.5-17.5) g/dL Hct (41-53) % MCV (80-100) fL MCH (26-34) PG MCHC (30-36) % RDW (11.6-14.8) % Plt Count (150-400) X10^3/uL Neut % (Auto) (50-75) % Lymph % (Auto) (25-40) % [place] % (Auto) (3-14) % Eos % (Auto) (2-4) % Baso % (Auto) (0-2) % Neut # (Auto) (1413-4360) /uL Lymph # (Auto) (7500-4385) /uL [place] # (Auto) (0-900) /uL Eos # (Auto) (0-450) /uL Baso # (Auto) (0-100) /uL PT (10.1-12.7) SECONDS INR (0.9-1.3) Sodium (137-145) mmol/L Potassium (3.4-5.1) mmol/L Chloride (98-107) mmol/L Carbon Dioxide (22-32) mmol/L BUN (9-20) mg/dL Creatinine (0.66-1.25) mg/dL Estimated GFR (>60) mL/min BUN/Creatinine Ratio (6-22) Glucose (80-110) mg/dL Calcium (8.4-10.2) mg/dL U Opiates 300ng/mL cut Negative (Negative) Ur Oxycodone Screen Negative (Negative) Urine Methadone Screen Negative (Negative) Ur Barbiturates Screen Negative (Negative) U Tricyclic Antidepress Negative (Negative) Ur Phencyclidine Scrn Negative (Negative) Ur Amphetamines Screen Negative (Negative) U Methamphetamines Scrn Negative (Negative) Ur MDMA Scrn (Ecstasy) Negative (Negative) U Benzodiazepines Scrn Negative (Negative) Urine Cocaine Screen Negative (Negative) U Marijuana (THC) Screen Negative (Negative) Urine Dip Bedside Urine Glucose Negative Bedside Urine Bilirubin - Negative Bedside Urine Ketone - Negative Urine Specific [place] 1.015 Bedside Urine Occult Blood - Negative Bedside Urine pH 6.0 Bedside Urine Protein - Negative Bedside Urine Urobilinogen 0.2 Bedside Urine Nitrite - Negative Bedside Urine Leukocytes - Negative Esterase Imaging Data CT scan - head: Radiologist's Impression: Verbal report by radiologist as: Atherosclerotic changes, no acute findings. CTA head and neck:: Radiologist's Impression: Launch?Image [address] [address] [address] Scan Report Signed Patient: Maikol Higginbotham V MR#: [id number] : 1940 Acct:[id number] Age/Sex: 80 / M Date of Service: 12/27/20 Loc: ED Accession Number: [id number] ?? Procedure: CT angio head and neck Ordering Provider: Ricardo Worthy MD PROCEDURE:? CT ANGIO HEAD AND NECK ? INDICATIONS:? Acute stroke.? Possible CVA. ? TECHNIQUE:? After the administration of intravenous contrast, 1 mm thick sections acquired from the aortic arch through the [place] of Alanis.? Post-contrast 4.5 mm thick sections then re-acquired from the foramen magnum to the vertex.? 3-dimensional dbzgrrw-sjzotltnm-hhqlcgnegi (MIP) and/or volume rendering reformats were acquired of the central intracranial vasculature and neck separately. ? COMPARISON:? [facility], CT, CT STROKE, 12/27/2020, 16:01. ? FINDINGS:? Image quality:? Excellent.? ? BRAIN:? CSF spaces:? Ventricles are normal in size and shape.? Basal cisterns are patent.? No extra-axial fluid collections.? ? Brain:? No midline shift.? No intracranial bleeds or masses.? Diffuse cerebral and cerebellar cortical atrophy and moderate periventricular and deep white matter chronic small vessel ischemic changes are again seen.? Horn-white matter interface appears intact.? No area of abnormal contrast enhancement is noted. ? Skull and face:? Calvarium and facial bones appear intact, without suspicious lesions.? Orbits appear normal.? ? Sinuses:? Sinuses and mastoids are clear.? ? HEAD CT ANGIOGRAPHY:? Anterior circulation:? Moderate amount of atherosclerotic calcifications seen in bilateral distal intracranial portion of internal carotid arteries with less than 50 percent stenosis slightly worse on the right side.? The flow within the paired anterior cerebral arteries is normal and symmetric.? The flow within the middle cerebral arteries is normal and symmetric.? The anterior communicating artery is seen.? No aneurysms are seen.? ? Posterior circulation:? Visualized portions of the vertebral arteries demonstrate normal caliber, and join to form a normal appearing basilar artery.? Flow within the posterior cerebral arteries is normal and symmetric.? No aneurysms are seen.? ? NECK CT ANGIOGRAPHY:? Carotid system:? The great vessels demonstrate a conventional anatomy as they arise from the aortic arch.? The origins of the common carotid arteries appear patent.? The common carotid arteries demonstrate normal caliber and courses.? Moderate amount of atherosclerotic calcifications are seen in distal right common carotid artery and proximal right internal and external carotid arteries with less than 50 percent stenosis. ?More distal bilateral internal carotid arteries demonstrate normal calibers and courses. ? ? Posterior circulation:? The origins of the vertebral arteries both appear widely patent.? The more superior extracranial portions of both vertebral arteries also demonstrate normal courses and calibers.? They join to form a normal appearing basilar artery.? ? Soft tissues:? Visualized neck soft tissues demonstrate no suspicious abnormalities.? ? Bones:? No suspicious bony lesions.? Visualized cervical spine appears normally aligned.? IMPRESSION:? 1. No CT evidence of acute intracranial pathology.? No area of abnormal intracranial enhancement. 2. Moderate amount of atherosclerotic disease involving distal intracranial portion of bilateral internal carotid arteries with less than 50 percent stenosis.? No hemodynamically significant stenosis is seen in rest of the intracranial circula tion. 3.? Moderate atherosclerotic disease involving distal right common carotid artery and proximal right internal and external carotid arteries with less than 50 percent stenosis. ?No significant stenosis is seen in left neck arteries.? ? Any quantitative measurements of stenosis were performed using NASCET criteria.? ? ? Dictated by: Antonio aHrrell M.D. on 12/27/2020 at 17:07 ? ? Approved by: Antonio Harrell M.D. on 12/27/2020 at 17:13 ? ECG Data Attestation: I personally reviewed and interpreted this ECG as follows: (Normal sinus rhythm. PVCs. Normal intervals. No ST T wave changes.) Discharge Plan Departure Patient Disposition: Left Against Medical Advice Clinical Impression: Transient ischemic attack Instructions: DI for Transient Ischemic Attack Activity Restrictions/Additional Instructions: Continue your current medications. Contacted Dr. Howe Wednesday morning to arrange follow-up with him in clinic. Return here if symptoms worsen. Prescriptions: No Action acetaminophen 650 mg tablet extended release 1,300 mg PO Q8H PRN (Reason: Pain, Moderate) RF: 0 vitamin E (dl, acetate) 1,000 unit capsule 2,000 unit PO DAILY RF: 0 metoprolol succinate 25 mg cap,sprinkle,ER 24hr dose pack 25 mg PO BID RF: 0 melatonin 10 mg capsule 10 mg PO BEDTIME PRN (Reason: Insomnia) RF: 0 Eliquis 2.5 mg tablet 2.5 mg PO BID RF: 0 Prostate Health 160-100-100 mg-unit-mcg tablet 1 tab PO .BID RF: 0 (DME) DISABLED PARKING PERMIT Qty: 1 RF: 0 cholecalciferol (vitamin D3) 5,000 unit capsule 5,000 unit PO DAILY RF: 0 [employer] [facility] 750 mg-100 mg- 1.65 mg-108 mg tablet 1 tab PO DAILY RF: 0 multivitamin capsule 1 cap PO DAILY RF: 0 omega-3 fatty acids [Fish Oil Concentrate] 1,000 mg capsule 1,000 mg PO DAILY RF: 0 [employer] [facility] 1.5 billion cell capsule PO RF: 0 turmeric 400 mg capsule 400 mg PO DAILY RF: 0 Citrucel Sugar Free powder 2 gram PO PRN PRN (Reason: Constipation) RF: 0 docusate sodium [Dulcolax Stool Softener (dss)] 100 mg capsule 100 mg PO DAILY PRN (Reason: Constipation) RF: 0 fluticasone propion-salmeterol [Wixela Inhub] 250-50 mcg/dose blister with device See Rx Instructions .ROUTE .COMPLEX Qty: 60 RF: 11 atorvastatin 40 mg tablet 40 mg PO HS Qty: 90 RF: 3 enalapril maleate [Vasotec] 10 mg tablet 10 mg PO BID Qty: 60 RF: 11 clopidogrel [Plavix] 75 mg tablet 75 mg PO QDAY Qty: 90 RF: 3 duloxetine 20 mg capsule,delayed release(DR/EC) 40 mg PO DAILY Qty: 60 RF: 11 carbamazepine 200 mg tablet 200 mg PO BID Qty: 180 RF: 1 cefdinir 300 mg capsule 300 mg PO BID Qty: 14 RF: 0 tamsulosin [Flomax] 0.4 mg capsule 0.4 mg PO BEDTIME Qty: 90 RF: 1 Referrals: Yash Howe MD [Primary Care Provider] - Stand Alone Forms: Against Medical Advice
[2020-12-27 16:31] VITALS: BP 138/65; PULSE 74; RESP 20; O2SAT 95
[2020-12-27] MEDS: SODIUM CHLORIDE 0.9% 1,000 ML 150 ML IV (16:31)
[2020-12-27] MEDS: ASPIRIN 81 MG CHEW TAB 324 MG PO (16:32)
[2020-12-27 16:36] LABS: Add Manual Diff / Slide Review NO; Basophils Absolute Auto 100 /uL (0-100); Basophils Percent Auto 1.1 % (0-2); Eosinophils Absolute Auto 200 /uL (0-450); Eosinophils Percent Auto 3.5 % (2-4); Hematocrit 41.5 % (41-53); Hemoglobin 13.9 g/dL (13.5-17.5); INR 1.3 (0.9-1.3); Lymphocytes Absolute Auto 1100 /uL (1100-4500); Lymphocytes Percent Auto 21.5 % (25-40); Mean Corpuscular HGB Conc 33.5 % (30-36); Mean Corpuscular Hemoglobin 31.9 PG (26-34); Mean Corpuscular Volume 95.2 fL (80-100); Monocytes Absolute Auto 600 /uL (0-900); Monocytes Percent Auto 10.7 % (3-14); Neutrophils Absolute Auto 3300 /uL (1500-7000); Neutrophils Percent Auto 63.2 % (50-75); Platelet Count 121 X10^3/uL (150-400); Red Blood Cell Count 4.35 X10^6/uL (4.5-5.9); Red Cell Distribution Width 14.3 % (11.6-14.8); White Blood Cell Count 5.2 X10^3/uL (4.5-11.0)
[2020-12-27 16:40] LABS: BUN Creatinine Ratio 14.8 (6-22); Blood Urea Nitrogen 13 mg/dL (9-20); Calcium 9.2 mg/dL (8.4-10.2); Carbon Dioxide 25 mmol/L (22-32); Chloride 100 mmol/L (98-107); Estimated Glomerular Filt Rate > 60.0 mL/min (>60); Glucose 108 mg/dL (80-110); HEMOLYSIS 23 (0-50); Potassium 4.1 mmol/L (3.4-5.1); Sodium 133 mmol/L (137-145)
[2020-12-27 17:08] VITALS: BP 157/65; PULSE 76; RESP 18; O2SAT 97
[2020-12-27 17:31] VITALS: BP 144/72; PULSE 74; RESP 18; O2SAT 96
[2020-12-27 17:38] LABS: UR Morphine/Opiate cutoff 300 Negative (Negative); Ur Creatinine Normal (Normal); Ur Specific Gravity Normal (Normal); Urine Amphetamines Negative (Negative); Urine Barbiturates Negative (Negative); Urine Benzodiazepines Negative (Negative); Urine Cocaine Negative (Negative); Urine MDMA Negative (Negative); Urine Methadone Negative (Negative); Urine Methamphetamines Negative (Negative); Urine Oxycodone Negative (Negative); Urine Phencyclidine Negative (Negative); Urine Tetrahydrocannabinol Negative (Negative); Urine Tricyclic Antidepressant Negative (Negative); Urine pH Normal (Normal)
--- NOTE | 2020-12-27 17:55 | PC.NURSE ---
Provider Dr. Worthy asked to speak with patients PCP. I called PCP answering service at 17:52 and intiated a consult call.
--- NOTE | 2020-12-27 18:13 | ED_ITS ---
HPI - Neuro Symptoms/Deficit General Chief Complaint: Neuro Symptoms/Deficit Stated Complaint: Stroke Time Seen by Provider: 12/27/20 16:20 Source: patient Mode of arrival: EMS History of Present Illness On Anticoagulants: Yes (Eliquis) Related Data Home Medications Medication Instructions Recorded Confirmed Lactobacills gasseri-Bifidobac cap PO cap 07/08/18 11/29/20 bifidum,longum 1.5 billion cell capsule (Given.to) cholecalciferol (vitamin D3) 125 5,000 unit PO DAILY 07/08/18 12/01/20 mcg (5,000 unit) capsule docusate sodium 100 mg capsule 100 mg PO DAILY PRN 07/08/18 12/01/20 (Dulcolax Stool Softener (docusate)) glucosam 750 mg-chondroi 100 1 tab PO DAILY tab 07/08/18 12/01/20 mg-hyalur 1.65 mg-CF borate 108 mg tablet (Move Neon Mobile) methylcellulose (laxative) 2 gram PO PRN PRN 07/08/18 12/01/20 (Citrucel Sugar Free) multivitamin 1 cap PO DAILY 07/08/18 12/01/20 omega-3 fatty acids 1,000 mg 1,000 mg PO DAILY 07/08/18 12/01/20 capsule (Fish Oil Concentrate) turmeric 400 mg capsule 400 mg PO DAILY cap 07/08/18 12/01/20 vitamin E (dl, acetate) 450 mg 2,000 unit PO DAILY cap 09/07/18 12/01/20 (1,000 unit) capsule acetaminophen 650 mg 1,300 mg PO Q8H PRN 10/05/18 12/01/20 tablet,extended release metoprolol succinate 25 mg capsule 25 mg PO BID each 11/02/18 12/01/20 sprinkle, ext. release 24 hr melatonin 10 mg capsule 10 mg PO BEDTIME PRN 01/24/20 12/01/20 apixaban 2.5 mg tablet (Eliquis) 2.5 mg PO BID 12/09/20 12/09/20 saw palm 160 mg-vit E 100 1 tab PO .BID tab 12/09/20 12/09/20 unit-selen 100 uij-maes-hxajcx-pygeum tablet (Syntervention) Previous Rx's Medication Instructions Recorded DISABLED PARKING PERMIT #1 ea 07/08/18 atorvastatin 40 mg tablet 40 mg PO HS #90 tab 07/13/18 enalapril maleate 10 mg tablet 10 mg PO BID #60 tab 10/03/18 (Vasotec) clopidogrel 75 mg tablet (Plavix) 75 mg PO QDAY #90 tab 02/23/20 duloxetine 20 mg capsule,delayed 40 mg PO DAILY #60 cap 05/22/20 release fluticasone 250 mcg-salmeterol 50 See Rx Instructions .ROUTE 06/18/20 mcg/dose blistr powdr for .COMPLEX #60 blister inhalation (Wixela Inhub) carbamazepine 200 mg tablet 200 mg PO BID #180 tab 09/30/20 cefdinir 300 mg capsule 300 mg PO BID #14 cap 12/03/20 tamsulosin 0.4 mg capsule (Flomax) 0.4 mg PO BEDTIME #90 cap 12/03/20 Allergies Allergy/AdvReac Type Severity Reaction Status Date / Time No Known Drug Allergies Allergy Verified 12/27/20 16:16 Review of Systems Hematologic/Lymphatic On Anticoagulants: Yes (Eliquis) 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) Coronary artery disease (1997) Coronary artery disease Depression (08/20/14) Depression Herpes Hyperlipidemia associated with type 2 diabetes mellitus Hypertension (1997) Hyperthyroidism Hypogonadism (2000) Hyponatremia (08/20/14) Kidney stones (1991) Memory loss 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 Father Heart attack Mother No problems noted. Social History marital status: household members: spouse Smoking Status: Former smoker alcohol intake: never substance use type: does not use Smoking Status: Former smoker Substance Use Type: does not use Exam Initial Vital Signs Initial Vital Signs: Vital Signs Temperature 98.2 F 12/27/20 16:00 Pulse Rate 90 12/27/20 16:00 Respiratory Rate 19 12/27/20 16:00 Blood Pressure 149/96 H 12/27/20 16:00 Pulse Oximetry 97 12/27/20 16:00 Course Orders Ordered: ED Orders 12/27/20 16:00 Basic Metabolic Panel Stat Complete Blood Count AUTO DIFF Stat Prothrombin Time INR Stat 12/27/20 16:21 CT angio head and neck Stat EKG-12 Lead Stat 12/27/20 17:24 COVID19 - ADMIT (ENLISTED AIRCREW/AERIAL OBSERVER/GUNNER swab/PCR) Stat 12/27/20 17:30 Urine Drug Screen, Rapid Stat Discontinued Medications Aspirin (Aspirin 81 Mg Chew Tab) 324 mg PO NOW ONE Stop: 12/27/20 16:23 Last Admin: 12/27/20 16:32 Dose: 324 mg Documented by: JR Aspirin (Aspirin 81 Mg Chew Tab) 324 mg PO NOW ONE Stop: 12/27/20 16:21 Last Admin: 12/27/20 16:24 Dose: Not Given Documented by: JR Sodium Chloride (Normal Saline 0.9%) 1,000 mls @ 150 mls/hr IV CONT KELVIN Last Admin: 12/27/20 16:31 Dose: 150 mls/hr Documented by: JR Vital Signs Vital signs: Vital Signs - 8 hr 12/27/20 16:00 12/27/20 16:08 12/27/20 16:12 Temperature 98.2 F Pulse Rate 90 78 78 Respiratory Rate 19 22 14 Blood Pressure 149/96 H 149/96 H Pulse Oximetry 97 97 12/27/20 16:31 12/27/20 17:08 12/27/20 17:31 Temperature Pulse Rate 74 76 74 Respiratory Rate 20 18 18 Blood Pressure 138/65 157/65 H 144/72 H Pulse Oximetry 95 97 96 MDM - Neuro Symptoms/Deficit Lab Data Result diagrams: 12/27/20 16:00 12/27/20 16:00 Labs: Lab Results 12/27/20 12/27/20 12/27/20 Range/Units 16:00 16:00 16:00 WBC 5.2 (4.5-11.0) X10^3/uL RBC 4.35 L (4.5-5.9) X10^6/uL Hgb 13.9 (13.5-17.5) g/dL Hct 41.5 (41-53) % MCV 95.2 (80-100) fL MCH 31.9 (26-34) PG MCHC 33.5 (30-36) % RDW 14.3 (11.6-14.8) % Plt Count 121 L (150-400) X10^3/uL Neut % (Auto) 63.2 (50-75) % Lymph % (Auto) 21.5 L (25-40) % [place] % (Auto) 10.7 (3-14) % Eos % (Auto) 3.5 (2-4) % Baso % (Auto) 1.1 (0-2) % Neut # (Auto) 3300 (8206-4000) /uL Lymph # (Auto) 1100 (7881-3621) /uL [place] # (Auto) 600 (0-900) /uL Eos # (Auto) 200 (0-450) /uL Baso # (Auto) 100 (0-100) /uL PT 14.0 H (10.1-12.7) SECONDS INR 1.3 (0.9-1.3) Sodium 133 L (137-145) mmol/L Potassium 4.1 (3.4-5.1) mmol/L Chloride 100 (98-107) mmol/L Carbon Dioxide 25 (22-32) mmol/L BUN 13 (9-20) mg/dL Creatinine 0.88 (0.66-1.25) mg/dL Estimated GFR > 60.0 (>60) mL/min BUN/Creatinine Ratio 14.8 (6-22) Glucose 108 (80-110) mg/dL Calcium 9.2 (8.4-10.2) mg/dL U Opiates 300ng/mL cut (Negative) Ur Oxycodone Screen (Negative) Urine Methadone Screen (Negative) Ur Barbiturates Screen (Negative) U Tricyclic Antidepress (Negative) Ur Phencyclidine Scrn (Negative) Ur Amphetamines Screen (Negative) U Methamphetamines Scrn (Negative) Ur MDMA Scrn (Ecstasy) (Negative) U Benzodiazepines Scrn (Negative) Urine Cocaine Screen (Negative) U Marijuana (THC) Screen (Negative) 12/27/20 Range/Units 17:30 WBC (4.5-11.0) X10^3/uL RBC (4.5-5.9) X10^6/uL Hgb (13.5-17.5) g/dL Hct (41-53) % MCV (80-100) fL MCH (26-34) PG MCHC (30-36) % RDW (11.6-14.8) % Plt Count (150-400) X10^3/uL Neut % (Auto) (50-75) % Lymph % (Auto) (25-40) % [place] % (Auto) (3-14) % Eos % (Auto) (2-4) % Baso % (Auto) (0-2) % Neut # (Auto) (0382-7922) /uL Lymph # (Auto) (0233-4543) /uL [place] # (Auto) (0-900) /uL Eos # (Auto) (0-450) /uL Baso # (Auto) (0-100) /uL PT (10.1-12.7) SECONDS INR (0.9-1.3) Sodium (137-145) mmol/L Potassium (3.4-5.1) mmol/L Chloride (98-107) mmol/L Carbon Dioxide (22-32) mmol/L BUN (9-20) mg/dL Creatinine (0.66-1.25) mg/dL Estimated GFR (>60) mL/min BUN/Creatinine Ratio (6-22) Glucose (80-110) mg/dL Calcium (8.4-10.2) mg/dL U Opiates 300ng/mL cut Negative (Negative) Ur Oxycodone Screen Negative (Negative) Urine Methadone Screen Negative (Negative) Ur Barbiturates Screen Negative (Negative) U Tricyclic Antidepress Negative (Negative) Ur Phencyclidine Scrn Negative (Negative) Ur Amphetamines Screen Negative (Negative) U Methamphetamines Scrn Negative (Negative) Ur MDMA Scrn (Ecstasy) Negative (Negative) U Benzodiazepines Scrn Negative (Negative) Urine Cocaine Screen Negative (Negative) U Marijuana (THC) Screen Negative (Negative) Urine Dip Bedside Urine Glucose Negative Bedside Urine Bilirubin - Negative Bedside Urine Ketone - Negative Urine Specific [place] 1.015 Bedside Urine Occult Blood - Negative Bedside Urine pH 6.0 Bedside Urine Protein - Negative Bedside Urine Urobilinogen 0.2 Bedside Urine Nitrite - Negative Bedside Urine Leukocytes - Negative Esterase Discharge Plan Departure Patient Disposition: Left Against Medical Advice Clinical Impression: Transient ischemic attack Instructions: DI for Transient Ischemic Attack Activity Restrictions/Additional Instructions: Continue your current medications. Contacted Dr. Howe Wednesday morning to arrange follow-up with him in clinic. Return here if symptoms worsen. Prescriptions: No Action acetaminophen 650 mg tablet extended release 1,300 mg PO Q8H PRN (Reason: Pain, Moderate) RF: 0 vitamin E (dl, acetate) 1,000 unit capsule 2,000 unit PO DAILY RF: 0 metoprolol succinate 25 mg cap,sprinkle,ER 24hr dose pack 25 mg PO BID RF: 0 melatonin 10 mg capsule 10 mg PO BEDTIME PRN (Reason: Insomnia) RF: 0 Eliquis 2.5 mg tablet 2.5 mg PO BID RF: 0 Prostate Health 160-100-100 mg-unit-mcg tablet 1 tab PO .BID RF: 0 (DME) DISABLED PARKING PERMIT Qty: 1 RF: 0 cholecalciferol (vitamin D3) 5,000 unit capsule 5,000 unit PO DAILY RF: 0 Move Free Joint Health 750 mg-100 mg- 1.65 mg-108 mg tablet 1 tab PO DAILY RF: 0 multivitamin capsule 1 cap PO DAILY RF: 0 omega-3 fatty acids [Fish Oil Concentrate] 1,000 mg capsule 1,000 mg PO DAILY RF: 0 Given.to 1.5 billion cell capsule PO RF: 0 turmeric 400 mg capsule 400 mg PO DAILY RF: 0 Citrucel Sugar Free powder 2 gram PO PRN PRN (Reason: Constipation) RF: 0 docusate sodium [Dulcolax Stool Softener (dss)] 100 mg capsule 100 mg PO DAILY PRN (Reason: Constipation) RF: 0 fluticasone propion-salmeterol [Wixela Inhub] 250-50 mcg/dose blister with device See Rx Instructions .ROUTE .COMPLEX Qty: 60 RF: 11 atorvastatin 40 mg tablet 40 mg PO HS Qty: 90 RF: 3 enalapril maleate [Vasotec] 10 mg tablet 10 mg PO BID Qty: 60 RF: 11 clopidogrel [Plavix] 75 mg tablet 75 mg PO QDAY Qty: 90 RF: 3 duloxetine 20 mg capsule,delayed release(DR/EC) 40 mg PO DAILY Qty: 60 RF: 11 carbamazepine 200 mg tablet 200 mg PO BID Qty: 180 RF: 1 cefdinir 300 mg capsule 300 mg PO BID Qty: 14 RF: 0 tamsulosin [Flomax] 0.4 mg capsule 0.4 mg PO BEDTIME Qty: 90 RF: 1 Referrals: Yash Howe MD [Primary Care Provider] - Stand Alone Forms: Against Medical Advice
[2020-12-27 18:35] LABS: COVID19 - ADMIT (NP swab/PCR) Negative (Negative)
== END 2020-12-27 18:09 | disposition left against medical advice (07) ==
PROVIDERS: Emergency Provider Emergency Medicine; PCP Family Medicine
DX: G45.9 Transient cerebral ischemic attack, unspecified (principal); Z53.29 Procedure and treatment not carried out because of patient's decision for other reasons; Z20.822 Contact with and (suspected) exposure to COVID-19
CPT/HCPCS: 70450; 70496; 70498; 80048; 80305; 81003; 85025; 85610; 87635; 93005; 93010; 96360; 99285; C9803; Q9967

== ENCOUNTER → 2021-01-17 10:35 | Outpatient (CLI) | payer MEDICARE, SELFPAY ==
[2020-12-01 17:23] VITALS: BMI 23.5
[2021-01-17 12:08] LABS: Cholesterol 156 mg/dL (140-199); HDL Cholesterol 89 mg/dL (40-60); LDL Cholesterol Calculated 56 mg/dL (<100); Triglycerides 53 mg/dL (35-150)
[2021-01-17 12:38] LABS: Thyroid Stimulating Hormone 0.661 uIU/mL (0.47-4.68)
== END ==
PROVIDERS: PCP Family Medicine; Referring Provider Internal Medicine Cardiovascular Disease; Visit Provider Internal Medicine Cardiovascular Disease
DX: I10 Essential (primary) hypertension (principal); I48.92 Unspecified atrial flutter; I47.2 Ventricular tachycardia; E78.5 Hyperlipidemia, unspecified
CPT/HCPCS: 36415; 80061; 83735; 84443

== ENCOUNTER → 2021-09-11 16:03 | Outpatient (CLI) | payer MEDICARE, SELFPAY ==
[2020-12-01 17:23] VITALS: BMI 23.5
[2021-09-11 18:50] LABS: COVID19 -Nasal RAPID Negative (Negative)
== END ==
PROVIDERS: PCP Family Medicine; Referring Provider Internal Medicine Cardiovascular Disease; Visit Provider Internal Medicine Cardiovascular Disease
DX: Z20.822 Contact with and (suspected) exposure to COVID-19 (principal)
CPT/HCPCS: 87635; C9803

== ENCOUNTER → 2021-09-12 15:17 | Outpatient (CLI) | payer MEDICARE, SELFPAY ==
[2020-12-01 17:23] VITALS: BMI 23.5
--- NOTE | 2021-09-17 09:10 | PM.PFT.1 ---
Pulmonary Function Test Referral & Results Date Patient Seen: 09/12/21 Requesting provider: Saud Mills Results: The spirometry demonstrates an FVC of 1.96 L which is 52% of predicted. The FEV1 was measured at 1.54 L which is 50% of predicted. The FEV1/FVC ratio was 79 which is 110% of predicted. Following the administration of bronchodilator there was a 29% improvement in FEV1 and a 170% improvement in FEF 25-75%. Lung volumes show an SVC of 2.32 L which is 55% of predicted. The diffusing capacity was measured at 15.64 which is 50% of predicted. No hemoglobin value was provided, so no correction for potential anemia could be made, if appropriate. The maximum voluntary ventilation was reduced Interpretation: This study demonstrates moderate obstructive lung disease based on reduction FEV1 although FEV1/FVC ratio is preserved there is evidence of significant benefit post bronchodilator There is also moderate restrictive lung disease based on reduction in SVC Diffusing capacity is also moderately reduced as above unless patient is anemic Compared to PFTs performed in March 2019, current study shows decline in FEV1 although similar improvement post bronchodilator was seen previously. There is also a decline in lung volumes suggesting progression of restrictive lung disease as well. There is also a minor decline in diffusing capacity as well.
== END ==
PROVIDERS: PCP Family Medicine; Referring Provider Internal Medicine Cardiovascular Disease; Visit Provider Internal Medicine Cardiovascular Disease
DX: J44.9 Chronic obstructive pulmonary disease, unspecified (principal); Z79.899 Other long term (current) drug therapy; Z87.891 Personal history of nicotine dependence; I47.2 Ventricular tachycardia
CPT/HCPCS: 94060; 94726; 94729

== ENCOUNTER 2021-10-30 17:06 | Observation (INO) | payer MEDICARE, SELFPAY ==
[2020-12-01 17:23] VITALS: BMI 23.5
[2021-10-30] VITALS (21 sets, daily range): BP systolic 111–171; BP diastolic 58–84; PULSE 59–68; RESP 18–44; TEMP 36.6–37.2; O2SAT 74–98; BMI 26.1
[2021-10-30] MEDS: ONDANSETRON 4 MG/2 ML INJ IV (18:35)
[2021-10-30] MEDS: PANTOPRAZOLE 40 MG VIAL IV (18:35)
--- NOTE | 2021-10-30 18:40 | ED_ITS ---
HPI - GI Bleed General Chief complaint: GI Bleed Stated complaint: Ref from Shyam's office, GI problems Time Seen by Provider: 10/30/21 18:27 Source: patient and family Mode of arrival: Ambulatory Limitations: no limitations History of Present Illness HPI Narrative: This is an 81 year with history of coronary artery disease, pacemaker AICD with cardiac stents x8 and aortic stenosis on Plavix and Eliquis with a history of atrial fibrillation, remote history of ulcer but no known GI bleeds. Patient presents today with blood in his stool this morning. Patient states that there was stool that was sort of broken with blood mixed in throughout, patient states it was not black. He is had 6-8 episodes today he states stools been with it each time. Has vomited today he states no hematemesis it looks orange to him. He still feels nauseated. He describes lower abdominal pain in the suprapubic region. There patient denies any rectal pain. No fevers or chills. No chest pain or shortness of breath. No back or flank pain. Patient has not had similar symptoms in the past he denies dysuria, urgency or frequency. Related Data Home Medications Medication Instructions Recorded Confirmed apixaban 2.5 mg tablet (Eliquis) 2.5 mg PO BID 12/09/20 10/30/21 enalapril maleate 10 mg tablet 10 mg PO .QDAY 01/07/21 10/30/21 (Vasotec) metoprolol succinate 25 mg capsule 37.5 mg PO BID 03/20/21 10/30/21 sprinkle, ext. release 24 hr acetaminophen 650 mg 1,300 mg PO Q12H PRN Pain, Moderate 06/10/21 10/30/21 tablet,extended release amiodarone 200 mg tablet 200 mg PO DAILY 06/10/21 10/30/21 diclofenac sodium 1 % topical gel 2 g topical QID PRN Pain (Scale 06/10/21 10/30/21 (Voltaren Arthritis Pain) Score 1-3) lansoprazole 30 mg capsule,delayed 30 mg PO DAILY 06/10/21 10/30/21 release (Prevacid) multivitamin 1 cap PO BID 06/10/21 10/30/21 Previous Rx's Medication Instructions Recorded atorvastatin 40 mg tablet 40 mg PO HS #90 tabs 05/29/19 clopidogrel 75 mg tablet (Plavix) 75 mg PO QDAY #90 tabs 02/23/20 tamsulosin 0.4 mg capsule (Flomax) 0.4 mg PO BEDTIME #90 caps 05/23/21 fluticasone 250 mcg-salmeterol 50 See Rx Instructions .Route 06/23/21 mcg/dose blistr powdr for .COMPLEX #60 blisters inhalation Allergies Allergy/AdvReac Type Severity Reaction Status Date / Time No Known Drug Allergies Allergy Verified 06/10/21 15:40 Review of Systems Review of Systems ROS Unobtainable: All systems reviewed & are unremarkable except as noted in HPI and below Patient History Medical History (Updated 10/30/21 @ 21:14 by Ronald Gasca MD) Anxiety Chicken pox Chronic obstructive pulmonary disease (2007) 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) Coronary artery disease (1997) Depression (08/20/14) Depression Dizziness Herpes Hypertension (1997) Hyperthyroidism Hyponatremia (08/20/14) Inguinal hernia Ischemic cardiomyopathy Kidney stones (1991) Memory loss Mitral stenosis Presence of cardiac pacemaker (03/23/17) Rheumatic fever Sleep apnea (08/24/13) Thyroid nodule Trigeminal neuralgia (~1995) Urinary incontinence (2001) Surgical History (Updated 10/30/21 @ 21:12 by Ronald Gasca MD) AICD (automatic cardioverter/defibrillator) present Anesthesia History of angioplasty (1997) History of angioplasty (2007) History of angioplasty (2011) Status post hernia repair (1979) Status post transurethral resection of prostate (1999) Family History Brother Stroke Brother Stroke Brother Age: 88 Diabetes mellitus Hypertension Daughter Age: 58 Immune disorder Sister Age: 78 Heart disease Hypertension Stroke Son No problems noted. Father Heart attack Mother No problems noted. Social History marital status: household members: spouse Smoking Status: Former smoker alcohol intake: never substance use type: does not use Smoking Status: Former smoker alcohol intake frequency: 0-2 drinks per day Substance Use Type: does not use Exam Narrative Exam Narrative: GENERAL: Alert and oriented x three, elderly male in mild distress HEENT: Head normocephalic, atraumatic, EOMI, pupils reactive, face symmetric, moist mucous membranes, patient has a small amount of brownish emesis on his face mask. NECK: Supple, full range of motion CARDIOVASCULAR: Regular rate and rhythm without murmurs, rubs or gallops. RESPIRATORY: Breath sounds equal bilaterally, no wheezes rales or rhonchi. ABDOMEN: Soft, nontender. Normoactive bowel sounds all 4 quadrants. No guarding or rebound, rigidity, no mass, patient has slightly reddish stool without clots on digital rectal small hemorrhoid is appreciated but does not appear to be the source of bleeding. : No CVA tenderness EXTREMITIES: Normal range of motion, no clubbing or edema. Neurovascularly intact NEUROLOGICAL: Cranial nerves II through XII grossly intact. Moving all extremities SKIN: Warm, dry, no petechiae, no rashes or lesions. Initial Vital Signs Initial Vital Signs: Vital Signs Temperature 98.2 F 10/30/21 17:40 Pulse Rate 68 10/30/21 17:40 Respiratory Rate 19 10/30/21 17:40 Blood Pressure 111/58 L 10/30/21 17:40 Pulse Oximetry 98 10/30/21 17:40 Oxygen Delivery Method 10/30/21 17:40 Course Orders Ordered: Acetaminophen (Acetaminophen 325 Mg Tablet) 650 mg PO Q6HR PRN PRN Reason: Fever/Mild Pain (1-3) Albuterol (Albuterol 2.5 Mg/3 Ml Neb (Adult)) 2.5 mg INH Q4HRWA KELVIN Albuterol (Albuterol 2.5 Mg/3 Ml Neb (Adult)) 2.5 mg INH Q2HR PRN PRN Reason: Shortness Of Breath Amiodarone HCl (Amiodarone 200 Mg Tablet) 200 mg PO DAILY [facility] Budesonide (Budesonide 0.5 Mg/2 Ml Neb) 0.5 mg INH RTBID KELVIN Clopidogrel Bisulfate (Clopidogrel 75 Mg Tablet) 75 mg PO DAILY [facility] Enalapril Maleate (Enalapril 5 Mg Tablet) 10 mg PO DAILY [facility] Last Admin: 10/30/21 23:36 Dose: 10 mg Documented By: Dextrose/Sodium Chloride (Dextrose 5%-0.9% Ns) 1,000 mls @ 80 mls/hr IV CONT KELVIN Last Admin: 10/30/21 23:36 Dose: 80 mls/hr Documented By: Piperacillin Sod/Tazobactam (Sod 3.375 gm/ Sodium Chloride) 100 mls @ 25 mls/hr IV Q8H [facility] Last Admin: 10/31/21 04:25 Dose: 25 mls/hr Documented By: Metoprolol Succinate (Metoprolol Er 25 Mg Tablet) 37.5 mg PO BID [facility] Ondansetron HCl (Ondansetron 4 Mg/2 Ml Inj) 4 mg IV Q8HR PRN PRN Reason: Nausea And Vomiting Pantoprazole Sodium (Pantoprazole Dr 40 Mg Tablet) 40 mg PO 0600 [facility] Last Admin: 10/31/21 06:02 Dose: 40 mg Documented By: Tamsulosin HCl (Tamsulosin 0.4 Mg Capsule) 0.4 mg PO BEDTIME [facility] Last Admin: 10/30/21 23:36 Dose: 0.4 mg Documented By: Discontinued Medications Piperacillin Sod/Tazobactam (Sod 4.5 gm/ Sodium Chloride) 100 mls @ 200 mls/hr IV NOW ONE Stop: 10/30/21 20:17 Last Infusion: 10/30/21 21:42 Dose: 0 mls/hr Documented By: Admin: 10/30/21 20:52 Dose: 200 mls/hr Documented By: NORI Ondansetron HCl (Ondansetron 4 Mg/2 Ml Inj) 4 mg IV NOW ONE Stop: 10/30/21 18:29 Last Admin: 10/30/21 18:35 Dose: 4 mg Documented By: ESAU Pantoprazole Sodium (Pantoprazole 40 Mg Vial) 40 mg IV NOW ONE Stop: 10/30/21 18:29 Last Admin: 10/30/21 18:35 Dose: 40 mg Documented By: ESAU Consultations Consultation #1: Dr. Galo, general surgery. Can follow along, happy to consult. Consultation #2: Dr. Gasca, accepts for admission. Vital Signs Vital signs: Vital Signs - 8 hr 10/30/21 17:40 10/30/21 18:06 10/30/21 18:07 Temperature 98.2 F Pulse Rate 68 60 Respiratory Rate 19 44 H Blood Pressure 111/58 L 143/72 H Pulse Oximetry 98 74 L Oxygen Delivery Method Room Air 10/30/21 18:07 10/30/21 18:30 09/15/22 18:31 Temperature Pulse Rate 60 63 Respiratory Rate 34 H 41 H Blood Pressure 170/74 H Pulse Oximetry 83 L 97 Oxygen Delivery Method 10/30/21 18:31 10/30/21 19:00 10/30/21 19:03 Temperature Pulse Rate 60 60 Respiratory Rate 31 H 35 H Blood Pressure 121/59 L Pulse Oximetry 97 95 Oxygen Delivery Method 10/30/21 19:03 Temperature Pulse Rate 60 Respiratory Rate 25 H Blood Pressure Pulse Oximetry 94 Oxygen Delivery Method MDM - GI Bleed Lab Data Result diagrams: 10/31/21 04:48 10/31/21 04:48 Labs: Lab Results 10/30/21 10/30/21 10/30/21 Range/Units 18:18 18:18 18:18 WBC 12.1 H (4.5-11.0) X10^3/uL RBC 4.51 (4.5-5.9) X10^6/uL Hgb 14.4 (13.5-17.5) g/dL Hct 42.5 (41-53) % MCV 94.1 (80-100) fL MCH 31.8 (26-34) PG MCHC 33.8 (30-36) % RDW 14.3 (11.6-14.8) % Plt Count 149 L (150-400) X10^3/uL Neut % (Auto) 93.4 H (50-75) % Lymph % (Auto) 1.8 L (25-40) % King % (Auto) 4.5 (3-14) % Eos % (Auto) 0.0 L (2-4) % Baso % (Auto) 0.3 (0-2) % Neut # (Auto) 52897 H (0877-7325) /uL Lymph # (Auto) 200 L (3824-6428) /uL King # (Auto) 500 (0-900) /uL Eos # (Auto) 0 (0-450) /uL Baso # (Auto) 0 (0-100) /uL PT 16.4 H (10.1-12.7) SECONDS INR 1.4 H (0.9-1.3) APTT 35 (26-36) SECONDS Sodium 136 L (137-145) mmol/L Potassium 4.5 (3.4-5.1) mmol/L Chloride 104 (98-107) mmol/L Carbon Dioxide 25 (22-32) mmol/L BUN 31 H (9-20) mg/dL Creatinine 1.57 H (0.66-1.25) mg/dL Estimated GFR 44 L (>60) mL/min BUN/Creatinine Ratio 19.7 (6-22) Glucose 130 H (80-110) mg/dL Lactate (0.7-2.1) mmol/L Calcium 9.5 (8.4-10.2) mg/dL Total Bilirubin 1.0 (0.2-1.3) mg/dL AST 45 (17-59) IU/L ALT 40 (<50) IU/L Alkaline Phosphatase 224 H (38-126) U/L Total Creatine Kinase (55-170) U/L CK-MB (CK-2) CK-MB (CK-2) Rel Index Troponin I (0.01-0.034) ng/mL Total Protein 6.5 (6.3-8.2) g/dL Albumin 4.1 (3.5-5.0) g/dL Globulin 2.4 (1.7-4.1) g/dL Albumin/Globulin Ratio 1.7 (1.0-2.8) Lipase (23-300) U/L Blood Type Antibody Screen 10/30/21 10/30/21 10/30/21 Range/Units 18:18 18:18 18:18 WBC (4.5-11.0) X10^3/uL RBC (4.5-5.9) X10^6/uL Hgb (13.5-17.5) g/dL Hct (41-53) % MCV (80-100) fL MCH (26-34) PG MCHC (30-36) % RDW (11.6-14.8) % Plt Count (150-400) X10^3/uL Neut % (Auto) (50-75) % Lymph % (Auto) (25-40) % King % (Auto) (3-14) % Eos % (Auto) (2-4) % Baso % (Auto) (0-2) % Neut # (Auto) (3477-8945) /uL Lymph # (Auto) (2958-6928) /uL King # (Auto) (0-900) /uL Eos # (Auto) (0-450) /uL Baso # (Auto) (0-100) /uL PT (10.1-12.7) SECONDS INR (0.9-1.3) APTT (26-36) SECONDS Sodium (137-145) mmol/L Potassium (3.4-5.1) mmol/L Chloride (98-107) mmol/L Carbon Dioxide (22-32) mmol/L BUN (9-20) mg/dL Creatinine (0.66-1.25) mg/dL Estimated GFR (>60) mL/min BUN/Creatinine Ratio (6-22) Glucose (80-110) mg/dL Lactate 1.5 (0.7-2.1) mmol/L Calcium (8.4-10.2) mg/dL Total Bilirubin (0.2-1.3) mg/dL AST (17-59) IU/L ALT (<50) IU/L Alkaline Phosphatase (38-126) U/L Total Creatine Kinase 88 (55-170) U/L CK-MB (CK-2) TNP CK-MB (CK-2) Rel Index TNP Troponin I < 0.012 (0.01-0.034) ng/mL Total Protein (6.3-8.2) g/dL Albumin (3.5-5.0) g/dL Globulin (1.7-4.1) g/dL Albumin/Globulin Ratio (1.0-2.8) Lipase 110 (23-300) U/L Blood Type Antibody Screen 10/30/21 Range/Units 18:18 WBC (4.5-11.0) X10^3/uL RBC (4.5-5.9) X10^6/uL Hgb (13.5-17.5) g/dL Hct (41-53) % MCV (80-100) fL MCH (26-34) PG MCHC (30-36) % RDW (11.6-14.8) % Plt Count (150-400) X10^3/uL Neut % (Auto) (50-75) % Lymph % (Auto) (25-40) % King % (Auto) (3-14) % Eos % (Auto) (2-4) % Baso % (Auto) (0-2) % Neut # (Auto) (5787-6032) /uL Lymph # (Auto) (4675-6362) /uL King # (Auto) (0-900) /uL Eos # (Auto) (0-450) /uL Baso # (Auto) (0-100) /uL PT (10.1-12.7) SECONDS INR (0.9-1.3) APTT (26-36) SECONDS Sodium (137-145) mmol/L Potassium (3.4-5.1) mmol/L Chloride (98-107) mmol/L Carbon Dioxide (22-32) mmol/L BUN (9-20) mg/dL Creatinine (0.66-1.25) mg/dL Estimated GFR (>60) mL/min BUN/Creatinine Ratio (6-22) Glucose (80-110) mg/dL Lactate (0.7-2.1) mmol/L Calcium (8.4-10.2) mg/dL Total Bilirubin (0.2-1.3) mg/dL AST (17-59) IU/L ALT (<50) IU/L Alkaline Phosphatase (38-126) U/L Total Creatine Kinase (55-170) U/L CK-MB (CK-2) CK-MB (CK-2) Rel Index Troponin I (0.01-0.034) ng/mL Total Protein (6.3-8.2) g/dL Albumin (3.5-5.0) g/dL Globulin (1.7-4.1) g/dL Albumin/Globulin Ratio (1.0-2.8) Lipase (23-300) U/L Blood Type A Positive Antibody Screen Negative Point of Care Testing Stool Occult Blood Positive Imaging Data CT scan - abdomen/pelvis: Radiologist's Impression: Close Abdomen/Pelvis CT (Signed) Gt Juarez - 10/30/21 Launch?[address] [address] [address] Scan Report Signed Patient: Maikol Higginbotham V MR#: [id number] : 1940 Acct:[id number] Age/Sex: 81 / M Date of Service: 10/30/21 Loc: ED Accession Number: [id number] ?? Procedure: CT abdomen pelvis w con Ordering Provider: Deisy Tiwari D.O. PROCEDURE:? CT ABDOMEN PELVIS W CON ? INDICATIONS:? epigastric pain, brb rectum, vomited ? TECHNIQUE:? After the administration of intravenous contrast, axial sections acquired from the lung bases to the pubic symphysis.? Coronal and sagittal reformats were performed.? For radiation dose reduction, the following was used:? automated exposure control, adjustment of mA and/or kV according to patient size.? ? COMPARISON:? None. ? FINDINGS:? Image quality:? Excellent.? ? Lung bases:? Unremarkable. Heart:? Four-chamber cardiomegaly, most notably involving the left atrium and left ventricle, advanced coronary artery calcifications, pacemaker.? Enlarged bila teral pulmonary arteries are consistent with pulmonary arterial hypertension. ? ABDOMEN: Liver:? Unremarkable.? ? Gallbladder:? Unremarkable.? ? Biliary ducts:? Unremarkable.? ? Pancreas:? Unremarkable.? ? Spleen:? Unremarkable.? ? Adrenal Glands:? Unremarkable.? ? Kidneys and Ureters:? Unremarkable.? ? ? Stomach and Bowel:? Stomach, small bowel loops, and colon are unremarkable.? Hyperdense material in the stomach and duodenum and jejunum likely represents hyperdense ingested oral contents. Peritoneum:? No abnormal intraperitoneal fluid.? No free air.? ? Ventral Wall: ? No hernias.? Abdominal Nodes:? No retroperitoneal or mesenteric adenopathy by size criteria.? Vessels:? Aorta and inferior vena cava are normal in size.? ? PELVIS: Pelvic Organs:? Unremarkable.? ? Bladder:? Diffuse bladder wall thickening. Pelvic Nodes: No enlarged lymph nodes.? Miscellaneous:? No acute extravasation is identified in this location. ? Bones:? Advanced lumbar degenerative change.? No lytic or blastic bony lesions.? No acute compression fractures. ? ? IMPRESSION:? ? 1. There is a left inguinal hernia containing inflamed sigmoid.? However, the entirety of the descending colon and sigmoid has an inflammatory appearance with thickened wall and inflammatory change in the adjacent fat.? The appearance is likely not related to incarceration in the region of the inguinal hernia.? Consider infectious versus inflammatory versus ischemic colitis. ? 2. Diffuse bladder wall thickening, consistent with cystitis. ? 3. Cardiomegaly, with advanced coronary artery disease.? ? ? Dictated by: Gt Juarez M.D. on 10/30/2021 at 19:49 ? ? Approved by: Gt Juarez M.D. on 10/30/2021 at 19:54?? ECG Data Attestation: I personally reviewed and interpreted this ECG as follows: Interpretation: Atrial paced rhythm with left ventricular hypertrophy, rate of 60 P are 326, QRS of 144 and QTC of 446. Patient has prior from 12/27/2020. MDM Narrative Medical decision making narrative: This is an 81-year-old male who presents with bright red blood from the rectum as well as intermittent vomiting but no hematemesis today. Patient describes suprapubic. He has appropriate vitals here has not been hypotensive. And some documented low O2 sats but these were artifact from. Patient's EKG is paced rhythm. Patient's not had additional emesis he does spit up occasionally. He is nontender over his inguinal hernia but does have changes consistent with colitis or possibly ischemic colitis although his abdominal exam seems less likely for this but hernia was not reducible for myself. CT findings are included above, discussed with General surgery who is happy to see the patient but has multiple medical issues so asked for admission to medicine. Spoke with Dr. Gasca who accepts. Patient appears nontoxic, with labs otherwise at baseline. Discharge Plan Departure Patient Disposition: Admitted As Inpatient Clinical Impression: Acute GI bleeding, MIKEL (acute kidney injury), Inguinal hernia, Colitis Admit Date/Time: 10/30/21 20:33 Admit Provider: Ronald Gasca
[2021-10-30 18:50] LABS: Add Manual Diff / Slide Review NO; Basophils Absolute Auto 0 /uL (0-100); Basophils Percent Auto 0.3 % (0-2); Eosinophils Absolute Auto 0 /uL (0-450); Hematocrit 42.5 % (41-53); Hemoglobin 14.4 g/dL (13.5-17.5); Lymphocytes Absolute Auto 200 /uL (1100-4500); Lymphocytes Percent Auto 1.8 % (25-40); Mean Corpuscular HGB Conc 33.8 % (30-36); Mean Corpuscular Hemoglobin 31.8 PG (26-34); Mean Corpuscular Volume 94.1 fL (80-100); Monocytes Absolute Auto 500 /uL (0-900); Monocytes Percent Auto 4.5 % (3-14); Neutrophils Absolute Auto 11300 /uL (1500-7000); Neutrophils Percent Auto 93.4 % (50-75); Platelet Count 149 X10^3/uL (150-400); Red Blood Cell Count 4.51 X10^6/uL (4.5-5.9); Red Cell Distribution Width 14.3 % (11.6-14.8); White Blood Cell Count 12.1 X10^3/uL (4.5-11.0)
[2021-10-30 18:54] LABS: INR 1.4 (0.9-1.3); Prothrombin Time 16.4 SECONDS (10.1-12.7)
[2021-10-30 18:56] LABS: PTT Partial Thromboplastin Tim 35 SECONDS (26-36)
[2021-10-30 18:57] LABS: Alanine Aminotransferase 40 IU/L (<50); Albumin 4.1 g/dL (3.5-5.0); Albumin Globulin Ratio 1.7 (1.0-2.8); Alkaline Phosphatase 224 U/L (38-126); Aspartate Aminotransferase 45 IU/L (17-59); BUN Creatinine Ratio 19.7 (6-22); Blood Urea Nitrogen 31 mg/dL (9-20); Calcium 9.5 mg/dL (8.4-10.2); Carbon Dioxide 25 mmol/L (22-32); Chloride 104 mmol/L (98-107); Creatine Kinase 88 U/L (55-170); Estimated Glomerular Filt Rate 44 mL/min (>60); Globulin 2.4 g/dL (1.7-4.1); Glucose 130 mg/dL (80-110); HEMOLYSIS < 15 (0-50); Potassium 4.5 mmol/L (3.4-5.1); Sodium 136 mmol/L (137-145); Total Protein 6.5 g/dL (6.3-8.2)
--- NOTE | 2021-10-30 18:57 | DI.CT.S_ITS ---
PROCEDURE: CT ABDOMEN PELVIS W CON INDICATIONS: epigastric pain, brb rectum, vomited TECHNIQUE: After the administration of intravenous contrast, axial sections acquired from the lung bases to the pubic symphysis. Coronal and sagittal reformats were performed. For radiation dose reduction, the following was used: automated exposure control, adjustment of mA and/or kV according to patient size. COMPARISON: None. FINDINGS: Image quality: Excellent. Lung bases: Unremarkable. Heart: Four-chamber cardiomegaly, most notably involving the left atrium and left ventricle, advanced coronary artery calcifications, pacemaker. Enlarged bilateral pulmonary arteries are consistent with pulmonary arterial hypertension. ABDOMEN: Liver: Unremarkable. Gallbladder: Unremarkable. Biliary ducts: Unremarkable. Pancreas: Unremarkable. Spleen: Unremarkable. Adrenal Glands: Unremarkable. Kidneys and Ureters: Unremarkable. Stomach and Bowel: Stomach, small bowel loops, and colon are unremarkable. Hyperdense material in the stomach and duodenum and jejunum likely represents hyperdense ingested oral contents. Peritoneum: No abnormal intraperitoneal fluid. No free air. Ventral Wall: No hernias. Abdominal Nodes: No retroperitoneal or mesenteric adenopathy by size criteria. Vessels: Aorta and inferior vena cava are normal in size. PELVIS: Pelvic Organs: Unremarkable. Bladder: Diffuse bladder wall thickening. Pelvic Nodes: No enlarged lymph nodes. Miscellaneous: No acute extravasation is identified in this location. Bones: Advanced lumbar degenerative change. No lytic or blastic bony lesions. No acute compression fractures. IMPRESSION: 1. There is a left inguinal hernia containing inflamed sigmoid. However, the entirety of the descending colon and sigmoid has an inflammatory appearance with thickened wall and inflammatory change in the adjacent fat. The appearance is likely not related to incarceration in the region of the inguinal hernia. Consider infectious versus inflammatory versus ischemic colitis. 2. Diffuse bladder wall thickening, consistent with cystitis. 3. Cardiomegaly, with advanced coronary artery disease. Dictated by: Gt Juarez M.D. on 10/30/2021 at 19:49 Approved by: Gt Juarez M.D. on 10/30/2021 at 19:54
[2021-10-30 18:58] LABS: Lactate (Lactic Acid) 1.5 mmol/L (0.7-2.1)
--- NOTE | 2021-10-30 19:03 | PC.NURSE ---
Standby for rectal exam. Occult blood in stool.
[2021-10-30 19:06] LABS: Lipase 110 U/L (23-300)
[2021-10-30 19:09] LABS: Troponin I < 0.012 ng/mL (0.01-0.034)
[2021-10-30] MEDS: PIPERACILLIN/TAZO 4.5 GM in SODIUM CHLORIDE 0.9% 100 ML IV (20:52)
[2021-10-30] MEDS: TAMSULOSIN 0.4 MG CAPSULE PO (23:36)
[2021-10-30] MEDS: DEXTROSE 5%-0.9% NS 1,000 ML 80 ML IV (23:36)
[2021-10-30] MEDS: ENALAPRIL 5 MG TABLET 10 MG PO (23:36)
[2021-10-31] VITALS (10 sets, daily range): BP systolic 97–126; BP diastolic 44–68; PULSE 59–84; RESP 16–20; TEMP 35.8–36.5; O2SAT 93–95; BMI 25.6
[2021-10-31] MEDS: PIPERACILLIN/TAZO 3.375 GM in SODIUM CHLORIDE 0.9% 100 ML IV ×3 (04:25→20:29)
[2021-10-31 05:04] LABS: Add Manual Diff / Slide Review NO; Basophils Absolute Auto 0 /uL (0-100); Basophils Percent Auto 0.3 % (0-2); Eosinophils Absolute Auto 0 /uL (0-450); Eosinophils Percent Auto 0.1 % (2-4); Hematocrit 37.6 % (41-53); Hemoglobin 13.2 g/dL (13.5-17.5); Lymphocytes Absolute Auto 500 /uL (1100-4500); Lymphocytes Percent Auto 4.6 % (25-40); Mean Corpuscular HGB Conc 35.1 % (30-36); Mean Corpuscular Hemoglobin 32.6 PG (26-34); Mean Corpuscular Volume 92.9 fL (80-100); Monocytes Absolute Auto 800 /uL (0-900); Monocytes Percent Auto 6.9 % (3-14); Neutrophils Absolute Auto 9600 /uL (1500-7000); Neutrophils Percent Auto 88.1 % (50-75); Platelet Count 140 X10^3/uL (150-400); Red Blood Cell Count 4.05 X10^6/uL (4.5-5.9); Red Cell Distribution Width 14.1 % (11.6-14.8)
[2021-10-31 05:17] LABS: Blood Urea Nitrogen 31 mg/dL (9-20); Calcium 8.6 mg/dL (8.4-10.2); Carbon Dioxide 25 mmol/L (22-32); Chloride 104 mmol/L (98-107); Estimated Glomerular Filt Rate 52 mL/min (>60); Glucose 132 mg/dL (80-110); HEMOLYSIS < 15 (0-50); Potassium 4.2 mmol/L (3.4-5.1); Sodium 134 mmol/L (137-145)
[2021-10-31] MEDS: PANTOPRAZOLE DR 40 MG TABLET PO (06:02)
[2021-10-31] MEDS: ALBUTEROL 2.5 MG/3 ML NEB (ADULT) INH ×3 (08:12→18:58)
[2021-10-31] MEDS: BUDESONIDE 0.5 MG/2 ML NEB INH ×2 (08:12→18:58)
[2021-10-31] MEDS: ENALAPRIL 5 MG TABLET 10 MG PO (08:57)
[2021-10-31] MEDS: AMIODARONE 200 MG TABLET PO (08:57)
[2021-10-31] MEDS: METOPROLOL ER 25 MG TABLET 37.5 MG PO (08:57)
--- NOTE | 2021-10-31 09:14 | CM.DANOTE ---
DCP: Case received, EMR reviewed and met with patient. Introduced self and role. Was able to obtain information regarding patient's baseline activity level at home prior to his admission. DCP assessment completed with information currently available. Patient is an 81 year old male who admitted yesterday evening to the care of the hospitalist team. PCP: Dr. Howe. Payer: [employer] Medicare Patient came to the hospital via private vehicle, he was sent over from his primary care office. Patient was noted to have blood in his stool. Patient had mentioned that he had 6-8 episodes of blood in his stools. He had also vomited. Patient was also complaining of abdominal discomfort. Patient was admitted for Acute GI bleed, MIKEL. He is having surgery consult today. Met with patient in his room. He is alert and oriented. confirmed that he resides here in [place] with his spouse, Sulema. At his baseline, he uses a four wheel walker, and does not drive. P: DCP to continue to follow for any needs. Patient should be able to go home when he is deemed medically stable. Namita Mcnally RN/Production Manager Discharge Planning/Care Management CM Discharge Assessment Start: 10/31/21 09:13 Freq: Status: Active Protocol: Document 10/31/21 09:13 (Rec: 10/31/21 09:14 [id number]) Discharge Planning Assessment Assigned Nuclear Technologist Namita Mcnally RN/Production Manager Advance Directives? Yes: POLST Advance Directives on File Yes History Provided By Patient,Medical Record Prior Living Arrangements House Household Members spouse Type of transporation used prior to Relies on Others admit Independent with ADL's Yes Is patient alert and oriented? Yes Needs Assistance With Meal Prep,Home Chores / Shopping Caregiver for Another No DME Already Rented / Owned Other Comment Patient uses a four wheel walker Barriers to Discharge No Discharge Plan Home Transportation Arrangement Family to provide transport. Referrals Initiated None needed Whiteboard Updated in Patient Room with Yes name and ext. # of Nuclear Technologist Review Status In Process Next Review Type Continued Stay Review
--- NOTE | 2021-10-31 09:48 | PM.HP.1 ---
History of Present Illness History of Present Illness Date Patient Seen: 10/31/21 Time Patient Seen: 09:49 Chief complaint: rectal bleeding Narrative: 81-year-old male with coronary artery disease status post stenting ventricular tachycardia pacemaker anticoagulation moderate to severe COPD BPH with history of urinary obstruction. Patient comes in today with rectal bleeding. Patient stays it is rectal bleeding started yesterday morning. He had multiple episodes probably 6 or 7. He says it was dark blood as well as bright red blood. Intermixed with his feces. Says he has not had this before. Occasionally he has had some bleeding in his urine but not significant. Patient is anticoagulated. Patient began to have a little bit of lower abdominal pain yesterday afternoon and was directed to present to the emergency department for evaluation. Patient states yesterday as he had more bleeding he also became a little bit weak and unsteady on his feet. Patient then began to have a little bit of lower abdominal pain. Suprapubic on the left side as well. Patient has a known history of hernia. Patient declines any significant history of rectal bleeding before. No history of colitis. Patient is unsure when his last endoscopic procedure was. Patient currently says his bleeding has decreased since yesterday. He says he did not have any palpitations dizziness or lightheadedness although he was weak. He is not particularly short of breath. Does not have much of an appetite. He is not very mobile at home and mainly moves from chair to bed with a walker. 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) Coronary artery disease (1997) Depression (08/20/14) Depression Dizziness Herpes Hypertension (1997) Hyperthyroidism Inguinal hernia Ischemic cardiomyopathy Kidney stones (1991) Memory loss Mitral stenosis Osteoarthritis Presence of cardiac pacemaker (03/23/17) Rheumatic fever Sleep apnea (08/24/13) Thyroid nodule Trigeminal neuralgia (~1995) Urinary incontinence (2001) Surgical History AICD (automatic cardioverter/defibrillator) present Anesthesia History of angioplasty (1997) History of angioplasty (2007) History of angioplasty (2011) Status post hernia repair (1979) Status post transurethral resection of prostate (1999) Family & Social History Family History Brother Stroke Brother Stroke Brother Age: 88 Diabetes mellitus Hypertension Daughter Age: 58 Immune disorder Sister Age: 78 Heart disease Hypertension Stroke Son No problems noted. Father Heart attack Mother No problems noted. Social History: household members spouse Prior Living Arrangements House Safety & Behavioral: Feels Safe in Current Yes Environment Been Physically Hurt or No Threatened By a Person Tobacco & Substance use: Tobacco type cigarettes Smoking Status Former smoker alcohol intake never alcohol intake frequency 0-2 drinks per day Substance Use Type does not use Meds Home Medications and Allergies Home Medications Medication Instructions Recorded Confirmed Type atorvastatin 40 mg tablet 40 mg PO HS #90 tabs 07/13/18 10/30/21 Rx clopidogrel 75 mg tablet (Plavix) 75 mg PO QDAY #90 tabs 02/23/20 10/30/21 Rx apixaban 2.5 mg tablet (Eliquis) 2.5 mg PO BID 12/09/20 10/30/21 History enalapril maleate 10 mg tablet 10 mg PO .QDAY 01/07/21 10/30/21 History (Vasotec) metoprolol succinate 25 mg capsule 37.5 mg PO BID 03/20/21 10/30/21 History sprinkle, ext. release 24 hr tamsulosin 0.4 mg capsule (Flomax) 0.4 mg PO BEDTIME #90 caps 05/23/21 10/30/21 Rx acetaminophen 650 mg 1,300 mg PO Q12H PRN Pain, Moderate 06/10/21 10/30/21 History tablet,extended release amiodarone 200 mg tablet 200 mg PO DAILY 06/10/21 10/30/21 History diclofenac sodium 1 % topical gel 2 g topical QID PRN Pain (Scale 06/10/21 10/30/21 History (Voltaren Arthritis Pain) Score 1-3) lansoprazole 30 mg capsule,delayed 30 mg PO DAILY 06/10/21 10/30/21 History release (Prevacid) multivitamin 1 cap PO BID 06/10/21 10/30/21 History fluticasone 250 mcg-salmeterol 50 See Rx Instructions .Route 06/23/21 10/30/21 Rx mcg/dose blistr powdr for .COMPLEX #60 blisters inhalation Allergies Allergy/AdvReac Type Severity Reaction Status Date / Time No Known Drug Allergies Allergy Verified 06/10/21 15:40 Exam Vital Signs (past 8 hours): - 10/31/21 03:08 10/31/21 08:12 10/31/21 07:00 Temperature 97.2 F L 97 F L Pulse Rate 67 80 61 Respiratory Rate 18 18 16 Blood Pressure 126/68 101/51 L Pulse Oximetry 95 93 93 Oxygen Delivery Method Room Air Oxygen Flow Rate 0 0 10/31/21 08:57 10/31/21 08:22 Temperature Pulse Rate 80 84 Respiratory Rate 20 Blood Pressure 101/51 L Pulse Oximetry Oxygen Delivery Method Room Air Oxygen Flow Rate Oxygen Delivery Method Room Air Oxygen Flow Rate 0 Narrative Exam Narrative: Gen.: Alert and good historian pale appearing elderly gentleman HEENT: Patient has pallor pupils equal round and reactive or mucosa is moist neck is supple. Cardio: S1-S2 regular rate and rhythm systolic murmur present 3/6 Respiratory: Normal respiratory effort breath sounds are distant no wheezes or crackles heard Abdomen: Patient has tenderness in his suprapubic area left lower quadrant has a left sided inguinal hernia. Extremities: Patient has no significant swelling. Patient has generalized weakness Neurologic: No focal neurological deficits Objective Labs Result Diagrams: 10/31/21 04:48 10/31/21 04:48 Labs: Laboratory Results - last 24 hr 10/30/21 10/30/21 10/30/21 18:18 18:18 18:18 WBC 12.1 H RBC 4.51 Hgb 14.4 Hct 42.5 MCV 94.1 MCH 31.8 MCHC 33.8 RDW 14.3 Plt Count 149 L Neut % (Auto) 93.4 H Lymph % (Auto) 1.8 L [place] % (Auto) 4.5 Eos % (Auto) 0.0 L Baso % (Auto) 0.3 Neut # (Auto) 83280 H Lymph # (Auto) 200 L [place] # (Auto) 500 Eos # (Auto) 0 Baso # (Auto) 0 PT 16.4 H INR 1.4 H APTT 35 Sodium 136 L Potassium 4.5 Chloride 104 Carbon Dioxide 25 BUN 31 H Creatinine 1.57 H Estimated GFR 44 L BUN/Creatinine Ratio 19.7 Glucose 130 H Lactate Calcium 9.5 Total Bilirubin 1.0 AST 45 ALT 40 Alkaline Phosphatase 224 H Total Creatine Kinase CK-MB (CK-2) CK-MB (CK-2) Rel Index Troponin I Total Protein 6.5 Albumin 4.1 Globulin 2.4 Albumin/Globulin Ratio 1.7 Lipase Blood Type Antibody Screen 10/30/21 10/30/21 10/30/21 18:18 18:18 18:18 WBC RBC Hgb Hct MCV MCH MCHC RDW Plt Count Neut % (Auto) Lymph % (Auto) [place] % (Auto) Eos % (Auto) Baso % (Auto) Neut # (Auto) Lymph # (Auto) [place] # (Auto) Eos # (Auto) Baso # (Auto) PT INR APTT Sodium Potassium Chloride Carbon Dioxide BUN Creatinine Estimated GFR BUN/Creatinine Ratio Glucose Lactate 1.5 Calcium Total Bilirubin AST ALT Alkaline Phosphatase Total Creatine Kinase 88 CK-MB (CK-2) TNP CK-MB (CK-2) Rel Index TNP Troponin I < 0.012 Total Protein Albumin Globulin Albumin/Globulin Ratio Lipase 110 Blood Type Antibody Screen 10/30/21 10/31/21 10/31/21 18:18 04:48 04:48 WBC 11.0 RBC 4.05 L Hgb 13.2 L Hct 37.6 L MCV 92.9 MCH 32.6 MCHC 35.1 RDW 14.1 Plt Count 140 L Neut % (Auto) 88.1 H Lymph % (Auto) 4.6 L [place] % (Auto) 6.9 Eos % (Auto) 0.1 L Baso % (Auto) 0.3 Neut # (Auto) 9600 H Lymph # (Auto) 500 L [place] # (Auto) 800 Eos # (Auto) 0 Baso # (Auto) 0 PT INR APTT Sodium 134 L Potassium 4.2 Chloride 104 Carbon Dioxide 25 BUN 31 H Creatinine 1.35 H Estimated GFR 52 L BUN/Creatinine Ratio 23.0 H Glucose 132 H Lactate Calcium 8.6 Total Bilirubin AST ALT Alkaline Phosphatase Total Creatine Kinase CK-MB (CK-2) CK-MB (CK-2) Rel Index Troponin I Total Protein Albumin Globulin Albumin/Globulin Ratio Lipase Blood Type A Positive Antibody Screen Negative Assessment & Plan Assessment and plan (1) Acute GI bleeding: Status: Acute (2) Colitis: Status: Acute (3) MIKEL (acute kidney injury): Status: Acute Plan Acute gastrointestinal bleed patient has acute gastrointestinal bleeding with anemia. Hemoglobin hematocrit is low. Although not quite as low as would have anticipated probably due to dehydration. He looks quite pale. Check hemoglobin hematocrit although his bleeding has seemed to slow down. Type and screen for 2 units. Rectal bleeding source CT scan shows colitis infectious versus inflammatory versus ischemic. Patient has mild lower quadrant abdominal pain. Treat pain appropriately. Start on antibiotics as he has an elevated white count for infectious causes of colitis. May need further evaluation with endoscopy to help distinguish source of colitis whether inflammatory infectious or ischemic. General surgery has been consulted for this. His blood thinner and anti-platelet medication are on hold. He is currently NPO. Acute blood loss anemia due to gastrointestinal bleeding. She will hemoglobin hematocrit type and screen for 2 units Acute colitis. Patient with signs symptoms of inflammatory colitis with pain and discomfort elevated white blood cell count. He will be started on antibiotics. Will hold off on steroids. Consultation of General surgery for further evaluation of this may need endoscopy. Acute kidney injury. Patient had kidney injury due to underlying colitis. And inflammation probable dehydration and blood loss. IV fluids provided in the emergency department looks better this morning. Will continue with gentle hydration and monitor kidney function and electrolytes. Coronary artery disease cardiomyopathy ventricular to tachycardia with pacemaker and chronic anticoagulation. Patient has significant coronary artery disease and cardiac history. He will be continued on his beta-camila and blood pressure management here in the hospital. His blood thinner and antiplatelets are on hold. Due to potential a needing endoscopic procedure and his ongoing bleeding. Will have to discuss and restarting anticoagulation with general surgery at some point. Patient does not appear to be in acute heart failure at this time. to monitor closely fluid status. He will be placed on coordinator of health services he is a full code. Gastroesophageal reflux without history of gastrointestinal bleeding previously. Will continue with patient's proton pump inhibitor that he was taking at home Moderate COPD. Patient has chronic COPD last FEV1 was 50%. Will continue with his current inhaled steroids as well as long-acting bronchodilators RT referral has been done. BPH with history of urinary obstruction continue with Flomax as needed. Code status full code. Disposition and plan patient admitted as inpatient anticipate hospital stay greater than 2 midnight Time Spent With Patient Critical Care time: I spent a total of [] minutes of critical care time on this patient's care today; this time is exclusive of procedural time. Quality VTE Deep Vein Thrombosis/Pulmonary Embolism Present on Admission: No
--- NOTE | 2021-10-31 13:20 | PT.IIE ---
Current Diagnoses Noninfective gastroenteritis and colitis, unspecified (10/30/21) Gastrointestinal hemorrhage, unspecified (10/30/21) Acute kidney failure, unspecified (10/30/21) Surgical History (Last Reviewed 10/31/21 @ 14:08 by Tayla Galo MD) AICD (automatic cardioverter/defibrillator) present Anesthesia History of angioplasty (1997) History of angioplasty (2007) History of angioplasty (2011) Status post hernia repair (1979) Status post transurethral resection of prostate (1999) Medical History (Last Reviewed 10/31/21 @ 14:08 by Tayla Galo MD) Anxiety Chicken pox Chronic obstructive pulmonary disease (2007) 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) Coronary artery disease (1997) Depression (08/20/14) Depression Dizziness Herpes Hypertension (1997) Hyperthyroidism Inguinal hernia Ischemic cardiomyopathy Kidney stones (1991) Memory loss Mitral stenosis Osteoarthritis Presence of cardiac pacemaker (03/23/17) Rheumatic fever Sleep apnea (08/24/13) Thyroid nodule Trigeminal neuralgia () Urinary incontinence (2001) Physical Therapy Inpatient Evaluation/Re-Eval M1 PT/OT-IP Prior Functional Status Start: 10/31/21 14:46 Freq: NEEDED Status: Active Protocol: Document 10/31/21 13:20 AB (Rec: 10/31/21 15:04 AB [email or web address]) Medical Review Prior Functional Status Medical History Reviewed Yes Communication able to make needs known Mobility and Gait pt stated that he is modified independent with all mobilities and ambulation using either a 4WW or SPC but usually 4WW for outside/long distance ambulation Social History Household Members spouse Living Arrangements [facility] Facility Number of Floors (Floors) One Floor Number of Stairs To Enter/Railing? pt lives at [facility] [address]: 2nd floor with an elevator to get to his apartment Home Environment Standard Height Toilet,Walk in Shower,Built-In Shower Seat, Elevator Home Equipment Four Wheel Walker,Straight Cane,Hand Held Shower,Grab Bars In Shower Additional Social History Comment pt stated that he does not take a shower anymore but just washes up M2 PT-IP Current Condition Start: 10/31/21 14:46 Freq: NEEDED Status: Active Protocol: Document 10/31/21 13:20 AB (Rec: 10/31/21 15:04 AB [email or web address]) Physical Therapy Current Condition Current Condition Evaluation Date 10/31/21 Treatment Diagnosis GI bleed; difficulty in walking Onset Date 10/30/21 M3 PT-IP Subjective Start: 10/31/21 14:46 Freq: NEEDED Status: Active Protocol: Document 10/31/21 13:20 AB (Rec: 10/31/21 15:04 [email or web address]) Subjective Physical Therapy Visit Type Type Initial Evaluation Visit Start Time 13:20 Visit Stop Time 13:51 Total Visit Minutes 31 Number of JOURNEYMAN LINEMAN Visits 0 Physical Therapy Visit Comments Patient Comments agreeable to do PT Therapy Pain Assessment Pain When Pain Assessed At Rest Location abdomen Intensity 3 Scale Used Numeric (0 - 10) Pain Management Techniques Distraction,Modification of Treatment,Re-positioning, Timing of Activity with Medications M4 PT-IP Mobility and Gait Start: 10/31/21 14:46 Freq: NEEDED Status: Active Protocol: Document 10/31/21 13:20 AB (Rec: 10/31/21 15:04 [email or web address]) PT-Bed Mobility Assessment Supine to Sit Supine to Sit Standby Assistance Sit to Supine Sit to Supine Standby Assistance PT-Transfer Assessment Sit to and From Stand Sit to and from Stand Standby Assistance Equipment Transfer Assistive Device 4 Wheeled Walker Orthotic/Prosthetic Devices or Brace: Yes Comments Mobility Comments BP in supine: 98/47. completed supine to sit SBA. Pt uses B knee support per choice. BP in sittin/51 . able to sit on EOB SBA. completed sit to stand SBA and ambulated in room using 4WW SBA ~ 40 ft. presents with ataxic gait, wide CASSIE with increase forward trunk flexion . pt requested to go back to bed and completed sit to supine SBA. positioned pt in bed. call light and table placed within reach. BP at end of tx session: 111/52 Gait Assessment Gait Gait Assistance Required: Standby Assistance Distance (Feet) 40 Able to Maintain Weight Bearing Status Yes During Gait Assistive Devices Assistive Device Gait Belt,4 Wheeled Walker Orthotic/Prosthetic Devices or Brace: Yes Gait Deviations General Gait Pattern Ataxic,Decreased Stride Length ,Decreased Feet Clearance, Flexed Trunk,Wide Based Gait Factors Limiting Gait Function Factors Limiting Gait Function Decreased Activity Tolerance, Decreased Strength,Limited Range of Motion,Pain,Poor Balance,Poor Safety Awareness PT-Balance Assessment Sitting Balance and Reactions Static Sitting Balance Ability Normal Dynamic Sitting Balance Ability Good Standing Balance and Reactions Static Standing Balance Ability Fair Dynamic Standing Balance Ability Fair Device Used 4WW M5 PT-IP Objective Assessments Start: 10/31/21 14:46 Freq: NEEDED Status: Active Protocol: Document 10/31/21 13:20 AB (Rec: 10/31/21 15:04 AB [id number]) Orientation Orientation/Cognition Level of Alertness Alert Orientation Name,Place,Situation Language Function Ability No Deficits Noted Safety Awareness Decreased Safety Awareness Memory Description No Deficits Noted Gross Range of Motion Lower Extremity ROM Assessment Within Functional Limits Strength Lower Extremity Strength Hip 4-/5 Knee 4-/5 Sensation Assessment Sensation Gross Sensation WNL Muscle Tone Muscle Tone WNL Yes M6 PT-IP Treatment Start: 10/31/21 14:46 Freq: NEEDED Status: Active Protocol: Document 10/31/21 13:20 AB (Rec: 10/31/21 15:04 AB [id number]) Physical Therapy Treatment Education Education Provided Safety M7 PT-IP Assessment and Plan Start: 10/31/21 14:46 Freq: NEEDED Status: Active Protocol: Document 10/31/21 13:20 AB (Rec: 10/31/21 15:04 AB [email or web address]) PT Summary Assessment and Plan Potential Rehabilitation Potential Fair Status of Condition at Evaluation Evolving Summary Impairments Pain,ROM,Strength,Balance, Coordination,Sensation,Tone, Cognition,Bed Mobility, Transfers,Gait,Activity Tolerance Assessment Summary pt requiring SBA with mobility using 4WW. pt plans to go home and spouse to assist as needed. pt also stated that they can ask for assistance from staff at [facility]. pt may go home when medically stable. Per nurse, pt will probably go home tomorrow and the doctor wants him to schedule for surgery outpt basis for GI bleed. Goals Bed Mobility Goal Independent Transfer Goal Independent,Four Wheeled Walker Gait Goal Independent,Four Wheel Walker Gait Distance 200 Days to Meet Goals 5 Frequency of Treatment Frequency Of Treatment Once a Day Treatment Plan Physical Therapy Treatment Plan Bed Mobility Training,Transfer Training,Gait Training, Therapeutic Exercise,Balance Retraining,Discharge Planning, Hot or Cold Pack,Neuromuscular Re-ed,Coordination Retraining Recommendations To Nursing Amount of Assist Needed Standby Assistance Discharge Recommendations PT Discharge Recommendations Home with Assistance Transportation Needs at Discharge Private Vehicle
--- NOTE | 2021-10-31 14:05 | PM.CN ---
History of Present Illness Consult details Date Patient Seen: 10/31/21 Time Patient Seen: 14:05 Chief complaint: rectal bleeding Reason for consult: colitis, blood in stool, right inguinal hernia Requesting provider: Lavinia Whitehead Narrative: 81 yo male presented with rectal bleeding and spitting up blood. on Eliquis and Plavix. Chronic right inguinal hernia with chronic pain at hernia site. Anti coagulated on Eliquis and Plavix. Meds Home Medications and Allergies Home Medications Medication Instructions Recorded Confirmed Type atorvastatin 40 mg tablet 40 mg PO HS #90 tabs 07/13/18 10/30/21 Rx clopidogrel 75 mg tablet (Plavix) 75 mg PO QDAY #90 tabs 02/23/20 10/30/21 Rx apixaban 2.5 mg tablet (Eliquis) 2.5 mg PO BID 12/09/20 10/30/21 History enalapril maleate 10 mg tablet 10 mg PO .QDAY 01/07/21 10/30/21 History (Vasotec) metoprolol succinate 25 mg capsule 37.5 mg PO BID 03/20/21 10/30/21 History sprinkle, ext. release 24 hr tamsulosin 0.4 mg capsule (Flomax) 0.4 mg PO BEDTIME #90 caps 05/23/21 10/30/21 Rx acetaminophen 650 mg 1,300 mg PO Q12H PRN Pain, Moderate 06/10/21 10/30/21 History tablet,extended release amiodarone 200 mg tablet 200 mg PO DAILY 06/10/21 10/30/21 History diclofenac sodium 1 % topical gel 2 g topical QID PRN Pain (Scale 06/10/21 10/30/21 History (Voltaren Arthritis Pain) Score 1-3) lansoprazole 30 mg capsule,delayed 30 mg PO DAILY 06/10/21 10/30/21 History release (Prevacid) multivitamin 1 cap PO BID 06/10/21 10/30/21 History fluticasone 250 mcg-salmeterol 50 See Rx Instructions .Route 06/23/21 10/30/21 Rx mcg/dose blistr powdr for .COMPLEX #60 blisters inhalation Allergies Allergy/AdvReac Type Severity Reaction Status Date / Time No Known Drug Allergies Allergy Verified 06/10/21 15:40 Review of Systems Review of Systems ROS: Yes All systems reviewed with the patient and are negative except as otherwise documented Exam Vital Signs (past 8 hours): - 10/31/21 08:12 10/31/21 07:00 10/31/21 08:57 Temperature 97 F L Pulse Rate 80 61 80 Respiratory Rate 18 16 Blood Pressure 101/51 L 101/51 L Pulse Oximetry 93 93 Oxygen Delivery Method Room Air Oxygen Flow Rate 0 10/31/21 08:22 10/31/21 07:00 Temperature Pulse Rate 84 Respiratory Rate 20 Blood Pressure Pulse Oximetry 93 Oxygen Delivery Method Room Air Room Air Oxygen Flow Rate Oxygen Delivery Method Room Air Oxygen Flow Rate 0 Narrative Exam Narrative: (1) Likely ischemic colitis given the distribution, and bleeding. (2) chronic symptomatic RIH w/o srangulation, Const General: cooperative and well developed Nutritional Appearance: obese Orientation: alert, awake and oriented x3 HENMT Head: normocephalic and atraumatic Eyes Periorbital: periorbital findings normal Sclera: sclerae normal Neck Neck: trachea midline Chest Chest: normal inspection of the chest Resp Effort & Inspection: normal respiratory effort and able to speak in complete sentences Cardio Rate: regular rate Rhythm: regular rhythm GI Palpation: soft and hernia (left inguinal hernia, soft, no skin changes, ?tenderness) Skin General: no rashes or lesions noted, atrophy and dry skin Hair: brittle and general thinning Neuro General: patient alert, patient awake and patient oriented x3 Cognition: normal cognition Speech: speech normal Psych Appearance: disheveled Affect: dysphoric affect, irritable affect and blunted Attitude: guarded Thought Process: circumstantial Thought Content: obsessions Judgment: fair Objective Labs Result Diagrams: 10/31/21 16:30 10/31/21 04:48 Labs: Laboratory Results - last 24 hr 10/30/21 10/30/21 10/30/21 18:18 18:18 18:18 WBC 12.1 H RBC 4.51 Hgb 14.4 Hct 42.5 MCV 94.1 MCH 31.8 MCHC 33.8 RDW 14.3 Plt Count 149 L Neut % (Auto) 93.4 H Lymph % (Auto) 1.8 L [place] % (Auto) 4.5 Eos % (Auto) 0.0 L Baso % (Auto) 0.3 Neut # (Auto) 16434 H Lymph # (Auto) 200 L [place] # (Auto) 500 Eos # (Auto) 0 Baso # (Auto) 0 PT 16.4 H INR 1.4 H APTT 35 Sodium 136 L Potassium 4.5 Chloride 104 Carbon Dioxide 25 BUN 31 H Creatinine 1.57 H Estimated GFR 44 L BUN/Creatinine Ratio 19.7 Glucose 130 H Lactate Calcium 9.5 Total Bilirubin 1.0 AST 45 ALT 40 Alkaline Phosphatase 224 H Total Creatine Kinase CK-MB (CK-2) CK-MB (CK-2) Rel Index Troponin I Total Protein 6.5 Albumin 4.1 Globulin 2.4 Albumin/Globulin Ratio 1.7 Lipase Blood Type Antibody Screen 10/30/21 10/30/21 10/30/21 18:18 18:18 18:18 WBC RBC Hgb Hct MCV MCH MCHC RDW Plt Count Neut % (Auto) Lymph % (Auto) [place] % (Auto) Eos % (Auto) Baso % (Auto) Neut # (Auto) Lymph # (Auto) [place] # (Auto) Eos # (Auto) Baso # (Auto) PT INR APTT Sodium Potassium Chloride Carbon Dioxide BUN Creatinine Estimated GFR BUN/Creatinine Ratio Glucose Lactate 1.5 Calcium Total Bilirubin AST ALT Alkaline Phosphatase Total Creatine Kinase 88 CK-MB (CK-2) TNP CK-MB (CK-2) Rel Index TNP Troponin I < 0.012 Total Protein Albumin Globulin Albumin/Globulin Ratio Lipase 110 Blood Type Antibody Screen 10/30/21 10/31/21 10/31/21 18:18 04:48 04:48 WBC 11.0 RBC 4.05 L Hgb 13.2 L Hct 37.6 L MCV 92.9 MCH 32.6 MCHC 35.1 RDW 14.1 Plt Count 140 L Neut % (Auto) 88.1 H Lymph % (Auto) 4.6 L [place] % (Auto) 6.9 Eos % (Auto) 0.1 L Baso % (Auto) 0.3 Neut # (Auto) 9600 H Lymph # (Auto) 500 L [place] # (Auto) 800 Eos # (Auto) 0 Baso # (Auto) 0 PT INR APTT Sodium 134 L Potassium 4.2 Chloride 104 Carbon Dioxide 25 BUN 31 H Creatinine 1.35 H Estimated GFR 52 L BUN/Creatinine Ratio 23.0 H Glucose 132 H Lactate Calcium 8.6 Total Bilirubin AST ALT Alkaline Phosphatase Total Creatine Kinase CK-MB (CK-2) CK-MB (CK-2) Rel Index Troponin I Total Protein Albumin Globulin Albumin/Globulin Ratio Lipase Blood Type A Positive Antibody Screen Negative [facility] Medical History Anxiety Chicken pox Chronic obstructive pulmonary disease (2007) 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) Coronary artery disease (1997) Depression (08/20/14) Depression Dizziness Herpes Hypertension (1997) Hyperthyroidism Inguinal hernia Ischemic cardiomyopathy Kidney stones (1991) Memory loss Mitral stenosis Osteoarthritis 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 Father Heart attack Mother No problems noted. Social History marital status: household members: spouse Tobacco & Substance Use Smoking Status: Former smoker alcohol intake: never substance use type: does not use Assessment & Plan Assessment and plan (1) Inguinal hernia: Status: Chronic (2) Rectal bleeding: Status: Acute (3) Acute GI bleeding: Status: Acute (4) MIKEL (acute kidney injury): Status: Acute (5) Colitis: Status: Acute (6) Presence of cardiac pacemaker: Status: Chronic (7) Inguinal hernia, incarcerated: Status: Acute (8) Colitis: Status: Acute Plan Continue observation, restart diet. holding Eliquis, restart Plavix. CT scan reviewed c/w ischemic colitis and incarcerated but not strangulated left inguinal hernia. risk factors for elective hernia repair are anticoagulation and cardiac. plan: advance diet as tolerated. stop Eliquis if possible, follow up [facility] in 1-3 weeks for evaluation for elective left inguinal hernia repair. COVID-19 COVID-19 status: Negative Time Spent With Patient Time with patient: 30 to 49 minutes with 50% spent counseling/coordinating care Critical Care time: I spent a total of [] minutes of critical care time on this patient's care today; this time is exclusive of procedural time.
[2021-10-31 16:36] LABS: Hematocrit 38.2 % (41-53); Hemoglobin 13.1 g/dL (13.5-17.5)
[2021-10-31] MEDS: DEXTROSE 5%-0.9% NS 1,000 ML 80 ML IV (18:35)
[2021-10-31 19:45] LABS: COVID19 -Nasal RAPID Negative (Negative)
[2021-10-31] MEDS: TAMSULOSIN 0.4 MG CAPSULE PO (20:28)
--- NOTE | 2021-10-31 22:31 | PC.NURSE ---
Patient is alert and oriented with flat affect. Breath sounds diminished but CTA with RA sat of 94%. HRR w/telemetry reading of a-paced. BP low at 97/44 initially and on recheck was 104/48; Metoprolol held. Does endorse some lightheadedness but denies SOB or chest pain. BT present and abdomen is soft; has been having some loose stools with some dark red blood noted. Denies dysuria but states he has some urgency so is sometimes incontinent and is wearing a brief. Is able to turn himself in bed. Up to bathroom with walker and SBA. Wearing bilateral calf SCD's. Has mild discomfort at inguinal hernis site but declines pain medication. Fall risk score is high and bed alarm is activated.
[2021-11-01] VITALS (7 sets, daily range): BP systolic 101–145; BP diastolic 49–68; PULSE 58–61; RESP 15–20; TEMP 35.9–36.3; O2SAT 94–98
[2021-11-01] MEDS: PIPERACILLIN/TAZO 3.375 GM in SODIUM CHLORIDE 0.9% 100 ML IV ×3 (04:00→20:15)
[2021-11-01 05:36] LABS: Add Manual Diff / Slide Review NO; Basophils Absolute Auto 100 /uL (0-100); Basophils Percent Auto 0.6 % (0-2); Eosinophils Absolute Auto 200 /uL (0-450); Hematocrit 34.5 % (41-53); Hemoglobin 11.9 g/dL (13.5-17.5); Lymphocytes Absolute Auto 800 /uL (1100-4500); Lymphocytes Percent Auto 7.6 % (25-40); Mean Corpuscular HGB Conc 34.4 % (30-36); Mean Corpuscular Hemoglobin 32.4 PG (26-34); Mean Corpuscular Volume 94.1 fL (80-100); Monocytes Absolute Auto 900 /uL (0-900); Monocytes Percent Auto 8.6 % (3-14); Neutrophils Absolute Auto 8200 /uL (1500-7000); Neutrophils Percent Auto 81.2 % (50-75); Platelet Count 118 X10^3/uL (150-400); Red Blood Cell Count 3.67 X10^6/uL (4.5-5.9); Red Cell Distribution Width 14.9 % (11.6-14.8); White Blood Cell Count 10.1 X10^3/uL (4.5-11.0)
[2021-11-01 05:48] LABS: Alanine Aminotransferase 43 IU/L (<50); Albumin 2.9 g/dL (3.5-5.0); Albumin Globulin Ratio 1.3 (1.0-2.8); Alkaline Phosphatase 90 U/L (38-126); Aspartate Aminotransferase 43 IU/L (17-59); BUN Creatinine Ratio 21.6 (6-22); Blood Urea Nitrogen 30 mg/dL (9-20); Calcium 8.2 mg/dL (8.4-10.2); Carbon Dioxide 28 mmol/L (22-32); Chloride 107 mmol/L (98-107); Estimated Glomerular Filt Rate 51 mL/min (>60); Globulin 2.3 g/dL (1.7-4.1); Glucose 109 mg/dL (80-110); HEMOLYSIS < 15 (0-50); Magnesium 2.1 mg/dL (1.6-2.3); Potassium 4.1 mmol/L (3.4-5.1); Sodium 140 mmol/L (137-145); Total Protein 5.2 g/dL (6.3-8.2)
[2021-11-01 05:55] LABS: INR 1.4 (0.9-1.3); Prothrombin Time 15.8 SECONDS (10.1-12.7)
[2021-11-01] MEDS: PANTOPRAZOLE DR 40 MG TABLET PO (06:24)
[2021-11-01] MEDS: DEXTROSE 5%-0.9% NS 1,000 ML 80 ML IV (06:25)
[2021-11-01] MEDS: METOPROLOL ER 25 MG TABLET 37.5 MG PO ×2 (08:08→20:15)
[2021-11-01] MEDS: CLOPIDOGREL 75 MG TABLET PO (08:09)
[2021-11-01] MEDS: AMIODARONE 200 MG TABLET PO (08:09)
--- NOTE | 2021-11-01 08:16 | P.PN_ITS ---
Subjective Subjective Date Patient Seen: 11/01/21 Time Patient Seen: 08:16 Interval history: Patient doing well this morning. A little grumpy. Says his pain is improved. He is eating a little bit of breakfast. Appreciate general surgery consultation. Vital signs have been stable. He is ambulating with assistance. Discussed CT scan laboratory test and current medications with the patient. Exam Vital Signs (past 8 hours): - 11/01/21 00:38 11/01/21 04:42 11/01/21 07:48 Temperature 97.3 F L 96.7 F L Pulse Rate 60 60 61 Respiratory Rate 16 15 Blood Pressure 101/50 L 108/49 L 117/53 L Pulse Oximetry 95 94 95 Oxygen Flow Rate 0 Oxygen Delivery Method Room Air Oxygen Flow Rate 0 Narrative Exam Narrative: Gen.: Patient is alert resting comfortably in bread eating breakfast HEENT: Pupils equal round and reactive or mucosa is moist Cardio: S1-S2 systolic murmur present Respiratory: Normal respiratory effort lungs are clear Abdomen: Mild lower abdominal diffuse tenderness left inguinal hernia Extremities: No edema full range of motion Objective Labs Result Diagrams: 11/01/21 05:22 11/01/21 05:22 Labs: Laboratory Results - last 24 hr 10/31/21 10/31/21 11/01/21 16:30 19:20 05:22 WBC 10.1 RBC 3.67 L Hgb 13.1 L 11.9 L Hct 38.2 L 34.5 L MCV 94.1 MCH 32.4 MCHC 34.4 RDW 14.9 H Plt Count 118 L Neut % (Auto) 81.2 H Lymph % (Auto) 7.6 L [place] % (Auto) 8.6 Eos % (Auto) 2.0 Baso % (Auto) 0.6 Neut # (Auto) 8200 H Lymph # (Auto) 800 L [place] # (Auto) 900 Eos # (Auto) 200 Baso # (Auto) 100 PT INR Sodium Potassium Chloride Carbon Dioxide BUN Creatinine Estimated GFR BUN/Creatinine Ratio Glucose Calcium Magnesium Total Bilirubin AST ALT Alkaline Phosphatase Total Protein Albumin Globulin Albumin/Globulin Ratio SARS-CoV-2 (PCR) Negative 11/01/21 11/01/21 05:22 05:22 WBC RBC Hgb Hct MCV MCH MCHC RDW Plt Count Neut % (Auto) Lymph % (Auto) [place] % (Auto) Eos % (Auto) Baso % (Auto) Neut # (Auto) Lymph # (Auto) [place] # (Auto) Eos # (Auto) Baso # (Auto) PT 15.8 H INR 1.4 H Sodium 140 Potassium 4.1 Chloride 107 Carbon Dioxide 28 BUN 30 H Creatinine 1.39 H Estimated GFR 51 L BUN/Creatinine Ratio 21.6 Glucose 109 Calcium 8.2 L Magnesium 2.1 Total Bilirubin 1.0 AST 43 ALT 43 Alkaline Phosphatase 90 D Total Protein 5.2 L Albumin 2.9 L Globulin 2.3 Albumin/Globulin Ratio 1.3 SARS-CoV-2 (PCR) [facility] Medical History Anxiety Chicken pox Chronic obstructive pulmonary disease (2007) 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) Coronary artery disease (1997) Depression (08/20/14) Depression Dizziness Herpes Hypertension (1997) Hyperthyroidism Inguinal hernia Ischemic cardiomyopathy Kidney stones (1991) Memory loss Mitral stenosis Osteoarthritis 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 Father Heart attack Mother No problems noted. Social History marital status: household members: spouse Smoking Status: Former smoker alcohol intake: never substance use type: does not use Assessment & Plan Assessment and plan (1) Colitis: Status: Acute Plan Acute gastrointestinal bleed due to colitis. Hemoglobin hematocrit is stable bleeding has slowed down and probably stopped. Eliquis on hold restart Plavix today. Acute blood loss anemia due to gastrointestinal bleeding due to colitis. No plan transfusion needed as of yet. Acute colitis.? Ideology infectious ischemic. Consultation by General surgery completed. Discussed restarting Plavix loading Eliquis further outpatient workup and evaluation. Acute kidney injury.? Patient with acute injury of kidneys. Electrolytes look good. Kidney function improving. Go ahead and stop IV fluids work on oral hydration and oral food. Monitor closely electrolytes Coronary artery disease stable continue with current meds beta-camila statin been given. Cardiomyopathy watch for signs of fluid overload Pacemaker due to ventricular tachycardia on telemetry monitoring continuing amiodarone Moderate COPD.? Patient has chronic COPD last FEV1 was 50%.? Will continue with his current inhaled steroids as well as long-acting bronchodilators RT referral has been done. BPH on Flomax urine status stable Code status full code.? Discharge tomorrow Time Spent With Patient Critical Care time: I spent a total of [] minutes of critical care time on this patient's care today; this time is exclusive of procedural time. Quality VTE Deep Vein Thrombosis/Pulmonary Embolism Present on Admission: No
--- NOTE | 2021-11-01 10:57 | CM.DPNOTE ---
Discharge Planning Note: Patient is A/O quietly resting in bed. According to staff he has had some spotting rectal bleeding. Labs show increase of Hgb to 10, being monitored. Plan: Follow for needs. When stable, return to [facility] where he resides with spouse. Janet Santamaria RN/DCP
--- NOTE | 2021-11-01 11:48 | PT.IPTN ---
Current Diagnoses Unilateral inguinal hernia, with obstruction, without gangrene, not specified as recurrent (10/30/21) Unilateral inguinal hernia, without obstruction or gangrene, not specified as recurrent (10/30/21) Noninfective gastroenteritis and colitis, unspecified (10/30/21) Hemorrhage of anus and rectum (10/30/21) Gastrointestinal hemorrhage, unspecified (10/30/21) Acute kidney failure, unspecified (10/30/21) Presence of cardiac pacemaker (10/30/21) Physical Therapy Treatment Note M2 PT-IP Current Condition Start: 10/31/21 14:46 Freq: NEEDED Status: Active Protocol: Document 10/31/21 13:20 AB (Rec: 10/31/21 15:04 AB [id number]) Physical Therapy Current Condition Current Condition Evaluation Date 10/31/21 Treatment Diagnosis GI bleed; difficulty in walking Onset Date 10/30/21 M3 PT-IP Subjective Start: 10/31/21 14:46 Freq: NEEDED Status: Active Protocol: Document 11/01/21 09:22 KS (Rec: 11/01/21 11:56 KS [id number]) Subjective Physical Therapy Visit Type Type Treatment Note Visit Start Time : Visit Stop Time 11:48 Total Visit Minutes 15 Notes Split treatment, 9:22-9:31, 11 :42-11:48 Number of RN ACUTE Visits 1 Physical Therapy Visit Comments Patient Comments agreeable to do PT M4 PT-IP Mobility and Gait Start: 10/31/21 14:46 Freq: NEEDED Status: Active Protocol: Document 11/01/21 09:22 KS (Rec: 11/01/21 11:56 KS [id number]) PT-Bed Mobility Assessment Supine to Sit Supine to Sit Standby Assistance Scooting Scooting to Edge of Bed Standby Assistance PT-Transfer Assessment Sit to and From Stand Sit to and from Stand Standby Assistance Equipment Transfer Assistive Device 4 Wheeled Walker Orthotic/Prosthetic Devices or Brace: Yes Transfers Transfer Destination Chair Transfer Technique Pt ambulated w/ 4WW Transfer Ability Level of Assist Standby Assistance,1 Person Assistance,Use of Upper Extremities Comments Mobility Comments Pt in bed upon arrival from therapy this AM and only agreeable to exercises in bed. Pt able to perform ankle pumps, quad sets, glute sets and agreeable to complete throughout the day to promote blood flow and strengthening. Upon return, pt agreeable to ambulate and transfer to chair for lunch. SBA for bed mobility, sit<>stand w/ 4WW and ~30 ft ambulation w/ 4WW w / cues for safety, brake application, and upright posture. Pt left in chair w/ all needs in reach. Gait Assessment Gait Gait Assistance Required: Standby Assistance Distance (Feet) 30 Able to Maintain Weight Bearing Status Yes During Gait Assistive Devices Assistive Device Gait Belt,4 Wheeled Walker Orthotic/Prosthetic Devices or Brace: Yes Gait Deviations General Gait Pattern Ataxic,Decreased Stride Length ,Decreased Feet Clearance, Flexed Trunk,Wide Based Gait Factors Limiting Gait Function Factors Limiting Gait Function Decreased Activity Tolerance, Decreased Strength,Limited Range of Motion,Pain,Poor Balance,Poor Safety Awareness Comments Gait Comments Wide based, flexed trunk. Did not respond to cues for FWW mgmt, staying closer to 4WW w/ upright posture. No LOB. Stair Climbing Assessment Comments Stair Climbing Comments Not assessed, no stairs at home. PT-Balance Assessment Sitting Balance and Reactions Static Sitting Balance Ability Normal Dynamic Sitting Balance Ability Good Standing Balance and Reactions Static Standing Balance Ability Fair Dynamic Standing Balance Ability Fair Device Used 4WW M5 PT-IP Objective Assessments Start: 10/31/21 14:46 Freq: NEEDED Status: Active Protocol: Document 10/31/21 13:20 AB (Rec: 10/31/21 15:04 AB [id number]) Orientation Orientation/Cognition Level of Alertness Alert Orientation Name,Place,Situation Language Function Ability No Deficits Noted Safety Awareness Decreased Safety Awareness Memory Description No Deficits Noted Gross Range of Motion Lower Extremity ROM Assessment Within Functional Limits Strength Lower Extremity Strength Hip 4-/5 Knee 4-/5 Sensation Assessment Sensation Gross Sensation WNL Muscle Tone Muscle Tone WNL Yes M6 PT-IP Treatment Start: 10/31/21 14:46 Freq: NEEDED Status: Active Protocol: Document 11/01/21 09:22 KS (Rec: 11/01/21 11:56 KS [id number]) Physical Therapy Treatment Exercises Exercises Ankle Pumps,Gluteal Sets,Quad Sets Education Education Provided Safety M7 PT-IP Assessment and Plan Start: 10/31/21 14:46 Freq: NEEDED Status: Active Protocol: Document 11/01/21 09:22 KS (Rec: 11/01/21 11:56 KS [id number]) PT Summary Assessment and Plan Potential Rehabilitation Potential Fair Summary Impairments Pain,ROM,Strength,Balance, Coordination,Sensation,Tone, Cognition,Bed Mobility, Transfers,Gait,Activity Tolerance Progress Towards Goals Progressing Toward Goals Assessment Summary Pt requires SBA for bed mobility, transfers, and ambulation w/ 4WW w/ cues however pt not very responsive to cues. Able to tolerate LE exercises and agreeable to complete during the day. He lives at [facility] with his and may ask for assistance there if needed. He may return home when medically stable. Goals Bed Mobility Goal Independent Transfer Goal Independent,Four Wheeled Walker Gait Goal Independent,Four Wheel Walker Gait Distance 200 Days to Meet Goals 5 Frequency of Treatment Frequency Of Treatment Once a Day Treatment Plan Physical Therapy Treatment Plan Bed Mobility Training,Transfer Training,Gait Training, Therapeutic Exercise,Balance Retraining,Discharge Planning, Hot or Cold Pack,Neuromuscular Re-ed,Coordination Retraining Recommendations To Nursing Amount of Assist Needed Standby Assistance Discharge Recommendations PT Discharge Recommendations Home with Assistance Transportation Needs at Discharge Private Vehicle
[2021-11-01] MEDS: ACETAMINOPHEN 325 MG TABLET 650 MG PO (19:37)
[2021-11-01] MEDS: SODIUM CHLORIDE 0.9% FLUSH 10 ML IV (20:15)
[2021-11-01] MEDS: TAMSULOSIN 0.4 MG CAPSULE PO (20:15)
[2021-11-01] MEDS: SODIUM CHLORIDE 0.9% 250 ML 21 ML IV (20:16)
--- NOTE | 2021-11-01 21:06 | PC.NURSE ---
Addendum entered by Valery Escamilla R.N. 11/02/21 02:32: Patient complaining of lower abdominal pain. Earlier stated pain was 8/10 and was medicated with Tylenol and warm blanket applied but within 20 min requesting something stronger stating the pain was becoming more intense and constant; rates severity as 9/10. Abdomen is soft but tender. Dr Howe contacted and informed; see new orders. Original Note: Patient is alert and oriented. Breath sounds diminished with crackles in right LL. Denies SOB at rest but was reportedly SOB when up to bathroom earlier; RA sat 98%. HRR w/telemetry reading of a-paced. Still endorses some lightheadedness. Is able to move himself in bed and gets up to bathroom with SBA. BT present and abdomen is soft but complained of 5/10 lower abdominal discomfort which he attributes to a left inguinal hernia; was medicated with Tylenol and is presently asleep. Denies dysuria but states he has urgency so is sometimes incontinent of urine. Refusing SCD's tonight as he states he can't sleep with them on; reminded to ankle wave. Fall risk score is high and bed alarm is activated.
[2021-11-02] VITALS (10 sets, daily range): BP systolic 124–157; BP diastolic 58–84; PULSE 60–65; RESP 16–20; TEMP 35.9–36.4; O2SAT 93–95
[2021-11-02] MEDS: ACETAMINOPHEN 325 MG TABLET 650 MG PO (01:46)
[2021-11-02] MEDS: MORPHINE 2 MG/ML INJ IV (02:29)
[2021-11-02] MEDS: SODIUM CHLORIDE 0.9% FLUSH 10 ML IV ×4 (02:30→20:05)
[2021-11-02] MEDS: PIPERACILLIN/TAZO 3.375 GM in SODIUM CHLORIDE 0.9% 100 ML IV ×3 (04:03→20:04)
[2021-11-02] MEDS: PANTOPRAZOLE DR 40 MG TABLET PO (05:44)
--- NOTE | 2021-11-02 07:51 | PM.PN.1 ---
Subjective Subjective Date Patient Seen: 11/02/21 Time Patient Seen: 07:51 Interval history: Patient seen and evaluated this morning. Had some pain again last night. Required some IV morphine. He did sleep better. He is eating a little bit ambulating. To the pain he says he is not ready to go home. That was the plan today as he had been doing much better. On exam this morning. He his pain was in his inguinal area on the left side. Patient had obvious herniation of bowel into it. It was quite tender. This was reduced by me this morning patient states she felt better. Exam Vital Signs (past 8 hours): - 11/02/21 00:26 11/02/21 04:37 11/02/21 04:37 Temperature 97.3 F L 97.6 F Pulse Rate 61 60 Respiratory Rate 16 16 Blood Pressure 143/72 H 132/63 Pulse Oximetry 93 95 Oxygen Flow Rate 0 Oxygen Delivery Method Room Air Oxygen Flow Rate 0 Narrative Exam Narrative: Gen.: Alert good historian resting comfortably in bed HEENT: Pupils equal round and reactive or mucosa is moist neck is supple Cardio: Regular rate and rhythm systolic murmur present Respiratory: Lungs are clear no wheezes or crackles Abdomen: Abdomen soft some diffuse tenderness throughout the abdomen. Left inguinal hernia full. On palpation tender. Obvious bowel in the hernia sac this was reduced. 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) Coronary artery disease (1997) Depression (08/20/14) Depression Dizziness Herpes Hypertension (1997) Hyperthyroidism Inguinal hernia Ischemic cardiomyopathy Kidney stones (1991) Memory loss Mitral stenosis Osteoarthritis 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 Father Heart attack Mother No problems noted. Social History marital status: household members: spouse Smoking Status: Former smoker alcohol intake: never substance use type: does not use Assessment & Plan Assessment and plan (1) Colitis: Status: Acute Plan Colitis patient had pain again last night. Patient's abdomen is tender this morning. Repeat CBC procalcitonin lactic acid. Infectious versus inflammatory versus ischemic. Patient when came in was on chronic anticoagulation. Continue IV antibiotics. Pain reliever provided today because of his discomfort. Left sliding inguinal hernia. Patient was abdominal pain this morning his inguinal canal. Patient had obvious bowel in his left hernia. This was reduced and patient states his pain was better. Of his ongoing hernia pain and discomfort due to sliding inguinal hernia. Which may be problematic and need to be fixed. Acute gastrointestinal bleed due to colitis. Patient still having some dark blood. Patient is on a proton pump inhibitor antibiotics. Not high volume. Recheck hemoglobin hematocrit. Acute blood loss anemia due to gastrointestinal bleeding due to colitis. Hemoglobin hematocrit has drifted down. No need for transfusion yet. Acute kidney injury. Patient's kidney function is above baseline significantly. Patient was initially getting IV fluid hydration. Monitor electrolytes. His IV fluids are on hold we will check his kidney function again today. Coronary artery disease status post stenting. Continue with beta-camila and statin and Plavix. Cardiomyopathy. With mild reduced ejection fraction. Patient appears to be euvolemic at this time. Pacemaker due to ventricular tachycardia. He has had no significant arrhythmias while in the hospital will go ahead and stop his telemetry monitoring. Moderate COPD. COPD was reduced to 50%. Continue with chronic medications. Gastroesophageal reflux patient on IV proton pump inhibitor BPH continue Flomax Anticipated plan was discharged today had some pain last night hernia had to be reduced to. He says he is not feeling well today. Will continue IV antibiotics repeat lactic acid procalcitonin D-dimer amylase. May have to reconnect with surgery to see if they have any options for ongoing hernia discomfort and reducible incarceration. Time Spent With Patient Critical Care time: I spent a total of [] minutes of critical care time on this patient's care today; this time is exclusive of procedural time. Quality VTE Deep Vein Thrombosis/Pulmonary Embolism Present on Admission: No
[2021-11-02] MEDS: METOPROLOL ER 25 MG TABLET 37.5 MG PO ×2 (08:06→20:10)
[2021-11-02] MEDS: HYDROCODONE/ACET 5/325 TABLET 1 TAB PO (08:07)
[2021-11-02] MEDS: CLOPIDOGREL 75 MG TABLET PO (08:07)
[2021-11-02] MEDS: AMIODARONE 200 MG TABLET PO (08:07)
[2021-11-02 08:47] LABS: Add Manual Diff / Slide Review NO; Basophils Absolute Auto 0 /uL (0-100); Basophils Percent Auto 0.5 % (0-2); Eosinophils Absolute Auto 400 /uL (0-450); Eosinophils Percent Auto 3.9 % (2-4); Hematocrit 36.4 % (41-53); Hemoglobin 12.5 g/dL (13.5-17.5); Lymphocytes Absolute Auto 600 /uL (1100-4500); Lymphocytes Percent Auto 5.8 % (25-40); Mean Corpuscular HGB Conc 34.3 % (30-36); Mean Corpuscular Hemoglobin 32.2 PG (26-34); Mean Corpuscular Volume 93.9 fL (80-100); Monocytes Absolute Auto 600 /uL (0-900); Monocytes Percent Auto 5.9 % (3-14); Neutrophils Absolute Auto 9100 /uL (1500-7000); Neutrophils Percent Auto 83.9 % (50-75); Platelet Count 124 X10^3/uL (150-400); Red Blood Cell Count 3.88 X10^6/uL (4.5-5.9); Red Cell Distribution Width 14.7 % (11.6-14.8); White Blood Cell Count 10.8 X10^3/uL (4.5-11.0)
[2021-11-02 08:48] LABS: INR 1.2 (0.9-1.3); Prothrombin Time 13.9 SECONDS (10.1-12.7)
[2021-11-02 08:50] LABS: D Dimer 2055 ng/ml (<500)
[2021-11-02 09:01] LABS: Lipase 55 U/L (23-300)
[2021-11-02 09:02] LABS: Lactate (Lactic Acid) 1.5 mmol/L (0.7-2.1)
[2021-11-02 09:03] LABS: Alanine Aminotransferase 52 IU/L (<50); Albumin 2.9 g/dL (3.5-5.0); Albumin Globulin Ratio 1.3 (1.0-2.8); Alkaline Phosphatase 87 U/L (38-126); Aspartate Aminotransferase 48 IU/L (17-59); BUN Creatinine Ratio 16.3 (6-22); Bilirubin Total 1.4 mg/dL (0.2-1.3); Blood Urea Nitrogen 15 mg/dL (9-20); Calcium 8.2 mg/dL (8.4-10.2); Carbon Dioxide 22 mmol/L (22-32); Chloride 105 mmol/L (98-107); Estimated Glomerular Filt Rate > 60 mL/min (>60); Globulin 2.2 g/dL (1.7-4.1); Glucose 130 mg/dL (80-110); HEMOLYSIS < 15 (0-50); Potassium 3.7 mmol/L (3.4-5.1); Sodium 134 mmol/L (137-145); Total Protein 5.1 g/dL (6.3-8.2)
[2021-11-02 09:19] LABS: Procalcitonin 0.31 ng/mL (<0.5)
--- NOTE | 2021-11-02 13:29 | PT.IPTN ---
Current Diagnoses Unilateral inguinal hernia, with obstruction, without gangrene, not specified as recurrent (10/30/21) Unilateral inguinal hernia, without obstruction or gangrene, not specified as recurrent (10/30/21) Noninfective gastroenteritis and colitis, unspecified (10/30/21) Hemorrhage of anus and rectum (10/30/21) Gastrointestinal hemorrhage, unspecified (10/30/21) Acute kidney failure, unspecified (10/30/21) Presence of cardiac pacemaker (10/30/21) Physical Therapy Treatment Note M2 PT-IP Current Condition Start: 10/31/21 14:46 Freq: NEEDED Status: Active Protocol: Document 10/31/21 13:20 AB (Rec: 10/31/21 15:04 AB [id number]) Physical Therapy Current Condition Current Condition Evaluation Date 10/31/21 Treatment Diagnosis GI bleed; difficulty in walking Onset Date 10/30/21 M3 PT-IP Subjective Start: 10/31/21 14:46 Freq: NEEDED Status: Active Protocol: Document 11/02/21 13:29 AW (Rec: 11/02/21 14:22 AW [id number]) Subjective Physical Therapy Visit Type Type Treatment Note Visit Start Time 13:15 Visit Stop Time 13:29 Total Visit Minutes 14 Number of 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 REFINING [employer]ER Visits 0 Physical Therapy Visit Comments Patient Comments agreeable to do PT Therapy Pain Assessment Pain When Pain Assessed At Rest Pain Present Pain Present Pain Reported Location abdomen Scale Used not quantified M4 PT-IP Mobility and Gait Start: 10/31/21 14:46 Freq: NEEDED Status: Active Protocol: Document 11/02/21 13:29 AW (Rec: 11/02/21 14:22 AW [id number]) PT-Bed Mobility Assessment Supine to Sit Supine to Sit Standby Assistance Sit to Supine Sit to Supine Standby Assistance Scooting Scooting to Edge of Bed Standby Assistance PT-Transfer Assessment Sit to and From Stand Sit to and from Stand Standby Assistance Equipment Transfer Assistive Device 4 Wheeled Walker Transfers Transfer Destination Bed Transfer Technique Pt ambulated w/ 4WW Transfer Ability Level of Assist Standby Assistance,Use of Upper Extremities Comments Mobility Comments Pt was lying in bed as PT arrived. He was able to complete supine exercises as below before sitting up EOB SBA. He stood SBA and used 4WW to ambulate in the room ~40 feet. Pt stated he was too fatigued to sit up in the chair. He returned to supine SBA and refused further mobility. Gait Assessment Gait Gait Assistance Required: Standby Assistance Distance (Feet) 40 Able to Maintain Weight Bearing Status Yes During Gait Assistive Devices Assistive Device Gait Belt,4 Wheeled Walker Gait Deviations General Gait Pattern Decreased Stride Length, Decreased Feet Clearance, Flexed Trunk,Wide Based Gait Factors Limiting Gait Function Factors Limiting Gait Function Decreased Activity Tolerance, Decreased Strength,Limited Range of Motion,Pain,Poor Balance,Poor Safety Awareness Comments Gait Comments As before, no LOB but pt does not respond well to cues for hip extension, proximity to 4WW. Stair Climbing Assessment Comments Stair Climbing Comments Not assessed, no stairs at home. PT-Balance Assessment Sitting Balance and Reactions Static Sitting Balance Ability Normal Dynamic Sitting Balance Ability Good Standing Balance and Reactions Static Standing Balance Ability Fair Dynamic Standing Balance Ability Fair Device Used 4WW M5 PT-IP Objective Assessments Start: 10/31/21 14:46 Freq: NEEDED Status: Active Protocol: Document 10/31/21 13:20 AB (Rec: 10/31/21 15:04 AB [id number]) Orientation Orientation/Cognition Level of Alertness Alert Orientation Name,Place,Situation Language Function Ability No Deficits Noted Safety Awareness Decreased Safety Awareness Memory Description No Deficits Noted Gross Range of Motion Lower Extremity ROM Assessment Within Functional Limits Strength Lower Extremity Strength Hip 4-/5 Knee 4-/5 Sensation Assessment Sensation Gross Sensation WNL Muscle Tone Muscle Tone WNL Yes M6 PT-IP Treatment Start: 10/31/21 14:46 Freq: NEEDED Status: Active Protocol: Document 11/02/21 13:29 AW (Rec: 11/02/21 14:22 AW [id number]) Physical Therapy Treatment Exercises Exercises Ankle Pumps,Gluteal Sets,Quad Sets Education Education Provided Safety M7 PT-IP Assessment and Plan Start: 10/31/21 14:46 Freq: NEEDED Status: Active Protocol: Document 11/02/21 13:29 AW (Rec: 11/02/21 14:22 AW [id number]) PT Summary Assessment and Plan Potential Rehabilitation Potential Fair Summary Impairments Pain,ROM,Strength,Balance, Coordination,Sensation,Tone, Cognition,Bed Mobility, Transfers,Gait,Activity Tolerance Progress Towards Goals Progressing Toward Goals,Slow Progress due to Activity Tolerance Assessment Summary Pt cites abdominal pain and fatigue as limitations to his mobility. He responds poorly to verbal cues to correct gait deviations but has no LOB. He lives at [facility] with his and may ask for assistance there if needed. He may return home when medically stable. Goals Bed Mobility Goal Independent Transfer Goal Independent,Four Wheeled Walker Gait Goal Independent,Four Wheel Walker Gait Distance 200 Days to Meet Goals 5 Frequency of Treatment Frequency Of Treatment Once a Day Treatment Plan Physical Therapy Treatment Plan Bed Mobility Training,Transfer Training,Gait Training, Therapeutic Exercise,Balance Retraining,Discharge Planning, Hot or Cold Pack,Neuromuscular Re-ed,Coordination Retraining Recommendations To Nursing Amount of Assist Needed Independent Discharge Recommendations PT Discharge Recommendations Home with Assistance Transportation Needs at Discharge Private Vehicle
--- NOTE | 2021-11-02 17:47 | PC.NURSE ---
Pt is AxOx4, independent and cooperative. VSS, no tele, pt c/o lower abd pain and recieved PRN [place] once with good effect. Otherwise, pt is doing well. Lungs still cracklers on RLL. No other changes. Continue monitor.
--- NOTE | 2021-11-02 18:05 | PC.NURSE ---
Pt is AxOx2-3, calm and cooperative. VSS except pt went into A-fib episode that last for awhile so it required stat EKG today. Pt also recieiving Bolus of NS and lab stat. Pt went to flexible sigmoidscopy but it was terminated due to ischemic colitits. There was no acute bleeding or necrosis found and pt is not surgical candiate per MD. Pt is eating ok and sleepy most of the day. No other changes.
[2021-11-02] MEDS: TAMSULOSIN 0.4 MG CAPSULE PO (20:13)
[2021-11-02] MEDS: TEMAZEPAM 15 MG CAPSULE PO (21:38)
[2021-11-02] MEDS: HYDROCODONE/ACET 5/325 TABLET 2 TAB PO (23:55)
[2021-11-03] VITALS: BP 162/67; PULSE 63; RESP 18; TEMP 36.1; O2SAT 93
[2021-11-03] MEDS: PIPERACILLIN/TAZO 3.375 GM in SODIUM CHLORIDE 0.9% 100 ML IV (04:41)
[2021-11-03 05:00] VITALS: BP 147/76; PULSE 62; RESP 20; TEMP 36.7; O2SAT 96
[2021-11-03 05:32] LABS: Add Manual Diff / Slide Review NO; Basophils Absolute Auto 100 /uL (0-100); Basophils Percent Auto 0.8 % (0-2); Eosinophils Absolute Auto 200 /uL (0-450); Eosinophils Percent Auto 2.2 % (2-4); Hematocrit 37.1 % (41-53); Hemoglobin 12.8 g/dL (13.5-17.5); Lymphocytes Absolute Auto 1000 /uL (1100-4500); Lymphocytes Percent Auto 9.4 % (25-40); Mean Corpuscular HGB Conc 34.6 % (30-36); Mean Corpuscular Hemoglobin 32.3 PG (26-34); Mean Corpuscular Volume 93.3 fL (80-100); Monocytes Absolute Auto 700 /uL (0-900); Monocytes Percent Auto 6.4 % (3-14); Neutrophils Absolute Auto 8700 /uL (1500-7000); Neutrophils Percent Auto 81.2 % (50-75); Platelet Count 151 X10^3/uL (150-400); Red Blood Cell Count 3.97 X10^6/uL (4.5-5.9); Red Cell Distribution Width 14.1 % (11.6-14.8); White Blood Cell Count 10.8 X10^3/uL (4.5-11.0)
[2021-11-03 05:42] LABS: Alanine Aminotransferase 53 IU/L (<50); Albumin 3.2 g/dL (3.5-5.0); Albumin Globulin Ratio 1.1 (1.0-2.8); Alkaline Phosphatase 93 U/L (38-126); Aspartate Aminotransferase 43 IU/L (17-59); BUN Creatinine Ratio 12.6 (6-22); Blood Urea Nitrogen 11 mg/dL (9-20); Calcium 8.5 mg/dL (8.4-10.2); Carbon Dioxide 23 mmol/L (22-32); Chloride 102 mmol/L (98-107); Estimated Glomerular Filt Rate > 60 mL/min (>60); Globulin 2.9 g/dL (1.7-4.1); Glucose 95 mg/dL (80-110); HEMOLYSIS < 15 (0-50); Potassium 3.8 mmol/L (3.4-5.1); Sodium 134 mmol/L (137-145); Total Protein 6.1 g/dL (6.3-8.2)
[2021-11-03] MEDS: HYDROCODONE/ACET 5/325 TABLET 1 TAB PO (05:49)
[2021-11-03] MEDS: PANTOPRAZOLE DR 40 MG TABLET PO (05:50)
--- NOTE | 2021-11-03 07:51 | P.DS_ITS ---
History of Present Illness History of Present Illness Date Patient Seen: 11/03/21 Time Patient Seen: 07:51 Chief complaint: rectal bleeding Narrative: 81-year-old male with coronary artery disease status post stenting ventricular tachycardia pacemaker anticoagulation moderate to severe COPD BPH with history of urinary obstruction. Patient comes in today with rectal bleeding. Patient stays it is rectal bleeding started yesterday morning. He had multiple episodes probably 6 or 7. He says it was dark blood as well as bright red blood. Intermixed with his feces. Says he has not had this before. Occasionally he has had some bleeding in his urine but not significant. Patient is anticoagulated. Patient began to have a little bit of lower abdominal pain yesterday afternoon and was directed to present to the emergency department for evaluation. Patient states yesterday as he had more bleeding he also became a little bit weak and unsteady on his feet. Patient then began to have a little bit of lower abdominal pain. Suprapubic on the left side as well. Patient has a known history of hernia. Patient declines any significant history of rectal bleeding before. No history of colitis. Patient is unsure when his last endoscopic procedure was. Patient currently says his bleeding has decreased since yesterday. He says he did not have any palpitations dizziness or lightheadedness although he was weak. He is not particularly short of breath. Does not have much of an appetite. He is not very mobile at home and mainly moves from chair to bed with a walker. Discharge Providers Provider Date of admission: 10/30/21 20:33 Discharge Date: 11/03/21 Primary care physician: Yash Howe MD Consults: 10/30/21 21:55 Consult to Physician Routine Comment: Consulting Provider: Tayla Galo Reason for consultation: sbo Has provider been notified: Yes 10/31/21 10:06 Consult to Physical Therapy Evaluate & Treat Comment: Physician Instructions: Evaluate and Treat Discharge provider: Yash Howe MD Summary Hospital Course Discharge Diagnosis: Colitis presumed infectious could be inflammatory or ischemic Acute blood loss anemia due to colitis Incarcerated left inguinal hernia reduced Acute kidney injury Coronary artery disease with cardiomyopathy ventricular tachycardia and pacemaker implantation Gastroesophageal reflux Moderate COPD BPH Hospital Course: Patient was admitted the hospital with acute kidney injury bright red blood per rectum and abdominal pain. CT scan finding show acute colitis ischemic versus infectious versus inflammatory. General surgery was consulted. They recommended antibiotics general diet and follow up as an outpatient. Patient continued to have quite amount of pain in his left inguinal area. Patient was found to have significant left inguinal hernia with the: Him hernia pouch. This was reduced in the hospital patient had improvement of the abdominal pain and discomfort. During the hospital stay patient was placed on antibiotics IV fluids and diet was gradually advanced. Patient's pain was controlled with IV and oral pain medication. Patient had improvement of pain. The patient was able to ambulate he was tolerating diet. Patient had no difficulty with urination. Patient has a blood counts were monitored closely during hospital stay his rectal bleeding decreased within the 1st 24-48 hours. Patient's anticoagulation was held but he was continued on his Plavix. Time of discharge pain was improved he was ambulating eating well. Discharge plan will be to hold Eliquis continue with antibiotic and pain medication out patient follow-up with General surgery for further evaluation of colitis with outpatient colonoscopy and possible root hernia repair. Exam Vital Signs (past 8 hours): - 11/03/21 00:00 11/03/21 05:00 Temperature 96.9 F L 98.1 F Pulse Rate 63 62 Respiratory Rate 18 20 Blood Pressure 162/67 H 147/76 H Pulse Oximetry 93 96 Oxygen Flow Rate 0 0 Oxygen Delivery Method Room Air Oxygen Flow Rate 0 Objective Labs Result Diagrams: 11/03/21 05:16 11/03/21 05:16 Labs: Laboratory Results - last 24 hr 11/02/21 11/02/21 11/02/21 08:30 08:30 08:30 WBC 10.8 RBC 3.88 L Hgb 12.5 L Hct 36.4 L MCV 93.9 MCH 32.2 MCHC 34.3 RDW 14.7 Plt Count 124 L Neut % (Auto) 83.9 H Lymph % (Auto) 5.8 L Baxter % (Auto) 5.9 Eos % (Auto) 3.9 Baso % (Auto) 0.5 Neut # (Auto) 9100 H Lymph # (Auto) 600 L Baxter # (Auto) 600 Eos # (Auto) 400 Baso # (Auto) 0 PT 13.9 H INR 1.2 D-Dimer Sodium 134 L Potassium 3.7 Chloride 105 Carbon Dioxide 22 BUN 15 Creatinine 0.92 Estimated GFR > 60 BUN/Creatinine Ratio 16.3 Glucose 130 H Lactate Calcium 8.2 L Total Bilirubin 1.4 H AST 48 ALT 52 H Alkaline Phosphatase 87 Total Protein 5.1 L Albumin 2.9 L Globulin 2.2 Albumin/Globulin Ratio 1.3 Lipase Procalcitonin 11/02/21 11/02/21 11/02/21 08:30 08:30 08:30 WBC RBC Hgb Hct MCV MCH MCHC RDW Plt Count Neut % (Auto) Lymph % (Auto) Baxter % (Auto) Eos % (Auto) Baso % (Auto) Neut # (Auto) Lymph # (Auto) Baxter # (Auto) Eos # (Auto) Baso # (Auto) PT INR D-Dimer 2055 H Sodium Potassium Chloride Carbon Dioxide BUN Creatinine Estimated GFR BUN/Creatinine Ratio Glucose Lactate 1.5 Calcium Total Bilirubin AST ALT Alkaline Phosphatase Total Protein Albumin Globulin Albumin/Globulin Ratio Lipase 55 Procalcitonin 11/02/21 11/03/21 11/03/21 08:30 05:16 05:16 WBC 10.8 RBC 3.97 L Hgb 12.8 L Hct 37.1 L MCV 93.3 MCH 32.3 MCHC 34.6 RDW 14.1 Plt Count 151 Neut % (Auto) 81.2 H Lymph % (Auto) 9.4 L Baxter % (Auto) 6.4 Eos % (Auto) 2.2 Baso % (Auto) 0.8 Neut # (Auto) 8700 H Lymph # (Auto) 1000 L Baxter # (Auto) 700 Eos # (Auto) 200 Baso # (Auto) 100 PT INR D-Dimer Sodium 134 L Potassium 3.8 Chloride 102 Carbon Dioxide 23 BUN 11 Creatinine 0.87 Estimated GFR > 60 BUN/Creatinine Ratio 12.6 Glucose 95 Lactate Calcium 8.5 Total Bilirubin 1.0 AST 43 ALT 53 H Alkaline Phosphatase 93 Total Protein 6.1 L Albumin 3.2 L Globulin 2.9 Albumin/Globulin Ratio 1.1 Lipase Procalcitonin 0.31 [facility] Medical History Anxiety Chicken pox Chronic obstructive pulmonary disease (2007) 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) Coronary artery disease (1997) Depression (08/20/14) Depression Dizziness Herpes Hypertension (1997) Hyperthyroidism Inguinal hernia Ischemic cardiomyopathy Kidney stones (1991) Memory loss Mitral stenosis Osteoarthritis 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 Father Heart attack Mother No problems noted. Social History marital status: household members: spouse Smoking Status: Former smoker alcohol intake: never substance use type: does not use Discharge Plan Discharge Plan Patient Disposition: Home Provider Discharge Comment: Discharge home follow-up with General surgery in 1 week for discussion of outpatient colonoscopy and possible hernia repair Discharge orders & Medications Prescriptions: New hydrocodone-acetaminophen 5-325 mg Tablet 1 tab PO BID PRN (Reason: pain) Qty: 20 0RF amoxicillin-pot clavulanate [Augmentin] 500-125 mg tablet 1 tab PO TID Qty: 21 0RF Continued acetaminophen 650 mg tablet extended release 1,300 mg PO Q12H PRN (Reason: Pain, Moderate) enalapril maleate [Vasotec] 10 mg tablet 10 mg PO .QDAY diclofenac sodium [Voltaren Arthritis Pain] 1 % gel 2 g topical QID PRN (Reason: Pain (Scale Score 1-3)) Rx Instructions: apply to single elbow, wrist or hand; for hand includes palm/fingers/back of hand lansoprazole [Prevacid] 30 mg capsule,delayed release(DR/EC) 30 mg PO DAILY amiodarone 200 mg tablet 200 mg PO DAILY multivitamin Capsule 1 cap PO BID metoprolol succinate 25 mg capsule,sprinkle,ER 24hr 37.5 mg PO BID Label Comments: increased by Cardiology 02/25/21 atorvastatin 40 mg tablet 40 mg PO HS Qty: 90 3RF clopidogrel [Plavix] 75 mg tablet 75 mg PO QDAY Qty: 90 3RF tamsulosin [Flomax] 0.4 mg capsule 0.4 mg PO BEDTIME Qty: 90 1RF fluticasone propion-salmeterol 250-50 mcg/dose blister with device See Rx Instructions .ROUTE .COMPLEX Qty: 60 5RF Dose Instruction: inhale 1 puff by mouth and INTO THE LUNGS once daily Rinse mouth after use Rx Instructions: inhale 1 puff by mouth and INTO THE LUNGS once daily Rinse mouth after use Discontinued Eliquis 2.5 mg tablet 2.5 mg PO BID Follow up/Referrals: Yash Howe MD [Primary Care Provider] - Discharge Data Primary Care Provider: Yash Howe Quality VTE Deep Vein Thrombosis/Pulmonary Embolism Present on Admission: No
[2021-11-03 08:00] VITALS: BP 131/80; PULSE 60; RESP 17; TEMP 35.7; O2SAT 97
[2021-11-03 08:14] VITALS: BP 147/76
[2021-11-03] MEDS: HYDROCODONE/ACET 5/325 TABLET 2 TAB PO (08:14)
[2021-11-03] MEDS: METOPROLOL ER 25 MG TABLET 37.5 MG PO (08:14)
[2021-11-03] MEDS: AMIODARONE 200 MG TABLET PO (08:14)
[2021-11-03] MEDS: CLOPIDOGREL 75 MG TABLET PO (08:14)
[2021-11-03] MEDS: SODIUM CHLORIDE 0.9% FLUSH 10 ML IV (08:17)
--- NOTE | 2021-11-03 08:17 | CM.DPC ---
Addendum entered by Katerin Lowry R.N. 11/03/21 10:53: Pt will transport back to [facility] via facility transport. ADJ Original Note: DCP Cont: Per MD, pt is medically stable for discharge. Pt to discharge home to [facility] today. Pt spouse to transport. Katerin Lowry RN/JERRYP
[2021-11-03 09:00] VITALS: PULSE 60
--- NOTE | 2021-11-03 11:13 | PT.IPTN ---
Current Diagnoses Unilateral inguinal hernia, with obstruction, without gangrene, not specified as recurrent (10/30/21) Unilateral inguinal hernia, without obstruction or gangrene, not specified as recurrent (10/30/21) Noninfective gastroenteritis and colitis, unspecified (10/30/21) Hemorrhage of anus and rectum (10/30/21) Gastrointestinal hemorrhage, unspecified (10/30/21) Acute kidney failure, unspecified (10/30/21) Presence of cardiac pacemaker (10/30/21) Physical Therapy Treatment Note M2 PT-IP Current Condition Start: 10/31/21 14:46 Freq: NEEDED Status: Discharge Protocol: Document 11/03/21 11:08 SP (Rec: 11/03/21 16:17 SP [id number]) Physical Therapy Current Condition Current Condition Evaluation Date 10/31/21 Treatment Diagnosis GI bleed; difficulty in walking Onset Date 10/30/21 M3 PT-IP Subjective Start: 10/31/21 14:46 Freq: NEEDED Status: Discharge Protocol: Document 11/03/21 11:08 SP (Rec: 11/03/21 16:17 SP [id number]) Subjective Physical Therapy Visit Type Type Treatment Note Visit Start Time 11:05 Visit Stop Time 11:13 Total Visit Minutes 8 Notes in room when arrived, wanted to know how can help support pt and cues give him get around safer. Number of SENIOR ANIMAL TRAINER Visits 1 Physical Therapy Visit Comments Patient Comments agreeable to do PT just getting around room then wanted to go home. Patient Goals go home with . Therapy Pain Assessment Pain Present Pain Present Denied Pain M4 PT-IP Mobility and Gait Start: 10/31/21 14:46 Freq: NEEDED Status: Discharge Protocol: Document 11/03/21 11:08 SP (Rec: 11/03/21 16:17 SP [id number]) PT-Bed Mobility Assessment Supine to Sit Supine to Sit Independent PT-Transfer Assessment Sit to and From Stand Sit to and from Stand Standby Assistance,Use of Upper Extremities Equipment Transfer Assistive Device 4 Wheeled Walker Orthotic/Prosthetic Devices or Brace: No Transfers Transfer Destination Chair Transfer Technique Pt ambulated w/ 4WW Transfer Ability Level of Assist Standby Assistance,Use of Upper Extremities Comments Mobility Comments Pt completed supine>sit, scoot to EOB I. Sit>stand SBA- I, pt impulsive walked bed>sink forward flexed, WBOS. Education for gait use of 4WW, ed positioned closer and proper brake mgt. Pt able walk across room pivot and back, SBA no deviations, improved posturing and proximity to 4WW during pivot, he returned to chair. Mentioned nursing will be in to complete discharge. requested and provided education for giving pt/ cues for taller posture closer to 4WW and slower pacing for safety gait. said I try but he doesn't listen to me, what can I do. SENIOR ANIMAL TRAINER attempted to give instruction to pt and on further safety posturing for back health and pain relief, closer to 4WW. Pt replied If you want to have these side conversations you can go out in the hallway, I am ready to leave, I don't need any help . SENIOR ANIMAL TRAINER invited to discuss further in hallway if wished, she said that's ok. SENIOR ANIMAL TRAINER stated pt doesn't need physical help, suggested if needed further assistance or anything changes, contact physician's office and can ask for PT referral. Pt is ok to return home with to assist him when medically cleared. Gait Assessment Gait Gait Assistance Required: Standby Assistance Distance (Feet) 30 Able to Maintain Weight Bearing Status Yes During Gait Assistive Devices Assistive Device Gait Belt,4 Wheeled Walker Orthotic/Prosthetic Devices or Brace: No Gait Deviations General Gait Pattern Decreased Stride Length, Decreased Feet Clearance, Flexed Trunk,Wide Based Gait Factors Limiting Gait Function Factors Limiting Gait Function Decreased Activity Tolerance, Decreased Strength,Limited Range of Motion,Poor Safety Awareness Comments Gait Comments As before, no LOB but pt does not respond well to cues for hip extension, proximity to 4WW. Stair Climbing Assessment Comments Stair Climbing Comments Not assessed, no stairs at home. PT-Balance Assessment Sitting Balance and Reactions Static Sitting Balance Ability Normal Dynamic Sitting Balance Ability Good Standing Balance and Reactions Static Standing Balance Ability Good Dynamic Standing Balance Ability Good Device Used 4WW M5 PT-IP Objective Assessments Start: 10/31/21 14:46 Freq: NEEDED Status: Discharge Protocol: Document 10/31/21 13:20 AB (Rec: 10/31/21 15:04 AB [id number]) Orientation Orientation/Cognition Level of Alertness Alert Orientation Name,Place,Situation Language Function Ability No Deficits Noted Safety Awareness Decreased Safety Awareness Memory Description No Deficits Noted Gross Range of Motion Lower Extremity ROM Assessment Within Functional Limits Strength Lower Extremity Strength Hip 4-/5 Knee 4-/5 Sensation Assessment Sensation Gross Sensation WNL Muscle Tone Muscle Tone WNL Yes M6 PT-IP Treatment Start: 10/31/21 14:46 Freq: NEEDED Status: Discharge Protocol: Document 11/03/21 11:08 SP (Rec: 11/03/21 16:17 SP [id number]) Physical Therapy Treatment Education Education Provided Safety M7 PT-IP Assessment and Plan Start: 10/31/21 14:46 Freq: NEEDED Status: Discharge Protocol: Document 11/03/21 11:08 SP (Rec: 11/03/21 16:17 SP [id number]) PT Summary Assessment and Plan Potential Rehabilitation Potential Fair Status of Condition at Evaluation Evolving Summary Impairments Pain,ROM,Strength,Balance, Coordination,Sensation,Tone, Cognition,Bed Mobility, Transfers,Gait,Activity Tolerance Progress Towards Goals Progressing Toward Goals Assessment Summary Pt responds poorly to verbal cues to correct gait deviations but has no LOB. He lives at [facility] with his and she stated will provide assist if needed, not needed thus far. SBA for all mobility w/ 4WW. He may return home when medically stable with . Goals Bed Mobility Goal Independent Transfer Goal Independent,Four Wheeled Walker Gait Goal Independent,Four Wheel Walker Gait Distance 200 Days to Meet Goals 5 Frequency of Treatment Frequency Of Treatment Once a Day Treatment Plan Physical Therapy Treatment Plan Bed Mobility Training,Transfer Training,Gait Training, Therapeutic Exercise,Balance Retraining,Discharge Planning, Hot or Cold Pack,Neuromuscular Re-ed,Coordination Retraining Recommendations To Nursing Amount of Assist Needed Standby Assistance Discharge Recommendations PT Discharge Recommendations Home with Assistance Transportation Needs at Discharge Private Vehicle
--- NOTE | 2021-11-03 11:48 | PC.NURSE ---
Discharge Note Patient A&O, VSS, RA, no complaints of pain or discomfort. Discharge packet reviewed with patient all questions/concerns addressed. PIV/TELE discontinued. Patient able to dress self and pack all belongings. Patient taken down via wheelchair to POV.
== END 2021-11-03 11:30 | disposition home or self-care (01) | DRG 392 ==
LOC: ED 20:32 → AC 20:46
PROVIDERS: Emergency Medicine; Admitting Provider Internal Medicine; Emergency Provider Emergency Medicine; PCP Family Medicine; Referring Provider Emergency Medicine; Visit Provider Family Medicine
DX: A09 Infectious gastroenteritis and colitis, unspecified (principal); D62 Acute posthemorrhagic anemia; K62.5 Hemorrhage of anus and rectum; I42.9 Cardiomyopathy, unspecified; K40.30 Unilateral inguinal hernia, with obstruction, without gangrene, not specified as recurrent; I47.2 Ventricular tachycardia; I48.91 Unspecified atrial fibrillation; I25.10 Atherosclerotic heart disease of native coronary artery without angina pectoris; K21.9 Gastro-esophageal reflux disease without esophagitis; J44.9 Chronic obstructive pulmonary disease, unspecified; N40.0 Benign prostatic hyperplasia without lower urinary tract symptoms; I10 Essential (primary) hypertension; Z95.5 Presence of coronary angioplasty implant and graft; Z20.822 Contact with and (suspected) exposure to COVID-19; Z87.891 Personal history of nicotine dependence; Z79.01 Long term (current) use of anticoagulants; Z95.0 Presence of cardiac pacemaker
CPT/HCPCS: 36415; 36592; 74177; 80048; 80053; 82272; 82550; 83605; 83690; 83735; 84145; 84484; 85014; 85018; 85025; 85379; 85610; 85730; 86850; 86900; 86901; 87635; 93005; 94640; 94760; 96365; 96375; 97110; 97116; 97162; 97530; 99222; 99223; 99232; 99233; 99238; 99284; C9803; G0378; C9113; J2270; J2405; J2543; J7613; Q9967

== ENCOUNTER 2021-11-13 11:38 | Emergency (ER) | payer MEDICARE, SELFPAY ==
[2021-11-03 14:33] VITALS: BMI 25.6
[2021-11-13 11:53] VITALS: BP 128/62; PULSE 60; RESP 18; TEMP 36.3; O2SAT 97; BMI 26.1
--- NOTE | 2021-11-13 13:30 | PC.NURSE ---
Patient reports no urine output since last night, also reports that he doesn't like water. Bladder scan had estimated of 108ml.
--- NOTE | 2021-11-13 14:34 | ED.MALEGU ---
HPI - Male Genitourinary <Connor Rico PA-C - Last Filed: 11/13/21 14:56> General Chief complaint: Urogenital-Male Stated complaint: Needs cath- ref by nurse Time Seen by Provider: 11/13/21 11:59 Source: patient Mode of arrival: Ambulatory History of Present Illness HPI Narrative: Patient is a 81-year-old male was at the emergency room today with complaint not being able to urinate since and obesity. Patient states that he has a little urination but not when he feels he should be urinating. During interview patient agrees that he feels he can not urinate because he has been hydrated adequately. States patient also admits that the main reason he is here today is that he contacted Dr. Baker office and was informed by the nurse he should report to the emergency room. Patient also has a guaiac-negative having normal respirator bleeding that initially resulted in him being admitted to the hospital symptoms the . Stated however the stool soft it is states doctors from a lot and has some resolving. Also states in regards to the is bleed he is scheduled for colonoscopy to be done on December 23. Also admits I had a a strangulated hernia and being worked up by Dr. Hester at [facility] [place]. Also states that he has cystitis and standing labs to be drawn to work this up. Denies any pain with urination abdominal pain fever chills nausea vomiting GI UR concerns. Related Data Home Medications Medication Instructions Recorded Confirmed enalapril maleate 10 mg tablet 10 mg PO .QDAY 01/07/21 11/10/21 (Vasotec) metoprolol succinate 25 mg capsule 37.5 mg PO BID 03/20/21 11/10/21 sprinkle, ext. release 24 hr acetaminophen 650 mg 1,300 mg PO Q12H PRN Pain, Moderate 06/10/21 11/10/21 tablet,extended release amiodarone 200 mg tablet 200 mg PO DAILY 06/10/21 11/10/21 diclofenac sodium 1 % topical gel 2 g topical QID PRN Pain (Scale 06/10/21 11/10/21 (Voltaren Arthritis Pain) Score 1-3) lansoprazole 30 mg capsule,delayed 30 mg PO DAILY 06/10/21 11/10/21 release (Prevacid) multivitamin 1 cap PO BID 06/10/21 11/10/21 loratadine 10 mg tablet 10 mg PO DAILY 11/04/21 11/10/21 Previous Rx's Medication Instructions Recorded atorvastatin 40 mg tablet 40 mg PO HS #90 tabs 07/13/18 clopidogrel 75 mg tablet (Plavix) 75 mg PO QDAY #90 tabs 02/23/20 tamsulosin 0.4 mg capsule (Flomax) 0.4 mg PO BEDTIME #90 caps 05/23/21 fluticasone 250 mcg-salmeterol 50 See Rx Instructions .Route 06/23/21 mcg/dose blistr powdr for .COMPLEX #60 blisters inhalation amoxicillin 500 mg-potassium 1 tab PO TID #21 tabs 11/03/21 clavulanate 125 mg tablet (Augmentin) hydrocodone 5 mg-acetaminophen 325 1 tab PO BID PRN pain #20 tabs 11/03/21 mg tablet Allergies Allergy/AdvReac Type Severity Reaction Status Date / Time doxycycline AdvReac Mild Rash Verified 11/13/21 11:58 Review of Systems <Connor Rico PA-C - Last Filed: 11/13/21 14:56> Review of Systems Narrative: R.O.S.: General: No fever, chills or fatigue. Cardiovascular: No chest pain or palpitations Respiratory: No S.O.B. HEENT: No congestion, ear pain, rhinorrhea, sore throat or tinnitus Gastrointestinal: No nausea or vomiting : Is not a complete urination since yesterday but admits that he needs psychiatry. Skin: No rash or associated abnormalities Musculoskeletal: No pain in muscles or joints, no limitation of range of motion, no paresthesia or numbness. ?? Neurological: Awake, alert and in not apparent distress. No Headaches, changes in vision or other related neurological concerns. 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) Coronary artery disease (1997) Depression (08/20/14) Depression Dizziness Herpes Hypertension (1997) Hyperthyroidism Inguinal hernia Inguinal hernia, incarcerated Ischemic cardiomyopathy Kidney stones (1991) Memory loss Mitral stenosis Osteoarthritis Presence of cardiac pacemaker (03/23/17) Rectal bleeding Rheumatic fever Sleep apnea (08/24/13) Thyroid nodule Trigeminal neuralgia (~1995) Urinary incontinence (2001) Surgical History AICD (automatic cardioverter/defibrillator) present Anesthesia History of angioplasty (1997) History of angioplasty (2007) History of angioplasty (2011) Status post hernia repair (1979) Status post transurethral resection of prostate (1999) Family History Brother Stroke Brother Stroke Brother Age: 88 Diabetes mellitus Hypertension Daughter Age: 58 Immune disorder Sister Age: 78 Heart disease Hypertension Stroke Son No problems noted. Father Heart attack Mother No problems noted. Social History marital status: household members: spouse Smoking Status: Former smoker alcohol intake: never substance use type: does not use Smoking Status: Former smoker alcohol intake frequency: 0-2 drinks per day Substance Use Type: does not use Exam <Connor Rico PA-C - Last Filed: 11/13/21 14:56> Narrative Exam Narrative: Physical Exam: ? General: normal appearance, well developed, well nourished, alert, and awake. Not in acute distress. ? Head: Normocephalic, no lesions. Chest: Lungs CTAB, no rales, rhonchi or wheezes. ?? Heart: RRR, no murmurs, rubs or gallops. Eyes: PERRLA, EOM's full, conjunctivae clear. ? Neuro: Physiological, no localizing findings, CN3-12 intact. ?? Extremities: Warm, well perfused, FROM, no deformities, no edema. ?? Skin: Normal, no rashes, no lesions noted. ?? PSYCHIATRIC: The mood is good, no blunted affect. Speech is clear. Thought process is linear, thought content is appropriate. The voice is without significant inflection. Gastrointestinal: Soft; NT; ND; Pos BS with Neg. rebound tenderness. No scars or major deformities noted on Visual Inspection. Initial Vital Signs Initial Vital Signs: Vital Signs Temperature 97.4 F L 11/13/21 11:53 Pulse Rate 60 11/13/21 11:53 Respiratory Rate 18 11/13/21 11:53 Blood Pressure 128/62 11/13/21 11:53 Pulse Oximetry 97 11/13/21 11:53 Oxygen Delivery Method 11/13/21 11:53 <Kota Castillo DO - Last Filed: 11/13/21 15:53> Initial Vital Signs Initial Vital Signs: Vital Signs Temperature 97.4 F L 11/13/21 11:53 Pulse Rate 60 11/13/21 11:53 Respiratory Rate 18 11/13/21 11:53 Blood Pressure 128/62 11/13/21 11:53 Pulse Oximetry 97 11/13/21 11:53 Oxygen Delivery Method 11/13/21 11:53 Course <Connor Rico PA-C - Last Filed: 11/13/21 14:56> Vital Signs Vital signs: Vital Signs - 8 hr 11/13/21 11:53 11/13/21 15:05 Temperature 97.4 F L Pulse Rate 60 60 Respiratory Rate 18 18 Blood Pressure 128/62 126/71 Pulse Oximetry 97 96 Oxygen Delivery Method Room Air Room Air <Kota Castillo DO - Last Filed: 11/13/21 15:53> Vital Signs Vital signs: Vital Signs - 8 hr 11/13/21 11:53 11/13/21 15:05 Temperature 97.4 F L Pulse Rate 60 60 Respiratory Rate 18 18 Blood Pressure 128/62 126/71 Pulse Oximetry 97 96 Oxygen Delivery Method Room Air Room Air MDM - Male Genitourinary <Connor Rico PA-C - Last Filed: 11/13/21 14:56> MDM Narrative Medical decision making narrative: Patient is a 1-year-old male who presents to the emergency room with a complaint not being able to urinate since noon yesterday. While collecting HPI patient admits that he feels that he has not urinated because he is not adequately hydrating himself. Patient denies any GI or concerns at this time but states that he had a GI bleed that he was admitted for on October 30 of this year. States that he is seeing regarding this and has a colonoscopy scheduled on December 23 for further evaluation. Patient also states that he has a inguinal incarcerated hernia that is not yet strangulated that was diagnosed by another provider here at [facility]. Also admits to having standing orders to have urine drawn to workup for cystitis. We could not collect urine so we could not do those labs for today. Patient advised to hydrate and give urine as ordered and follow up with his specialist in regards to his cystitis, bleed hip and and inguinal hernia. Patient agrees with plan. Discharge Plan Departure Patient Disposition: Home Clinical Impression: Decreased urination, Infrequent urination, Scanty urination Instructions: Urine Volume, DI for Acute Cystitis, Gastrointestinal Bleeding Activity Restrictions/Additional Instructions: *You have been diagnosed with inability urinate secondary to inadequate hydration. Suggest you take fluids and attempt to hydrate yourself legs also suggest she follow-up with your primary care provider and a specialist in regards to your cystitis, renal hernia, and your resolving GI bleed. [ ] *What to do: *Please continue to take your regular medications as directed. [ ] New medication prescriptions sent to your pharmacy: [ ] [ ] New medication written as a paper prescription [x] No new medications given *Please follow up with your primary care provider in 2-3 days, call for an appointment. Let them know you were seen in the Emergency Department and that we ask that you be seen in follow up. We will electronically transmit a record of today's note if your PCP is in our system *If you do not have a primary care provider please contact the [facility] Resource line at [phone]. They will ask some questions about your medical history and help get you set up with a doctor in the community. *Return to Emergency Department if you should have any new, worsening or concerning symptoms, such as [fever greater than 101 F, shaking chills, worsening pain, persistent vomiting or other bothersome symptoms] Prescriptions: No Action acetaminophen 650 mg tablet extended release 1,300 mg PO Q12H PRN (Reason: Pain, Moderate) enalapril maleate [Vasotec] 10 mg tablet 10 mg PO .QDAY diclofenac sodium [Voltaren Arthritis Pain] 1 % gel 2 g topical QID PRN (Reason: Pain (Scale Score 1-3)) Rx Instructions: apply to single elbow, wrist or hand; for hand includes palm/fingers/back of hand lansoprazole [Prevacid] 30 mg capsule,delayed release(DR/EC) 30 mg PO DAILY amiodarone 200 mg tablet 200 mg PO DAILY multivitamin Capsule 1 cap PO BID metoprolol succinate 25 mg capsule,sprinkle,ER 24hr 37.5 mg PO BID Label Comments: increased by Cardiology 02/25/21 loratadine 10 mg tablet 10 mg PO DAILY atorvastatin 40 mg tablet 40 mg PO HS Qty: 90 3RF clopidogrel [Plavix] 75 mg tablet 75 mg PO QDAY Qty: 90 3RF tamsulosin [Flomax] 0.4 mg capsule 0.4 mg PO BEDTIME Qty: 90 1RF fluticasone propion-salmeterol 250-50 mcg/dose blister with device See Rx Instructions .ROUTE .COMPLEX Qty: 60 5RF Dose Instruction: inhale 1 puff by mouth and INTO THE LUNGS once daily Rinse mouth after use Rx Instructions: inhale 1 puff by mouth and INTO THE LUNGS once daily Rinse mouth after use hydrocodone-acetaminophen 5-325 mg Tablet 1 tab PO BID PRN (Reason: pain) Qty: 20 0RF amoxicillin-pot clavulanate [Augmentin] 500-125 mg tablet 1 tab PO TID Qty: 21 0RF Referrals: Yash Howe MD [Primary Care Provider] - Visit Report Forms: Patient Portal/API <Kota Castillo DO - Last Filed: 11/13/21 15:53> Cosign ED Attending Cosignature Attestation: Dr Castillo Co-Sign Statement: I was available for consultation during this patient's emergency department visit. This chart is signed by myself for administrative purposes only. I did not have direct contact with this patient during this visit. They were seen independently by the APC.
[2021-11-13 15:05] VITALS: BP 126/71; PULSE 60; RESP 18; O2SAT 96
== END 2021-11-13 15:07 | disposition home or self-care (01) ==
PROVIDERS: Emergency Provider Physician Assistant; PCP Family Medicine
DX: R39.198 Other difficulties with micturition (principal); R34 Anuria and oliguria
CPT/HCPCS: 51798; 99282; 99283

== ENCOUNTER → 2021-12-22 11:49 | Outpatient (CLI) | payer MEDICARE, SELFPAY ==
[2021-11-03 14:33] VITALS: BMI 25.6
[2021-12-22 12:57] LABS: COVID19 -Nasal RAPID Negative (Negative)
== END ==
PROVIDERS: PCP Family Medicine; Visit Provider Surgery
DX: Z20.822 Contact with and (suspected) exposure to COVID-19 (principal); Z01.812 Encounter for preprocedural laboratory examination
CPT/HCPCS: 87635; C9803

== ENCOUNTER 2021-12-23 06:57 | Day surgery (SDC) | payer MEDICARE, SELFPAY ==
[2021-11-03 14:33] VITALS: BMI 25.6
[2021-12-23] VITALS (7 sets, daily range): BP systolic 83–142; BP diastolic 50–79; PULSE 60; RESP 16–20; TEMP 36.1–36.3; O2SAT 92–97; BMI 26.1
--- NOTE | 2021-12-23 | PATH_ITS ---
[facility] Accession Number: [id number] No. of containers..02 Tissue . 01 Material submitted: . PART A: gastrointestinal site - ANTRUM BIOPSIES PART B: esophagus - ESOPHAGUS BIOPSIES . 01 Diagnosis: A. Antrum Biopsies: Portions of gastric antral mucosa with mild chronic inflammation and features of reactive gastropathy. Negative for Helicobacter organisms by immunohistochemistry. Negative for intestinal metaplasia. Negative for dysplasia or malignancy. . B. Esophagus Biopsy: Squamous mucosa with increased intraepithelial eosinophils (there are regions with greater than 50 eosinophils per high power field). Please see comment. Negative for dysplasia and malignancy. [facility] 12/29/2021 1030 Local . 01 Comment: Part B: In the proper clinical setting, the histopathologic appearance would support a clinical impression of eosinophilic esophagitis. The differential diagnosis includes drug reaction, gastroesophageal reflux, and food allergies. . . 01 Electronically signed: . Ksenia Rosenbaum MD, Pathologist NPI- [id number] . 01 Gross description: . Part A: ANTRUM BIOPSIES: Received in formalin are 3 fragment(s) of lo, soft tissue measuring 0.5 x 0.2 x 0.1 cm to 0.2 x 0.2 x 0.1 cm submitted entirely in 1 cassette(s) Part B: ESOPHAGUS BIOPSIES: Received in formalin are multiple fragment(s) of lo, soft tissue measuring 1.2 x 0.3 x 0.1 cm in aggregate submitted entirely in 1 cassette(s) /CPE 12/24/2021 0925 Local . 01 Microscopic: . Part A. An immunohistochemical stain was performed to evaluate for Helicobacter organisms and is negative. The control stain showed appropriate reactivity. . . . . 01 Pathologist provided ICD-10: K62.5, K20.0 . 01 CPT . 624873, 344047, [id number] Specimen Comment: A courtesy copy of this report has been sent to [phone] Performed at: [facility] [address] [place] [address] [id number] MD Dominguez Abrams MD Phone: [phone]
[2021-12-23] MEDS: LACTATED RINGERS 1,000 ML 42 ML IV (07:38)
--- NOTE | 2021-12-23 07:54 | PM.HP.1 ---
History of Present Illness History of Present Illness Date Patient Seen: 12/23/21 Time Patient Seen: 07:54 Chief complaint: LAC Narrative: Maikol is here for his EGD and colonoscopy. See office note for details. He is no longer having any black stools. 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) Coronary artery disease (1997) Depression (08/20/14) Depression Dizziness Herpes Hypertension (1997) Hyperthyroidism Inguinal hernia Inguinal hernia, incarcerated Ischemic cardiomyopathy Kidney stones (1991) Memory loss Mitral stenosis Osteoarthritis Presence of cardiac pacemaker (03/23/17) Rectal bleeding Rheumatic fever Sleep apnea (08/24/13) Thyroid nodule Trigeminal neuralgia () Urinary incontinence (2001) Surgical History AICD (automatic cardioverter/defibrillator) present Anesthesia History of angioplasty (1997) History of angioplasty (2007) History of angioplasty (2011) Status post hernia repair (1979) Status post transurethral resection of prostate (1999) Family & Social History Family History Brother Stroke Brother Stroke Brother Age: 88 Diabetes mellitus Hypertension Daughter Age: 58 Immune disorder Sister Age: 78 Heart disease Hypertension Stroke Son No problems noted. Father Heart attack Mother No problems noted. Social History: household members spouse Tobacco & Substance use: Tobacco type cigarettes Smoking Status Former smoker alcohol intake never alcohol intake frequency 0-2 drinks per day Substance Use Type does not use Meds Home Medications and Allergies Home Medications Medication Instructions Recorded Confirmed Type atorvastatin 40 mg tablet 40 mg PO HS #90 tabs 07/13/18 12/23/21 Rx clopidogrel 75 mg tablet (Plavix) 75 mg PO QDAY #90 tabs 02/23/20 12/23/21 Rx enalapril maleate 10 mg tablet 10 mg PO .QDAY 01/07/21 12/23/21 History (Vasotec) metoprolol succinate 25 mg capsule 37.5 mg PO BID 03/20/21 12/23/21 History sprinkle, ext. release 24 hr acetaminophen 650 mg 1,300 mg PO Q12H PRN Pain, Moderate 06/10/21 12/23/21 History tablet,extended release amiodarone 200 mg tablet 200 mg PO DAILY 06/10/21 12/23/21 History diclofenac sodium 1 % topical gel 2 g topical QID PRN Pain (Scale 06/10/21 12/23/21 History (Voltaren Arthritis Pain) Score 1-3) lansoprazole 30 mg capsule,delayed 30 mg PO DAILY 06/10/21 12/23/21 History release (Prevacid) multivitamin 1 cap PO BID 06/10/21 12/23/21 History fluticasone 250 mcg-salmeterol 50 See Rx Instructions .Route 06/23/21 12/23/21 Rx mcg/dose blistr powdr for .COMPLEX #60 blisters inhalation amoxicillin 500 mg-potassium 1 tab PO TID #21 tabs 11/03/21 12/23/21 Rx clavulanate 125 mg tablet (Augmentin) hydrocodone 5 mg-acetaminophen 325 1 tab PO BID PRN pain #20 tabs 11/03/21 12/23/21 Rx mg tablet loratadine 10 mg tablet 10 mg PO DAILY 11/04/21 12/23/21 History tamsulosin 0.4 mg capsule See Rx Instructions .Route 11/19/21 12/23/21 Rx .COMPLEX #90 caps Allergies Allergy/AdvReac Type Severity Reaction Status Date / Time doxycycline AdvReac Mild Rash Verified 12/23/21 07:22 Exam Vital Signs (past 8 hours): - 12/23/21 07:27 Temperature 97.3 F L Pulse Rate 60 Respiratory Rate 18 Blood Pressure 142/79 H Pulse Oximetry 97 Oxygen Delivery Method Room Air Oxygen Flow Rate 0 Oxygen Delivery Method Room Air Oxygen Flow Rate 0 Const General: No acute distress Assessment & Plan Assessment and plan (1) Rectal bleeding: Status: Acute Plan We will proceed with an EGD and colonoscopy with anesthesia Time Spent With Patient Critical Care time: I spent a total of [] minutes of critical care time on this patient's care today; this time is exclusive of procedural time.
--- NOTE | 2021-12-23 08:52 | PM.OP.1 ---
Operative Date/Time/Diagnoses Date of procedure: 12/23/21 Time of procedure: 08:52 Pre-op diagnosis: Rectal bleeding Post-op diagnosis: same Procedure & Clinicians Procedure: EGD and colonoscopy Same procedure as scheduled: Yes Surgeon: Kan Granado Operative Notes Procedure in detail: Surgeon: Kan Granado MD Anestheisa: MAC by Dr. Musa Kim Procedure in detail: A timeout was performed. A bite blocked was placed and monitors were attached to the patient. The patient was positioned in a left lateral decubitus position. Sedation was administered by Dr. Kim. Once the patient was sedated the endoscope was inserted through the bite block and passed through the esophagus and stomach and into the duodenum. The duodenal mucosa appeared normal. The scope was retracted into the stomach and random biopsies were taken from the antrum. There was some mild antritis. No ulcers were seen. The endoscope was retroflexed and a small hiatal hernia was noted. The endoscope was straightned and withdrawn into the esophagus. Above the diaphragmatic indentation in the esophagus demonstrated a whitish filmy plaque. Random biopsies were taken from the esophagus here. No other abnormalities were noted. Findings: Whitish plaque along the esophagus and mild antritis Next we repositioned the patient for a colonoscopy. A digital rectal exam was performed and was normal other than loose sphincter tone. The colonoscope was inserted and advanced to the cecum. The appendiceal orifice was identified and photographed. The scope was slowly withdrawn over greater than 6 minutes. No abnormalities were noted. The scope was retroflexed in the rectum and no abnormalities were noted. Findings: Normal colon and no explanation for the rectal bleeding. EBL: 0 Withdrawal time: 7 minutes Post-operative Condition: stable Disposition: PACU
== END 2021-12-23 09:42 | disposition home or self-care (01) ==
PROVIDERS: PCP Family Medicine; Referring Provider Surgery; Visit Provider Surgery
PROC: 0DJD8ZZ Inspection of Lower Intestinal Tract, Via Natural or Artificial Opening Endoscopic (ICD-10-PCS; CPT 45378; principal; 2021-12-23 07:45)
PROC: 0DJ08ZZ Inspection of Upper Intestinal Tract, Via Natural or Artificial Opening Endoscopic (ICD-10-PCS; CPT 43235; 2021-12-23 07:45)
DX: K62.5 Hemorrhage of anus and rectum (principal); K29.50 Unspecified chronic gastritis without bleeding; K44.9 Diaphragmatic hernia without obstruction or gangrene; K31.9 Disease of stomach and duodenum, unspecified
CPT/HCPCS: 43239; 45378; J2250; J2704; J3010

== ENCOUNTER → 2022-04-16 12:15 | Outpatient (CLI) | payer MEDICARE, SELFPAY ==
[2021-11-03 14:33] VITALS: BMI 25.6
--- NOTE | 2022-04-22 10:13 | PM.PFT.1 ---
Pulmonary Function Test Referral & Results Date Patient Seen: 04/16/22 Results: The spirometry demonstrates an FVC of 2.04 L which is 54% of predicted. The FEV1 was measured at 1.67 L which is 63% of predicted. The FEV1/FVC ratio was 82 which is 115% of predicted. Following the administration of bronchodilator there was 9% improvement in FEV1 and a 53% improvement in FEF 25-75%. Lung volumes show an SVC of 1.63 L which is 38% of predicted. The diffusing capacity was measured at 14.19 which is 45% of predicted. No hemoglobin value was provided, so no correction for potential anemia could be made, if appropriate. The maximum voluntary ventilation was severely reduced Interpretation: This study demonstrates moderate obstructive lung disease based on reduction FEV1 although FEV1/FVC ratio is preserved. There is evidence of small airway flow improvement after bronchodilator as above There is a moderately severe reduction in lung volumes suggesting moderately severe restrictive lung disease is present which probably explain some of the abnormality in the FEV1 above There is a moderately severe reduction diffusing capacity suggesting significant disease at the capillary alveolar level Compared to PFTs performed in August 2021, current study shows a decline in lung volumes as well as very mild decline in diffusing capacity Clinical correlation suggested
== END ==
PROVIDERS: PCP Family Medicine; Referring Provider Internal Medicine Cardiovascular Disease; Visit Provider Internal Medicine Cardiovascular Disease
DX: Z79.899 Other long term (current) drug therapy (principal); Z87.891 Personal history of nicotine dependence; J98.8 Other specified respiratory disorders
CPT/HCPCS: 94060; 94726; 94729

== ENCOUNTER → 2022-05-12 16:21 | Outpatient (CLI) | payer MEDICARE, SELFPAY ==
[2021-11-03 14:33] VITALS: BMI 25.6
== END ==
PROVIDERS: PCP Family Medicine; Referring Provider Urology; Visit Provider Urology
DX: E05.90 Thyrotoxicosis, unspecified without thyrotoxic crisis or storm (principal)
CPT/HCPCS: 87086

== ENCOUNTER → 2022-05-27 15:07 | Outpatient (CLI) | payer MEDICARE, SELFPAY ==
[2021-11-03 14:33] VITALS: BMI 25.6
[2022-05-27 15:52] LABS: Alanine Aminotransferase 27 IU/L (<50); Albumin 3.9 g/dL (3.5-5.0); Albumin Globulin Ratio 1.3 (1.0-2.8); Alkaline Phosphatase 84 U/L (38-126); Aspartate Aminotransferase 34 IU/L (17-59); Bilirubin Total 0.7 mg/dL (0.2-1.3); Blood Urea Nitrogen 20 mg/dL (9-20); Calcium 9.2 mg/dL (8.4-10.2); Carbon Dioxide 30 mmol/L (22-32); Chloride 102 mmol/L (98-107); Estimated Glomerular Filt Rate > 60 mL/min (>60); Globulin 2.9 g/dL (1.7-4.1); Glucose 99 mg/dL (80-110); HEMOLYSIS < 15 (0-50); Potassium 4.7 mmol/L (3.4-5.1); Sodium 137 mmol/L (137-145); Total Protein 6.8 g/dL (6.3-8.2)
[2022-05-27 16:23] LABS: Thyroid Stimulating Hormone 1.96 uIU/mL (0.47-4.68)
== END ==
PROVIDERS: PCP Family Medicine; Referring Provider Internal Medicine Cardiovascular Disease; Visit Provider Internal Medicine Cardiovascular Disease
DX: Z79.899 Other long term (current) drug therapy (principal)
CPT/HCPCS: 36415; 80053; 84443

== ENCOUNTER → 2022-06-11 09:54 | Outpatient (CLI) | payer MEDICARE, SELFPAY ==
[2021-11-03 14:33] VITALS: BMI 25.6
[2022-06-11 12:08] LABS: BUN Creatinine Ratio 15.7 (6-22); Blood Urea Nitrogen 19 mg/dL (9-20); Calcium 9.2 mg/dL (8.4-10.2); Carbon Dioxide 27 mmol/L (22-32); Chloride 99 mmol/L (98-107); Cholesterol 145 mg/dL (140-199); Estimated Glomerular Filt Rate 59 mL/min (>60); Glucose 82 mg/dL (80-110); HDL Cholesterol 69 mg/dL (40-60); HEMOLYSIS 15 (0-50); LDL Cholesterol Calculated 58 mg/dL (<100); Potassium 4.7 mmol/L (3.4-5.1); Sodium 133 mmol/L (137-145); Triglycerides 89 mg/dL (35-150)
== END ==
PROVIDERS: PCP Family Medicine; Referring Provider Internal Medicine Cardiovascular Disease; Visit Provider Internal Medicine Cardiovascular Disease
DX: E78.5 Hyperlipidemia, unspecified (principal); I10 Essential (primary) hypertension; I25.5 Ischemic cardiomyopathy
CPT/HCPCS: 36415; 80048; 80061

== ENCOUNTER → 2022-06-13 12:46 | Outpatient (CLI) | payer MEDICARE, SELFPAY ==
[2021-11-03 14:33] VITALS: BMI 25.6
[2022-06-13 13:00] LABS: Appearance Urine UA CLEAR; Bilirubin Urine UA NEGATIVE (NEGATIVE); Color Urine UA YELLOW; Glucose Urine UA NEGATIVE (Negative); Ketones Urine UA NEGATIVE (NEGATIVE); Leukocyte Esterase Urine UA 2+ (NEGATIVE); Nitrite Urine UA NEGATIVE (Negative); Occult Blood Urine UA NEGATIVE (Negative); Protein Urine UA NEGATIVE (Negative); Specific Gravity Urine UA 1.015 (1.000-1.035); Urobilinogen Urine UA 0.2 E.U./dL (0.2)
[2022-06-13 13:15] LABS: RBC Urine None Seen (0-5/HPF); WBC Urine 5-10/HPF (0-5/HPF)
[2022-06-13 13:16] LABS: Amorphous Sediment Urine 1+; Bacteria Urine Many (>30); Culture Indicated Urine Specimen Cultured; Renal Epithelial Cells Urine 0-1/HPF (0-1/HPF)
== END ==
PROVIDERS: PCP Family Medicine; Referring Provider Urology; Visit Provider Urology
DX: R30.0 Dysuria (principal)
CPT/HCPCS: 81001; 87086

== ENCOUNTER → 2022-06-19 14:08 | Outpatient (CLI) | payer MEDICARE, SELFPAY ==
[2021-11-03 14:33] VITALS: BMI 25.6
[2022-06-19 18:58] LABS: Appearance Urine UA SL CLOUDY; Bilirubin Urine UA NEGATIVE (NEGATIVE); Color Urine UA YELLOW; Glucose Urine UA NEGATIVE (Negative); Ketones Urine UA NEGATIVE (NEGATIVE); Leukocyte Esterase Urine UA 1+ (NEGATIVE); Nitrite Urine UA NEGATIVE (Negative); Occult Blood Urine UA NEGATIVE (Negative); Protein Urine UA NEGATIVE (Negative); Specific Gravity Urine UA 1.015 (1.000-1.035); Urobilinogen Urine UA 0.2 E.U./dL (0.2)
[2022-06-19 19:07] LABS: RBC Urine 0-1/HPF (0-5/HPF); Squamous Epithelial Cell Urine 0-1 /HPF (0-5/HPF); WBC Urine 10-30/HPF (0-5/HPF)
[2022-06-19 19:08] LABS: Bacteria Urine Many (>30); Calcium Oxalate Crystals Urine Few; Culture Indicated Urine Specimen Cultured
== END ==
PROVIDERS: PCP Family Medicine; Referring Provider Urology; Visit Provider Urology
DX: R39.9 Unspecified symptoms and signs involving the genitourinary system (principal)
CPT/HCPCS: 81001; 87086

== ENCOUNTER 2022-06-29 16:01 | Emergency (ER) | payer MEDICARE, SELFPAY ==
[2021-11-03 14:33] VITALS: BMI 25.6
[2022-06-29 16:06] VITALS: BP 166/80; PULSE 60; RESP 18; TEMP 36.8; O2SAT 95; BMI 26.1
== END 2022-06-29 18:10 | disposition left against medical advice (07) ==
PROVIDERS: Emergency Provider Emergency Medicine; PCP Family Medicine
CPT/HCPCS: 99281

== ENCOUNTER → 2022-06-30 16:55 | Outpatient (CLI) | payer MEDICARE, SELFPAY ==
[2021-11-03 14:33] VITALS: BMI 25.6
== END ==
PROVIDERS: PCP Family Medicine; Referring Provider Urology; Visit Provider Urology
DX: R39.9 Unspecified symptoms and signs involving the genitourinary system (principal); N39.44 Nocturnal enuresis
CPT/HCPCS: 87086

== ENCOUNTER → 2022-07-02 15:12 | Outpatient (CLI) | payer MEDICARE, SELFPAY ==
[2021-11-03 14:33] VITALS: BMI 25.6
[2022-07-02 16:06] LABS: BUN Creatinine Ratio 19.4 (6-22); Blood Urea Nitrogen 18 mg/dL (9-20); Calcium 8.9 mg/dL (8.4-10.2); Carbon Dioxide 27 mmol/L (22-32); Chloride 102 mmol/L (98-107); Estimated Glomerular Filt Rate > 60 mL/min (>60); Glucose 95 mg/dL (80-110); HEMOLYSIS < 15 (0-50); Potassium 4.6 mmol/L (3.4-5.1); Sodium 136 mmol/L (137-145)
[2022-07-03 18:26] LABS: Osmolality, Serum 290 mOsmol/kg (280-301)
== END ==
PROVIDERS: PCP Family Medicine; Referring Provider Internal Medicine Cardiovascular Disease; Visit Provider Internal Medicine Cardiovascular Disease
DX: E87.1 Hypo-osmolality and hyponatremia (principal); I10 Essential (primary) hypertension
CPT/HCPCS: 36415; 80048; 83930

== ENCOUNTER → 2022-10-29 14:46 | Outpatient (CLI) | payer MEDICARE, SELFPAY ==
[2021-11-03 14:33] VITALS: BMI 25.6
== END ==
PROVIDERS: PCP Family Medicine; Referring Provider Internal Medicine Cardiovascular Disease; Visit Provider Internal Medicine Cardiovascular Disease
DX: Z79.899 Other long term (current) drug therapy (principal); Z87.891 Personal history of nicotine dependence; J98.8 Other specified respiratory disorders
CPT/HCPCS: 94060; 94726; 94729

== ENCOUNTER → 2022-11-23 14:24 | Outpatient (CLI) | payer MEDICARE, SELFPAY ==
[2022-11-19 15:44] VITALS: BMI 25.6
[2022-11-23 16:09] LABS: Alanine Aminotransferase 24 IU/L (<50); Albumin Globulin Ratio 1.5 (1.0-2.8); Alkaline Phosphatase 79 U/L (38-126); Aspartate Aminotransferase 31 IU/L (17-59); BUN Creatinine Ratio 18.9 (6-22); Bilirubin Total 0.6 mg/dL (0.2-1.3); Blood Urea Nitrogen 23 mg/dL (9-20); Calcium 9.6 mg/dL (8.4-10.2); Carbon Dioxide 28 mmol/L (22-32); Chloride 99 mmol/L (98-107); Estimated Glomerular Filt Rate 59 mL/min (>60); Globulin 2.7 g/dL (1.7-4.1); Glucose 89 mg/dL (80-110); HEMOLYSIS < 15 (0-50); Sodium 133 mmol/L (137-145); Total Protein 6.7 g/dL (6.3-8.2)
[2022-11-23 16:18] LABS: NT-proBNP (BNP-Adult 18+) 864 pg/mL (<450)
== END ==
PROVIDERS: PCP Family Medicine; Referring Provider Internal Medicine Cardiovascular Disease; Visit Provider Internal Medicine Cardiovascular Disease
DX: I50.9 Heart failure, unspecified (principal); Z79.899 Other long term (current) drug therapy
CPT/HCPCS: 36415; 80053; 83880; 84443

== ENCOUNTER → 2022-12-08 14:19 | Outpatient (CLI) | payer MEDICARE, SELFPAY ==
[2022-11-19 15:44] VITALS: BMI 25.6
[2022-12-08 15:16] LABS: BUN Creatinine Ratio 15.9 (6-22); Blood Urea Nitrogen 18 mg/dL (9-20); Calcium 9.3 mg/dL (8.4-10.2); Carbon Dioxide 29 mmol/L (22-32); Chloride 98 mmol/L (98-107); Estimated Glomerular Filt Rate > 60 mL/min (>60); Glucose 96 mg/dL (80-110); HEMOLYSIS < 15 (0-50); Potassium 4.7 mmol/L (3.4-5.1); Sodium 133 mmol/L (137-145)
== END ==
PROVIDERS: PCP Family Medicine; Referring Provider Internal Medicine Cardiovascular Disease; Visit Provider Internal Medicine Cardiovascular Disease
DX: I50.9 Heart failure, unspecified (principal)
CPT/HCPCS: 36415; 80048

== ENCOUNTER → 2023-01-19 12:38 | Outpatient (CLI) | payer MEDICARE, SELFPAY ==
[2022-11-19 15:44] VITALS: BMI 25.6
--- NOTE | 2023-01-19 | DI.ECHO.S_ITS ---
[facility]---------+ [facility] +---------+ : : [address] : [place] : : : : [id number] : : : : Phone: [phone] Echocardiogram Report + + :Name: OZIEL FLORES V Study Date: 01/19/2023 Height: 70 in : :[facility] ReadingLocation: Weight: 192 lb : : Gender: Male BSA: 2.1 m2 : :: 1940 Age: 83 yrs BP: 124/78 mmHg: :Reason For Study: CHEST PAIN : :Ordering Physician: : :APRYL YOUNG Performed By: Katt Morales : :Referring: APRYL YOUNG : + + Interpretation Summary The left ventricle is mildly dilated. The ejection fraction is estimated to be 35-40%. Previous LVEF about 40 to 45%. There is a mild dyssynchronous contraction pattern due to the paced rhythm. There is akinesis of inferior wall. Hypokinesis of distal septum as well as apex. This was seen on August 2018 as well however, there was some improvement in apex and distal septum in September 2020. The right ventricle is mildly dilated. The right ventricular systolic function is normal. There is a pacemaker lead in the right ventricle. There is severe mitral annular calcification. The mitral valve chordae are thickened and/or calcified. There is moderate mitral stenosis. The mitral valve mean gradient is 6.1 mmHg. Previous mean gradient about 6.2 mmHg. With pressure half-time mitral valve area about 1.2 cm square. There is moderate mitral regurgitation. The mitral regurgitant jet is eccentrically directed. Compared to the prior echo study, there has been no change in the severity of mitral regurgitation. The aortic root is mildly dilated. 4.5 cm. In October 02, 2020, 4.7 cm in diameter. The ascending aorta is mildly enlarged. 3.8 cm. Previously 3.6 cm in diameter. Procedure: A two-dimensional transthoracic echocardiogram with color flow and Doppler was performed. The study quality was technically adequate. Comparison is made with the echocardiogram of 10/02/2020. The heart rate ranged between 59-77 bpm during the study. The patient has a paced rhythm. Left Ventricle: Proximal septal thickening is noted. The left ventricle is mildly dilated. There is no thrombus. The ejection fraction is estimated to be 35-40%. There is a mild dyssynchronous contraction pattern due to the paced rhythm. There is akinesis of inferior wall. Hypokinesis of distal septum as well as apex. This was seen on August 2018 as well however, there was some improvement in apex and distal septum in September 2020. E/E' med: 50.1. Right Ventricle: There is a pacemaker lead in the right ventricle. The right ventricle is mildly dilated. The right ventricular systolic function is normal. Atria: The left atrium is severely dilated. There has been no significant change since the previous study. The right atrium is mildly dilated. There is no Doppler evidence for an interatrial shunt. Mitral Valve: The mitral valve leaflets are moderately calcified. There is severe mitral annular calcification. The mitral valve chordae are thickened and/or calcified. The mitral valve mean gradient is 6.1 mmHg. There is moderate mitral stenosis. There is moderate mitral regurgitation. Compared to the prior echo study, there has been no change in the severity of mitral regurgitation. The mitral regurgitant jet is eccentrically directed. Aortic Valve: The aortic valve is trileaflet. The aortic valve is slightly calcified. There is no aortic valve stenosis. There is mild aortic regurgitation. Tricuspid Valve: The tricuspid valve leaflets are thickened and/or calcified, but open well. There is mild tricuspid regurgitation. Compared to the prior echo exam, there has been a decrease in TR severity. Pulmonary artery pressures cannot be estimated because of the lack of a measurable TR jet velocity. Pulmonic Valve: The pulmonic valve is not well visualized. There is mild pulmonic regurgitation. Great Vessels: The aortic root is mildly dilated. The ascending aorta is mildly enlarged. The inferior vena cava was not well visualized. Pericardium/ Pleura There is no pericardial effusion. There is an anterior echo-free space consistent with a fat pad. There is no pleural effusion. MMode/2D Measurements & Calculations LVIDd: 6.0 cm LVOT diam: 2.3 cm LVIDs: 4.5 cm Ao root diam: 4.5 cm FS: 25.0 % asc Aorta Diam: 3.8 cm IVSd: 1.0 cm Ao Arch Diam (Prox Trans): 2.7 cm LVPWd: 1.4 cm LV stanley. diameter/BSA (cm/m^2): 2.9 LV sys. diameter/BSA (cm/m^2): 2.2 LA A2 area: 33.4 cm2 RA long axis: 5.6 cm LA A4 area: 39.7 cm2 RA area: 20.0 cm2 LA length (vol): 7.4 cm RA vol: 60.6 ml LA vol: 151.8 ml RA : 29.5 ml/m2 LA vol index: 74.0 ml/m2 RVD1 (basal): 4.4 cm RVD2 (mid): 3.8 cm TAPSE: 2.0 cm Doppler Measurements & Calculations Ao V2 max: 104.1 cm/sec LVOT Max Tiburcio: 54.3 cm/sec Ao V2 mean: 82.7 cm/sec LV V1 max P.2 mmHg Ao max P.3 mmHg LV V1 VTI: 8.5 cm Ao mean P.9 mmHg GISSELLE(I,D): 1.7 cm2 Ao V2 VTI: 21.4 cm GISSELLE(V,D): 2.2 cm2 sev ratio: 0.40 GISSELLE indexed to BSA (cm^2/m^2): 0.81 MV E max tiburcio: 154.3 cm/sec MV V2 mean: 115.8 cm/sec MV A max tiburcio: 136.6 cm/sec MV mean P.1 mmHg MV E/A: 1.1 MV V2 VTI: 63.3 cm Med Peak E' Tiburcio: 3.1 cm/sec E/E' med: 50.1 Lat Peak E' Tiburcio: 5.4 cm/sec E/E' lat: 28.4 E/e' average: 39.3 MV dec time: 0.64 sec MVA(VTI): 0.56 cm2 SV(LVOT): 35.5 ml Reading Physician:11:02 AM
== END ==
PROVIDERS: PCP Family Medicine; Referring Provider Internal Medicine Cardiovascular Disease; Visit Provider Internal Medicine Cardiovascular Disease
DX: I25.5 Ischemic cardiomyopathy (principal); I50.9 Heart failure, unspecified; I08.3 Combined rheumatic disorders of mitral, aortic and tricuspid valves; I77.89 Other specified disorders of arteries and arterioles; I77.810 Thoracic aortic ectasia
CPT/HCPCS: 93306

== ENCOUNTER → 2023-02-04 15:29 | Outpatient (CLI) | payer MEDICARE, SELFPAY ==
[2022-11-19 15:44] VITALS: BMI 25.6
--- NOTE | 2023-02-04 15:30 | DI.CT.S_ITS ---
PROCEDURE: CT CHEST HIGH RESOLUTION INDICATIONS: Crackles, abnormal PFT, eval for interstitial lung disease TECHNIQUE: Noncontrast 1.0 and 5.0 mm thick contiguous axial sections from the pulmonary apex to the posterior costophrenic angles, with 7 mm thick coronal and sagittal MIP reformats. 1 mm thick dynamic expiratory images acquired through the upper, mid, and lower lungs. 1.0 mm thick axial sections acquired from the nunu to the posterior costophrenic angles in the prone end-inspiration position. For radiation dose reduction, the following was used: automated exposure control, adjustment of mA and/or kV according to patient size. Patient was unable to tolerate prone imaging. COMPARISON: [facility], CT, CHEST HIGH RESOLUTION, 12/21/2011, 11:59. FINDINGS: Image quality: Diagnostic. Lower Neck: No enlarged lymph nodes. Thyroid: Normal CT appearance. Axillae: No enlarged lymph nodes. Chest Wall: Left ICD power pack in the left anterior chest wall. Bones: Degenerative endplate changes in the visible lower cervical spine. No suspicious bone lesions. Lungs and Pleura: There is respiratory motion at the lung bases. Bilateral lower lobe bronchial wall thickening and crowding of bronchovascular structures. Vertical platelike atelectatic changes in the right lower lung. Patchy 1.0 cm irregular nodule posteromedial left lung base. There is no bronchiectasis. Minor subpleural reticulation at the right costophrenic sulcus. No ground-glass opacities. With axillae oswald, there is air trapping in the anterior right lower lobe and minimally in both upper lobes. No pleural effusions or pleural calcifications. Heart: The heart is diffusely enlarged and there is heavy coronary artery calcification. Moderate mitral annular calcification. Multiple ICD leads are present. Thoracic Vessels: The aorta and pulmonary arteries demonstrate normal size. Mediastinum and Samaria: No enlarged lymph nodes. Esophagus: No wall thickening. No hiatal hernia. Upper Abdomen: In the upper abdomen, tiny calcifications are present in the spleen which may be granulomas or small-vessel atherosclerotic calcification. No other abnormalities. IMPRESSION: 1. Crowding of bilateral lower lobe bronchovascular structures likely accentuates mild bronchial wall thickening. There may be an element of chronic bronchitis given slight air trapping in the right lower lobe. 2. Minor right lung base reticulation is nonspecific, similar compared to remote prior study without progression. There are no other findings to suggest progressive interstitial lung disease. 3. Left medial lower lobe irregular nodule. This is new since 03/02 and follow-up to document resolution or stability is recommended in 6 months. 4. Cardiomegaly and calcific atherosclerosis. Dictated by: Priya Wise M.D. on 02/04/2023 at 20:48 Approved by: Priya Wise M.D. on 02/04/2023 at 21:04
== END ==
PROVIDERS: PCP Family Medicine; Referring Provider Internal Medicine Critical Care Medicine; Visit Provider Internal Medicine Critical Care Medicine
DX: J84.9 Interstitial pulmonary disease, unspecified (principal); R91.8 Other nonspecific abnormal finding of lung field; I51.7 Cardiomegaly; I25.10 Atherosclerotic heart disease of native coronary artery without angina pectoris
CPT/HCPCS: 71250

== ENCOUNTER → 2023-03-26 11:31 | Outpatient (CLI) | payer MEDICARE, SELFPAY ==
[2022-11-19 15:44] VITALS: BMI 25.6
[2023-03-26 13:53] LABS: Alanine Aminotransferase 19 IU/L (<50); Albumin 3.9 g/dL (3.5-5.0); Albumin Globulin Ratio 1.4 (1.0-2.8); Alkaline Phosphatase 80 U/L (38-126); Aspartate Aminotransferase 26 IU/L (17-59); BUN Creatinine Ratio 16.5 (6-22); Bilirubin Total 0.9 mg/dL (0.2-1.3); Blood Urea Nitrogen 19 mg/dL (9-20); Calcium 9.5 mg/dL (8.4-10.2); Carbon Dioxide 24 mmol/L (22-32); Chloride 101 mmol/L (98-107); Cholesterol 133 mg/dL (140-199); Estimated Glomerular Filt Rate > 60 mL/min (>60); Globulin 2.7 g/dL (1.7-4.1); Glucose 91 mg/dL (80-110); HDL Cholesterol 59 mg/dL (40-60); HEMOLYSIS < 15 (0-50); LDL Cholesterol Calculated 57 mg/dL (<100); Potassium 4.9 mmol/L (3.4-5.1); Sodium 133 mmol/L (137-145); Total Protein 6.6 g/dL (6.3-8.2); Triglycerides 83 mg/dL (35-150)
[2023-03-26 14:25] LABS: Thyroid Stimulating Hormone 2.45 uIU/mL (0.47-4.68)
== END ==
PROVIDERS: PCP Family Medicine; Referring Provider Internal Medicine Cardiovascular Disease; Visit Provider Internal Medicine Cardiovascular Disease
DX: E78.5 Hyperlipidemia, unspecified (principal)
CPT/HCPCS: 36415; 80053; 80061; 84443

== ENCOUNTER → 2023-05-13 15:37 | Outpatient (CLI) | payer MEDICARE, SELFPAY ==
[2022-11-19 15:44] VITALS: BMI 25.6
[2023-05-13 18:28] LABS: Alanine Aminotransferase 20 IU/L (<50); Albumin 3.9 g/dL (3.5-5.0); Albumin Globulin Ratio 1.4 (1.0-2.8); Alkaline Phosphatase 74 U/L (38-126); Aspartate Aminotransferase 27 IU/L (17-59); BUN Creatinine Ratio 20.9 (6-22); Bilirubin Total 0.7 mg/dL (0.2-1.3); Blood Urea Nitrogen 23 mg/dL (9-20); Calcium 9.4 mg/dL (8.4-10.2); Carbon Dioxide 25 mmol/L (22-32); Chloride 105 mmol/L (98-107); Estimated Glomerular Filt Rate > 60 mL/min (>60); Globulin 2.7 g/dL (1.7-4.1); Glucose 93 mg/dL (80-110); HEMOLYSIS < 15 (0-50); Potassium 4.8 mmol/L (3.4-5.1); Sodium 135 mmol/L (137-145); Total Protein 6.6 g/dL (6.3-8.2)
[2023-05-13 18:35] LABS: NT-proBNP (BNP-Adult 18+) 1990 pg/mL (<450)
== END ==
PROVIDERS: PCP Family Medicine; Referring Provider Internal Medicine Cardiovascular Disease; Visit Provider Internal Medicine Cardiovascular Disease
DX: I50.9 Heart failure, unspecified (principal); Z79.899 Other long term (current) drug therapy
CPT/HCPCS: 36415; 80053; 83880; 84443

== ENCOUNTER → 2023-07-22 15:14 | Outpatient (CLI) | payer MEDICARE, SELFPAY ==
[2023-05-27 15:06] VITALS: BMI 25.6
--- NOTE | 2023-07-22 15:15 | DI.CT.S_ITS ---
PROCEDURE: CT CHEST WO CON INDICATIONS: H/o solitary pulmonary nodule, eval for 6 month interval TECHNIQUE: Noncontrast 2.0-2.5 mm thick sections acquired from the pulmonary apices to the posterior costophrenic angles. 7 mm thick axial MIP and 5 mm coronal and sagittal reformats were then acquired. For radiation dose reduction, the following was used: automated exposure control, adjustment of mA and/or kV according to patient size. COMPARISON: [facility], CT, CT CHEST HIGH RESOLUTION, 02/04/2023, 15:35. FINDINGS: Image quality: Diagnostic. Lower Neck: No enlarged lymph nodes. Thyroid: No thyroid nodules which require sonographic follow up, per consensus guidelines. Axillae: No enlarged lymph nodes. Chest Wall: Unremarkable. Bones: Unremarkable. Lungs and Pleura: No pneumothorax or pleural effusions. Lung volumes are low. Atelectasis or scarring is present at the right lung base and appears similar to the study dated February 04, 2023. An ill-defined nodular radiodensity is redemonstrated at the left posteromedial lung base (series 3/image 216). This is likely unchanged from the study dated February 04, 2023. Similar airspace opacities are present within the superior segment of the left lower lobe (series 3/image 163). These are new when compared with the prior study. Heart: Heart size is normal. No pericardial effusion. Dense atheromatous calcifications are present at the mitral annulus. Scattered atheromatous coronary artery calcifications are noted. Thoracic Vessels: The aorta and pulmonary arteries demonstrate normal size. Scattered atheromatous calcifications are present within the aortic arch. Mediastinum and Samaria: No enlarged lymph nodes. Esophagus: No wall thickening. No hiatal hernia. Upper Abdomen: Visualized upper abdomen solid organs and bowel loops appear normal. IMPRESSION: 1. Low lung volumes and stable nodular left basilar radiodensity when compared with the study dated February 04, 2023. 2. New subcentimeter nodular radiodensity within the superior segment of the left lower lobe as above. [address] follow-up recommended. Fleischner Society criteria for SOLID lung nodule followup. Nodule size (mm)Low-risk patientHigh-risk patient<6 (single or multiple)No routine followup.Optional CT at 12 months. 6-8 (single or multiple)CT at 6-12 months, then optional CT at 18-24 mo.CT at 6-12 months, then CT at 18-24 months. >8 (single)CT at 3 months, PET-CT, or biopsy. Same as for low-risk pts. >8 (multiple)CT at 3-6 months, then optional CT at 18-24 mo.CT at 3-6 months, then CT at 18-24 months. Fleischner Society criteria for SUB-SOLID lung nodule followup. Solitary pure ground-glass nodules<6 mm (ground glass or part solid)No followup needed. 6 mm or larger (ground glass)CT at 6-12 months to confirm persistence, then CT every 2 years until 5 years.6 mm or larger (part solid)CT at 3-6 months to confirm persistence, then annual CT until 5 years if unchanged and solid component remains <6 mm. Multiple sub-solid nodules<6 mmCT at 3-6 months, then CT consider at 2 & 4 years for high risk patients. [address] at 3-6 months. Subsequent management based on most suspicious lesions. Recommendations do not apply to lung cancer screening, patients with immunosuppression, or patients with known primary cancer. Dictated by: Leanne Chavira M.D. on 07/22/2023 at 16:40 Approved by: Leanne Chavira M.D. on 07/22/2023 at 16:46
== END ==
PROVIDERS: PCP Family Medicine; Referring Provider Internal Medicine Critical Care Medicine; Visit Provider Internal Medicine Critical Care Medicine
DX: R91.1 Solitary pulmonary nodule (principal)
CPT/HCPCS: 71250

== ENCOUNTER → 2023-07-27 13:21 | Outpatient (CLI) | payer MEDICARE, SELFPAY ==
[2023-05-27 15:06] VITALS: BMI 25.6
[2023-07-27 14:55] LABS: Alanine Aminotransferase 17 IU/L (<50); Albumin 3.8 g/dL (3.5-5.0); Albumin Globulin Ratio 1.7 (1.0-2.8); Alkaline Phosphatase 62 U/L (38-126); Aspartate Aminotransferase 24 IU/L (17-59); Bilirubin Total 0.8 mg/dL (0.2-1.3); Blood Urea Nitrogen 24 mg/dL (9-20); Carbon Dioxide 26 mmol/L (22-32); Chloride 106 mmol/L (98-107); Estimated Glomerular Filt Rate > 60 mL/min (>60); Globulin 2.2 g/dL (1.7-4.1); Glucose 96 mg/dL (80-110); HEMOLYSIS < 15 (0-50); Potassium 4.7 mmol/L (3.4-5.1); Sodium 135 mmol/L (137-145)
[2023-07-27 15:04] LABS: NT-proBNP (BNP-Adult 18+) 769 pg/mL (<450)
== END ==
PROVIDERS: PCP Family Medicine; Referring Provider Nurse Practitioner; Visit Provider Nurse Practitioner
DX: I25.5 Ischemic cardiomyopathy (principal)
CPT/HCPCS: 36415; 80053; 83880

== ENCOUNTER → 2023-08-20 15:58 | Outpatient (CLI) | payer MEDICARE, SELFPAY ==
[2023-05-27 15:06] VITALS: BMI 25.6
[2023-08-20 17:58] LABS: Alanine Aminotransferase 19 IU/L (<50); Albumin 3.9 g/dL (3.5-5.0); Albumin Globulin Ratio 1.6 (1.0-2.8); Alkaline Phosphatase 68 U/L (38-126); Aspartate Aminotransferase 25 IU/L (17-59); BUN Creatinine Ratio 28.4 (6-22); Bilirubin Total 0.7 mg/dL (0.2-1.3); Blood Urea Nitrogen 23 mg/dL (9-20); Calcium 9.2 mg/dL (8.4-10.2); Carbon Dioxide 25 mmol/L (22-32); Chloride 107 mmol/L (98-107); Estimated Glomerular Filt Rate > 60 mL/min (>60); Globulin 2.5 g/dL (1.7-4.1); Glucose 104 mg/dL (80-110); HEMOLYSIS 23 (0-50); Potassium 4.5 mmol/L (3.4-5.1); Sodium 135 mmol/L (137-145); Total Protein 6.4 g/dL (6.3-8.2)
[2023-08-20 18:07] LABS: NT-proBNP (BNP-Adult 18+) 1130 pg/mL (<450)
== END ==
PROVIDERS: PCP Family Medicine; Referring Provider Nurse Practitioner; Visit Provider Nurse Practitioner
DX: I25.5 Ischemic cardiomyopathy (principal)
CPT/HCPCS: 36415; 80053; 83880

== ENCOUNTER → 2023-09-02 12:56 | Outpatient (CLI) | payer MEDICARE, SELFPAY ==
[2023-05-27 15:06] VITALS: BMI 25.6
[2023-09-02 14:17] LABS: BUN Creatinine Ratio 28.4 (6-22); Blood Urea Nitrogen 23 mg/dL (9-20); Calcium 9.1 mg/dL (8.4-10.2); Carbon Dioxide 25 mmol/L (22-32); Chloride 104 mmol/L (98-107); Estimated Glomerular Filt Rate > 60 mL/min (>60); Glucose 96 mg/dL (80-110); HEMOLYSIS 21 (0-50); Magnesium 2.2 mg/dL (1.6-2.3); Potassium 4.4 mmol/L (3.4-5.1); Sodium 134 mmol/L (137-145)
[2023-09-02 14:34] LABS: Free T4, Direct Thyroxine 1.72 ng/dL (0.78-2.19)
[2023-09-02 14:47] LABS: Thyroid Stimulating Hormone 1.67 uIU/mL (0.47-4.68)
== END ==
PROVIDERS: PCP Family Medicine; Referring Provider Internal Medicine Cardiovascular Disease; Visit Provider Internal Medicine Cardiovascular Disease
DX: Z79.899 Other long term (current) drug therapy (principal); I10 Essential (primary) hypertension; Z95.0 Presence of cardiac pacemaker
CPT/HCPCS: 36415; 80048; 83735; 84439; 84443

== ENCOUNTER → 2023-09-17 12:25 | Outpatient (CLI) | payer MEDICARE, SELFPAY ==
[2023-05-27 15:06] VITALS: BMI 25.6
[2023-09-17 13:36] LABS: Alanine Aminotransferase 19 IU/L (<50); Albumin 4.1 g/dL (3.5-5.0); Albumin Globulin Ratio 1.6 (1.0-2.8); Alkaline Phosphatase 66 U/L (38-126); Aspartate Aminotransferase 27 IU/L (17-59); BUN Creatinine Ratio 24.1 (6-22); Bilirubin Total 0.8 mg/dL (0.2-1.3); Blood Urea Nitrogen 21 mg/dL (9-20); Calcium 9.5 mg/dL (8.4-10.2); Carbon Dioxide 26 mmol/L (22-32); Chloride 104 mmol/L (98-107); Estimated Glomerular Filt Rate > 60 mL/min (>60); Globulin 2.6 g/dL (1.7-4.1); Glucose 55 mg/dL (80-110); HEMOLYSIS < 15 (0-50); Magnesium 2.3 mg/dL (1.6-2.3); Potassium 4.4 mmol/L (3.4-5.1); Sodium 134 mmol/L (137-145); Total Protein 6.7 g/dL (6.3-8.2)
[2023-09-17 14:07] LABS: Thyroid Stimulating Hormone 1.92 uIU/mL (0.47-4.68)
== END ==
PROVIDERS: PCP Family Medicine; Referring Provider Internal Medicine Cardiovascular Disease; Visit Provider Internal Medicine Cardiovascular Disease
DX: I10 Essential (primary) hypertension (principal); I47.20 Ventricular tachycardia, unspecified; I48.4 Atypical atrial flutter; Z79.899 Other long term (current) drug therapy
CPT/HCPCS: 36415; 80053; 83735; 84443

== ENCOUNTER → 2023-10-12 12:59 | Outpatient (CLI) | payer MEDICARE, SELFPAY ==
[2023-05-27 15:06] VITALS: BMI 25.6
[2023-10-12 14:21] LABS: Add Manual Diff / Slide Review NO; Basophils Absolute Auto 100 /uL (0-100); Eosinophils Absolute Auto 100 /uL (0-450); Eosinophils Percent Auto 2.3 % (2-4); Hematocrit 41.6 % (41-53); Hemoglobin 14.2 g/dL (13.5-17.5); Lymphocytes Absolute Auto 900 /uL (1100-4500); Lymphocytes Percent Auto 14.8 % (25-40); Mean Corpuscular HGB Conc 34.1 % (30-36); Mean Corpuscular Hemoglobin 32.4 PG (26-34); Mean Corpuscular Volume 95.1 fL (80-100); Monocytes Absolute Auto 500 /uL (0-900); Monocytes Percent Auto 8.6 % (3-14); Neutrophils Absolute Auto 4300 /uL (1500-7000); Neutrophils Percent Auto 73.3 % (50-75); Platelet Count 144 X10^3/uL (150-400); Red Blood Cell Count 4.38 X10^6/uL (4.5-5.9); Red Cell Distribution Width 13.9 % (11.6-14.8); White Blood Cell Count 5.9 X10^3/uL (4.5-11.0)
== END ==
LOC: LAB 13:00
PROVIDERS: PCP Family Medicine; Referring Provider Nurse Practitioner Family; Visit Provider Nurse Practitioner Family
DX: I48.4 Atypical atrial flutter (principal)
CPT/HCPCS: 36415; 85025

== ENCOUNTER → 2023-11-29 12:49 | Outpatient (CLI) | payer MEDICARE, SELFPAY ==
[2023-05-27 15:06] VITALS: BMI 25.6
[2023-11-29 13:43] LABS: Hematocrit 43.8 % (41-53); Mean Corpuscular HGB Conc 34.2 % (30-36); Mean Corpuscular Hemoglobin 31.4 PG (26-34); Mean Corpuscular Volume 91.9 fL (80-100); Platelet Count 163 X10^3/uL (150-400); Red Blood Cell Count 4.77 X10^6/uL (4.5-5.9); Red Cell Distribution Width 13.5 % (11.6-14.8); White Blood Cell Count 6.6 X10^3/uL (4.5-11.0)
[2023-11-29 14:54] LABS: Alanine Aminotransferase 20 IU/L (<50); Albumin 3.6 g/dL (3.5-5.0); Albumin Globulin Ratio 1.5 (1.0-2.8); Alkaline Phosphatase 73 U/L (38-126); Aspartate Aminotransferase 26 IU/L (17-59); Bilirubin Total 0.8 mg/dL (0.2-1.3); Blood Urea Nitrogen 20 mg/dL (9-20); Calcium 9.6 mg/dL (8.4-10.2); Carbon Dioxide 26 mmol/L (22-32); Chloride 95 mmol/L (98-107); Estimated Glomerular Filt Rate > 60 mL/min (>60); Globulin 2.4 g/dL (1.7-4.1); Glucose 108 mg/dL (80-110); HEMOLYSIS < 15 (0-50); Sodium 127 mmol/L (137-145)
== END ==
LOC: LAB 12:50
PROVIDERS: PCP Family Medicine; Referring Provider Nurse Practitioner; Visit Provider Nurse Practitioner
DX: I47.20 Ventricular tachycardia, unspecified (principal); I48.4 Atypical atrial flutter; I10 Essential (primary) hypertension
CPT/HCPCS: 36415; 80053; 83735; 85027

== ENCOUNTER → 2023-12-27 12:02 | Outpatient (CLI) | payer MEDICARE, SELFPAY ==
[2023-05-27 15:06] VITALS: BMI 25.6
[2023-12-27 13:35] LABS: Add Manual Diff / Slide Review NO; Basophils Absolute Auto 100 /uL (0-100); Basophils Percent Auto 1.7 % (0-2); Eosinophils Absolute Auto 200 /uL (0-450); Eosinophils Percent Auto 3.3 % (2-4); Hematocrit 46.7 % (41-53); Hemoglobin 15.4 g/dL (13.5-17.5); Lymphocytes Absolute Auto 900 /uL (1100-4500); Lymphocytes Percent Auto 15.2 % (25-40); Mean Corpuscular Hemoglobin 30.5 PG (26-34); Mean Corpuscular Volume 92.4 fL (80-100); Monocytes Absolute Auto 600 /uL (0-900); Monocytes Percent Auto 10.3 % (3-14); Neutrophils Absolute Auto 4000 /uL (1500-7000); Neutrophils Percent Auto 69.5 % (50-75); Platelet Count 151 X10^3/uL (150-400); Red Blood Cell Count 5.05 X10^6/uL (4.5-5.9); White Blood Cell Count 5.8 X10^3/uL (4.5-11.0)
[2023-12-27 13:57] LABS: BUN Creatinine Ratio 24.1 (6-22); Blood Urea Nitrogen 20 mg/dL (9-20); Calcium 9.3 mg/dL (8.4-10.2); Carbon Dioxide 27 mmol/L (22-32); Chloride 96 mmol/L (98-107); Estimated Glomerular Filt Rate > 60 mL/min (>60); Glucose 69 mg/dL (80-110); HEMOLYSIS < 15 (0-50); Potassium 4.5 mmol/L (3.4-5.1); Sodium 130 mmol/L (137-145)
== END ==
PROVIDERS: PCP Family Medicine; Referring Provider Internal Medicine Cardiovascular Disease; Visit Provider Internal Medicine Cardiovascular Disease
DX: I48.4 Atypical atrial flutter (principal)
CPT/HCPCS: 36415; 80048; 85025

== ENCOUNTER → 2024-01-25 16:22 | Outpatient (CLI) | payer MEDICARE, SELFPAY ==
[2023-05-27 15:06] VITALS: BMI 25.6
== END ==
PROVIDERS: PCP Family Medicine; Referring Provider Nurse Practitioner Family; Visit Provider Nurse Practitioner Family
DX: I48.0 Paroxysmal atrial fibrillation (principal)
CPT/HCPCS: 36415; 80048

== ENCOUNTER → 2024-04-05 14:50 | Outpatient (CLI) | payer MEDICARE, SELFPAY ==
[2023-05-27 15:06] VITALS: BMI 25.6
== END ==
PROVIDERS: PCP Family Medicine; Referring Provider Internal Medicine Cardiovascular Disease; Visit Provider Internal Medicine Cardiovascular Disease
DX: Z79.899 Other long term (current) drug therapy (principal); Z87.891 Personal history of nicotine dependence; R94.2 Abnormal results of pulmonary function studies; I48.0 Paroxysmal atrial fibrillation; Z95.0 Presence of cardiac pacemaker; I25.5 Ischemic cardiomyopathy
CPT/HCPCS: 94060; 94726; 94729

== ENCOUNTER → 2024-04-25 16:18 | Outpatient (CLI) | payer MEDICARE, SELFPAY ==
[2023-05-27 15:06] VITALS: BMI 25.6
[2024-04-25 18:20] LABS: BUN Creatinine Ratio 28.8 (6-22); Blood Urea Nitrogen 32 mg/dL (9-20); Calcium 9.7 mg/dL (8.4-10.2); Carbon Dioxide 28 mmol/L (22-32); Chloride 98 mmol/L (98-107); Estimated Glomerular Filt Rate > 60 mL/min (>60); Glucose 94 mg/dL (80-110); HEMOLYSIS < 15 (0-50); Potassium 4.8 mmol/L (3.4-5.1); Sodium 133 mmol/L (137-145)
== END ==
LOC: LAB 16:18
PROVIDERS: PCP Family Medicine; Referring Provider Nurse Practitioner; Visit Provider Nurse Practitioner
DX: I25.5 Ischemic cardiomyopathy (principal)
CPT/HCPCS: 36415; 80048

== ENCOUNTER → 2024-06-15 14:58 | Outpatient (CLI) | payer MEDICARE, SELFPAY ==
[2023-05-27 15:06] VITALS: BMI 25.6
--- NOTE | 2024-06-15 14:59 | DI.ECHO.S_ITS ---
[facility] +---------+ [facility] : : [address] : : [place] : : [id number] : : Phone: [phone] Echocardiogram Report + + :Name: OZIEL FLORES V Study Date: 06/15/2024 Height: 70 in : :[facility] ReadingLocation: Weight: 172 lb : : Gender: Male BSA: 2.0 m2 : :: 1940 Age: 84 yrs BP: 109/70 mmHg: :Reason For Study: ISCHEMIC CARDIOMYOPATHY : :Ordering Physician: BEN, : :ALEXYS Hylton Performed By: Yash Odonnell : :Referring: ALEXYS CONTRERAS : + + Interpretation Summary TDS - PT UNABLE TO TOLERATE EXAM. Only parasternal long axis and some short axis views available. No further studies. The left ventricle is mild-moderately dilated. Only parasternal long axis views. No global assessment of LV function. However in limited views, LV function appears to be significantly decreased. Mid to distal septum and distal posterior lateral wall including apex appears to be hypokinetic. Previous LV ejection fraction 35 to 40%. There is a pacemaker lead in the right ventricle. The right ventricle is not well visualized. In parasternal long axis view, severe mitral annulus calcification. Mild mitral regurgitation. Suspect mitral stenosis however cannot quantify. There is no hemodynamically significant valvular aortic stenosis. The aortic root is mildly dilated. 4.6 cm in diameter. Previously 4.5 cm. The ascending aorta is mildly enlarged. 3.8 cm in diameter. Unchanged from the previous study. Procedure: A two-dimensional transthoracic echocardiogram with color flow and Doppler was performed in limited views only. The study quality was technically limited. Comparison is made with the echocardiogram of 01/19/2023. The patient has a paced rhythm. Left Ventricle: The left ventricle is mild-moderately dilated. Left ventricular wall thickness is mildly increased. Only parasternal long axis views. No global assessment of LV function. However in limited views, LV function appears to be significantly decreased. Mid to distal septum and distal posterior lateral wall including apex appears to be hypokinetic. Right Ventricle: There is a pacemaker lead in the right ventricle. The right ventricle is not well visualized. Mitral Valve: There is severe mitral annular calcification. The mitral valve leaflets are moderately calcified. In parasternal long axis view, mild mitral regurgitation. Suspect mitral stenosis however cannot quantify. Aortic Valve: The aortic valve is trileaflet. The aortic valve is mildly calcified. There is no hemodynamically significant valvular aortic stenosis. No aortic regurgitation is present. Tricuspid Valve: The tricuspid valve is not well visualized. Pulmonic Valve: The pulmonic valve is not well visualized. There is trace pulmonic regurgitation. Great Vessels: The aortic root is mildly dilated. The ascending aorta is mildly enlarged. The pulmonary is not well visualized. Pericardium/ Pleura There is no pericardial effusion. MMode/2D Measurements & Calculations LVIDd: 6.3 cm LVOT diam: 2.1 cm LVIDs: 5.6 cm Ao root diam: 4.6 cm FS: 10.7 % asc Aorta Diam: 3.8 cm EPSS: 1.2 cm IVSd: 1.1 cm LVPWd: 1.1 cm LV stanley. diameter/BSA (cm/m^2): 3.2 LV sys. diameter/BSA (cm/m^2): 2.9 Doppler Measurements & Calculations TR max amado: 315.8 cm/sec TR max P.9 mmHg PA V2 max: 53.4 cm/sec PA V2 mean: 35.7 cm/sec PA mean P.56 mmHg PA pr(Accel): 37.9 mmHg Reading Physician:05:07 PM
== END ==
PROVIDERS: PCP Family Medicine; Referring Provider Nurse Practitioner; Visit Provider Nurse Practitioner
DX: I34.81 Nonrheumatic mitral (valve) annulus calcification (principal); I34.0 Nonrheumatic mitral (valve) insufficiency; I25.5 Ischemic cardiomyopathy; I77.810 Thoracic aortic ectasia; I77.89 Other specified disorders of arteries and arterioles; Z95.0 Presence of cardiac pacemaker
CPT/HCPCS: 93307

== ENCOUNTER → 2024-07-25 12:57 | Outpatient (CLI) | payer MEDICARE, SELFPAY ==
[2023-05-27 15:06] VITALS: BMI 25.6
[2024-07-25 13:55] LABS: Alanine Aminotransferase 22 IU/L (<50); Alkaline Phosphatase 54 U/L (38-126); Aspartate Aminotransferase 34 IU/L (17-59); Bilirubin Total 0.8 mg/dL (0.2-1.3); Blood Urea Nitrogen 35 mg/dL (9-20); Chloride 106 mmol/L (98-107); Estimated Glomerular Filt Rate > 60 mL/min (>60); Glucose 91 mg/dL (70-99); Potassium 4.5 mmol/L (3.4-5.1); Sodium 136 mmol/L (137-145); Total Protein 6.3 g/dL (6.3-8.2)
[2024-07-25 13:56] LABS: Albumin 3.9 g/dL (3.5-5.0); BUN Creatinine Ratio 37.6 (6-22); Carbon Dioxide 24 mmol/L (22-32); HEMOLYSIS 62 (0-50)
[2024-07-25 14:26] LABS: TSH w/ Reflex to FT4 5.49 uIU/mL (0.47-4.68)
[2024-07-25 16:02] LABS: Albumin Globulin Ratio 1.7 (1.0-2.8); Globulin 2.3 g/dL (1.7-4.1)
[2024-07-25 16:10] LABS: Free T4, Direct Thyroxine 1.75 ng/dL (0.78-2.19)
== END ==
LOC: LAB 12:58
PROVIDERS: PCP Family Medicine; Referring Provider Nurse Practitioner; Visit Provider Nurse Practitioner
DX: I48.0 Paroxysmal atrial fibrillation (principal); I25.5 Ischemic cardiomyopathy
CPT/HCPCS: 36415; 80053; 84439; 84443

== ENCOUNTER 2024-08-28 20:34 | Emergency (ER) | payer MEDICARE, SELFPAY ==
[2023-05-27 15:06] VITALS: BMI 25.6
[2024-08-28 20:31] VITALS: BP 120/57; PULSE 70; O2SAT 93
--- NOTE | 2024-08-28 20:31 | EKG_ITS ---
[address] [address] Test Date: 2024-08-28 Pat Name: Maikol Higginbotham Department: Room: Gender: Male Guest Relations Representative: : 1940 Requested By: Order Number: [id number] Reading MD: Malcolm Pratt Measurements Intervals [place] Rate: 70 P: 79 WI: 228 QRS: -76 QRSD: 174 T: 61 QT: 484 QTc: 522 Interpretive Statements Atrial-sensed ventricular-paced rhythm with prolonged AV conduction Electronically Signed On 08-30-2024 17:09:04 PDT by Malcolm Pratt
[2024-08-28 20:37] VITALS: BP 120/57; PULSE 70; RESP 20; TEMP 37.5; O2SAT 94; BMI 25.3
[2024-08-28 20:57] LABS: Add Manual Diff / Slide Review NO; Hematocrit 44.5 % (41-53); Hemoglobin 14.8 g/dL (13.5-17.5); INR 1.6 (0.9-1.3); Lymphocytes Absolute Auto 400 /uL (1100-4500); Mean Corpuscular HGB Conc 33.3 % (30-36); Mean Corpuscular Hemoglobin 31.6 PG (26-34); Mean Corpuscular Volume 94.8 fL (80-100); Platelet Count 148 X10^3/uL (150-400); Prothrombin Time 17.5 SECONDS (9.4-12.5)
[2024-08-28 21:00] VITALS: BP 93/54; PULSE 69; RESP 33; O2SAT 96
[2024-08-28 21:00] LABS: PTT Partial Thromboplastin Tim 30 SECONDS (25.1-36.5)
[2024-08-28 21:03] LABS: Alanine Aminotransferase 36 IU/L (<50); Albumin 4.0 g/dL (3.5-5.0); Albumin Globulin Ratio 1.3 (1.0-2.8); Alkaline Phosphatase 106 U/L (38-126); Blood Urea Nitrogen 28 mg/dL (9-20); Calcium 9.6 mg/dL (8.4-10.2); Carbon Dioxide 22 mmol/L (22-32); Chloride 103 mmol/L (98-107); Creatine Kinase 43 U/L (55-170); Estimated Glomerular Filt Rate > 60 mL/min (>60); Globulin 3.0 g/dL (1.7-4.1); Glucose 157 mg/dL (70-99); HEMOLYSIS 28 (0-50); Lipase 86 U/L (23-300); Magnesium 2.0 mg/dL (1.6-2.3); Potassium 4.7 mmol/L (3.4-5.1); Sodium 136 mmol/L (137-145); Total Protein 7.0 g/dL (6.3-8.2)
[2024-08-28 21:05] LABS: Lactate (Lactic Acid) 4.2 mmol/L (0.7-2.1)
--- NOTE | 2024-08-28 21:11 | PC.NURSE ---
2105: Patient wanting to speak with provider about patient and his wishes for care. Provider Chriss made aware and goes to bedside. Tells this RN to hold IV fluids.
[2024-08-28 21:14] LABS: NT-proBNP (BNP-Adult 18+) 3690 pg/mL (<450); Troponin I 0.020 ng/mL (0.01-0.034)
--- NOTE | 2024-08-28 21:18 | ED.FALL ---
HPI - Fall General Chief Complaint: Shortness of Breath/Dyspnea Stated Complaint: GLF Time Seen by Provider: 08/28/24 20:41 Source: EMS Mode of arrival: EMS History of Present Illness HPI Narrative: 84-year-old male history of paroxysmal atrial fibrillation dyslipidemia pacemaker defibrillator hypertension CAD type 2 diabetes lives at assisted living facility had a fall today but is comfort measure only and was here for further evaluation but patient did not want to stay or have any blood work or imaging studies done. who has [id number] also is in agreement at this time. They will go back home now. Other than what is stated 14 point review of system is negative. Related Data Home Medications ?Medication ?Instructions ?Recorded ?Confirmed acetaminophen 650 mg 1,300 mg PO Q12H PRN Pain, Moderate 06/10/21 05/31/24 tablet,extended release diclofenac sodium 1 % topical gel 2 g topical QID PRN Pain (Scale 06/10/21 05/31/24 (Voltaren Arthritis Pain) Score 1-3) multivitamin 1 cap PO BID 06/10/21 05/31/24 apixaban 2.5 mg tablet (Eliquis) 2.5 mg PO BID 01/15/22 05/31/24 oxymetazoline 0.05 % nasal mist 2 spray intranasal Q12H PRN 01/15/22 05/31/24 (Vicks Sinex Ultra Fine Mist 12-Hour) polyethylene glycol 3350 17 17 g PO DAILY 09/14/22 05/31/24 gram/dose oral powder (Miralax) ascorbic acid (vitamin C) 500 mg 500 mg PO BID 11/19/22 05/31/24 tablet cholecalciferol (vitamin D3) 50 50 mcg PO DAILY 11/19/22 05/31/24 mcg (2,000 unit) capsule furosemide 20 mg tablet 20 mg PO DAILY 11/19/22 05/31/24 melatonin 10 mg tablet 20 mg PO DAILY 11/19/22 05/31/24 potassium chloride 10 mEq 10 meq PO DAILY 11/19/22 05/31/24 tablet,extended release (Klor-Con) losartan 25 mg tablet 12.5 mg PO DAILY 10/28/23 05/31/24 dextromethorphan-guaifenesin 30 1 tab PO Q12H 05/01/24 05/31/24 mg-600 mg tablet extended [id number] hr (Mucinex DM) glucosamine 500 mg-msm 100 mg-vit 2 cap PO DAILY 05/01/24 05/31/24 C 20 zl-fvnfc-uigo-primrose capsule lansoprazole 15 mg delayed 15 mg PO DAILY 05/01/24 05/31/24 release,disintegrating tablet metoprolol succinate 25 mg capsule See Rx Instructions PO BID 05/01/24 05/31/24 sprinkle, ext. release 24 hr amiodarone 100 mg tablet 100 mg PO DAILY 05/31/24 05/31/24 Previous Rx's ?Medication ?Instructions ?Recorded atorvastatin 40 mg tablet 40 mg PO HS #90 tabs 07/13/18 clopidogrel 75 mg tablet (Plavix) 75 mg PO QDAY #90 tabs 02/23/20 Disabled Parking Permit See Rx Instructions .Route 05/27/23 .COMPLEX #1 ea fluticasone 250 mcg-salmeterol 50 1 inh inhalation BID #60 ea 08/10/24 mcg/dose blistr powdr for inhalation Allergies Allergy/AdvReac Type Severity Reaction Status Date / Time doxycycline AdvReac Mild Rash Verified 08/28/24 20:36 Review of Systems Review of Systems ROS Unobtainable: All systems reviewed & are unremarkable except as noted in HPI and below Patient History Medical History (Updated 08/28/24 @ 21:25 by Ronald Banerjee, DO) History of kidney stones Inguinal hernia, incarcerated Rectal bleeding Ischemic cardiomyopathy Mitral stenosis Inguinal hernia Acute GI bleeding Thyroid nodule Hyperthyroidism Osteoarthritis Memory loss Anxiety Depression Rheumatic fever Chicken pox Herpes Urinary incontinence (2001) Kidney stones (1991) Presence of cardiac pacemaker (03/23/17) 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) Trigeminal neuralgia (~1995) Sleep apnea (08/24/13) Depression (08/20/14) Hypertension (1997) Coronary artery disease (1997) Dizziness Surgical History (Updated 05/20/22 @ 09:16 by Ricardo Fabina MD) History of prostate surgery AICD (automatic cardioverter/defibrillator) present Anesthesia History of angioplasty (2011) History of angioplasty (2007) History of angioplasty (1997) Status post transurethral resection of prostate (1999) Status post hernia repair (1979) Family History Brother Stroke Brother Stroke Brother Age: 91 Diabetes mellitus Hypertension Daughter Age: 61 Immune disorder Sister Age: 81 Heart disease Hypertension Stroke Son No problems noted. Father Heart attack Mother No problems noted. Social History marital status: household members: spouse alcohol intake: never substance use type: does not use alcohol intake frequency: 0-2 drinks per day Exam Narrative Exam Narrative: GENERAL: [84] year old patient appears stated age. Well-developed patient, in mild distress. HEAD: Atraumatic. Normocephalic. EYES: Pupils equal round and reactive. Extraocular motions intact. No scleral icterus. No injection or drainage. NECK: Trachea midline. Non tender CARDIOVASCULAR: Regular rate and rhythm without murmurs, gallops, or rubs. RESPIRATORY: Clear to auscultation. Breath sounds equal bilaterally. No wheezes, rales, or rhonchi. GASTROINTESTINAL: Abdomen soft, non-tender, nondistended. BACK: Nontender without deformity or crepitance. No flank tenderness. NEURO: AOx2. GCS 15 nonfocal neuro exam SKIN: No rash or erythema of visible areas Initial Vital Signs Initial Vital Signs: Vital Signs Temperature 99.5 F 08/28/24 20:37 Pulse Rate 70 08/28/24 20:37 Respiratory Rate 20 08/28/24 20:37 Blood Pressure 120/57 L 08/28/24 20:37 Pulse Oximetry 94 08/28/24 20:37 Oxygen Delivery Method Nasal Cannula 08/28/24 20:37 Oxygen Flow Rate 2 08/28/24 20:37 Course Orders Ordered: ED Orders 08/28/24 20:20 Complete Blood Count AUTO DIFF Stat Comprehensive Metabolic Panel Stat Lactate (Lactic Acid) Stat Lipase Stat Magnesium Stat NT-proBNP (BNP-Adult 18+) Stat PTT Partial Thromboplastin Charly Stat Procalcitonin Stat Prothrombin Time INR Stat Troponin & CK Cardiac Panel Stat 08/28/24 20:44 XR chest 1V Stat EKG-12 Lead Stat 08/28/24 20:45 Blood Culture Stat RT Consult Eval and Treat NOW 08/28/24 20:46 CT head/brain wo con Stat Sodium Chloride (Normal Saline 0.9%) 1,000 mls @ 1,000 mls/hr IV BOLUS ONE Stop: 08/28/24 21:44 Ondansetron HCl (Ondansetron 4 Mg/2 Ml Inj) 4 mg IV NOW PRN PRN Reason: Nausea And Vomiting Ondansetron HCl (Ondansetron 4 Mg Odt) 4 mg PO NOW PRN PRN Reason: Nausea And Vomiting Vital Signs Vital signs: Vital Signs - 8 hr 08/28/24 20:37 Temperature 99.5 F Pulse Rate 70 Respiratory Rate 20 Blood Pressure 120/57 L Pulse Oximetry 94 Oxygen Delivery Method Nasal Cannula Oxygen Flow Rate 2 MDM - Fall Lab Data 08/28/24 20:20 08/28/24 20:20 Labs: Lab Results 08/28/24 Range/Units 20:20 WBC 11.4 H (4.5-11.0) X10^3/uL RBC 4.70 (4.5-5.9) X10^6/uL Hgb 14.8 (13.5-17.5) g/dL Hct 44.5 (41-53) % MCV 94.8 (80-100) fL MCH 31.6 (26-34) PG MCHC 33.3 (30-36) % RDW 14.9 H (11.6-14.8) % Plt Count 148 L (150-400) X10^3/uL Neut % (Auto) 92.9 H (50-75) % Lymph % (Auto) 3.1 L (25-40) % [place] % (Auto) 3.0 (3-14) % Eos % (Auto) 0.3 L (2-4) % Baso % (Auto) 0.7 (0-2) % Neut # (Auto) 10932 H (8060-5632) /uL Lymph # (Auto) 400 L (7608-4959) /uL [place] # (Auto) 300 (0-900) /uL Eos # (Auto) 0 (0-450) /uL Baso # (Auto) 100 (0-100) /uL PT 17.5 H (9.4-12.5) SECONDS INR 1.6 H (0.9-1.3) APTT 30 (25.1-36.5) SECONDS Sodium 136 L (137-145) mmol/L Potassium 4.7 (3.4-5.1) mmol/L Chloride 103 (98-107) mmol/L Carbon Dioxide 22 (22-32) mmol/L BUN 28 H (9-20) mg/dL Creatinine 1.18 (0.66-1.25) mg/dL Estimated GFR > 60 (>60) mL/min BUN/Creatinine Ratio 23.7 H (6-22) Glucose 157 H (70-99) mg/dL Lactate 4.2 H* (0.7-2.1) mmol/L Calcium 9.6 (8.4-10.2) mg/dL Magnesium 2.0 (1.6-2.3) mg/dL Total Bilirubin 1.4 H (0.2-1.3) mg/dL AST 49 (17-59) IU/L ALT 36 (<50) IU/L Alkaline Phosphatase 106 (38-126) U/L Total Creatine Kinase 43 L (55-170) U/L Troponin I 0.020 (0.01-0.034) ng/mL NT-Pro-B Natriuret Pep 3690 H (<450) pg/mL Total Protein 7.0 (6.3-8.2) g/dL Albumin 4.0 (3.5-5.0) g/dL Globulin 3.0 (1.7-4.1) g/dL Albumin/Globulin Ratio 1.3 (1.0-2.8) Lipase 86 (23-300) U/L MDM Narrative Medical decision making narrative: Vital signs, nurse triage note, medication list, previous ER visits, and all imaging studies reviewed. Patient did not want any further workup at this time including blood work and imaging study and who is [id number] is in agreement. Discharge Plan Departure Patient Disposition: Home Clinical Impression: Fall Qualifiers: Encounter type: initial encounter Qualified Code(s): W19.XXXA - Unspecified fall, initial encounter Instructions: How to Prevent Falls Activity Restrictions/Additional Instructions: Return with new or worsening symptoms Prescriptions: No Action acetaminophen 650 mg tablet extended release 1,300 mg PO Q12H PRN (Reason: Pain, Moderate) diclofenac sodium [Voltaren Arthritis Pain] 1 % gel 2 g topical QID PRN (Reason: Pain (Scale Score 1-3)) Rx Instructions: apply to single elbow, wrist or hand; for hand includes palm/fingers/back of hand ascorbic acid (vitamin C) 500 mg tablet 500 mg PO BID cholecalciferol (vitamin D3) 50 mcg (2,000 unit) capsule 50 mcg PO DAILY melatonin 10 mg tablet 20 mg PO DAILY furosemide 20 mg tablet 20 mg PO DAILY potassium chloride [Klor-Con 10] 10 mEq tablet extended release 10 meq PO DAILY multivitamin Capsule 1 cap PO BID Eliquis 2.5 mg tablet 2.5 mg PO BID Vicks Sinex Ultra Fine Mist 12 0.05 % mist 2 spray intranasal Q12H PRN polyethylene glycol 3350 [Miralax] 17 gram/dose powder 17 g PO DAILY Rx Instructions: one scoop daily atorvastatin 40 mg tablet 40 mg PO HS Qty: 90 3RF clopidogrel [Plavix] 75 mg tablet 75 mg PO QDAY Qty: 90 3RF fluticasone propion-salmeterol 250-50 mcg/dose blister with device 1 inh inhalation BID Qty: 60 11RF losartan 25 mg tablet 12.5 mg PO DAILY Disabled Parking Permit See Rx Instructions .ROUTE .COMPLEX Qty: 1 0RF Rx Instructions: I find this patient to be medically disabled and qualified for Disabled Parking as indicated, and signed, on the accompanying Disabled Parking Application for Individuals ; metoprolol succinate 25 mg capsule,sprinkle,ER 24hr See Rx Instructions PO BID Rx Instructions: take 25mg QAM, 50mg QHS [id number] mg capsule 2 cap PO DAILY lansoprazole 15 mg tablet,disintegrat, delay rel 15 mg PO DAILY Mucinex DM 30-600 mg tablet extended release 12 hr 1 tab PO Q12H amiodarone 100 mg tablet 100 mg PO DAILY Referrals: Yash oHwe MD [Primary Care Provider, Family Practice] Stand Alone Forms: Patient Portal/API
[2024-08-28 21:20] LABS: Procalcitonin 0.385 ng/mL (<0.5)
[2024-08-28 21:30] VITALS: BP 91/54; PULSE 69; RESP 30; O2SAT 97
[2024-08-28 22:00] VITALS: BP 92/51; PULSE 69; RESP 26; O2SAT 98
--- NOTE | 2024-08-28 22:18 | PC.NURSE ---
Patient left in recliner and about 1 hour to 1 hour and a half he was found down on the ground. Does not report any pain. He denies SOB. Respirations are 26. 98% on RA. He has intermittent periods of sleepiness.
[2024-08-28 22:27] LABS: Reflexed Lactate in 2 Hours Y
== END 2024-08-28 22:18 | disposition home or self-care (01) ==
PROVIDERS: Emergency Provider Family Medicine; PCP Family Medicine
DX: Z51.5 Encounter for palliative care (principal); I48.0 Paroxysmal atrial fibrillation; E78.5 Hyperlipidemia, unspecified; I10 Essential (primary) hypertension; I25.10 Atherosclerotic heart disease of native coronary artery without angina pectoris; E11.9 Type 2 diabetes mellitus without complications; Z95.0 Presence of cardiac pacemaker; W19.XXXA Unspecified fall, initial encounter; Z79.01 Long term (current) use of anticoagulants
CPT/HCPCS: 80053; 82550; 83605; 83690; 83735; 83880; 84145; 84484; 85025; 85610; 85730; 93005; 99284

== ENCOUNTER → 2024-09-14 12:57 | Outpatient (CLI) | payer MEDICARE, SELFPAY ==
[2023-05-27 15:06] VITALS: BMI 25.6
[2024-09-14 13:37] LABS: Add Manual Diff / Slide Review NO; Hematocrit 41.4 % (41-53); Hemoglobin 14.0 g/dL (13.5-17.5); Lymphocytes Absolute Auto 900 /uL (1100-4500); Mean Corpuscular HGB Conc 33.8 % (30-36); Mean Corpuscular Hemoglobin 31.7 PG (26-34); Mean Corpuscular Volume 93.7 fL (80-100); Platelet Count 348 X10^3/uL (150-400)
[2024-09-14 13:39] LABS: Appearance Urine UA TURBID
[2024-09-14 13:40] LABS: Color Urine UA Red; Culture Indicated Urine Specimen Cultured; Occult Blood Urine UA 3+ (Negative)
== END ==
PROVIDERS: PCP Family Medicine; Referring Provider Internal Medicine Cardiovascular Disease; Visit Provider Internal Medicine Cardiovascular Disease
DX: R31.9 Hematuria, unspecified (principal)
CPT/HCPCS: 36415; 81003; 81015; 85025; 87077; 87086; 87186